=== PATIENT | female | born 1950 | race Caucasian/White ===

== ENCOUNTER → 2019-12-11 13:20 | Outpatient (BNVA) | payer MEDICARE, OTHER, SELFPAY | PROVIDERS: PCP Family Medicine; Referring Provider Family Medicine; Visit Provider Internal Medicine | DX: I25.10 Atherosclerotic heart disease of native coronary artery without angina pectoris (principal); I42.8 Other cardiomyopathies; I71.4 Abdominal aortic aneurysm, without rupture; I48.0 Paroxysmal atrial fibrillation; K29.71 Gastritis, unspecified, with bleeding; Z79.82 Long term (current) use of aspirin; Z79.899 Other long term (current) drug therapy; Z98.890 Other specified postprocedural states | CPT/HCPCS: 99212 ==

== ENCOUNTER → 2020-05-06 13:51 | Outpatient (BNVA) | payer MEDICARE, OTHER, SELFPAY | PROVIDERS: PCP Family Medicine; Visit Provider Internal Medicine | DX: Z98.890 Other specified postprocedural states (principal); I25.10 Atherosclerotic heart disease of native coronary artery without angina pectoris; I42.8 Other cardiomyopathies; I71.4 Abdominal aortic aneurysm, without rupture; I48.0 Paroxysmal atrial fibrillation; K92.2 Gastrointestinal hemorrhage, unspecified; I10 Essential (primary) hypertension | CPT/HCPCS: 93005; 99212 ==

== ENCOUNTER → 2020-06-18 12:42 | Outpatient (REF) | payer MEDICARE, OTHER, SELFPAY ==
--- NOTE | 2020-06-18 12:51 | CA_ITS ---
Transthoracic Echocardiogram Patient (Last, First, Middle): Pari Avery L Gender: Female Date of : 1950 Age: 70 Procedure Date: 06/18/2020 Procedure Type: Transthoracic Echocardiogram Location: OP Height: 152.4 cm Weight: 81.65 kg BSA: 1.78 m2 Heart Rate: bpm BP: 140 / 70 mmHg R D Internship: BLAYNE Cabrera MD: Lucien Clark MD Emd Teacher: Samuel Guevara MD Symptoms: Z98.890 - Other specified postprocedural states Study Quality: Fair ECG Rhythm: Sinus Conclusions: - 1. Normal LV systolic function with mild LVH with impaired relaxation filling pattern 2. Moderate left atrial enlargement 3. Mitral valve repair with mitral annular ring in place with mean gradient of 7 mm of mercury with calculated mitral valve area of 1.57 centimeters sq suggestive at least moderate mitral stenosis 4. Normal RV systolic pressure 5. No gross pericardial effusion Findings Left Ventricle Normal left ventricular size and systolic function. There is mildly increased left ventricular wall thickness. The visually estimated ejection fraction is between 55-60%. Diastolic function is indeterminate on the basis of available data. Right Ventricle Normal right ventricular cavity size and systolic function. Atria The left atrium is moderately dilated. There is no evidence of interatrial shunt. The right atrium is normal in size. Aortic Valve There is mild calcification of the aortic valve. There is no aortic valve stenosis. There is mild aortic valve regurgitation. Mitral Valve There is moderate anterior and mild posterior mitral leaflet thickening. There is moderate mitral annular calcification. There is mild mitral valve regurgitation. There is moderate mitral valve stenosis. Mitral annular ring in place. Mean gradient of 7 mm of mercury with calculated valve area of 1.58 cm2 by pressure half time method. This is suggestive of at least moderate mitral stenosis. Pulmonic Valve The pulmonic valve is likely normal. There is trace pulmonic valve regurgitation. Tricuspid Valve Normal tricuspid valve structure. There is mild tricuspid valve regurgitation. The right ventricular systolic pressure is normal. The right ventricular systolic pressure is 35 mmHg. Normal right atrial pressure. There is no evidence of pulmonary hypertension. Great Vessels All visible segments of the aorta are normal in size. The pulmonary artery was not well visualized. Venous The inferior vena cava is normal in size and collapses greater than 50% with inspiration. Pericardium/Pleural There is no evidence of pericardial effusion. Prior Study Comparison No significant change compared to prior study dated: 10/17/2019. Measurements 2D Linear Measurements IVSd: 1.22 0.6-0.9/0.6-1.0 cm LVIDd: 4.94 3.9-5.3/4.2-5.9 cm LVIDd Index: 2.78 2.4-3.2/2.2-3.1 cm/m2 LVIDs: 3.51 2.0-3.6 cm LVPWd: 1.19 0.7-1.1 cm Ao Root: 3.30 2.1-3.5 cm LA Diam: 3.60 2.7-3.8/3.0-4.0 cm LAIDs Index: 2.02 1.5-2.3 cm/m2 LV Mass: 287.57 67-162/88-224 g LV Mass Index: 161.56 43-95/49-115 g/m2 LVOT Diam: 2.10 3.0+(-)1.3 cm 2D Systolic Function EF 4C: 59.70 >55% EF 2C: 58.10 >55% EF BiP: 59.20 >55% Mitral Valve MV VTI: 0.69 MV Pk Rebel: 2.02 MV Mn Rebel: 1.26 MV Pk Grad: 16.00 MV Mn Grad: 7.00 MV Pk E: 1.55 MV PK A: 1.45 MV Decel Time: 466.00 E/A: 1.10 E'Lateral: 5.98 E'Medial: 5.66 E/E' Med: 27.40 E/E' Lat: 25.90 PHT: 139.00 MVA PHT: 1.58 MVA Continuity: 1.41 Decel [place]: 4.24 Aortic Valve AoV Pk Rebel: 1.84 AoV Mn Rebel: 1.17 AoV VTI: 0.36 AoV Pk Grad: 14.00 Aov Mn Grad: 6.00 LOPEZ Cont.VTI: 2.68 AI Pk Rebel: 3.95 AI [place]: 2.03 LVOT LVOT Pk Rebel: 1.24 LVOT Mn Rebel: 0.80 LVOT VTI: 0.28 LVOT Pk Grad: 6.00 LVOT Mn Grad: 3.00 LVOT Diam: 2.10 LVOT Area: 3.46 Diastolic Function MV Pk E: 1.55 MV Pk A: 1.45 E/A: 1.10 E'Medial: 5.66 E/E' Med: 27.40 E' Laterial: 5.98 E/E' Lat: 25.90 Tricuspid Valve TR Pk Rebel: 2.61 TR Pk Grad: 27.00 RA Press: 8.00 RVSP: 35.00 Great Vessels Aorta Ao Root-2D: 3.30 2.0-3.7 cm Ao Asc: 3.80 2.1-3.4 cm Ao Arch: 2.60 Updated in Other Vendor System with Status of Final Samuel Guevara MD electronically signed on 06/19/2020 3:00:34 PM with status of Final
== END ==
LOC: HO.CARD 12:42
PROVIDERS: PCP Family Medicine; Visit Provider Internal Medicine
DX: Z98.890 Other specified postprocedural states (principal)
CPT/HCPCS: 93306

== ENCOUNTER → 2020-06-24 12:56 | Outpatient (BNVA) | payer MEDICARE, OTHER, SELFPAY | PROVIDERS: PCP Family Medicine; Visit Provider Internal Medicine | DX: I25.10 Atherosclerotic heart disease of native coronary artery without angina pectoris (principal); I42.8 Other cardiomyopathies; I71.4 Abdominal aortic aneurysm, without rupture; I48.0 Paroxysmal atrial fibrillation; I10 Essential (primary) hypertension; K92.2 Gastrointestinal hemorrhage, unspecified; R06.02 Shortness of breath; Z98.890 Other specified postprocedural states | CPT/HCPCS: Q3014 ==

== ENCOUNTER → 2021-01-14 12:03 | Outpatient (BNVA) | payer MEDICARE, OTHER, SELFPAY | PROVIDERS: PCP Family Medicine; Visit Provider Internal Medicine | DX: I25.10 Atherosclerotic heart disease of native coronary artery without angina pectoris (principal); I42.8 Other cardiomyopathies; I71.4 Abdominal aortic aneurysm, without rupture; I48.0 Paroxysmal atrial fibrillation; I10 Essential (primary) hypertension; K92.2 Gastrointestinal hemorrhage, unspecified; R06.02 Shortness of breath; Z98.890 Other specified postprocedural states | CPT/HCPCS: 99212 ==

== ENCOUNTER → 2021-08-03 13:41 | Outpatient (REF) | payer MEDICARE, OTHER, SELFPAY ==
--- NOTE | 2021-08-03 13:44 | CA_ITS ---
Transthoracic Echocardiogram Patient (Last, First, Middle): Pari Avery L Gender: Female Date of : 1950 Age: 71 Procedure Date: 08/03/2021 Procedure Type: Transthoracic Echocardiogram Location: OP Height: 152.4 cm Weight: 79.38 kg BSA: 1.76 m2 Heart Rate: bpm BP: 160 / 80 mmHg Dredge Deckhand: SB Referring MD: Lucien Clark MD Symptoms: Z98.890 - Other specified postprocedural states Study Quality: Fair ECG Rhythm: Sinus with PVCs Conclusions: - The left ventricular systolic function is moderately decreased. The calculated ejection fraction is 34% by biplane method. - There is mildly decreased right ventricular systolic function. - s/p mitral valve repair. Mean gradient across the mitral valve 5-6 mm Hg at 65/Min. Mitral valve area by P1/2 1.6sqcm. Probable yckd-hg-daedhkgh mitral stenosis. Findings Left Ventricle Moderately increased left ventricular cavity size. The left ventricular systolic function is moderately decreased. The calculated ejection fraction is 34% by biplane method. There is moderate global hypokinesis. Diastolic function is indeterminate on the basis of available data. LV peak GLS 11.2%. Right Ventricle Normal right ventricular cavity size. There is mildly decreased right ventricular systolic function. Atria The left atrium is mildly dilated. The right atrium is normal in size. Aortic Valve There is a normal trileaflet aortic valve. There is no aortic valve stenosis. There is no aortic valve regurgitation. Mitral Valve There is mild mitral valve regurgitation. s/p mitral valve repair. Mean gradient across the mitral valve 5-6 mm Hg at 65/Min. Mitral valve area by P1/2 1.6sqcm. Probable [id number]-bk-[id number] mitral stenosis. Pulmonic Valve The pulmonic valve is likely normal. Tricuspid Valve There is trace tricuspid valve regurgitation. The right ventricular systolic pressure is 35 mmHg. Top normal RVSP. Great Vessels The asc aorta is normal in size. Venous The inferior vena cava is normal in size and collapses less than 50% with inspiration. Pericardium/Pleural There is no evidence of pericardial effusion. Prior Study Comparison Changes noted compared to prior study dated: 06/18/2020. LV dilated. LVEF lower. Measurements 2D Linear Measurements IVSd: 0.95 0.6-0.9/0.6-1.0 cm LVIDd: 6.58 3.9-5.3/4.2-5.9 cm LVIDd Index: 3.74 2.4-3.2/2.2-3.1 cm/m2 LVIDs: 5.58 2.0-3.6 cm LVPWd: 0.87 0.7-1.1 cm LA Diam: 3.80 2.7-3.8/3.0-4.0 cm LAIDs Index: 2.16 1.5-2.3 cm/m2 LV Mass: 321.45 67-162/88-224 g LV Mass Index: 182.64 43-95/49-115 g/m2 LVOT Diam: 2.60 3.0+(-)1.3 cm 2D Systolic Function EF 4C: 42.80 >55% EF 2C: 26.00 >55% EF BiP: 34.10 >55% Mitral Valve MV VTI: 0.52 MV Pk Rebel: 1.56 MV Mn Rebel: 1.06 MV Pk Grad: 10.00 MV Mn Grad: 5.00 MV Pk E: 1.48 MV PK A: 1.17 MV Decel Time: 463.00 E/A: 1.30 E'Lateral: 5.68 E'Medial: 3.44 E/E' Med: 43.00 E/E' Lat: 26.10 PHT: 136.00 MVA PHT: 1.62 MVA Continuity: 2.77 Decel [place]: 3.20 MR VTI: 1.85 Aortic Valve AoV Pk Rebel: 1.78 AoV Mn Rebel: 1.29 AoV VTI: 0.38 AoV Pk Grad: 13.00 Aov Mn Grad: 7.00 LOPEZ Cont.VTI: 3.76 LVOT LVOT Pk Rebel: 1.25 LVOT Mn Rebel: 0.95 LVOT VTI: 0.27 LVOT Pk Grad: 6.00 LVOT Mn Grad: 4.00 LVOT Diam: 2.60 LVOT Area: 5.31 Diastolic Function MV Pk E: 1.48 MV Pk A: 1.17 E/A: 1.30 E'Medial: 3.44 E/E' Med: 43.00 E' Laterial: 5.68 E/E' Lat: 26.10 Right Ventricle TAPSE (mm): 15.00 TVS' Rebel: 8.00 Tricuspid Valve TR Pk Rebel: 2.58 TR Pk Grad: 27.00 RA Press: 8.00 RVSP: 35.00 Great Vessels Aorta Ao Asc: 3.50 2.1-3.4 cm Pulmonary Valve PV Pk Rebel: 1.29 Peak PV Grad: 7.00 Updated in Other Vendor System with Status of Final Lucien Clark MD electronically signed on 08/06/2021 11:58:19 AM with status of Final
== END ==
LOC: HO.CARD 13:41
PROVIDERS: PCP Student in an Organized Health Care Education/Training Program; Visit Provider Internal Medicine
DX: Z98.890 Other specified postprocedural states (principal)
CPT/HCPCS: 93306; 93356

== ENCOUNTER → 2021-09-07 13:56 | Outpatient (BNVA) | payer MEDICARE, OTHER, SELFPAY | PROVIDERS: PCP Student in an Organized Health Care Education/Training Program; Visit Provider Internal Medicine | DX: I42.8 Other cardiomyopathies (principal); I25.10 Atherosclerotic heart disease of native coronary artery without angina pectoris; I49.3 Ventricular premature depolarization; I71.4 Abdominal aortic aneurysm, without rupture; I48.0 Paroxysmal atrial fibrillation; I10 Essential (primary) hypertension; K92.2 Gastrointestinal hemorrhage, unspecified; Z79.82 Long term (current) use of aspirin | CPT/HCPCS: 93005; 99212 ==

== ENCOUNTER → 2021-09-10 14:42 | Outpatient (REF) | payer MEDICARE, OTHER, SELFPAY ==
--- NOTE | 2021-09-10 14:46 | HM_ITS ---
Conclusion: 1. Patient was monitored for total period of 3 days 2. Baseline was normal sinus rhythm with average heart of 69 beats per minute 3. No significant pauses or bradycardia noted 4. Frequent wide complex run, longest lasting 12 beats and the fastest at 158 beats per minute, suggestive of nonsustained VT 5. Frequent episodes short runs of supra tachycardia with longest episode lasting 7 beats and fastest at 141 beats per minute 6. Total of 51,517 PVCs of 2 different morphology accounting for 7% of total beats account for frequent PVCs 7. Total of 44,325 PACs accounting for 14.7% of total beats account for frequent PACs 8. No patient reported events MTDD
== END ==
LOC: HO.CARD 14:42
PROVIDERS: PCP Student in an Organized Health Care Education/Training Program; Visit Provider Internal Medicine
DX: I49.3 Ventricular premature depolarization (principal)
CPT/HCPCS: 93242

== ENCOUNTER 2021-09-20 11:50 | Outpatient (REF) | payer MEDICARE, OTHER, SELFPAY ==
[2021-09-20 12:48] LABS: Hematocrit 40.2 % (37.0-47.0); Hemoglobin 13.2 g/dl (12.0-16.0); Mean Corpuscular HGB Conc 32.8 g/dl (31.0-35.0); Mean Corpuscular Hemoglobin 30.8 pg (27.0-33.0); Mean Corpuscular Volume 93.7 fL (80.0-98.0); Mean Platelet Volume 9.5 fL (9.4-12.3); Platelet Count 330 X10*3/uL (160-400); Red Blood Count 4.29 X10*6/uL (4.20-5.50); Red Cell Distribution Width 14.3 % (11.0-16.0); White Blood Count 11.8 X10*3/uL (4.8-10.8)
[2021-09-20 13:08] LABS: Anion Gap 16 (12-20); Blood Urea Nitrogen 17 mg/dL (9-16); Calcium 9.6 mg/dL (8.4-10.2); Carbon Dioxide 28 mmol/L (22-29); Chloride 101 mmol/L (96-108); Estimated Glomerular Filt Rate 44; Glucose Random 111 mg/dL (60-115); Potassium 4.7 mmol/L (3.3-5.1); Sodium 140 mmol/L (135-145)
[2021-09-20 14:40] LABS: INTERNATIONAL NORM RATIO 0.9 (0.9-1.1)
== END 2021-09-20 11:51 | disposition home or self-care (01) ==
LOC: HO.LAB 11:50
PROVIDERS: Visit Provider Internal Medicine
DX: I42.8 Other cardiomyopathies (principal)
CPT/HCPCS: 36415; 80048; 85027; 85610

== ENCOUNTER → 2021-10-04 10:49 | Outpatient (BNVA) | payer MEDICARE, OTHER, SELFPAY | PROVIDERS: PCP Student in an Organized Health Care Education/Training Program; Visit Provider Internal Medicine | DX: I42.8 Other cardiomyopathies (principal); I25.10 Atherosclerotic heart disease of native coronary artery without angina pectoris; I49.3 Ventricular premature depolarization; I71.4 Abdominal aortic aneurysm, without rupture; I48.0 Paroxysmal atrial fibrillation; I10 Essential (primary) hypertension; K92.2 Gastrointestinal hemorrhage, unspecified; Z98.890 Other specified postprocedural states | CPT/HCPCS: 99212 ==

== ENCOUNTER → 2021-12-10 14:37 | Outpatient (BNVA) | payer MEDICARE, OTHER, SELFPAY | PROVIDERS: PCP Student in an Organized Health Care Education/Training Program; Visit Provider Hospitalist | DX: J44.9 Chronic obstructive pulmonary disease, unspecified (principal) | CPT/HCPCS: 99202 ==

== ENCOUNTER → 2022-01-03 13:18 | Outpatient (BNVA) | payer MEDICARE, OTHER, SELFPAY | PROVIDERS: PCP Student in an Organized Health Care Education/Training Program; Visit Provider Internal Medicine | DX: I42.8 Other cardiomyopathies (principal); I25.10 Atherosclerotic heart disease of native coronary artery without angina pectoris; I49.3 Ventricular premature depolarization; I48.0 Paroxysmal atrial fibrillation; I71.40 Abdominal aortic aneurysm, without rupture, unspecified; I10 Essential (primary) hypertension; K92.2 Gastrointestinal hemorrhage, unspecified; Z98.890 Other specified postprocedural states | CPT/HCPCS: 99212 ==

== ENCOUNTER 2022-03-14 12:42 | Outpatient (REF) | payer MEDICARE, OTHER, SELFPAY ==
[2022-03-14 15:03] LABS: Blood Urea Nitrogen 20 mg/dL (9-16); Estimated Glomerular Filt Rate 33
--- NOTE | 2022-03-14 17:26 | PFT_ITS ---
Forced vital capacity 79%, FEV1 76%. FEV1/FVC ratio is 71. FEF 25-75 is 58% and MVV 64%. Post bronchodilator therapy, there is no significant change. Total lung capacity 99%. Residual volume 121%. Diffusion capacity is 51%. CONCLUSION: Mild obstructive airway disorder with some air trapping. No response to bronchodilator therapy. Clinical correlation is recommended. MD ANUJ Mccarty/MODL / [id number]
== END 2022-03-14 12:43 | disposition home or self-care (01) ==
LOC: HO.RESP 12:42
PROVIDERS: Nurse Practitioner Adult Health; Visit Provider Hospitalist
DX: J44.9 Chronic obstructive pulmonary disease, unspecified (principal)
CPT/HCPCS: 36415; 82565; 84520; 94060; 94727; 94729

== ENCOUNTER → 2022-03-25 12:55 | Outpatient (BNVA) | payer MEDICARE, OTHER, SELFPAY | PROVIDERS: PCP Student in an Organized Health Care Education/Training Program; Visit Provider Hospitalist | DX: J44.9 Chronic obstructive pulmonary disease, unspecified (principal); I42.8 Other cardiomyopathies; R06.02 Shortness of breath; Z87.891 Personal history of nicotine dependence; Z79.899 Other long term (current) drug therapy | CPT/HCPCS: 99212 ==

== ENCOUNTER → 2022-05-16 11:13 | Outpatient (BNVA) | payer MEDICARE, OTHER, SELFPAY | PROVIDERS: PCP Student in an Organized Health Care Education/Training Program; Visit Provider Hospitalist | DX: J44.9 Chronic obstructive pulmonary disease, unspecified (principal); I42.8 Other cardiomyopathies; R06.02 Shortness of breath | CPT/HCPCS: Q3014 ==

== ENCOUNTER → 2022-05-18 12:34 | Outpatient (REF) | payer MEDICARE, OTHER, SELFPAY ==
--- NOTE | 2022-05-18 12:54 | CA_ITS ---
Transthoracic Echocardiogram Patient (Last, First, Middle): Pari Avery L Gender: Female Date of : 1950 Age: 71 Procedure Date: 05/18/2022 Procedure Type: Transthoracic Echocardiogram Location: OP Height: 157.48 cm Weight: 81.65 kg BSA: 1.83 m2 Heart Rate: 53 bpm BP: 145 / 70 mmHg Medical Billing Instructor: LEON Cabrera MD: Lucien Clark MD Marketing And Development Coordinator: Samuel Guevara MD Symptoms: I25.10 - Atherosclerotic heart disease of [place] coronary artery without... Study Quality: Technically Difficult ECG Rhythm: NSR with Frequent ventricular premature beats Conclusions: - 1. Mildly reduced LV ejection fraction 45-50% with pseudonormal filling pattern 2. At least mildly dilated left atrium 3. Reported prior mitral valve repair with thickened leaflet especially posterior leaflet with possible mild mitral stenosis, not accurately defined 4. Normal RV systolic pressure 5. Mildly dilated ascending aorta at 3.8 cm Findings Left Ventricle Normal left ventricular cavity size. There is normal left ventricular wall thickness. The left ventricular systolic function is mildly decreased. The visually estimated ejection fraction is between 45-50%. Regional wall motion abnormalities can not be excluded due to suboptimal endocardial definition. Spectral Doppler is indicative of a pseudonormal filling pattern. Right Ventricle Moderately increased right ventricular cavity size. Atria The left atrium is mildly dilated. Interatrial shunt cannot be excluded. The right atrium is normal in size. Aortic Valve The aortic valve was not well visualized. There is no aortic valve stenosis. There is no aortic valve regurgitation. Mitral Valve The mitral valve was not well visualized. There is moderate anterior and severe posterior mitral leaflet thickening. The posterior mitral leaflet is immobile. There is moderate anterior and moderate posterior mitral annular calcification. There is moderate mitral annular calcification. There is trace mitral valve regurgitation. There is no mitral valve stenosis. reported prior mitral valve repair with severely thickened and a mobile posterior leaflet with mild stenosis not ruled out. Pulmonic Valve The pulmonic valve was not well visualized. Tricuspid Valve Likely normal tricuspid valve structure and function. There is mild tricuspid valve regurgitation. The right ventricular systolic pressure is normal. The right ventricular systolic pressure is 20 mmHg. Normal right atrial pressure. There is no evidence of pulmonary hypertension. Great Vessels The pulmonary artery was not well visualized. There is mild dilatation of the ascending aorta measuring 3.80 cm. Venous The inferior vena cava is normal in size and collapses greater than 50% with inspiration. Pericardium/Pleural The pericardium was not well visualized. Measurements 2D Linear Measurements IVSd: 0.88 0.6-0.9/0.6-1.0 cm LVIDd: 5.99 3.9-5.3/4.2-5.9 cm LVIDd Index: 3.27 2.4-3.2/2.2-3.1 cm/m2 LVIDs: 4.58 2.0-3.6 cm LVPWd: 1.15 0.7-1.1 cm Ao Root: 3.70 2.1-3.5 cm LA Diam: 4.70 2.7-3.8/3.0-4.0 cm LAIDs Index: 2.57 1.5-2.3 cm/m2 LV Mass: 313.17 67-162/88-224 g LV Mass Index: 171.13 43-95/49-115 g/m2 LVOT Diam: 2.20 3.0+(-)1.3 cm 2D Systolic Function EF 4C: 47.40 >55% EF 2C: 50.40 >55% EF BiP: 48.70 >55% Mitral Valve MV Pk E: 1.36 MV PK A: 1.38 MV Decel Time: 525.00 E/A: 1.00 E'Lateral: 10.60 E'Medial: 4.24 E/E' Med: 32.10 E/E' Lat: 12.80 PHT: 154.00 MVA PHT: 1.43 Decel [place]: 2.59 Aortic Valve AoV Pk Rebel: 2.10 AoV Mn Rebel: 1.34 AoV VTI: 0.48 AoV Pk Grad: 18.00 Aov Mn Grad: 9.00 LOPEZ Cont.VTI: 2.74 LVOT LVOT Pk Rebel: 1.73 LVOT Mn Rebel: 1.10 LVOT VTI: 0.34 LVOT Pk Grad: 12.00 LVOT Mn Grad: 6.00 LVOT Diam: 2.20 LVOT Area: 3.80 Diastolic Function MV Pk E: 1.36 MV Pk A: 1.38 E/A: 1.00 E'Medial: 4.24 E/E' Med: 32.10 E' Laterial: 10.60 E/E' Lat: 12.80 Right Ventricle TAPSE (mm): 20.30 TVS' Rebel: 11.70 Tricuspid Valve TR Pk Rebel: 1.73 TR Pk Grad: 12.00 RA Press: 8.00 RVSP: 20.00 Great Vessels Aorta Ao Root-2D: 3.70 2.0-3.7 cm Ao Asc: 3.80 2.1-3.4 cm Updated in Other Vendor System with Status of Final Samuel Guevara MD electronically signed on 05/19/2022 1:38:18 PM with status of Final
--- NOTE | 2022-05-18 12:54 | HM_ITS ---
Conclusion: 1. Patient was monitored for total period of 3 days 2. Baseline was normal sinus with average heart of 66 beats per minute 3. No significant pauses noted 4. Total of 67,125 PVCs accounting for 23.7% total beats account for very frequent PVCs 5. 26 events of nonsustained VT with longest of 3 beats and fastest at 158 beats per minute 6. Occasional PACs noted 7. Patient reported 3 symptoms of shortness of breath during the recording. , correlating with isolated PVCs MTDD
== END ==
LOC: HO.CARD 12:34
PROVIDERS: PCP Student in an Organized Health Care Education/Training Program; Visit Provider Internal Medicine
DX: I25.10 Atherosclerotic heart disease of native coronary artery without angina pectoris (principal); I42.8 Other cardiomyopathies; I49.3 Ventricular premature depolarization
CPT/HCPCS: 93242; 93306

== ENCOUNTER → 2022-08-10 14:06 | Outpatient (BNVA) | payer MEDICARE, OTHER, SELFPAY | PROVIDERS: Visit Provider Internal Medicine | DX: I45.10 Unspecified right bundle-branch block (principal); I49.3 Ventricular premature depolarization; I35.1 Nonrheumatic aortic (valve) insufficiency; I71.40 Abdominal aortic aneurysm, without rupture, unspecified; I42.8 Other cardiomyopathies; I48.0 Paroxysmal atrial fibrillation; I25.10 Atherosclerotic heart disease of native coronary artery without angina pectoris; I10 Essential (primary) hypertension; J44.9 Chronic obstructive pulmonary disease, unspecified; K92.2 Gastrointestinal hemorrhage, unspecified; Z98.890 Other specified postprocedural states; Z79.82 Long term (current) use of aspirin; Z79.899 Other long term (current) drug therapy | CPT/HCPCS: 93005; 99212 ==

== ENCOUNTER 2023-01-16 10:27 | Outpatient (AMB) | payer MEDICARE, OTHER, SELFPAY ==
[2023-01-16 10:33] VITALS: BP 126/66; PULSE 62; BMI 32.7
--- NOTE | 2023-01-16 10:33 | A.OFFVIS_ITS ---
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: No Accompanied by: Self / Same As Patient Allergies meperidine [Demerol] Allergy (Unknown, Verified 01/16/23 10:35) Anaphylaxis Losartan Allergy (Intermediate, Uncoded 01/16/23 10:35) Difficulty Swallowing Medication List - Last Reconciled 01/16/23 by Lucien Clark MD albuterol sulfate 90 mcg/actuation 2 inhalations inhalation Q6H PRN 30 days amlodipine 10 mg PO DAILY aspirin 81 mg PO DAILY atorvastatin 80 mg PO DAILY budesonide 0.5 mg (2 mL) inhalation DAILY 30 days calcifediol ER ([place]) 30 mcg PO BEDTIME carvedilol 12.5 mg PO BID 90 days furosemide 40 mg PO DAILY ipratropium-albuterol 0.5 mg-3 mg(2.5 mg base)/3 mL 3 mL inhalation Q6H PRN irbesartan 150 mg PO DAILY nebulizers As directed oxycodone-acetaminophen 10-325 mg tabs PO pantoprazole 40 mg PO ONCE HPI HPI Comments History of Present Illness Details Pari returns for follow-up. To recall, she has a history of severe mitral regurgitation that led to mitral valve repair. She has a history of endovascular repair of the abdominal aortic aneurysm in the past. She also has a history of nonischemic cardiomyopathy. Additionally, COPD. According to her, shortness of breath is just about the same as before. Leg swelling is her main problem and she has been noticing some swelling in lower extremities for the last few days. That is bothering her a lot. Otherwise, weight is just about the same as before as well. No other new concerns. She takes all her medications. [facility] Medical History (Updated 01/16/23 @ 11:03 by Lucien Clark MD) SOB (shortness of breath) Essential hypertension Hemorrhage of gastrointestinal tract, unspecified PAF (paroxysmal atrial fibrillation) Abdominal aortic aneurysm without rupture Nonischemic cardiomyopathy Atherosclerotic cardiovascular disease Benign essential hypertension Mitral regurgitation Pneumonia COPD (chronic obstructive pulmonary disease) Surgical History Status post mitral valve annuloplasty Abdominal aortic aneurysm History of open heart surgery History of appendectomy History of back surgery Family History Father Unknown family medical history Mother HTN (hypertension) Daughter Alive and well Social History Patient Tobacco Use Status: Former Tobacco user Quit Date: 07/2016 Tobacco use type: Cigarette Years Smoked: 30+ Years Review of Systems Const Denies weakness ENT Denies dizziness Card Denies chest pain, Denies syncope, Denies rapid heart rate, Denies pedal edema, Denies edema, Denies lightheadedness, Denies palpitations, Denies dyspnea on exertion and Denies orthopnea Resp Denies cough and Denies dyspnea on exertion GI Denies hematochezia and Denies change in stool character Musc Denies abnormal gait, Denies muscle cramps, Denies muscle weakness, Denies numbness, Denies radiating pain into limb and Denies tingling Neuro Denies abnormal gait, Denies dizziness, Denies syncope, Denies numbness, Denies tingling and Denies weakness Endo Denies palpitations Physical Exam Vital Signs: Last Vital Signs Pulse 62 01/16/23 10:33 BP 126/66 01/16/23 10:33 BMI result Body Mass Index 32.7 Const General: comfortable and no acute distress Orientation/consciousness: patient oriented x3 HEENT Other: Unremarkable Head: Yes normal to inspection Neck Neck: Yes normal visual inspection Chest Chest palpation & inspection: normal inspection of the chest Resp Auscultation: clear to auscultation bilaterally Cardio Palpation: normal PMI Heart sounds: S1 normal heart sound present, S2 normal heart sound present, no gallops, no murmurs and no rubs GI Palpation (GI): Soft to palpation Back/Spine/Pelvis Other: unremarkable Skin General skin exam: no rashes or lesions noted Neuro General: patient oriented x3 Extrem Other: 1+ edema General: Yes normal to inspection Psych Mental Status: mental status grossly normal Office Procedures EKG Details: EKG with sinus rhythm at 70/Min; frequent PVCs in a bigeminal pattern and ventricular couplet. Unifocal. [id number], Complete Assessment & Plan Assessment & Plan (1) Nonischemic cardiomyopathy: Code(s): I42.8 - Other cardiomyopathies Plan: In the most recent echocardiogram, LVEF 45-50%. Has been in the 30s in the past. Has been up and down. Last cardiac catheterization without any significant CAD. Normal filling pressures. With regard to leg swelling, could be multifactorial. Not clear how much is cardiac but there could also be components from COPD/right heart dysfunction as well as dependent edema. For medications, she is on Coreg. Could not take Entresto due to cost and now she is on Irbesartan. She is on Lasix-20 mg 2 tablets daily. We need to get a updated BMP and cardiac BNP and then we can up titrate the diuretics. As she also has CKD and no nephrology follow-up, we will refer to our team. (2) Status post mitral valve annuloplasty: Code(s): Z98.890 - Other specified postprocedural states Plan: Stable. There is a question of mild mitral stenosis but doubt anything significant. (3) Atherosclerotic cardiovascular disease: Code(s): I25.10 - Atherosclerotic heart disease of [place] coronary artery without angina pectoris Plan: Minimal irregularities on recent catheterization. Aspirin and statins. Last available LDL 59 mg/dL. Triglycerides were however high at 453 mg/dL. Weight loss is the main treatment for high triglycerides. (4) PVC (premature ventricular contraction): Code(s): I49.3 - Ventricular premature depolarization Plan: High PVC burden of 23% on the last Holter. Very brief runs, up to 3 beats. Then beta-olimpia dose was increased. Not clear if this is contributing to any leg swelling from high PVC burden cardiomyopathy. Consider amiodarone but she already has lung disease too. Somewhat of a difficult decision. Will decide based on labs. (5) Abdominal aortic aneurysm without rupture: Code(s): I71.4 - Abdominal aortic aneurysm, without rupture Qualifiers: Abdominal aorta location: unspecified Qualified Code(s): I71.40 - Abdominal aortic aneurysm, without rupture, unspecified Plan: Status post endovascular repair. She states that she has a follow-up coming up with vascular surgery at [facility] very soon. (6) PAF (paroxysmal atrial fibrillation): Code(s): I48.0 - Paroxysmal atrial fibrillation Plan: This was noted postoperatively after mitral valve surgery. She has had INRs greater than 10 and then Coumadin was stopped. (7) Hemorrhage of gastrointestinal tract, unspecified: Code(s): K92.2 - Gastrointestinal hemorrhage, unspecified Qualifiers: GI bleed type/associated pathology: unspecified gastrointestinal hemorrhage type Qualified Code(s): K92.2 - Gastrointestinal hemorrhage, unspecified Plan: In the setting of supratherapeutic INR. EGD then had revealed hemorrhagic gastritis. Still listed to be on pantoprazole. (8) Essential hypertension: Code(s): I10 - Essential (primary) hypertension Plan: Blood pressure seems stable. No changes. Orders: Orders TSH reflex Free T4 Today I48.0 - Paroxysmal atrial fibrillation Complete Blood Count no Diff Today I42.8 - Other cardiomyopathies Basic Metabolic Panel Today I42.8 - Other cardiomyopathies B Type Natriuretic Peptide Today I42.8 - Other cardiomyopathies, I50.9 - Heart failure, unspecified Liver Panel Today I25.10 - Atherosclerotic heart disease of [place] coronary artery without angina pectoris, R79.89 - Other specified abnormal findings of blood chemistry Referrals Nephrology Referral N18.9 - Chronic kidney disease, unspecified Coding Level of Care Code Est Pt Level 4 (11347) Diagnoses Nonischemic cardiomyopathy I42.8 Status post mitral valve annuloplasty Z98.890 Atherosclerotic cardiovascular disease I25.10 PVC (premature ventricular contraction) I49.3 Abdominal aortic aneurysm (AAA) without rupture, unspecified part I71.40 Abdominal aorta location: unspecified PAF (paroxysmal atrial fibrillation) I48.0 Gastrointestinal hemorrhage, unspecified gastrointestinal hemorrhage type K92.2 GI bleed type/associated pathology: unspecified gastrointestinal hemorrhage type Essential hypertension I10 CPT Codes EKG - CPT: [id number], Complete ([id number])
== END 2023-01-16 11:01 | disposition home or self-care (01) ==
PROVIDERS: PCP Student in an Organized Health Care Education/Training Program; Visit Provider Internal Medicine
DX: I42.8 Other cardiomyopathies (principal); Z98.890 Other specified postprocedural states; I25.10 Atherosclerotic heart disease of native coronary artery without angina pectoris; I49.3 Ventricular premature depolarization; I71.40 Abdominal aortic aneurysm, without rupture, unspecified; I48.0 Paroxysmal atrial fibrillation; K92.2 Gastrointestinal hemorrhage, unspecified; I10 Essential (primary) hypertension
CPT/HCPCS: 93010; 99214

== ENCOUNTER 2023-01-16 10:27 | Outpatient (REF) | payer MEDICARE, OTHER, SELFPAY ==
[2023-01-16 12:36] LABS: Hematocrit 35.2 % (37.0-47.0); Hemoglobin 11.6 g/dl (12.0-16.0); Mean Corpuscular Hemoglobin 31.6 pg (27.0-33.0); Mean Corpuscular Volume 95.9 fL (80.0-98.0); Mean Platelet Volume 9.6 fL (9.4-12.3); Platelet Count 257 X10*3/uL (160-400); Red Blood Count 3.67 X10*6/uL (4.20-5.50); Red Cell Distribution Width 13.7 % (11.0-16.0); White Blood Count 9.4 X10*3/uL (4.8-10.8)
[2023-01-16 13:13] LABS: B Type Natriuretic Peptide 367 pg/mL (<100)
[2023-01-16 13:23] LABS: Alanine Aminotransferase 16 U/L (0-31); Albumin Level 4.1 g/dL (3.5-5.0); Alkaline Phosphatase 102 U/L (39-117); Anion Gap 13 (12-20); Aspartate Amino Transferase 26 U/L (5-31); Bilirubin Direct 0.2 mg/dL (0.0-0.5); Bilirubin Total 0.5 mg/dL (0.0-1.0); Blood Urea Nitrogen 20 mg/dL (9-16); Calcium 9.6 mg/dL (8.4-10.2); Carbon Dioxide 29 mmol/L (22-29); Chloride 102 mmol/L (96-108); Estimated Glomerular Filt Rate 36; Glucose Random 112 mg/dL (60-115); Potassium 4.7 mmol/L (3.3-5.1); Sodium 139 mmol/L (135-145); Total Protein 6.8 g/dL (6.5-8.0)
[2023-01-16 13:40] LABS: TSH reflex Free T4 1.73 uIU/mL (0.32-4.0)
== END 2023-01-16 10:28 | disposition home or self-care (01) ==
LOC: HO.LAB 10:27
PROVIDERS: PCP Student in an Organized Health Care Education/Training Program; Visit Provider Internal Medicine
DX: I48.0 Paroxysmal atrial fibrillation (principal); I11.0 Hypertensive heart disease with heart failure; I50.9 Heart failure, unspecified; I42.8 Other cardiomyopathies; I25.10 Atherosclerotic heart disease of native coronary artery without angina pectoris; K92.2 Gastrointestinal hemorrhage, unspecified; R79.89 Other specified abnormal findings of blood chemistry; Z98.890 Other specified postprocedural states
CPT/HCPCS: 36415; 80048; 80076; 83880; 84443; 85027; 93005; 99212

== ENCOUNTER 2023-02-27 13:12 | Outpatient (AMB) | payer MEDICARE, OTHER, SELFPAY ==
--- NOTE | 2023-02-27 13:12 | A.OFFVIS_ITS ---
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 [place], [place] further away for her and she is looking to relocate her providers to minimize the distance. The patient has use Trelegy with good effect. Although she still continues to complaint of a productive cough. She brings because up in a daily basis. Moderate in amount. Usually is clear. The patient also complains of shortness of breath with activity. Did talk about pulmonary rehabilitation. although be hard for specially with winter coming up. We did talk about other alternatives including online pulmonary rehabilitation. She did have a CT scan the chest lasting 2020 at [facility]. I did review the results. Was a CTA so it ruled out pulmonary emboli. The patient did have evidence of bullous disease and also areas of atelectasis. No significant pulmonary nodules noted. 03/25/2022 the patient has a telehealth v isit today. She started developing GI symptoms and she felt uncomfortable leaving the house. Denies having any fevers or chills or any respiratory complaints. She is no longer using the Trelegy. She continues use the DuoNeb 3 times a day. She did get the budesonide but she has not started as of yet. Now that she is off the Trelegy she can go ahead and start budesonide once a day. Also did request she can try to stop taking the DuoNeb twice a day and then also as needed in between. The patient did have pulmonary function studies which we personally reviewed. She has a mild obstruction consistent with COPD and a moderate diffusion impairment secondary to likely emphysema. The patient will benefit from pulmonary rehabilitation. She also has an echocardiogram pending. She is looking to start pulmonary rehabilitation in the springtime with the weather gets a little better. Also, will have her follow-up dense we can reassess her overall condition. 05/16/2022 the patient is here for a [place] telehealth follow-up visit. The patient is now dealing with likely a GI bug. She has significant nausea and vomiting. Therefore she stated home. The patient has a telehealth visit today. She did start the budesonide nebulized therapy she seems to be tolerating it. She is using it with DuoNeb. She has not had to use her rescue inhaler. We did again review her pulmonary function studies. The patient does have significant emphysema bit and does have evidence of a decreased diffusion impairment. And also her spirometry demonstrates concavity of the expiratory limb suggesting [id number] obstructive airway disease. The patient will be a great candidate for rehab. We have put in orders for rehab. She has not heard yet. I will put another order in just to make sure. She is also having a full cardiac workup. Will follow-up after she starts rehab to see her progress. 02/27/2023 the patient is here for a tele health visit. She was in her usual state health until she went to the pharmacy at [facility] and she ended up getting 2 vaccines together. She had the RSV and the COVID shot together. After she started developing worsening shortness of breath nonproductive cough chest tightness. She has been using her inhaler although she has a nebulizer she does not have the right solution. She is complaining of very dry mouth. Therefore will switch over the DuoNeb to a regular albuterol. And she should also restart the budesonide. Because of the exacerbation patient will also be started on short course of antibiotics and prednisone to help her with her symptom relief. The patient did not do pulmonary rehabilitation since it was hard for her to travel with the cold weather. She is looking forward to doing it when the better season. Will follow-up in treated for months and will discuss that at that time. [facility] Medical History (Updated 02/27/23 @ 13:15 by Roshan Parikh MD) SOB (shortness of breath) Essential hypertension Hemorrhage of gastrointestinal tract, unspecified PAF (paroxysmal atrial fibrillation) Abdominal aortic aneurysm without rupture Nonischemic cardiomyopathy Atherosclerotic cardiovascular disease Benign essential hypertension Mitral regurgitation Pneumonia COPD (chronic obstructive pulmonary disease) Surgical History Status post mitral valve annuloplasty Abdominal aortic aneurysm History of open heart surgery History of appendectomy History of back surgery Family History Father Unknown family medical history Mother HTN (hypertension) Daughter Alive and well Social History Patient Tobacco Use Status: Former Tobacco user Quit Date: 07/2016 Tobacco use type: Cigarette Years Smoked: 30+ Years Review of Systems Const Denies chills, Denies fatigue, Denies fever(s), Denies frequent falls, Denies weakness, Denies weight gain and Denies weight loss ENT Denies dizziness Card Denies chest pain, Denies leg edema, Denies lightheadedness, Denies palpitations, Denies dyspnea, Reports dyspnea on exertion, Denies orthopnea and Denies other (Loss of consciousness) Resp Reports chest congestion, Reports cough, Denies dyspnea, Reports dyspnea on exertion and Reports wheezing GI Reports as per HPI Musc Denies abnormal gait, Denies muscle weakness, Denies numbness, Denies radiating pain into limb and Denies tingling Neuro Denies abnormal gait, Denies dizziness, Denies frequent falls, Denies numbness, Denies tingling and Denies weakness Endo Denies fatigue and Denies palpitations Aller/Immun Reports wheezing Physical Exam Vital Signs: BMI result Body Mass Index 32.0 Const General: alert Orientation/consciousness: patient oriented x3 HEENT Other: Unremarkable Resp Effort & Inspection: able to speak in complete sentences Back/Spine/Pelvis Other: unremarkable Neuro General: patient oriented x3 Psych Mental Status: mental status grossly normal Assessment & Plan Assessment & Plan (1) COPD (chronic obstructive pulmonary disease): Code(s): J44.9 - Chronic obstructive pulmonary disease, unspecified Qualifiers: COPD type: COPD with acute exacerbation Qualified Code(s): J44.1 - Chronic obstructive pulmonary disease with (acute) exacerbation (2) Nonischemic cardiomyopathy: Code(s): I42.8 - Other cardiomyopathies (3) SOB (shortness of breath): Code(s): R06.02 - Shortness of breath Plan stop Duoneb BID due to dry mouth Start Albuterol Nebs TID Add BUdesonide via neb in AM Prednisone taper doxycycline F/U 3-4 months Medications: New prednisone PO daily; Take 2 tabs daily x 5 days, then 1 tablet daily x 5 days 10 days 15 tabs 0RF albuterol sulfate 2.5 mg (3 mL) inhalation TID 30 days 270 mL 11RF J44.9 - Chronic obstructive pulmonary disease, unspecified doxycycline hyclate 100 mg PO BID 7 days 14 caps 0RF Telehealth Telehealth Location of provider rendering services: practice address Location of patient: address on file Patient Identification confirmed using: Name, : Yes Telehealth method: voice only Patient verbally consented to treatment: Yes Patient verbally consented to billing insurance company: Yes Patient informed of any privacy concerns related to visit: Yes Coding Level of Care Code Tele Est Pt Level 4 (12855) Diagnoses Chronic obstructive pulmonary disease with acute exacerbation J44.1 COPD type: COPD with acute exacerbation Nonischemic cardiomyopathy I42.8 SOB (shortness of breath) R06.02 Time Spent (min) 15
[2023-02-27 13:13] VITALS: BMI 32.0
== END 2023-02-27 13:40 | disposition home or self-care (01) ==
LOC: HO.HPS 13:12
PROVIDERS: PCP Student in an Organized Health Care Education/Training Program; Visit Provider Hospitalist
DX: J44.1 Chronic obstructive pulmonary disease with (acute) exacerbation (principal); I42.8 Other cardiomyopathies
CPT/HCPCS: 99442

== ENCOUNTER → 2023-02-27 13:12 | Outpatient (BNVA) | payer MEDICARE, OTHER, SELFPAY | PROVIDERS: PCP Student in an Organized Health Care Education/Training Program; Visit Provider Hospitalist ==

== ENCOUNTER 2023-04-17 09:04 | Outpatient (REF) | payer MEDICARE, OTHER, SELFPAY ==
--- NOTE | ~2023-04-17 | US_ITS ---
EXAMINATION: US ABDOMEN COMPLETE CLINICAL INFORMATION: Abdominal distention. Question of ascites. COMPARISON: Renal ultrasound 05/03/2017. CT abdomen and pelvis 01/17/2017. TECHNIQUE: Real-time imaging of the abdominal viscera. Limited visualization due to bowel gas. FINDINGS: PANCREAS: Limited visualization of the pancreatic head and tail. Imaged portions of pancreatic body is heterogeneous. ABDOMINAL AORTA: Severely limited visualization. Previously identified abdominal aortic aneurysm was better characterized on CT angiogram of 01/17/2017 when it measured 4.6 cm. Mid abdominal aorta measures 3.9 cm in AP dimension where imaged. Initial set of very limited images of the distal abdominal suggest measurements of approximately 6.2 x 6.7 cm. The hydroelectric plant operator later presented an additional set of images of the abdominal aorta with measurements of 3.8 cm AP and 3.5 cm transverse. Radiologist was not in attendance. Images were later) for interpretation. The abdominal aortic aneurysm demonstrates a complex internal appearance suggesting possible plaque and thrombus, better characterized on prior CT scan. Dedicated vascular CT scan of the abdominal aorta is recommended for further evaluation. INFERIOR VENA CAVA: Visualized portions are normal. LIVER: Increased hepatic parenchymal heterogeneity and echogenicity could be associated with hepatocellular disease/hepatic steatosis and substantially limits visualization. Correlation with liver function tests and clinical exam recommended to determine further management. GALLBLADDER: Multiple small gallstones. Gallbladder wall thickness of 3 mm. COMMON BILE DUCT: Normal in caliber measuring 0.3 cm in diameter. RIGHT KIDNEY: Increased renal echogenicity. No hydronephrosis. No renal calculi. Limited visualization. The kidney measures 9.8 cm in maximum dimension. LEFT KIDNEY: A 3 mm mid pole calculus. No hydronephrosis. Upper pole 1.7 cm cyst with punctate mural calcification is difficult to characterize due to limited visualization and was not identified on prior ultrasound. Limited visualization. The kidney measures 9.8 cm in maximum dimension. SPLEEN: Normal. The spleen measures 9.1 cm in maximum dimension. FREE FLUID: None. US/US abdomen complete IMPRESSION: 1. Previously identified abdominal aortic aneurysm was better characterized on CT angiogram of 01/17/2017 when it measured 4.6 cm. Mid abdominal aorta measures 3.9 cm in AP dimension where imaged. Initial set of very limited images of the distal abdominal suggest measurements of approximately 6.2 x 6.7 cm. The hydroelectric plant operator later presented an additional set of images of the abdominal aorta with measurements of 3.8 cm AP and 3.5 cm transverse. Radiologist was not in attendance. Images were later provided for interpretation. The abdominal aortic aneurysm demonstrates a complex internal appearance suggesting possible plaque and thrombus, better characterized on prior CT scan. Dedicated vascular CT scan of the abdominal aorta is recommended for further evaluation. 2. Increased hepatic parenchymal heterogeneity and echogenicity could be associated with hepatocellular disease/hepatic steatosis and substantially limits visualization. Correlation with liver function tests and clinical exam recommended to determine further management. 3. Cholelithiasis. 4. Left renal 3 mm mid pole calculus. No hydronephrosis. 5. Left renal upper pole 1.7 cm cyst with punctate mural calcification is difficult to characterize due to limited visualization and was not identified on prior ultrasound. This study was presented today April 18, 2023 for interpretation. PSA staff will provide results to referring provider at this time.
--- NOTE | ~2023-04-17 | US_ITS ---
EXAMINATION: US ABDOMEN COMPLETE CLINICAL INFORMATION: Abdominal distention. Question of ascites. COMPARISON: Renal ultrasound 05/03/2017. CT abdomen and pelvis 01/17/2017. TECHNIQUE: Real-time imaging of the abdominal viscera. Limited visualization due to bowel gas. FINDINGS: PANCREAS: Limited visualization of the pancreatic head and tail. Imaged portions of pancreatic body is heterogeneous. ABDOMINAL AORTA: Severely limited visualization. Previously identified abdominal aortic aneurysm was better characterized on CT angiogram of 01/17/2017 when it measured 4.6 cm. Mid abdominal aorta measures 3.9 cm in AP dimension where imaged. Initial set of very limited images of the distal abdominal suggest measurements of approximately 6.2 x 6.7 cm. The chief hospital administrator later presented an additional set of images of the abdominal aorta with measurements of 3.8 cm AP and 3.5 cm transverse. Radiologist was not in attendance. Images were later) for interpretation. The abdominal aortic aneurysm demonstrates a complex internal appearance suggesting possible plaque and thrombus, better characterized on prior CT scan. Dedicated vascular CT scan of the abdominal aorta is recommended for further evaluation. INFERIOR VENA CAVA: Visualized portions are normal. LIVER: Increased hepatic parenchymal heterogeneity and echogenicity could be associated with hepatocellular disease/hepatic steatosis and substantially limits visualization. Correlation with liver function tests and clinical exam recommended to determine further management. GALLBLADDER: Multiple small gallstones. Gallbladder wall thickness of 3 mm. COMMON BILE DUCT: Normal in caliber measuring 0.3 cm in diameter. RIGHT KIDNEY: Increased renal echogenicity. No hydronephrosis. No renal calculi. Limited visualization. The kidney measures 9.8 cm in maximum dimension. LEFT KIDNEY: A 3 mm mid pole calculus. No hydronephrosis. Upper pole 1.7 cm cyst with punctate mural calcification is difficult to characterize due to limited visualization and was not identified on prior ultrasound. Limited visualization. The kidney measures 9.8 cm in maximum dimension. SPLEEN: Normal. The spleen measures 9.1 cm in maximum dimension. FREE FLUID: None.
--- NOTE | 2023-04-17 09:45 | HM_ITS ---
Conclusion: 1. Patient was monitored for total period of 3 days and 1 hour 2. Baseline was normal sinus rhythm with average heart of 72 beats per minute 3. Frequent PACs noted, isolated with total burden of 5.7% 4. Frequent PVCs noted with total burden of 14.8% 5. No patient reported events MTDD
== END 2023-04-17 09:05 | disposition home or self-care (01) ==
LOC: HO.US 09:04
PROVIDERS: PCP Student in an Organized Health Care Education/Training Program; Visit Provider Internal Medicine
DX: I49.3 Ventricular premature depolarization (principal); I49.1 Atrial premature depolarization; I71.40 Abdominal aortic aneurysm, without rupture, unspecified; R14.0 Abdominal distension (gaseous)
CPT/HCPCS: 76700; 93242

== ENCOUNTER → 2023-04-17 09:45 | Outpatient (BNV) | payer MEDICARE, OTHER, SELFPAY | PROVIDERS: PCP Student in an Organized Health Care Education/Training Program; Visit Provider Internal Medicine Cardiovascular Disease | DX: I49.1 Atrial premature depolarization (principal); I49.3 Ventricular premature depolarization | CPT/HCPCS: 93244 ==

== ENCOUNTER → 2023-05-29 15:33 | Outpatient (BNVA) | payer MEDICARE, SELFPAY | PROVIDERS: PCP Student in an Organized Health Care Education/Training Program; Visit Provider Hospitalist ==

== ENCOUNTER 2023-05-29 15:45 | Outpatient (AMB) | payer MEDICARE, SELFPAY ==
[2023-05-29 15:34] VITALS: BMI 32.0
--- NOTE | 2023-05-29 15:34 | MHC.OFFVIS ---
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 She has [place] doing most of [place], it [place] further away for her and she is looking to relocate her providers to minimize the distance. The patient has use Trelegy with good effect. Although she still continues to complaint of a productive cough. She brings because up in a daily basis. Moderate in amount. Usually is clear. The patient also complains of shortness of breath with activity. Did talk about pulmonary rehabilitation. although be hard for specially with winter coming up. We did talk about other alternatives including online pulmonary rehabilitation. She did have a CT scan the chest lasting 2020 at [facility]. I did review the results. Was a CTA so it ruled out pulmonary emboli. The patient did have evidence of bullous disease and also areas of atelectasis. No significant pulmonary nodules noted. 03/25/2022 the patient has a telehealth visit today. She started developing GI symptoms and she felt uncomfortable leaving the house. Denies having any fevers or chills or any respiratory complaints. She is no longer using the Trelegy. She continues use the DuoNeb 3 times a day. She did get the budesonide but she has not started as of yet. Now that she is off the Trelegy she can go ahead and start budesonide once a day. Also did request she can try to stop taking the DuoNeb twice a day and then also as needed in between. The patient did have pulmonary function studies which we personally reviewed. She has a mild obstruction consistent with COPD and a moderate diffusion impairment secondary to likely emphysema. The patient will benefit from pulmonary rehabilitation. She also has an echocardiogram pending. She is looking to start pulmonary rehabilitation in the springtime with the weather gets a little better. Also, will have her follow-up dense we can reassess her overall condition. 05/16/2022 the patient is here for a pulmonary telehealth follow-up visit. The patient is now dealing with likely a GI bug. She has significant nausea and vomiting. Therefore she stated home. The patient has a telehealth visit today. She did start the budesonide nebulized therapy she seems to be tolerating it. She is using it with DuoNeb. She has not had to use her rescue inhaler. We did again review her pulmonary function studies. The patient does have significant emphysema bit and does have evidence of a decreased diffusion impairment. And also her spirometry demonstrates concavity of the expiratory limb suggesting [id number] obstructive airway disease. The patient will be a great candidate for rehab. We have put in orders for rehab. She has not heard yet. I will put another order in just to make sure. She is also having a full cardiac workup. Will follow-up after she starts rehab to see her progress. 02/27/2023 the patient is here for a telehealth visit. She was in her usual state health until she went to the pharmacy at [facility] and she ended up getting 2 vaccines together. She had the RSV and the COVID shot together. After she started developing worsening shortness of breath nonproductive cough chest tightness. She has been using her inhaler although she has a nebulizer she does not have the right solution. She is complaining of very dry mouth. Therefore will switch over the DuoNeb to a regular albuterol. And she should also restart the budesonide. Because of the exacerbation patient will also be started on short course of antibiotics and prednisone to help her with her symptom relief. The patient did not do pulmonary rehabilitation since it was hard for her to travel with the cold weather. She is looking forward to doing it when the better season. Will follow-up in treated for months and will discuss that at that time. 05/29/2023 the patient has a telehealth sick visit. She has been sick now for about 3-4 days. She started developing a sore throat and then chest congestion and productive cough. The mucus is now greenish in color. Moderate severity. Also complaining worsening shortness of breath. She has been using her nebulized therapy with partial improvement. She did swab for COVID-19 was negative. Denies any fevers or chills. The patient has not had a chest x-ray in some time. The last visit back in February she was also sick and she did require antibiotics and prednisone. Will go ahead and request a chest x-ray at this time. The patient should also start prednisone antibiotics at this time. If the patient is no better in 24 hours she should call the office. If she is worse she should also call Earlier. Otherwise follow-up in 3-4 months. [facility] Medical History (Updated 02/27/23 @ 13:15 by Roshan Parikh MD) SOB (shortness of breath) Essential hypertension Hemorrhage of gastrointestinal tract, unspecified PAF (paroxysmal atrial fibrillation) Abdominal aortic aneurysm without rupture Nonischemic cardiomyopathy Atherosclerotic cardiovascular disease Benign essential hypertension Mitral regurgitation Pneumonia COPD (chronic obstructive pulmonary disease) Surgical History Status post mitral valve annuloplasty Abdominal aortic aneurysm History of open heart surgery History of appendectomy History of back surgery Family History Father Unknown family medical history Mother HTN (hypertension) Daughter Alive and well Social History Patient Tobacco Use Status: Former Tobacco user Quit Date: 07/2016 Tobacco use type: Cigarette Years Smoked: 30+ Years Review of Systems Const Denies chills, Reports fatigue, Denies fever(s), Denies frequent falls, Denies weakness, Denies weight gain and Denies weight loss ENT Denies dizziness Card Denies chest pain, Denies leg edema, Denies lightheadedness, Denies palpitations, Reports dyspnea, Reports dyspnea on exertion, Denies orthopnea and Denies other (Loss of consciousness) Resp Reports change in phlegm color, Reports chest congestion, Reports cough, Reports dyspnea, Reports dyspnea on exertion and Reports wheezing GI Reports as per HPI Musc Denies abnormal gait, Denies muscle weakness, Denies numbness, Denies radiating pain into limb and Denies tingling Neuro Denies abnormal gait, Denies dizziness, Denies frequent falls, Denies numbness, Denies tingling and Denies weakness Endo Reports fatigue and Denies palpitations Aller/Immun Reports wheezing Physical Exam Vital Signs: BMI result Body Mass Index 32.0 Const General: alert Orientation/consciousness: patient oriented x3 HEENT Other: Unremarkable Resp Effort & Inspection: normal respiratory effort and Actively coughing Quality: actively coughing Back/Spine/Pelvis Other: unremarkable Neuro General: patient oriented x3 Psych Mental Status: mental status grossly normal Telehealth Telehealth Telehealth Platform: Telephone Location of provider rendering services: practice address Location of patient: address on file Patient Identification confirmed using: Name, : Yes Telehealth method: voice only Patient verbally consented to treatment: Yes Patient verbally consented to billing insurance company: Yes Patient informed of any privacy concerns related to visit: Yes Assessment & Plan Assessment & Plan (1) COPD (chronic obstructive pulmonary disease): Code(s): J44.9 - Chronic obstructive pulmonary disease, unspecified Category: Medical Qualifiers: COPD type: COPD with acute exacerbation Qualified Code(s): J44.1 - Chronic obstructive pulmonary disease with (acute) exacerbation (2) Nonischemic cardiomyopathy: Code(s): I42.8 - Other cardiomyopathies Category: Medical (3) SOB (shortness of breath): Code(s): R06.02 - Shortness of breath Category: Medical Plan start Augmentin start prednisone taper continue Albuterol Nebs TID BUdesonide via neb in AM CXR F/U 3-4 months Orders: Orders XR chest 2V Today J44.1 - Chronic obstructive pulmonary disease with (acute) exacerbation Medications: New prednisone PO daily; Take 2 tabs daily x 5 days, then 1 tablet daily x 5 days 10 days 15 tabs 0RF amoxicillin-pot clavulanate 875-125 mg 1 tab PO BID 10 days 20 tabs 0RF dextromethorphan-guaifenesin 10-100 mg/5 mL 10 mL PO Q6H 14 days PRN 300 mL 1RF cough
== END 2023-05-29 16:09 | disposition home or self-care (01) ==
PROVIDERS: PCP Student in an Organized Health Care Education/Training Program; Visit Provider Hospitalist
DX: J44.1 Chronic obstructive pulmonary disease with (acute) exacerbation (principal); I42.8 Other cardiomyopathies
CPT/HCPCS: 99442

== ENCOUNTER 2023-06-20 15:11 | Outpatient (AMB) | payer MEDICARE, SELFPAY ==
--- NOTE | 2023-06-20 15:31 | A.OFFVIS_ITS ---
Vital Signs 06/20/23 15:32 Height 5 ft 2 in Weight 159 lb 2.78 oz BMI 29.1 BP 120/52 L Blood Pressure Location Lt brachial Position Sitting Pulse 71 Pulse Source Monitor Intake Visit Reasons: 3 mth f/up (rs) Fisher Troll Line Required: No Allergies meperidine [Demerol] Allergy (Unknown, Verified 06/20/23 15:35) Anaphylaxis Losartan Allergy (Intermediate, Uncoded 06/20/23 15:35) Difficulty Swallowing Medication List - Last Reconciled 06/20/23 by Nydia Melton NP-C albuterol sulfate 2.5 mg (3 mL) inhalation TID 30 days albuterol sulfate 90 mcg/actuation 2 puffs PO Q6H PRN amlodipine 10 mg PO DAILY amoxicillin-pot clavulanate 875-125 mg 1 tab PO BID 10 days aspirin 81 mg PO DAILY atorvastatin 80 mg PO DAILY budesonide 0.5 mg (2 mL) inhalation DAILY calcifediol ER (Rayaldee) 30 mcg PO BEDTIME carvedilol 12.5 mg PO BID 90 days dextromethorphan-guaifenesin 10-100 mg/5 mL 10 mL PO Q6H PRN 14 days furosemide 40 mg PO BID 90 days irbesartan 150 mg PO DAILY nebulizers As directed oxycodone-acetaminophen 10-325 mg tabs PO pantoprazole 40 mg PO ONCE prednisone PO daily; Take 2 tabs daily x 5 days, then 1 tablet daily x 5 days 10 days HPI HPI 3 mth f/up (rs): Details: Pari is a 73-year-old female with past medical history of hypertension, severe mitral regurgitation status post mitral valve repair, abdominal aorta endovascular repair, nonischemic cardiomyopathy with last known EF 45-50%, COPD, paroxysmal atrial fibrillation, frequent PVCs who presents for follow-up after recent Holter monitor. Today she reports she has been feeling generally well. She does not notice any heart palpitations. She does have some chronic shortness of breath with activity but it is unchanged recently. No PND, orthopnea or edema. No chest discomfort at rest or with activity. No lightheadedness, presyncope, syncope, falls. Taking meds as directed. [facility] Medical History SOB (shortness of breath) Essential hypertension Hemorrhage of gastrointestinal tract, unspecified PAF (paroxysmal atrial fibrillation) Abdominal aortic aneurysm without rupture Nonischemic cardiomyopathy Atherosclerotic cardiovascular disease Benign essential hypertension Mitral regurgitation Pneumonia COPD (chronic obstructive pulmonary disease) Surgical History Status post mitral valve annuloplasty Abdominal aortic aneurysm History of open heart surgery History of appendectomy History of back surgery Family History Father Unknown family medical history Mother HTN (hypertension) Daughter Alive and well Social History Patient Tobacco Use Status: Former Tobacco user Quit Date: 07/2016 Tobacco use type: Cigarette Years Smoked: 30+ Years Review of Systems Const All systems reviewed & are unremarkable except as noted in HPI and below ENT Denies dizziness Card Denies chest pain, Denies chest pain at rest, Denies chest pain with activity, Denies rapid heart rate, Denies pedal edema, Denies edema, Denies leg edema, Denies lightheadedness, Denies palpitations, Denies dyspnea, Reports dyspnea on exertion and Denies orthopnea Resp Denies cough, Denies dyspnea and Reports dyspnea on exertion GI Denies hematochezia and Denies change in stool character Musc Denies abnormal gait, Denies limited range of motion, Denies muscle cramps, Denies muscle weakness, Denies numbness, Denies radiating pain into limb, Denies stiffness and Denies tingling Neuro Denies abnormal gait, Denies dizziness, Denies numbness and Denies tingling Endo Denies palpitations Physical Exam Vital Signs: Last Vital Signs Pulse 71 06/20/23 15:32 BP 120/52 L 06/20/23 15:32 BMI result Body Mass Index 29.1 Const General: cooperative, healthy appearing, comfortable and no acute distress Orientation/consciousness: patient oriented x3 Neck Neck: Yes normal visual inspection Resp Effort & Inspection: normal respiratory effort Auscultation: clear to auscultation bilaterally, no rales, no rhonchi and no wheezes Cardio Jugular venous distension: no JVD Rate: regular rate Rhythm: regular rhythm Heart sounds: S1 normal heart sound present, S2 normal heart sound present, no murmurs and no rubs Neuro General: patient oriented x3 Extrem General: Yes normal to inspection, No no pedal edema and No calf tenderness Psych Appearance: grossly normal Mental Status: mental status grossly normal Speech and movement: Normal speech and movement present Office Procedures EKG Details: Today, read by me, sinus rhythm with frequent PVCs in bigeminy pattern, right bundle branch block, rate 71, JT index 99 [id number], Complete Assessment & Plan Assessment & Plan (1) Nonischemic cardiomyopathy: Code(s): I42.8 - Other cardiomyopathies Category: Medical Plan: History of nonischemic cardiomyopathy. Last EF 45-50%. On exam today she has no clinical signs of decompensated heart failure. She is currently on Lasix 40 mg b.i.d.. Her diuretic dose had been increased last visit due to leg edema. At this time leg edema is fully resolved. She follows with Nephrology. No labs since the diuretic increased. She tells me she has Nephrology visit next week and labs will be done at that time. Will reach out to that office to obtain most recent kidney function for our records. She is on carvedilol and Arb losartan for neurohormonal modulation. Entresto was previously ordered however she was unable to afford co-pay. Continue current management. Signs and symptoms of heart failure reviewed with her. Low-salt diet discussed. Car diology follow-up for reassessment of heart failure, diuretic dose in 4 months, sooner if needed. (2) Status post mitral valve annuloplasty: Code(s): Z98.890 - Other specified postprocedural states Category: Surgical Plan: History of mitral valve repair. Last echocardiogram done 05/18/2022 shows EF 45- 50%, prior mitral valve repair with thickened leaflet, especially posterior leaflet with possible mild mitral stenosis. No murmur noted on examination. Will plan for repeat echo prior to next visit in 4 months. She does not require endocarditis prophylaxis prior to dental work as she has no teeth and does not attend dental appointments. (3) PAF (paroxysmal atrial fibrillation): Code(s): I48.0 - Paroxysmal atrial fibrillation Category: Medical Plan: History of paroxysmal atrial fibrillation, postoperative following mitral valve surgery. She had been on Coumadin and had supratherapeutic INR with GI bleeding. She has no longer on anticoagulation. She has not known recent recurrent AF. Pulse is regular on examination today. No reports of recent GI bleeds. Labs done 01/16/2023 showed hematocrit 35.2. Holter monitor done 04/17/2023 for 3 days shows sinus rhythm with average heart rate 72, PVC 14.8%, PACs 5.7%. She is on carvedilol for heart rate control. (4) Abdominal aortic aneurysm without rupture: Code(s): I71.4 - Abdominal aortic aneurysm, without rupture Category: Medical Qualifiers: Abdominal aorta location: unspecified Qualified Code(s): I71.40 - Abdominal aortic aneurysm, without rupture, unspecified Plan: History of abdominal aortic aneurysm endovascular repair. CT angio of the abdomen and pelvis done on 05/09/2023 shows stable status of endovascular repair of the infrarenal abdominal aortic aneurysm with no evidence of endoleak. 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 (5) SOB (shortness of breath): Code(s): R06.02 - Shortness of breath Category: Medical Plan: Chronic mild. Has history of COPD. Follows with pulmonology. She does not appear fluid overloaded on exam today. (6) COPD (chronic obstructive pulmonary disease): Code(s): J44.9 - Chronic obstructive pulmonary disease, unspecified Category: Medical Qualifiers: COPD type: COPD with acute exacerbation Qualified Code(s): J44.1 - Chronic obstructive pulmonary disease with (acute) exacerbation Plan: As above (7) Essential hypertension: Code(s): I10 - Essential (primary) hypertension Category: Medical Plan: Well controlled at this time. No med changes made. Continue amlodipine, carvedilol, irbesartan and Lasix. Plan Time spent on chart review, documentation, interview assessment Orders: Orders CA echo transthoracic complete 3 Months I42.8 - Other cardiomyopathies, Z98.890 - Other specified postprocedural states Coding Level of Care Code Est Pt Level 4 (43456) Diagnoses Nonischemic cardiomyopathy I42.8 Status post mitral valve annuloplasty Z98.890 PAF (paroxysmal atrial fibrillation) I48.0 Abdominal aortic aneurysm (AAA) without rupture, unspecified part I71.40 Abdominal aorta location: unspecified SOB (shortness of breath) R06.02 Chronic obstructive pulmonary disease with acute exacerbation J44.1 COPD type: COPD with acute exacerbation Essential hypertension I10 CPT Codes EKG - CPT: 28509-[id number], Complete ([id number])
[2023-06-20 15:32] VITALS: BP 120/52; PULSE 71; BMI 29.1
== END 2023-06-20 16:00 | disposition home or self-care (01) ==
PROVIDERS: PCP Student in an Organized Health Care Education/Training Program; Visit Provider Nurse Practitioner Family
DX: I10 Essential (primary) hypertension (principal); I48.0 Paroxysmal atrial fibrillation; I49.3 Ventricular premature depolarization
CPT/HCPCS: 93010; 99214

== ENCOUNTER → 2023-06-20 15:11 | Outpatient (BNVA) | payer MEDICARE, SELFPAY | PROVIDERS: PCP Student in an Organized Health Care Education/Training Program; Visit Provider Nurse Practitioner Family | DX: I42.8 Other cardiomyopathies (principal); I48.0 Paroxysmal atrial fibrillation; I10 Essential (primary) hypertension; J44.1 Chronic obstructive pulmonary disease with (acute) exacerbation; Z86.79 Personal history of other diseases of the circulatory system; Z79.899 Other long term (current) drug therapy | CPT/HCPCS: 93005; 99212 ==

== ENCOUNTER 2023-09-05 14:12 | Outpatient (AMB) | payer MEDICARE, OTHER, SELFPAY ==
[2023-09-05 14:13] VITALS: BMI 31.0
--- NOTE | 2023-09-05 14:13 | A.OFFVIS_ITS ---
Vital Signs 09/05/23 14:13 Height 5 ft 3 in Weight 175 lb BMI 31.0 Intake Visit Reasons: COPD Fly Rail Operator Required: No Allergies meperidine [Demerol] Allergy (Unknown, Verified 09/05/23 14:13) Anaphylaxis Losartan Allergy (Intermediate, Uncoded 09/05/23 14:13) Difficulty Swallowing HPI Comments Details: The patient is a 73 year woman with a known history of COPD. She has been doing most [place] However, it [place] further away for her and she is looking to relocate her providers to minimize the distance. The patient has use Trelegy with good effect. Although she still continues to complaint of a productive cough. She brings because up in a daily basis. Moderate in amount. Usually is clear. The patient also complains of shortness of breath with activity. Did talk about pulmonary rehabilitation. although be hard for specially with winter coming up. We did talk about other alternatives including online pulmonary rehabilitation. She did have a CT scan the chest lasting 2020 at [facility]. I did review the results. Was a CTA so it ruled out pulmonary emboli. The patient did have evidence of bullous disease and also areas of atelectasis. No significant pulmonary nodules noted. 03/25/2022 the patient has a telehealth visit today. She started developing GI symptoms and she felt uncomfortable leaving the house. Denies having any fevers or chills or any respiratory complaints. She is no longer using the Trelegy. She continues use the DuoNeb 3 times a day. She did get the budesonide but she has not started as of yet. Now that she is off the Trelegy she can go ahead and start budesonide once a day. Also did request she can try to stop taking the DuoNeb twice a day and then also as needed in between. The patient did have pulmonary function studies which we personally reviewed. She has a mild obstruction consistent with COPD and a moderate diffusion impairment secondary to likely emphysema. The patient will benefit from pulmonary rehabilitation. She also has an echocardiogram pending. She is looking to start pulmonary rehab [place] in the springtime with the weather gets a little better. Also, will have her follow-up dense we can reassess her overall condition. 05/16/2022 the patient is here for a pulmonary telehealth follow-up visit. The patient is now dealing with likely a GI bug. She has significant nausea and vomiting. Therefore she stated home. The patient has a telehealth visit today. She did start the budesonide nebulized therapy she seems to be tolerating it. She is using it with DuoNeb. She has not had to use her rescue inhaler. We did again review her pulmonary function studies. The patient does have significant emphysema bit and does have evidence of a decreased diffusion impairment. And also her spirometry demonstrates concavity of the expiratory limb suggesting qxaj-ju-stszyewf obstructive airway disease. The patient will be a great candidate for rehab. We have put in orders for rehab. She has not heard yet. I will put another order in just to make sure. She is also having a full cardiac workup. Will follow-up after she starts rehab to see her progress. 02/27/2023 the patient is here for a telehealth visit. She was in her usual state health until she went to the pharmacy at [facility] and she ended up getting 2 vaccines together. She had the RSV and the COVID shot together. After she started developing worsening shortness of breath nonproductive cough chest tightness. She has been using her inhaler although she has a nebulizer she does not have the right solution. She is complaining of very dry mouth. Therefore will switch over the DuoNeb to a regular albuterol. And she should also restart the budesonide. Because of the exacerbation patient will also be started on short course of antibiotics and prednisone to help her with her symptom relief. The patient did not do pulmonary rehabilitation since it was hard for her to travel with the cold weather. She is looking forward to doing it when the better season. Will follow-up in treated for months and will discuss that at that time. 05/29/2023 the patient has a telehealth sick visit. She has been sick now for about 3-4 days. She started developing a sore throat and then chest congestion and productive cough. The mucus is now greenish in color. Moderate severity. Also complaining worsening shortness of breath. She has been using her nebulized therapy with partial improvement. She did swab for COVID-19 was negative. Denies any fevers or chills. The patient has not had a chest x-ray in some time. The last visit back in February she was also sick and she did require antibiotics and prednisone. Will go ahead and request a chest x-ray at this time. The patient should also start prednisone antibiotics at this time. If the patient is no better in 24 hours she should call the office. If she is worse she should also call Earlier. Otherwise follow-up in 3-4 months. 09/05/2023 the patient is here for pulmonary follow-up tele visit. Overall the patient is feeling little better. Although she is grieving the loss of a loved 1. Therefore she can not come into the office. She is having hard time with the breathing. She feels some shortness of breath and chest tightness. She does not feel like the regular albuterol that she is using a helping. Will go ahead and send her Ventolin HFA to see this is more effective. In the meantime the patient had responded well to Trelegy in the past. Although very expensive. Now she has a different insurance will go ahead and send that to the pharmacy. If we do that she can hold off on the budesonide and she can use the albuterol nebulizer as needed. The patient will follow-up in a month's time to see if this has resulting in some relief in her respiratory status. If the patient has any worsening symptoms she will call for further evaluation. COUNTS INCLUDE 234 BEDS AT THE [facility] Medical History SOB (shortness of breath) Essential hypertension Hemorrhage of gastrointestinal tract, unspecified PAF (paroxysmal atrial fibrillation) Abdominal aortic aneurysm without rupture Nonischemic cardiomyopathy Atherosclerotic cardiovascular disease Benign essential hypertension Mitral regurgitation Pneumonia COPD (chronic obstructive pulmonary disease) Surgical History Status post mitral valve annuloplasty Abdominal aortic aneurysm History of open heart surgery History of appendectomy History of back surgery Family History Father Unknown family medical history Mother HTN (hypertension) Daughter Alive and well Social History Patient Tobacco Use Status: Former Tobacco user Tobacco use type: Cigarette Years Smoked: 30+ Years Review of Systems Const Denies chills, Reports fatigue, Denies fever(s), Denies frequent falls, Denies weakness, Denies weight gain and Denies weight loss ENT Denies dizziness Card Denies chest pain, Denies leg edema, Denies lightheadedness, Denies palpitations, Reports dyspnea, Reports dyspnea on exertion, Denies orthopnea and Denies other (Loss of consciousness) Resp Reports chest congestion, Reports cough, Reports dyspnea, Reports dyspnea on exertion and Reports wheezing GI Reports as per HPI Musc Denies abnormal gait, Denies muscle weakness, Denies numbness, Denies radiating pain into limb and Denies tingling Neuro Denies abnormal gait, Denies dizziness, Denies frequent falls, Denies numbness, Denies tingling and Denies weakness Endo Reports fatigue and Denies palpitations Aller/Immun Reports wheezing Physical Exam Vital Signs: BMI result Body Mass Index 31.0 Const General: alert Orientation/consciousness: patient oriented x3 HEENT Other: Unremarkable Resp Effort & Inspection: able to speak in complete sentences Back/Spine/Pelvis Other: unremarkable Neuro General: patient oriented x3 Psych Mental Status: mental status grossly normal Telehealth Telehealth Telehealth Platform: Telephone Location of provider rendering services: practice address Location of patient: address on file Patient Identification confirmed using: Name, : Yes Telehealth method: voice only Patient verbally consented to treatment: Yes Patient verbally consented to billing insurance company: Yes Patient informed of any privacy concerns related to visit: Yes Assessment & Plan Assessment & Plan (1) COPD (chronic obstructive pulmonary disease): Code(s): J44.9 - Chronic obstructive pulmonary disease, unspecified Category: Medical Qualifiers: COPD type: COPD with acute exacerbation Qualified Code(s): J44.1 - Chronic obstructive pulmonary disease with (acute) exacerbation (2) Nonischemic cardiomyopathy: Code(s): I42.8 - Other cardiomyopathies Category: Medical (3) SOB (shortness of breath): Code(s): R06.02 - Shortness of breath Category: Medical Plan start Trelegy 200 daily JOSE EDUARDO, requesting ventolin continue Albuterol Nebs TID as needed stop BUdesonide via neb CXR when able F/U Fall 2023 Medications: New kjxcaiiutnj-punsevvka-hfsizxmn 200-62.5-25 mcg (Trelegy Ellipta) 1 inh inhalation DAILY 60 ea 12RF 30 days albuterol sulfate 90 mcg/actuation (Ventolin HFA) 2 puffs inhalation QID PRN 18 grams 11RF shortness of breath or wheezing 30 days albuterol sulfate 90 mcg/actuation (Ventolin HFA) 2 puffs inhalation QID PRN 18 grams 11RF shortness of breath or wheezing 30 days Coding Level of Care Code Tele Est Pt Level 4 (98821) Diagnoses Chronic obstructive pulmonary disease with acute exacerbation J44.1 COPD type: COPD with acute exacerbation Nonischemic cardiomyopathy I42.8 SOB (shortness of breath) R06.02 Time Spent (min) 15
== END 2023-09-05 14:44 | disposition home or self-care (01) ==
LOC: HO.HPS 14:12
PROVIDERS: PCP Student in an Organized Health Care Education/Training Program; Visit Provider Hospitalist
DX: J44.1 Chronic obstructive pulmonary disease with (acute) exacerbation (principal); I42.8 Other cardiomyopathies
CPT/HCPCS: 99442

== ENCOUNTER → 2023-09-05 14:12 | Outpatient (BNVA) | payer MEDICARE, OTHER, SELFPAY | PROVIDERS: PCP Student in an Organized Health Care Education/Training Program; Visit Provider Hospitalist ==

== ENCOUNTER → 2023-11-02 13:38 | Outpatient (REF) | payer MEDICARE, OTHER, SELFPAY ==
--- NOTE | 2023-11-02 13:43 | CA_ITS ---
Transthoracic Echocardiogram Patient (Last, First, Middle): Pari Avery L Gender: Female Date of : 1950 Age: 73 Procedure Date: 11/02/2023 Procedure Type: Transthoracic Echocardiogram Location: OP Height: 157.48 cm Weight: 72.58 kg BSA: 1.74 m2 Heart Rate: bpm BP: 138 / 54 mmHg Elevator Operator: SB Referring MD: Nydia Melton CLINICAL SERVICES DIRECTORBarb Symptoms: I42.8 - Other cardiomyopathies Study Quality: Adequate w contrast ECG Rhythm: Sinus with PVCs Conclusions: - The left ventricular systolic function is mildly decreased. The visually estimated ejection fraction is between 45-50%. - s/p mitral valve repair. Normal structure and function. Findings Procedure Information Contrast agent, definity, is being given per protocol without apparent complications. Left Ventricle Mildly increased left ventricular cavity size. The left ventricular systolic function is mildly decreased. The visually estimated ejection fraction is between 45-50%. Diastolic function is indeterminate on the basis of available data. There is mild septal asymmetric hypertrophy. Right Ventricle Normal right ventricular cavity size. There is mild to moderately decreased right ventricular systolic function. Atria The left atrium is mildly dilated. The right atrium is normal in size. Aortic Valve There is a normal trileaflet aortic valve. There is no aortic valve stenosis. There is no aortic valve regurgitation. Mitral Valve There is trace mitral valve regurgitation. There is no mitral valve stenosis. s/p mitral valve repair. Pulmonic Valve The pulmonic valve is likely normal. Tricuspid Valve There is mild tricuspid valve regurgitation. There is no evidence of pulmonary hypertension. Great Vessels The asc aorta is normal in size. Small plaque is seen in the sino tubular ridge. Venous The inferior vena cava is normal in size and collapses greater than 50% with inspiration. Pericardium/Pleural There is no evidence of pericardial effusion. Prior Study Comparison No significant change compared to prior study dated: 05/18/2022. Measurements 2D Linear Measurements IVSd: 1.04 0.6-0.9/0.6-1.0 cm LVIDd: 5.75 3.9-5.3/4.2-5.9 cm LVIDd Index: 3.30 2.4-3.2/2.2-3.1 cm/m2 LVIDs: 3.93 2.0-3.6 cm LVPWd: 0.90 0.7-1.1 cm LA Diam: 4.10 2.7-3.8/3.0-4.0 cm LAIDs Index: 2.36 1.5-2.3 cm/m2 LV Mass: 274.50 67-162/88-224 g LV Mass Index: 157.76 43-95/49-115 g/m2 LVOT Diam: 2.10 3.0+(-)1.3 cm 2D Systolic Function EF 4C: 49.10 >55% EF 2C: 58.00 >55% EF BiP: 52.20 >55% Mitral Valve MV VTI: 0.58 MV Pk Rebel: 1.68 MV Mn Rebel: 1.10 MV Pk Grad: 11.00 MV Mn Grad: 5.00 MV Pk E: 1.31 MV PK A: 1.15 MV Decel Time: 343.00 E/A: 1.10 PHT: 100.00 MVA PHT: 2.20 MVA Continuity: 1.73 Decel Letcher: 3.82 Aortic Valve AoV Pk Rebel: 1.60 AoV Mn Rebel: 1.24 AoV VTI: 0.44 AoV Pk Grad: 10.00 Aov Mn Grad: 7.00 LOPEZ Cont.VTI: 2.28 LVOT LVOT Pk Rebel: 1.04 LVOT Mn Rebel: 0.83 LVOT VTI: 0.29 LVOT Pk Grad: 4.00 LVOT Mn Grad: 3.00 LVOT Diam: 2.10 LVOT Area: 3.46 Diastolic Function MV Pk E: 1.31 MV Pk A: 1.15 E/A: 1.10 Right Ventricle TAPSE (mm): 13.60 TVS' Rebel: 7.97 Tricuspid Valve TR Pk Rebel: 2.42 TR Pk Grad: 23.00 RA Press: 8.00 RVSP: 31.00 Great Vessels Aorta Sinus of Valsalva: 3.10 2.0-3.5 cm Ao Asc: 3.70 2.1-3.4 cm Pulmonary Valve PV Pk Rebel: 1.55 Peak PV Grad: 10.00 Updated in Other Vendor System with Status of Final Lucien Clark MD electronically signed on 11/04/2023 12:07:55 PM with status of Final
== END ==
LOC: HO.CARD 13:38
PROVIDERS: PCP Student in an Organized Health Care Education/Training Program; Visit Provider Nurse Practitioner Family
DX: I42.8 Other cardiomyopathies (principal); Z98.890 Other specified postprocedural states
CPT/HCPCS: 93306; Q9957

== ENCOUNTER → 2023-11-02 13:43 | Outpatient (BNV) | payer MEDICARE, OTHER, SELFPAY | PROVIDERS: PCP Student in an Organized Health Care Education/Training Program; Visit Provider Internal Medicine | DX: I42.2 Other hypertrophic cardiomyopathy (principal); I36.1 Nonrheumatic tricuspid (valve) insufficiency; Z95.4 Presence of other heart-valve replacement | CPT/HCPCS: 93306 ==

== ENCOUNTER 2023-11-15 14:30 | Outpatient (AMB) | payer MEDICARE, OTHER, SELFPAY ==
--- NOTE | 2023-11-15 14:49 | HO.NEPHOV_ITS ---
Vital Signs 11/15/23 14:55 Height 5 ft 3 in Weight 166 lb BMI 29.4 BP 110/52 L Blood Pressure Location Rt brachial Position Sitting Pulse 65 Pulse Source Pulse Oximeter Pulse Oximetry (%) 98 Oxygen Delivery Method Room Air Intake Visit Reasons: Prior pt of Dr Gregory- CKD/ LVM Allergies meperidine [Demerol] Allergy (Unknown, Verified 09/05/23 14:13) Anaphylaxis Losartan Allergy (Intermediate, Uncoded 09/05/23 14:13) Difficulty Swallowing HPI Comments Details: I had the pleasure of seeing Pari in consultation for CKD. She is known to have extensive vascular disease including AAA S/P EVAR. She also has non ischemic cardiomyopathy as well as atherosclerotic CV disease. She is closely followed up by vascular surgeon Dr Kincaid. She is not a diabetic. She has hypertension and is on ARB. She denied any CAD, CHF, CVA or carotid stenosis. She denied any significant proteinuria or retinopathy. She does not take any excess NSAID's. She denies any chest pain, SOB, orthostatic symptoms, skin rashes, edema or urinary symptoms. She has not had any blood work for a while. She had no specific complaints at the time of this office visit. [facility] Medical History SOB (shortness of breath) Essential hypertension Hemorrhage of gastrointestinal tract, unspecified PAF (paroxysmal atrial fibrillation) Abdominal aortic aneurysm without rupture Nonischemic cardiomyopathy Atherosclerotic cardiovascular disease Benign essential hypertension Mitral regurgitation Pneumonia COPD (chronic obstructive pulmonary disease) Surgical History Status post mitral valve annuloplasty Abdominal aortic aneurysm History of open heart surgery History of appendectomy History of back surgery Family History Father Unknown family medical history Mother HTN (hypertension) Daughter Alive and well Social History Patient Tobacco Use Status: Former Tobacco user Tobacco use type: Cigarette Years Smoked: 30+ Years Review of Systems Const All systems reviewed & are unremarkable except as noted in HPI and below Physical Exam Vital Signs: Last Vital Signs Pulse 65 11/15/23 14:55 BP 110/52 L 11/15/23 14:55 Pulse Ox 98 11/15/23 14:55 Oxygen Delivery Method Room Air 11/15/23 14:55 BMI result Body Mass Index 29.4 Const General: comfortable and no acute distress Orientation/consciousness: patient oriented x3 HEENT Head: Yes normocephalic Mouth: Normal oral and palatal mucosa present Eyes EOM: EOMs intact bilaterally Neck Neck: Yes supple Resp Auscultation: clear to auscultation bilaterally Cardio Jugular venous distension: no JVD Rate: regular rate GI Palpation (GI): Soft to palpation Auscultation: normal bowel sounds General: Yes no CVA tenderness Back/Spine/Pelvis Back: no CVA tenderness Skin General skin exam: no rashes or lesions noted Neuro General: patient oriented x3 and moves all extremities Extrem General: Yes no pedal edema Results Reviewed Nephrology Results: Sodium 140 mmol/L (135-145) 11/15/23 Potassium 4.8 mmol/L (3.3-5.1) 11/15/23 Chloride 101 mmol/L (96-108) 11/15/23 Carbon Dioxide 29 mmol/L (22-29) 11/15/23 BUN 17 mg/dL (9-16) H 11/15/23 Creatinine 1.42 mg/dL (0.5-1.4) H 11/15/23 Calcium 10.0 mg/dL (8.4-10.2) 11/15/23 Phosphorus 3.3 mg/dL (2.7-4.5) 11/15/23 PTH Intact Pending 11/15/23 Urine Creatinine 46.65 mg/dL 11/15/23 Protein/Creatinin Ratio TNP 11/15/23 Assessment & Plan Assessment & Plan (1) CKD stage 3a, GFR 45-59 ml/min: Code(s): N18.31 - Chronic kidney disease, stage 3a Category: Medical (2) Hypertension: Code(s): I10 - Essential (primary) hypertension Category: Medical Qualifiers: Hypertension type: primary hypertension Qualified Code(s): I10 - Essential (primary) hypertension Plan CKD 3 from vascular disease; Serum creatinine stable Tolerating ARB. Serum potassium normal; Euvolemic Blood pressure has been at goal; On low Na diet Will need 24 hour urine for cr cl/renal artery imaging at next visit No changes made; Good hydration; Avoidance of NSAID's Time spent retrieving/reviewing data/encounter/documentation 53 minutes Answered her and her daughters questions; F/U appointment given Orders: Orders Blood Urea Nitrogen Today N18.31 - Chronic kidney disease, stage 3a Electrolytes Today N18.31 - Chronic kidney disease, stage 3a Phosphorus Today N18.31 - Chronic kidney disease, stage 3a Parathyroid Hormone Intact Today N18.31 - Chronic kidney disease, stage 3a Protein Creatinine Ratio, Ur Today N18.31 - Chronic kidney disease, stage 3a Creatinine Today N18.31 - Chronic kidney disease, stage 3a Calcium Today N18.31 - Chronic kidney disease, stage 3a Vitamin D 25-OH Total Today N18.31 - Chronic kidney disease, stage 3a Coding Level of Care Code New Pt Level 5 (17663) Diagnoses CKD stage 3a, GFR 45-59 ml/min N18.31 Primary hypertension I10 Hypertension type: primary hypertension
[2023-11-15 14:55] VITALS: BP 110/52; PULSE 65; O2SAT 98; BMI 29.4
== END 2023-11-15 15:37 | disposition home or self-care (01) ==
PROVIDERS: PCP Student in an Organized Health Care Education/Training Program; Visit Provider Internal Medicine Nephrology
DX: I12.9 Hypertensive chronic kidney disease with stage 1 through stage 4 chronic kidney disease, or unspecified chronic kidney disease (principal); N18.31 Chronic kidney disease, stage 3a
CPT/HCPCS: 99204

== ENCOUNTER 2023-11-15 14:30 | Outpatient (REF) | payer MEDICARE, OTHER, SELFPAY ==
[2023-11-15 17:40] LABS: Creatinine Urine 46.65 mg/dL; Total Protein Urine Random < 7 mg/dL (<12)
[2023-11-15 17:43] LABS: Anion Gap 15 (12-20); Blood Urea Nitrogen 17 mg/dL (9-16); Carbon Dioxide 29 mmol/L (22-29); Chloride 101 mmol/L (96-108); Estimated Glomerular Filt Rate 36; Phosphorus 3.3 mg/dL (2.7-4.5); Potassium 4.8 mmol/L (3.3-5.1); Sodium 140 mmol/L (135-145)
[2023-11-16 05:25] LABS: Parathyroid Hormone Intact 363.3 pg/mL (8.7-77.1)
== END 2023-11-15 14:31 | disposition home or self-care (01) ==
LOC: HO.LAB 14:30
PROVIDERS: PCP Student in an Organized Health Care Education/Training Program; Visit Provider Internal Medicine Nephrology
DX: I12.9 Hypertensive chronic kidney disease with stage 1 through stage 4 chronic kidney disease, or unspecified chronic kidney disease (principal); N18.31 Chronic kidney disease, stage 3a
CPT/HCPCS: 36415; 80051; 82306; 82310; 82565; 82570; 83970; 84100; 84156; 84520; 99202

== ENCOUNTER 2023-12-04 14:07 | Outpatient (AMB) | payer MEDICARE, OTHER, SELFPAY ==
[2023-12-04 14:07] VITALS: BMI 29.2
--- NOTE | 2023-12-04 14:07 | A.OFFVIS_ITS ---
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 She [place] However, [place] further away for her and she is looking to relocate her providers to minimize the distance. The patient has use Trelegy with good effect. Although she still continues to complaint of a productive cough. She brings because up in a daily basis. Moderate in amount. Usually is clear. The patient also complains of shortness of breath with activity. Did talk about pulmonary rehabilitation. although be hard for specially with winter coming up. We did talk about other alternatives including online pulmonary rehabilitation. She did have a CT scan the chest lasting 2020 at [facility]. I did review the results. Was a CTA so it ruled out pulmonary emboli. The patient did have evidence of bullous disease and also areas of atelectasis. No significant pulmonary nodules noted. 03/25/2022 the patient has a telehealth visit today. She started developing GI symptoms and she felt uncomfortable leaving the house. Denies having any fevers or chills or any respiratory complaints. She is no longer using the Trelegy. She continues use the DuoNeb 3 times a day. She did get the budesonide but she has not started as of yet. Now that she is off the Trelegy she can go ahead and start budesonide once a day. Also did request she can try to stop taking the DuoNeb twice a day and then also as needed in between. The patient did have pulmonary function studies which we personally reviewed. She has a mild obstruction consistent with COPD and a moderate diffusion impairment secondary to likely emphysema. The patient will benefit from pulmonary rehabilitation. She also has an echocardiogram pending. She is looking to start pulmonary rehab ilitation in the springtime with the weather gets a little better. Also, will have her follow-up dense we can reassess her overall condition. 05/16/2022 the patient is here for a pulmonary telehealth follow-up visit. The patient is now dealing with likely a GI bug. She has significant nausea and vomiting. Therefore she stated home. The patient has a telehealth visit today. She did start the budesonide nebulized therapy she seems to be tolerating it. She is using it with DuoNeb. She has not had to use her rescue inhaler. We did again review her pulmonary function studies. The patient does have significant emphysema bit and does have evidence of a decreased diffusion impairment. And also her spirometry demonstrates concavity of the expiratory limb suggesting [id number] obstructive airway disease. The patient will be a great candidate for rehab. We have put in orders for rehab. She has not heard yet. I will put another order in just to make sure. She is also having a full cardiac workup. Will follow-up after she starts rehab to see her progress. 02/27/2023 the patient is here for a telehealth visit. She was in her usual state health until she went to the pharmacy at [facility] and she ended up getting 2 vaccines together. She had the RSV and the COVID shot together. After she started developing worsening shortness of breath nonproductive cough chest tightness. She has been using her inhaler although she has a nebulizer she does not have the right solution. She is complaining of very dry mouth. Therefore will switch over the DuoNeb to a regular albuterol. And she should also restart the budesonide. Because of the exacerbation patient will also be started on short course of antibiotics and prednisone to help her with her symptom relief. The patient did not do pulmonary rehabilitation since it was hard for her to travel with the cold weather. She is looking forward to doing it when the better season. Will follow-up in treated for months and will discuss that at that time. 05/29/2023 the patient has a telehealth sick visit. She has been sick now for about 3-4 days. She started developing a sore throat and then chest congestion and productive cough. The mucus is now greenish in color. Moderate severity. Also complaining worsening shortness of breath. She has been using her nebulized therapy with partial improvement. She did swab for COVID-19 was negative. Denies any fevers or chills. The patient has not had a chest x-ray in some time. The last visit back in February she was also sick and she did require antibiotics and prednisone. Will go ahead and request a chest x-ray at this time. The patient should also start prednisone antibiotics at this time. If the patient is no better in 24 hours she should call the office. If she is worse she should also call Earlier. Otherwise follow-up in 3-4 months. 09/05/2023 the patient is here for pulmonary follow-up tele visit. Overall the patient is feeling little better. Although she is grieving the loss of a loved 1. Therefore she can not come into the office. She is having hard time with the breathing. She feels some shortness of breath and chest tightness. She does not feel like the regular albuterol that she is using a helping. Will go ahead and send her Ventolin HFA to see this is more effective. In the meantime the patient had responded well to Trelegy in the past. Although very expensive. Now she has a different insurance will go ahead and send that to the pharmacy. If we do that she can hold off on the budesonide and she can use the albuterol nebulizer as needed. The patient will follow-up in a month's time to see if this has resulting in some relief in her respiratory status. If the patient has any worsening symptoms she will call for further evaluation. 12/04/2023 the patient has a sick visit over the phone. She has been feeling under the weather for the last week. Patient states that prior to that she received the COVID vaccine then went to the pharmacy got her flu and her RSV vaccine all basically the same time she started feeling tired and complained of chest tightness and cough. The cough has been nonproductive although she feels congested difficult to expectorate. Denies any sick contacts all those hard to know for sure. She feels like she needs prednisone. Explained to her that if she takes too much prednisone he is going to interact or interfere with the response to vaccines. Therefore will start her on low-dose prednisone. In the meantime will give her some doxycycline case there is a infectious process as well. Will have her return in 3-4 months. Otherwise she has responded well to the current respiratory regimen including Trelegy. [facility] Medical History SOB (shortness of breath) Essential hypertension Hemorrhage of gastrointestinal tract, unspecified PAF (paroxysmal atrial fibrillation) Abdominal aortic aneurysm without rupture Nonischemic cardiomyopathy Atherosclerotic cardiovascular disease Benign essential hypertension Mitral regurgitation Pneumonia COPD (chronic obstructive pulmonary disease) Surgical History Status post mitral valve annuloplasty Abdominal aortic aneurysm History of open heart surgery History of appendectomy History of back surgery Family History Father Unknown family medical history Mother HTN (hypertension) Daughter Alive and well Social History Patient Tobacco Use Status: Former Tobacco user Tobacco use type: Cigarette Years Smoked: 30+ Years Review of Systems Const Denies chills, Reports fatigue, Denies fever(s), Denies frequent falls, Denies weakness, Denies weight gain and Denies weight loss ENT Denies dizziness Card Denies chest pain, Denies leg edema, Denies lightheadedness, Denies palpitations, Reports dyspnea, Reports dyspnea on exertion, Denies orthopnea and Denies other (Loss of consciousness) Resp Reports chest congestion, Reports cough, Reports dyspnea, Reports dyspnea on exertion and Reports wheezing GI Reports as per HPI Musc Denies abnormal gait, Denies muscle weakness, Denies numbness, Denies radiating pain into limb and Denies tingling Neuro Denies abnormal gait, Denies dizziness, Denies frequent falls, Denies numbness, Denies tingling and Denies weakness Endo Reports fatigue and Denies palpitations Aller/Immun Reports wheezing Physical Exam Vital Signs: BMI result Body Mass Index 29.2 Const General: alert Orientation/consciousness: patient oriented x3 HEENT Other: Unremarkable Resp Effort & Inspection: able to speak in complete sentences and Actively coughing Back/Spine/Pelvis Other: unremarkable Neuro General: patient oriented x3 Psych Mental Status: mental status grossly normal Telehealth Telehealth Telehealth Platform: Telephone Location of provider rendering services: practice address Location of patient: address on file Patient Identification confirmed using: Name, : Yes Telehealth method: voice only Patient verbally consented to treatment: Yes Patient verbally consented to billing insurance company: Yes Patient informed of any privacy concerns related to visit: Yes Assessment & Plan Assessment & Plan (1) COPD (chronic obstructive pulmonary disease): Code(s): J44.9 - Chronic obstructive pulmonary disease, unspecified Category: Medical Qualifiers: COPD type: COPD with acute exacerbation Qualified Code(s): J44.1 - Chronic obstructive pulmonary disease with (acute) exacerbation (2) Nonischemic cardiomyopathy: Code(s): I42.8 - Other cardiomyopathies Category: Medical (3) SOB (shortness of breath): Code(s): R06.02 - Shortness of breath Category: Medical Plan continue Trelegy 200 daily JOSE EDUARDO, requesting ventolin continue Albuterol Nebs TID as needed CXR when able doxy prednisone taper F/U 3-4 months Medications: New prednisone PO daily; Take 3 tabs daily x 3 days, 2 tabs x 3 days, 1 tab x 6 days 21 tabs 0RF 12 days doxycycline monohydrate 100 mg PO BID 28 tabs 0RF 14 days Refilled albuterol sulfate 2.5 mg (3 mL) inhalation TID 270 mL 11RF 30 days J44.9 - Chronic obstructive pulmonary disease, unspecified Coding Level of Care Code Tele Est Pt Level 4 (31697) Diagnoses Chronic obstructive pulmonary disease with acute exacerbation J44.1 COPD type: COPD with acute exacerbation Nonischemic cardiomyopathy I42.8 SOB (shortness of breath) R06.02 Time Spent (min) 15
== END 2023-12-04 14:48 | disposition home or self-care (01) ==
LOC: HO.HPS 14:07
PROVIDERS: PCP Student in an Organized Health Care Education/Training Program; Visit Provider Hospitalist
DX: J44.1 Chronic obstructive pulmonary disease with (acute) exacerbation (principal); I42.8 Other cardiomyopathies
CPT/HCPCS: 99442

== ENCOUNTER → 2023-12-04 14:07 | Outpatient (BNVA) | payer MEDICARE, OTHER, SELFPAY | PROVIDERS: PCP Student in an Organized Health Care Education/Training Program; Visit Provider Hospitalist ==

== ENCOUNTER 2023-12-13 13:15 | Outpatient (AMB) | payer MEDICARE, OTHER, SELFPAY ==
--- NOTE | 2023-12-13 13:42 | HO.NEPHOV_ITS ---
Vital Signs 12/13/23 13:44 Height 5 ft 3 in Weight 164 lb 2 oz BMI 29.1 BP 126/50 L Blood Pressure Location Lt brachial Position Sitting Pulse 42 L Pulse Source Pulse Oximeter Pulse Oximetry (%) 95 Oxygen Delivery Method Room Air Intake Visit Reasons: CKD-LVM Physician Assistant Psychiatry Required: No Accompanied by: Self / Same As Patient Allergies meperidine [Demerol] Allergy (Unknown, Verified 12/13/23 13:44) Anaphylaxis Losartan Allergy (Intermediate, Uncoded 12/04/23 14:08) Difficulty Swallowing Medication List - Last Reconciled 12/13/23 by Colt Garcia MD albuterol sulfate 90 mcg/actuation (Ventolin HFA) 2 puffs inhalation QID PRN 30 days albuterol sulfate 2.5 mg (3 mL) inhalation TID 30 days amlodipine 10 mg PO DAILY aspirin 81 mg PO DAILY atorvastatin 80 mg PO DAILY budesonide 0.5 mg (2 mL) inhalation DAILY calcifediol ER (Rayaldee) 30 mcg PO BEDTIME calcifediol ER (Rayaldee) 30 mcg PO BEDTIME carvedilol 12.5 mg PO BID 90 days docusate sodium (Colace) 100 mg PO BID doxycycline monohydrate 100 mg PO BID 14 days ddmzywcxexu-rmrbertgi-xolfwtun 200-62.5-25 mcg (Trelegy Ellipta) 1 inh inhalation DAILY 30 days furosemide 40 mg PO BID 90 days irbesartan 150 mg PO DAILY nebulizers As directed oxycodone-acetaminophen 10-325 mg tabs PO pantoprazole 40 mg PO DAILY prednisone PO daily; Take 3 tabs daily x 3 days, 2 tabs x 3 days, 1 tab x 6 days 12 days HPI Comments Details: I had the pleasure of seeing Pari in follow up for CKD. She is known to have extensive vascular disease including AAA S/P EVAR. She also has non ischemic cardiomyopathy as well as atherosclerotic CV disease. She is closely followed up by vascular surgeon Dr Kincaid. She is not a diabetic. She has hypertension and is on ARB. She denied any CAD, CHF, CVA or carotid stenosis. She denied any significant proteinuria or retinopathy. She does not take any excess NSAID's. She denies any chest pain, SOB, orthostatic symptoms, skin rashes, edema or urinary symptoms. She has not had any blood work for a while. She had no specific complaints at the time of this office visit ON LICENSE OF [facility] Medical History SOB (shortness of breath) Essential hypertension Hemorrhage of gastrointestinal tract, unspecified PAF (paroxysmal atrial fibrillation) Abdominal aortic aneurysm without rupture Nonischemic cardiomyopathy Atherosclerotic cardiovascular disease Benign essential hypertension Mitral regurgitation Pneumonia COPD (chronic obstructive pulmonary disease) Surgical History Status post mitral valve annuloplasty Abdominal aortic aneurysm History of open heart surgery History of appendectomy History of back surgery Family History Father Unknown family medical history Mother HTN (hypertension) Daughter Alive and well Social History Patient Tobacco Use Status: Former Tobacco user Tobacco use type: Cigarette Years Smoked: 30+ Years Review of Systems Const All systems reviewed & are unremarkable except as noted in HPI and below Physical Exam Const General: comfortable and no acute distress Orientation/consciousness: patient oriented x3 HEENT Head: Yes normocephalic Mouth: Normal oral and palatal mucosa present Eyes EOM: EOMs intact bilaterally Neck Neck: Yes supple Resp Auscultation: clear to auscultation bilaterally Cardio Jugular venous distension: no JVD Rate: regular rate GI Palpation (GI): Soft to palpation Auscultation: normal bowel sounds General: Yes no CVA tenderness Back/Spine/Pelvis Back: no CVA tenderness Skin General skin exam: no rashes or lesions noted Neuro General: patient oriented x3 and moves all extremities Extrem General: Yes no pedal edema Results Reviewed Nephrology Results: Sodium 140 mmol/L (135-145) 11/15/23 Potassium 4.8 mmol/L (3.3-5.1) 11/15/23 Chloride 101 mmol/L (96-108) 11/15/23 Carbon Dioxide 29 mmol/L (22-29) 11/15/23 BUN 17 mg/dL (9-16) H 11/15/23 Creatinine 1.42 mg/dL (0.5-1.4) H 11/15/23 Calcium 10.0 mg/dL (8.4-10.2) 11/15/23 Phosphorus 3.3 mg/dL (2.7-4.5) 11/15/23 PTH Intact 363.3 pg/mL (8.7-77.1) H 11/15/23 Urine Creatinine 46.65 mg/dL 11/15/23 Protein/Creatinin Ratio TNP 11/15/23 Assessment & Plan Assessment & Plan (1) CKD stage 3a, GFR 45-59 ml/min: Code(s): N18.31 - Chronic kidney disease, stage 3a Category: Medical (2) Hypertension: Code(s): I10 - Essential (primary) hypertension Category: Medical Qualifiers: Hypertension type: primary hypertension Qualified Code(s): I10 - Essential (primary) hypertension (3) Secondary hyperparathyroidism (of renal origin): Code(s): N25.81 - Secondary hyperparathyroidism of renal origin Category: Medical Plan CKD 3 from vascular disease; Serum creatinine stable Tolerating ARB. Serum potassium normal; Euvolemic Blood pressure has been at goal; On low Na diet; On Rayaldee Ordered 24 hour urine for cr cl and follow up blood work Renal artery imaging at next visit; Great candidate for Jardiance No changes made; Good hydration; Avoidance of NSAID's Answered her questions; F/U appointment given Orders: Orders Calcium 3 Months I10 - Essential (primary) hypertension, N18.31 - Chronic kidney disease, stage 3a, N25.81 - Secondary hyperparathyroidism of renal origin Electrolytes 3 Months I10 - Essential (primary) hypertension, N18.31 - Chronic kidney disease, stage 3a, N25.81 - Secondary hyperparathyroidism of renal origin Creatinine 3 Months I10 - Essential (primary) hypertension, N18.31 - Chronic kidney disease, stage 3a, N25.81 - Secondary hyperparathyroidism of renal origin Creatinine Clearance Urine 24U 3 Months I10 - Essential (primary) hypertension, N18.31 - Chronic kidney disease, stage 3a, N25.81 - Secondary hyperparathyroidism of renal origin Parathyroid Hormone Intact 3 Months I10 - Essential (primary) hypertension, N18.31 - Chronic kidney disease, stage 3a, N25.81 - Secondary hyperparathyroidism of renal origin Vitamin D 25-OH Total 3 Months I10 - Essential (primary) hypertension, N18.31 - Chronic kidney disease, stage 3a, N25.81 - Secondary hyperparathyroidism of renal origin Blood Urea Nitrogen 3 Months I10 - Essential (primary) hypertension, N18.31 - Chronic kidney disease, stage 3a, N25.81 - Secondary hyperparathyroidism of renal origin Coding Level of Care Code Est Pt Level 4 (39468) Diagnoses CKD stage 3a, GFR 45-59 ml/min N18.31 Primary hypertension I10 Hypertension type: primary hypertension Secondary hyperparathyroidism (of renal origin) N25.81
[2023-12-13 13:44] VITALS: BP 126/50; PULSE 42; O2SAT 95; BMI 29.1
== END 2023-12-13 14:01 | disposition home or self-care (01) ==
LOC: HO.HKA 13:15
PROVIDERS: PCP Student in an Organized Health Care Education/Training Program; Visit Provider Internal Medicine Nephrology
DX: I12.9 Hypertensive chronic kidney disease with stage 1 through stage 4 chronic kidney disease, or unspecified chronic kidney disease (principal); N18.31 Chronic kidney disease, stage 3a; N25.81 Secondary hyperparathyroidism of renal origin
CPT/HCPCS: 99214

== ENCOUNTER → 2023-12-13 13:15 | Outpatient (BNVA) | payer MEDICARE, SELFPAY | PROVIDERS: PCP Student in an Organized Health Care Education/Training Program; Visit Provider Internal Medicine Nephrology | DX: I12.9 Hypertensive chronic kidney disease with stage 1 through stage 4 chronic kidney disease, or unspecified chronic kidney disease (principal); N18.31 Chronic kidney disease, stage 3a; N25.81 Secondary hyperparathyroidism of renal origin | CPT/HCPCS: 99212 ==

== ENCOUNTER 2023-12-19 14:26 | Outpatient (AMB) | payer MEDICARE, OTHER, SELFPAY ==
[2023-12-19 14:39] VITALS: BP 120/56; PULSE 71; BMI 28.7
--- NOTE | 2023-12-19 14:39 | MHC.OFFVIS ---
Vital Signs 12/19/23 14:39 Height 5 ft 3 in Weight 161 lb 13.109 oz BMI 28.7 BP 120/56 L Blood Pressure Location Rt brachial Position Sitting Pulse 71 Pulse Source Pulse Oximeter Intake Visit Reasons: f/u after testing Weekend Anchor Required: No Accompanied by: Self / Same As Patient Allergies meperidine [Demerol] Allergy (Unknown, Verified 12/13/23 13:44) Anaphylaxis Losartan Allergy (Intermediate, Uncoded 12/04/23 14:08) Difficulty Swallowing Medication List - Last Reconciled 12/19/23 by Lucien Clark MD albuterol sulfate 90 mcg/actuation (Ventolin HFA) 2 puffs inhalation QID PRN 30 days albuterol sulfate 2.5 mg (3 mL) inhalation TID 30 days amlodipine 10 mg PO DAILY aspirin 81 mg PO DAILY atorvastatin 80 mg PO DAILY budesonide 0.5 mg (2 mL) inhalation DAILY calcifediol ER (Rayaldee) 30 mcg PO BEDTIME calcifediol ER (Rayaldee) 30 mcg PO BEDTIME carvedilol 12.5 mg PO BID 90 days docusate sodium (Colace) 100 mg PO BID doxycycline monohydrate 100 mg PO BID 14 days yretkohbxtf-owvfsdoex-nksbtowh 200-62.5-25 mcg (Trelegy Ellipta) 1 inh inhalation DAILY 30 days furosemide 40 mg PO BID 90 days irbesartan 150 mg PO DAILY nebulizers As directed oxycodone-acetaminophen 10-325 mg tabs PO pantoprazole 40 mg PO DAILY prednisone PO daily; Take 3 tabs daily x 3 days, 2 tabs x 3 days, 1 tab x 6 days 12 days HPI Comments Details: Pari returns for follow-up. To recall, she has a history of severe mitral regurgitation that led to mitral valve repair. She has a history of endovascular repair of the abdominal aortic aneurysm in the past. She also has a history of nonischemic cardiomyopathy. Additionally, COPD. Overall, just about the same as before. Chronic shortness of breath and unchanged. No angina. No other major concerns. Seems to be mostly content otherwise with the way things are. [facility] Medical History SOB (shortness of breath) Essential hypertension Hemorrhage of gastrointestinal tract, unspecified PAF (paroxysmal atrial fibrillation) Abdominal aortic aneurysm without rupture Nonischemic cardiomyopathy Atherosclerotic cardiovascular disease Benign essential hypertension Mitral regurgitation Pneumonia COPD (chronic obstructive pulmonary disease) Surgical History Status post mitral valve annuloplasty Abdominal aortic aneurysm History of open heart surgery History of appendectomy History of back surgery Family History Father Unknown family medical history Mother HTN (hypertension) Daughter Alive and well Social History Patient Tobacco Use Status: Former Tobacco user Tobacco use type: Cigarette Years Smoked: 30+ Years Review of Systems Const Denies chills, Denies fatigue, Denies fever(s), Denies frequent falls, Denies weakness, Denies weight gain and Denies weight loss ENT Denies dizziness Card Denies chest pain, Denies leg edema, Denies lightheadedness, Denies palpitations, Denies dyspnea and Denies dyspnea on exertion Resp Denies cough, Denies dyspnea and Denies dyspnea on exertion GI Denies hematochezia Musc Denies abnormal gait, Denies muscle weakness, Denies numbness, Denies radiating pain into limb and Denies tingling Neuro Denies abnormal gait, Denies dizziness, Denies frequent falls, Denies numbness, Denies tingling and Denies weakness Endo Denies fatigue and Denies palpitations Physical Exam Vital Signs: Last Vital Signs Pulse 71 12/19/23 14:39 BP 120/56 L 12/19/23 14:39 BMI result Body Mass Index 28.7 Const General: comfortable and no acute distress Orientation/consciousness: patient oriented x3 HEENT Other: Unremarkable Head: Yes normal to inspection Neck Neck: Yes normal visual inspection Chest Chest palpation & inspection: normal inspection of the chest Resp Auscultation: clear to auscultation bilaterally Cardio Palpation: normal PMI Heart sounds: S1 normal heart sound present, S2 normal heart sound present, no gallops, no murmurs and no rubs GI Palpation (GI): Soft to palpation Back/Spine/Pelvis Other: unremarkable Skin General skin exam: no rashes or lesions noted Neuro General: patient oriented x3 Extrem Other: 1+ edema General: Yes normal to inspection Psych Mental Status: mental status grossly normal Assessment & Plan Assessment & Plan (1) Nonischemic cardiomyopathy: Code(s): I42.8 - Other cardiomyopathies Category: Medical Plan: In the most recent echocardiogram, LVEF 45-50%. Has been in the 30s in the past. Has been up and down. Last cardiac catheterization without any significant CAD. Normal filling pressures. For medications, she is on Coreg. Could not take Entresto due to cost and now she is on Irbesartan. Diuretics without changes. She also follows up with Nephrology due to CKD. (2) Status post mitral valve annuloplasty: Code(s): Z98.890 - Other specified postprocedural states Category: Surgical Plan: Stable. (3) Atherosclerotic cardiovascular disease: Code(s): I25.10 - Atherosclerotic heart disease of [place] coronary artery without angina pectoris Category: Medical Plan: Minimal irregularities on recent catheterization. Aspirin and statins. Last available LDL 59 mg/dL. (4) PVC (premature ventricular contraction): Code(s): I49.3 - Ventricular premature depolarization Plan: Frequent PVCs in previous Holter. Most recently about 15%. Clinically, no overt symptoms from this. She also has lung disease and hence using an anti-arrhythmic like Amiodarone will be difficult. (5) Abdominal aortic aneurysm without rupture: Code(s): I71.4 - Abdominal aortic aneurysm, without rupture Category: Medical Qualifiers: Abdominal aorta location: unspecified Qualified Code(s): I71.40 - Abdominal aortic aneurysm, without rupture, unspecified Plan: Status post endovascular repair. She follows up with [facility] vascular surgery. (6) PAF (paroxysmal atrial fibrillation): Code(s): I48.0 - Paroxysmal atrial fibrillation Category: Medical Plan: This was noted postoperatively after mitral valve surgery many years ago. She has had INRs greater than 10 and then Coumadin was stopped. No recent issues. (7) Hemorrhage of gastrointestinal tract, unspecified: Code(s): K92.2 - Gastrointestinal hemorrhage, unspecified Category: Medical Qualifiers: GI bleed type/associated pathology: unspecified gastrointestinal hemorrhage type Qualified Code(s): K92.2 - Gastrointestinal hemorrhage, unspecified Plan: In the setting of supratherapeutic INR. EGD then had revealed hemorrhagic gastritis. Still listed to be on pantoprazole. (8) Essential hypertension: Code(s): I10 - Essential (primary) hypertension Category: Medical Plan: Stable. No changes. Coding Level of Care Code Est Pt Level 4 (17278) Diagnoses Nonischemic cardiomyopathy I42.8 Status post mitral valve annuloplasty Z98.890 Atherosclerotic cardiovascular disease I25.10 PVC (premature ventricular contraction) I49.3 Abdominal aortic aneurysm (AAA) without rupture, unspecified part I71.40 Abdominal aorta location: unspecified PAF (paroxysmal atrial fibrillation) I48.0 Gastrointestinal hemorrhage, unspecified gastrointestinal hemorrhage type K92.2 GI bleed type/associated pathology: unspecified gastrointestinal hemorrhage type Essential hypertension I10
== END 2023-12-19 15:24 | disposition home or self-care (01) ==
PROVIDERS: PCP Student in an Organized Health Care Education/Training Program; Visit Provider Internal Medicine
DX: I42.8 Other cardiomyopathies (principal); Z98.890 Other specified postprocedural states; I25.10 Atherosclerotic heart disease of native coronary artery without angina pectoris; I49.3 Ventricular premature depolarization; I71.40 Abdominal aortic aneurysm, without rupture, unspecified; I48.0 Paroxysmal atrial fibrillation; K92.2 Gastrointestinal hemorrhage, unspecified; I10 Essential (primary) hypertension
CPT/HCPCS: 99214

== ENCOUNTER → 2023-12-19 14:26 | Outpatient (BNVA) | payer MEDICARE, OTHER, SELFPAY | PROVIDERS: PCP Student in an Organized Health Care Education/Training Program; Visit Provider Internal Medicine | DX: I42.8 Other cardiomyopathies (principal); I49.3 Ventricular premature depolarization; I71.40 Abdominal aortic aneurysm, without rupture, unspecified; I25.10 Atherosclerotic heart disease of native coronary artery without angina pectoris; I48.0 Paroxysmal atrial fibrillation; I10 Essential (primary) hypertension; J44.9 Chronic obstructive pulmonary disease, unspecified; K92.2 Gastrointestinal hemorrhage, unspecified; Z98.890 Other specified postprocedural states | CPT/HCPCS: 99212 ==

== ENCOUNTER 2024-04-26 14:56 | Outpatient (REF) | payer MEDICARE, OTHER, SELFPAY ==
[2024-04-26 17:29] LABS: Anion Gap 14 (12-20); Blood Urea Nitrogen 14 mg/dL (9-16); Calcium 9.7 mg/dL (8.4-10.2); Carbon Dioxide 28 mmol/L (22-29); Chloride 103 mmol/L (96-108); Estimated Glomerular Filt Rate 46; Potassium 3.7 mmol/L (3.3-5.1); Sodium 141 mmol/L (135-145)
[2024-04-26 17:45] LABS: Vitamin D 25-OH Total 106.7 ng/mL (>30)
[2024-04-26 18:15] LABS: Total Volume 24 Hour Urine 1275 mL
[2024-04-26 18:22] LABS: Creatinine, 24Hr Urine 0.7 G/Day (1.0-2.0)
[2024-04-26 19:02] LABS: Creatinine (CrCl) 1.16 mg/dL (0.5-1.4); Creatinine Clearance 40.5 mL/min (85-125)
== END 2024-04-26 14:57 | disposition home or self-care (01) ==
LOC: HO.LAB 14:56
PROVIDERS: PCP Student in an Organized Health Care Education/Training Program; Visit Provider Internal Medicine Nephrology
DX: N18.31 Chronic kidney disease, stage 3a (principal); I10 Essential (primary) hypertension; N25.81 Secondary hyperparathyroidism of renal origin
CPT/HCPCS: 36415; 80051; 82306; 82310; 82565; 82575; 83970; 84520

== ENCOUNTER 2024-05-01 15:15 | Outpatient (AMB) | payer MEDICARE, OTHER, SELFPAY ==
--- NOTE | 2024-05-01 15:14 | HO.NEPHOV_ITS ---
Vital Signs 05/01/24 15:16 Height 5 ft 3 in Intake Visit Reasons: 3mon follow up-[employer] Operator Required: No Accompanied by: Self / Same As Patient Allergies meperidine [Demerol] Allergy (Unknown, Verified 05/01/24 15:16) Anaphylaxis Losartan Allergy (Intermediate, Uncoded 12/04/23 14:08) Difficulty Swallowing HPI Comments Details: I had the pleasure of seeing Pari in follow up for CKD, by [employer]. She is known to have extensive vascular disease including AAA S/P EVAR. She also has non ischemic cardiomyopathy as well as atherosclerotic CV disease. She is closely followed up by vascular surgeon Dr Kincaid. She is not a diabetic. She has hypertension and is on ARB. She denied any CAD, CHF, CVA or carotid stenosis. She denied any significant proteinuria or retinopathy. She does not take any excess NSAID's. She denies any chest pain, SOB, orthostatic symptoms, skin rashes, edema or urinary symptoms. She has not had any blood work for a while. She had no specific complaints at the time of this office visit [facility] Medical History SOB (shortness of breath) Essential hypertension Hemorrhage of gastrointestinal tract, unspecified PAF (paroxysmal atrial fibrillation) Abdominal aortic aneurysm without rupture Nonischemic cardiomyopathy Atherosclerotic cardiovascular disease Benign essential hypertension Mitral regurgitation Pneumonia COPD (chronic obstructive pulmonary disease) Surgical History Status post mitral valve annuloplasty Abdominal aortic aneurysm History of open heart surgery History of appendectomy History of back surgery Family History Father Unknown family medical history Mother HTN (hypertension) Daughter Alive and well Social History Patient Tobacco Use Status: Former Tobacco user Tobacco use type: Cigarette Years Smoked: 30+ Years Review of Systems Const All systems reviewed & are unremarkable except as noted in HPI and below Telehealth Telehealth Telehealth Platform: Telephone Location of provider rendering services: practice address Location of patient: address on file Patient Identification confirmed using: Name, : Yes Telehealth method: voice only Patient verbally consented to treatment: Yes Patient verbally consented to billing insurance company: Yes Patient informed of any privacy concerns related to visit: No Minutes spent on Phone/Video with Pt.: 10 Results Reviewed Nephrology Results: Sodium 141 mmol/L (135-145) 04/26/24 Potassium 3.7 mmol/L (3.3-5.1) 04/26/24 Chloride 103 mmol/L (96-108) 04/26/24 Carbon Dioxide 28 mmol/L (22-29) 04/26/24 BUN 14 mg/dL (9-16) 04/26/24 Creatinine 1.16 mg/dL (0.5-1.4) 04/26/24 Calcium 9.7 mg/dL (8.4-10.2) 04/26/24 Phosphorus 3.3 mg/dL (2.7-4.5) 11/15/23 PTH Intact 236.0 pg/mL (8.7-77.1) H 04/26/24 Urine Creatinine 46.65 mg/dL 11/15/23 Protein/Creatinin Ratio TNP 11/15/23 Assessment & Plan Assessment & Plan (1) Hyperparathyroidism: Code(s): E21.3 - Hyperparathyroidism, unspecified Category: Medical (2) CKD stage 3a, GFR 45-59 ml/min: Code(s): N18.31 - Chronic kidney disease, stage 3a Category: Medical (3) Hypertension: Code(s): I10 - Essential (primary) hypertension Category: Medical Qualifiers: Hypertension type: primary hypertension Qualified Code(s): I10 - Essential (primary) hypertension Plan CKD 3 from vascular disease; Serum creatinine stable Tolerating ARB. Serum potassium normal; Euvolemic Blood pressure has been at goal; On low Na diet Reduced Rayaldee to every other day; Sestamibi scan ordered Renal artery imaging at next visit; Great candidate for Jardiance No changes made; Good hydration; Avoidance of NSAID's Answered her questions; F/U appointment given Orders: Orders NM parathyroid Today E21.3 - Hyperparathyroidism, unspecified Parathyroid Hormone Intact 6 Months E21.3 - Hyperparathyroidism, unspecified, I10 - Essential (primary) hypertension, N18.31 - Chronic kidney disease, stage 3a Creatinine 6 Months E21.3 - Hyperparathyroidism, unspecified, I10 - Essential (primary) hypertension, N18.31 - Chronic kidney disease, stage 3a Blood Urea Nitrogen 6 Months E21.3 - Hyperparathyroidism, unspecified, I10 - Essential (primary) hypertension, N18.31 - Chronic kidney disease, stage 3a Electrolytes 6 Months E21.3 - Hyperparathyroidism, unspecified, I10 - Essential (primary) hypertension, N18.31 - Chronic kidney disease, stage 3a Calcium 6 Months E21.3 - Hyperparathyroidism, unspecified, I10 - Essential (primary) hypertension, N18.31 - Chronic kidney disease, stage 3a Coding Level of Care Code Tele Est Pt Level 4 (33090) Diagnoses Hyperparathyroidism E21.3 CKD stage 3a, GFR 45-59 ml/min N18.31 Primary hypertension I10 Hypertension type: primary hypertension
== END 2024-05-01 16:04 | disposition home or self-care (01) ==
LOC: HO.HKA 15:15
PROVIDERS: PCP Student in an Organized Health Care Education/Training Program; Visit Provider Internal Medicine Nephrology
DX: E21.3 Hyperparathyroidism, unspecified (principal); I12.9 Hypertensive chronic kidney disease with stage 1 through stage 4 chronic kidney disease, or unspecified chronic kidney disease; N18.31 Chronic kidney disease, stage 3a
CPT/HCPCS: 99214

== ENCOUNTER 2024-11-07 13:40 | Outpatient (AMB) | payer MEDICARE, OTHER, SELFPAY ==
[2024-11-07 13:52] VITALS: BP 122/68; PULSE 63; BMI 27.7
--- NOTE | 2024-11-07 13:52 | A.OFFVIS_ITS ---
Vital Signs 11/07/24 13:52 Height 5 ft 3 in Weight 156 lb 8.451 oz BMI 27.7 BP 122/68 Blood Pressure Location Lt brachial Position Sitting Pulse 63 Pulse Source Monitor Intake Visit Reasons: 6 mth f/up r/s x3 08-08-24 Allergies meperidine (Demerol) Allergy (Unknown, Verified 05/01/24 15:16) Anaphylaxis Losartan Allergy (Intermediate, Uncoded 12/04/23 14:08) Difficulty Swallowing Medication List - Last Reconciled 11/07/24 by Lucien Clark MD albuterol sulfate 2.5 mg (3 mL) inhalation TID 30 days albuterol sulfate 90 mcg/actuation 2 puffs PO QID PRN alprazolam 0.5 mg PO ONCE amlodipine 10 mg PO DAILY aspirin 81 mg PO DAILY atorvastatin 80 mg PO DAILY budesonide 0.5 mg (2 mL) inhalation DAILY calcifediol ER (Rayaldee) 30 mcg PO BEDTIME carvedilol 12.5 mg PO BID docusate sodium (Colace) 100 mg PO BID doxycycline monohydrate 100 mg PO BID 14 days mqvhywrnstk-yrmuptvsn-yekjismk 200-62.5-25 mcg (Trelegy Ellipta) 1 inh inhalation DAILY 30 days furosemide 40 mg PO BID irbesartan 150 mg PO DAILY nebulizers As directed oxycodone-acetaminophen 10-325 mg tabs PO pantoprazole 40 mg PO DAILY HPI Comments Details: Pari returns for follow-up. To recall, she has a history of severe mitral regurgitation that led to mitral valve repair. She has a history of endovascular repair of the abdominal aortic aneurysm in the past. She also has a history of nonischemic cardiomyopathy. Additionally, COPD. Chronic shortness of breath is just about the same as before. Otherwise, no clear-cut cardiac symptoms. She states she has a hernia in the abdomen which is very bothersome and plans to go for a surgical evaluation. [facility] Medical History SOB (shortness of breath) Essential hypertension Hemorrhage of gastrointestinal tract, unspecified PAF (paroxysmal atrial fibrillation) Abdominal aortic aneurysm without rupture Nonischemic cardiomyopathy Atherosclerotic cardiovascular disease Benign essential hypertension Mitral regurgitation Pneumonia COPD (chronic obstructive pulmonary disease) Surgical History (Reviewed 12/19/23 @ 14:42 by Love Mcintyre [facility]) Status post mitral valve annuloplasty Abdominal aortic aneurysm History of open heart surgery History of appendectomy History of back surgery Family History Father Unknown family medical history Mother HTN (hypertension) Daughter Alive and well Social History (Reviewed 12/19/23 @ 14:42 by Love Mcintyre [facility]) Patient Tobacco Use Status: Former Tobacco user Tobacco use type: Cigarette Years Smoked: 30+ Years Review of Systems Const Denies weakness ENT Denies dizziness Card Denies chest pain, Denies chest pain with activity, Denies syncope, Denies rapid heart rate, Denies pedal edema, Denies edema, Denies leg edema, Denies lighthea dedness, Denies palpitations, Denies dyspnea, Denies dyspnea on exertion and Denies orthopnea Resp Denies cough, Denies dyspnea and Denies dyspnea on exertion GI Denies hematochezia and Denies change in stool character Musc Denies abnormal gait, Denies muscle cramps, Denies muscle weakness, Denies numbness, Denies radiating pain into limb and Denies tingling Neuro Denies abnormal gait, Denies dizziness, Denies syncope, Denies numbness, Denies tingling and Denies weakness Endo Denies palpitations Physical Exam Vital Signs: Last Vital Signs Pulse 63 11/07/24 13:52 BP 122/68 11/07/24 13:52 BMI result Body Mass Index 27.7 Const General: comfortable and no acute distress Orientation/consciousness: patient oriented x3 HEENT Other: Unremarkable Head: Yes normal to inspection Neck Neck: Yes normal visual inspection Chest Chest palpation & inspection: normal inspection of the chest Resp Auscultation: clear to auscultation bilaterally Cardio Palpation: normal PMI Heart sounds: S1 normal heart sound present, S2 normal heart sound present, no gallops, no murmurs and no rubs GI Palpation (GI): Soft to palpation Back/Spine/Pelvis Other: unremarkable Skin General skin exam: no rashes or lesions noted Neuro General: patient oriented x3 Extrem Other: 1+ edema General: Yes normal to inspection Psych Mental Status: mental status grossly normal Office Procedures EKG Details: EKG with likely sinus rhythm at 63/Min; right bundle-branch block and left posterior fascicular block and PVCs. Likely sinus rhythm although the P-waves are very subtle. Similar to prior EKGs. [id number], Complete Assessment & Plan Assessment & Plan (1) Nonischemic cardiomyopathy: Code(s): I42.8 - Other cardiomyopathies Category: Medical Plan: In the most recent echocardiogram, LVEF 45-50%. Has been in the 30s in the past. Has been up and down. Last cardiac catheterization without any significant CAD. Normal filling pressures. On Coreg/Irbesartan. Could not afford Entresto. Diuretics without changes. She also follows up with Nephrology due to CKD. (2) Status post mitral valve annuloplasty: Code(s): Z98.890 - Other specified postprocedural states Category: Surgical Plan: Stable. (3) Atherosclerotic cardiovascular disease: Code(s): I25.10 - Atherosclerotic heart disease of [place] coronary artery without angina pectoris Category: Medical Plan: Minimal irregularities on recent catheterization. Aspirin and statins. Last available LDL 59 mg/dL. (4) PVC (premature ventricular contraction): Code(s): I49.3 - Ventricular premature depolarization Plan: Frequent PVCs in previous Holter. Most recently about 15%. Clinically, no overt symptoms from this. She also has lung disease and hence using an anti- arrhythmic like Amiodarone will be difficult. (5) Abdominal aortic aneurysm without rupture: Code(s): I71.4 - Abdominal aortic aneurysm, without rupture Category: Medical Qualifiers: Abdominal aorta location: unspecified Qualified Code(s): I71.40 - Abdominal aortic aneurysm, without rupture, unspecified Plan: Status post endovascular repair. She follows up with [facility] vascular surgery. (6) PAF (paroxysmal atrial fibrillation): Code(s): I48.0 - Paroxysmal atrial fibrillation Category: Medical Plan: This was noted postoperatively after mitral valve surgery many years ago. She has had INRs greater than 10 and then Coumadin was stopped. No recent issues. (7) Hemorrhage of gastrointestinal tract, unspecified: Code(s): K92.2 - Gastrointestinal hemorrhage, unspecified Category: Medical Qualifiers: GI bleed type/associated pathology: unspecified gastrointestinal hemorrhage type Qualified Code(s): K92.2 - Gastrointestinal hemorrhage, unspecified Plan: In the setting of supratherapeutic INR. EGD then had revealed hemorrhagic gastritis. Still listed to be on pantoprazole. (8) Essential hypertension: Code(s): I10 - Essential (primary) hypertension Category: Medical Plan: Stable. No changes. (9) Preoperative cardiovascular examination: Code(s): Z01.810 - Encounter for preprocedural cardiovascular examination Category: Medical Plan: She is thinking of surgery for abdominal hernia. If medically indicated and to avoid further complications, may proceed. Otherwise, consider conservative care. She has many medical issues and cardiac risk would be considered intermediate. Discussed about this today. Plan Discussion Notes I discussed with the patient the potential need for hernia surgery and the associated risks given her cardiovascular history. We agreed that consulting with Dr. Sanchez would be prudent to evaluate the hernia and discuss surgical options. The patient was advised to maintain regular follow-ups for her cardiovascular health. Patient was informed and verbally consented to the use of an ambient scribe for clinic note documentation during this visit. Coding Level of Care Code Est Pt Level 4 (23905) Complex EM visit Add On G2211 Diagnoses Nonischemic cardiomyopathy I42.8 Status post mitral valve annuloplasty Z98.890 Atherosclerotic cardiovascular disease I25.10 PVC (premature ventricular contraction) I49.3 Abdominal aortic aneurysm (AAA) without rupture, unspecified part I71.40 Abdominal aorta location: unspecified PAF (paroxysmal atrial fibrillation) I48.0 Gastrointestinal hemorrhage, unspecified gastrointestinal hemorrhage type K92.2 GI bleed type/associated pathology: unspecified gastrointestinal hemorrhage type Essential hypertension I10 Preoperative cardiovascular examination Z01.810 CPT Codes EKG - CPT: 74084-[id number], Complete ([id number])
--- OUTSIDE RECORDS SUMMARY | 2024-11-07 15:12 | XMS_ITS | Encounter Summary ---
Author Organization [facility] Address [address] [place] [id number] Phone Care Team Providers Care Sanitation Associate Name Role Phone Rickie Hargrove MD Unavailable Rickie Hargrove MD Unavailable [phone] Everett Ramirez MD Unavailable [phone] Landon Jordan DO Unavailable Daniel Reyes MD Unavailable Miguel Angel Hargrove MD Unavailable [phone] Cosme Espinoza MD Unavailable Rickie Hargrove MD Primary Care Provider [phone] Cece Mccord MD Primary Care Provider [phone] Cece Mccord MD Unavailable Reason for Referral * MRI/CAT Scan - Closed Specialty Diagnoses / Procedures Referred By Contac t Referred To Contact Procedures CT Chest Outside (No Interpretation) System, Provider Not In, PhD [address] [address] Referral ID Status Reason Start Date Expiration Date Visits Re quested Visits Authorized [id number] Closed 12/21/2017 12/21/2018 1 1 Encounter Details Date Type Department Care Team (Late st Contact Info) Description 12/21/2017 Ancillary Orders [facility],Outside Imaging [address] [place] [address] System, Provider [place] In, [place] [address] Social History Tobacco Use Types Packs/Day Years Used Date Smoking Tobacco: Former Cigarettes 2 40 0 07/18/1976 - 07/18/2016 Smokeless Tobacco: Never Comments No Sex and Gender Information Value Date Recorded Sex Assigned at Female 06/04/2021 8:29 AM EDT Legal Sex Female 10:04 PM EDT Gender Identity Female 06/04/2021 8:29 AM EDT Sexual Orientation Straight 06/04/2021 8: 29 AM EDT documented as of this encounter Plan of Treatment Upcoming Encounters Date Type Department Care Team (Late st Contact Info) Description 12/07/2022 Procedure Pass [address] [address] 01/15/2025 1:30 PM EST Office Visit [address] [address] Anoop Sims, [address] [place] [address] [email or web address] 01/20/2025 2:15 PM EST Appointment [address] [address] Cece Mccord MD [address] [place] [address] [address] [place] [address] 07/02/2025 12:00 PM EDT Office Visit [address] [address] Cece Mccord MD [address] [place] [address] documented as of this encounter Results * CT Chest Outside (No Interpretation) (03/18/2017 12:00 AM EST) Narrative SYSTEMGENERATED, DOCUMENTATION - 12/21/2017 4:02 PM EST This study is for PACS storage only and not for interpretation. us Provider Not In System PhD IMG OUTSIDE IMAGING W /OUT INTERPRETATION Final Result documented in this encounter Visit Diagnoses Not on filedocumented in this encounter Care Teams Sanitation Associate Relationship Specialty Start Date End Date Rickie Hargrove MD [address] [place] [address] [address] [place] [phone] [email or web address] PCP - General 12/01/16 10/08/20 Cece Mccord MD [address] [place] [address] [address] [place] [address] [email or web address] PCP - General Family Medicine 10/09/20 Rickie Hargrove MD [address] [place] [address] [address] [place] [phone] [email or web address] Insurance Assigned Provider 11/12/16 05/15/21 Rickie Hargrove MD [address] [place] [address] [address] [place] [phone] [email or web address] Historical LMR Provider 11/26/16 Everett Ramirez MD [address] [place] [address] [email or web address] Historical LMR Provider 11/26/16 Landon Jordan DO [address] [place] [address] Orthopedics [facility] Sports Medicine, [place], [place] [id number] Historical LMR Provider 11/26/16 02/13/21 Daniel Reyes MD [address] [place] [phone] Historical LMR Provider 11/26/16 02/13/21 Miguel Angel Hargrove MD [address] [place] [address] [address] [place] [phone] [email or web address] Historical LMR Provider 11/26/16 02/13/21 Cosme Espinoza MD [address] [place] [address] 7 [place] [address] [email or web address] Historical LMR Provider 11/26/16 02/13/21 Cece Mccord MD [address] [place] [address] 7 [place] [address] [email or web address] Insurance Assigned Provider 05/13/23 documented as of this encounter Additional Source Comments The information contained in this document represents components of the legal health record. It is not the complete legal health record.[facility]
--- OUTSIDE RECORDS SUMMARY | 2024-11-07 15:12 | XMS_ITS | Clinical Summary ---
Author Organization [facility] Address [address] [place] [address] Phone Care Team Providers Care Print Shop Chief Clerk Name Role Phone Rickie Hargrove MD Unavailable [phone] Everett Ramirez MD Unavailable Cece Mccord MD Primary Care Provider [phone] Cece Mccord MD Unavailable [phone] Allergies Active Allergy Reactions Criticality Noted Date Comments Varenicline 01/09/2017 nightmares Meperidine 12/22/2016 Lisinopril Angioedema 01/09/2017 Simvastatin Myalgia 01/09/2017 Medications nebulizer accessories Kit Acti ve aspirin 81 MG EC tablet Take 1 tablet by mouth. Active ipratropium-albut Raman (DUONEB) 0.5-3 mg (2.5 mg base)/3 mL nebulizer solutionIndicatio ns:Panlobular emphysema,Pulmona ry emphysema, unspecified emphysema type Take 3 mL by nebulization 3 (three) times a day. Diagnosis: COPD and panlobular emphysema. J44.9, J43.1 270 mL 11 03/16/19 22 Active albuterol 90 mcg/actuation inhalerIndication s:Asthma Inhale 2 puffs into the lungs every 4 (four) hours as needed for wheezing. 18 g 11 03/16/19 22 Active amLODIPine (NORVASC) 10 MG tablet Take 10 mg by mouth daily. 09/08/19 22 Active budesonide (PULMICORT) 0.5 mg/2 mL nebulizer solutionIndicatio ns:Pulmonary emphysema, unspecified emphysema type Take 0.5 mg by nebulization daily. 12/14/19 22 Active betamethasone dipropionate 0.05 % creamIndications: Psoriasis Apply topically 2 (two) times a day. 45 g 6 12/16/19 22 Active fluticasone propionate (ARMONAIR DIGIHALER) 55 mcg/actuation aebs Inhale 55 mcg into the lungs. 09/23/19 22 Active triamcinolone acetonide 0.05 % Oint Apply topically. 09/23/19 22 Active irbesartan (AVAPRO) 150 MG tablet TAKE 1 TABLET BY MOUTH DAILY. REPLACES YOUR LOSARTAN. DO NOT TAKE LOSARTAN ANYMORE DIRECTED 10/21/19 23 Active carvedilol (COREG) 12.5 MG tablet Take 1 tablet by mouth 2 (two) times a day. 11/10/19 23 Active calcifediol (RAYALDEE) 30 mcg Cs24 Take 1 capsule by mouth daily. 04/28/19 23 Active ketoconazole (NIZORAL) 2 % shampooIndication s:Scalp lesion Apply topically 2 (two) times a week. 120 mL 3 12/09/19 23 Active fluocinonide 0.05 % external solutionIndicatio ns:Scalp lesion Apply topically 2 (two) times a day. 60 mL 3 12/08/19 23 Active furosemide (LASIX) 40 MG tablet Take 40 mg by mouth. Active inhaler spacing device (AEROCHAMBER,ERINN THERITE) SpcrIndications:C OPD with acute exacerbation Inhale 1 each into the lungs daily as needed. 1 each 03/29/19 24 Active TRELEGY ELLIPTA 200-62.5-25 mcg inhaler Inhale 1 puff into the lungs daily. 09/05/19 24 Active betamethasone valerate 0.1 % lotionIndications :Psoriasis Apply topically 2 (two) times a day. 60 mL 11 02/27/19 25 Active pantoprazole (PROTONIX) 40 MG tabletIndications :Medication refill TAKE 1 TABLET(40 MG) BY MOUTH DAILY 90 tablet 3 05/08/19 25 Active docusate sodium (COLACE) 100 MG capsuleIndication s:Constipation Take 1 capsule (100 mg total) by mouth 2 (two) times a day. 60 capsule 11 05/08/19 25 Active atorvastatin (LIPITOR) 80 MG tabletIndications :Mixed hyperlipidemia TAKE 1 TABLET(80 MG) BY MOUTH DAILY 90 tablet 10/03/19 25 Active oxyCODONE-acetami nophen (PERCOCET) 10-325 mg per tabletIndications :Other chronic pain Take 1 tablet by mouth every 4 (four) hours as needed for pain (specific location in comments). 168 tablet 10/30/19 25 025 Active tobramycin (TOBREX) 0.3 % ophthalmic solutionIndicatio ns:Ear itch Place 4 drops into the left ear 2 (two) times a day. 5 mL 11 12/16/19 22 025 Discontinu ed(No longer taking) oxyCODONE-acetami nophen (PERCOCET) 10-325 mg per tabletIndications :Other chronic pain Take 1 tablet by mouth every 4 (four) hours as needed for pain (specific location in comments). 168 tablet 10/02/19 25 025 Discontinu ed(Reorder ) ofloxacin (FLOXIN) 0.3 % otic solutionIndicatio ns:Other noninfectious chronic otitis externa of right ear 5 drops by Each Ear route daily for 7 days. 1.75 mL 10/10/19 25 025 predniSONE (DELTASONE) 10 MG tabletIndications :Pulmonary emphysema, unspecified emphysema type Take 4 tablets (40 mg total) by mouth daily for 5 days. 20 tablet 10/10/19 25 025 Discontinu ed(Reorder ) predniSONE (DELTASONE) 10 MG tabletIndications :Pulmonary emphysema, unspecified emphysema type Take 4 tablets (40 mg total) by mouth daily for 5 days. 20 tablet 10/12/19 25 025 Active Problems Patient Care Coordination No te Formatting of this note migh t be different from the original. 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 I sent her enough of an rx to be able to take this much as she ran out and could not take the prescribed dose. Moderate episode of recurrent major depressive d isorder 12/15/2021 Atherosclerosis of [place] ronary artery of [place] heart without angina pectoris 02/22/2021 Overview (09/14/2021): (Dr Clark) cath showed mild CAD, ASA and statin only. Lipids via us. Cath to be repeated 09/[address] Clark's office. Assessment & Plan (03/21/2022 8:40 PM EST): Reviewed her claims adjustor note, her last heart cath was pretty reassuring though her EF continues to be 35%. Hot flashes due to menopause 02/12/2021 Assessment & Plan (07/08/2021 9:45 PM EDT): Will double the venlafaxine to see if it helps w/ hot flashes. Assessment & Plan (06/04/2021 8:33 AM EDT): Recommend start venlafaxine as these are long-standing and debilitating. Will increase in future if she tolerates w/o s/e. 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 Assessment & Plan (06/04/2021 8:33 AM EDT): Important to keep BP under control due to this issue. Plan was (via nephrology) to start her on amelia if Bps still elevated. This has not happened, but she is tolerating her carvedilol well. SBP just a bit high today. Will defer to nephrology for mgmt. Psoriasis 02/12/2021 Assessment & Plan (02/28/2024 5:37 PM EST): Clarified which topical she'd like: betamethasone Orders: betamethasone valerate 0.1 % lotion; Apply topically 2 (two) times a day. Biliary calculus 02/03/2021 Diverticular disease 02/03/2021 Ex-cigarette smoker 02/03/2021 Pulmonary hypertension 02/03/2021 Right bundle-branch block 02/03/2021 Dyspnea on exertion 08/20/2019 Overview (02/22/2021): Per Dr Clark 01/2021 -- not likely to be due to MV gradient which, though increased, is stable. Also has COPD. Bps are high. Mild CAD shown on heart cath. Plan is to consider POORNIMA for mitral stenosis. Assessment & Plan (03/21/2022 8:38 PM EST): At baseline, this is not new in conjunction with her leg swelling. Assessment & Plan (04/01/2020 1:47 PM EST): Progressive dyspnea on exertion of unclear etiology. Lungs relatively clear wit wheezing, making airflow obstruction unlikely. Significant desaturations with exertion. Differential therefore includes pulmonary vascular disease, diffuse parenchymal lung disease, severe anemia, or possible well compensated heart failure. PLAN: Check labs Obtain baseline chest x-ray. Pending findings, will need to determine whether contrast or noncontrast CT indicated. At minimum, patient due for low-dose screening chest CT Will order full PFTs. Trial of Trelegy Ellipta as below Given extensive coronary calcifications and prior valve replacement surgery, despite lack of overt right heart failure signs on exam, would likely benefit from echocardiogram and cardiac stress testing but will defer to her claims adjustor to arrange. Assessment & Plan (08/20/2019 2:04 PM EDT): Unclear if subacute worsening dyspnea due to COPD versus alternative. Recommendations: Obtain routine labs Obtain chest x-ray Patient prefers testing done at [facility] since moved to [place] 2 years ago Empiric trial of prednisone 40 mg daily for 5 days, extend to 10 days if slow improvement. Will request results for upcoming echocardiogram on 09/05 at [facility] Pending above findings, consider additional testing, including but not limited to CT imaging of the chest Umbilical hernia 11/28/2018 Assessment & Plan (10/09/2024 8:31 PM EDT): To [facility] gen surg for hernia evaluation Orders: Ambulatory referral to External General Surgery Assessment & Plan (10/15/2019 3:13 PM EDT): Naeem has a resolvable umbilical hernia. She will call if there is any issues with this in the future. She elects for conservative management- no referral to surgery at present. She will call if there is any other issues. She understands and agrees. Stage 3b chronic kidney disease 03/06/2018 Overview (03/22/2022): Last Cr at [facility] 1.53 w/ GFR 33 (03/2022) Assessment & Plan (03/21/2022 8:37 PM EST): She has just had labs done at her claims adjustor at [facility]. Will ask team to get labs scanned to chart so I can update GFR. Assessment & Plan (07/08/2021 9:45 PM EDT): See above re BP control. Chronic nonallergic rhinitis 12/21/2017 Assessment & Plan (12/21/2017 3:37 PM EST): Continue Flonase as needed. Peripheral vascular disease 02/13/2017 Chronic pain 12/22/2016 Assessment & Plan (10/09/2024 8:31 PM EDT): Reviewed autorefill with refills team; confirmed, not sure why she is having trouble Assessment & Plan (03/21/2022 8:39 PM EST): Reviewed her use of oxycodone and it is appropriate, recommend putting her back on auto refill. Assessment & Plan (06/04/2021 8:35 AM EDT): Discussed anger and its roots in fear/anxiety. Discussed impact of anger on chronic pain. Chronic obstructive pulmonary disease 12/22/2016 Overview (06/14/2022): Followed now at [facility] (previously: [facility]) -- stopped trelegy, started budesonide via nebulizer, continue duoneb, pulm rehab (05/2022) -- q3-4m follow up Assessment & Plan (10/09/2024 8:31 PM EDT): Some mild signs of creeping exacerbation, will try pred burst for 5 days & f/u with pulm Orders: predniSONE (DELTASONE) 10 MG tablet; Take 4 tablets (40 mg total) by mouth daily for 5 days. Assessment & Plan (02/28/2024 5:37 PM EST): Currently very stable and doing well. Trelegy continues to be a positive impact. Continues to be well managed by regulatory submissions specialist. Assessment & Plan (04/01/2020 1:48 PM EST): Moderate airflow obstruction with underlying emphysema on imaging. Unclear how much contributing to her progressive shortness of breath. Continue duo nebs. Hold Brio Ellipta. Given 2-week sample of Trelegy Ellipta which is a high-dose ICS/LABA/LAMA combination inhaler. Patient should call if any notable improvement. Due for repeat full pulmonary function studies. Assessment & Plan (08/20/2019 2:02 PM EDT): Moderate COPD with increasing shortness of breath. Symptomatically improved with nebulizer. For now, continue Brio Ellipta and 4 times daily DuoNebs. Given lack of symptomatic improvement, discouraged regular use of Ventolin. Further evaluate as below. Assessment & Plan (05/17/2019 11:47 AM EDT): At least moderate COPD with ongoing chronic bronchitis phenotype. Increasing shortness of breath of unclear etiology. We will continue with current regimen of Brio Ellipta. Encouraged limit Ventolin to no more than twice daily. Increase duo nebs to 4 times daily and continue use of guaifenesin. If fails to improve, would then arrange for further testing with chest x-ray versus sputum culture. Assessment & Plan (12/21/2017 3:37 PM EST): Continue Brio Ellipta 1 puff daily. Recommend start scheduled duo nebs twice daily. Can use up to 3 times daily if feels beneficial. Limit Ventolin to no more than twice daily. Recommend trial of [id number] guaifenesin 400 mg tablets up to 3 times daily to help loosen chest mucus. Plan repeat PFTs in 1 year given change since 2013. Assessment & Plan (01/09/2017 1:45 PM EST): Clinically stable. Continue Breo and Duonebs twice daily. Encouraged to only use Ventolin if needed as opposed to using as a security blanket. Plan repeat PFTs in the Spring Depression 12/22/2016 Assessment & Plan (02/28/2024 5:37 PM EST): Sertraline, once again, did not help her. Discontinued. I do think she should see a psychiatrist, she doesn't want to. Assessment & Plan (06/04/2021 8:36 AM EDT): Start venlafaxine for both hot flashes and depression. Hypertension 12/22/2016 Overview (07/08/2021): Hx: lisinopril (angioedema) Assessment & Plan (03/21/2022 8:38 PM EST): sbp a little high here but reports normal numbers at home and has reviewed this with her claims adjustor. Assessment & Plan (07/08/2021 9:44 PM EDT): Given her AAA and CKD it is important to control her BP. I am hesitant to put her on amelia without trying something that won't increase her risk for hyperK. Will try HCTZ in addition to her carvedilol. Assessment & Plan (10/15/2019 3:04 PM EDT): Pari Avery has hypertension and she is taking the above medication as directed without any side effects. her blood pressure is within normal limits and stable. she will follow up as directed. Insomnia 12/22/2016 Lytic bone lesion of left femur 12/22/2016 Mitral valve replaced 12/22/2016 Overview (02/22/2021): (Dr Clark at [facility]) Unchanged gradient per echo as of 01/14/21 -- remain on transportation maintenance operator ASA, continue IE ppx. Hyperlipidemia 12/22/2016 Panlobular emphysema 12/22/2016 Assessment & Plan (03/21/2022 8:37 PM EST): Reviewed her regulatory submissions specialist note and her medications. He has recommended pulmonary rehab, which she has not done as of yet. Pulmonary nodules 12/22/2016 Assessment & Plan (08/20/2019 2:02 PM EDT): History of prior pulmonary nodules, last available imaging 2014 with granulomas. Will arrange for earlier follow-up with DANIEL Gage to additionally discuss lung cancer screening. Assessment & Plan (05/17/2019 11:46 AM EDT): Difficult to assess at this time. Discuss repeat testing versus lung cancer screening at follow-up visit. Assessment & Plan (12/21/2017 3:37 PM EST): Request CT imaging from [facility]. At follow-up in 6 months, consider whether lung cancer screening imaging indicated. Lumbar radiculopathy 12/22/2016 Resolved Problems Problem Noted Date Diagnosed Date Resolved Date Cough 07/08/2021 03/21/2022 Assessment & Plan (07/08/2021 9:47 PM EDT): I think this cough is related to her recent influenza and is leading to her coughing up food since she is eating more than she was while sick. We will watch this and monitor for improvement. If no improvement she will let me know and we will consider barium swallow. I think it's too early to work it up given its proximity to her illness. She also has clear lung exam today and normal sats, no sign of COPD exacerbation so I do think in general she is on the mend. Acute renal failure syndrome 05/06/2020 07/08/2021 Systolic heart failure 05/06/202003/21 Overview (02/22/2021): (Dr Clark) LVEF at time of MV replacement showed LVEF 30% which has resolved. On toprol XL only. Off lisinopril due to elev Cr in past. Assessment & Plan (06/04/2021 8:34 AM EDT): She is now on carvedilol and is euvolemic, stable. Dysuria 10/15/2019 03/21/2022 Assessment & Plan (10/15/2019 3:14 PM EDT): Pari has been having some dysuria however urinalysis shows no infection. I will have the urine sent out for culture. I advised her to drink plenty water and to call if this gets worse or if this does not improve. She understands and agrees. Flu vaccine need 10/15/2019 06/04/2021 Assessment & Plan (10/15/2019 3:15 PM EDT): Sandi would like to get a flu shot today. This was [id number]. Cyst of skin 10/15/2019 03/21/2022 Assessment & Plan (06/04/2021 8:35 AM EDT): Sebaceous cysts in axillae are all stable. Assessment & Plan (10/15/2019 3:14 PM EDT): Naeem has a very benign appearing cyst of her left axilla- surveillance. She will call if this gets bigger or painful. She understands and agrees. Gangrene of left foot 03/21/20172018 Plantar wart of left foot 02/13/2017 Acute bronchitis 01/09/2017 11/13/2017 Assessment & Plan (01/09/2017 1:47 PM EST): Likely viral. Will send sputum for culture. Increase nebs to four times per day for the next 1-2 weeks until resolves. Would hold on ABx unless sputum culture positive or fails to improve. Tobacco use disorder 01/09/2017 018 Overview (01/09/2017): Quit 07/18/16 Assessment & Plan (01/09/2017 1:46 PM EST): Congratulated on ongoing tobacco abstinence. Lumbar stenosis 12/22/2016 03/21/2022 Encounters Date Type Department Care Team Description 11/05/2024 Refill [facility] [address] [place] [address] Cece Mccord MD Medication Refill 10/24/2024 Refill [facility] [address] [place] [address] Rama Ryan MA Medication Refill 10/15/2024 Telephone [facility] [address] [place] [address] Cece Mccord MD Appointment 10/11/2024 Telephone [facility] [address] [place] [address] Rossi De Santiago Call back 10/11/2024 Refill [facility] [address] [facility] [place] [address] Rossi De Santiago Medication Problem 10/09/2024 3:30 PM EDT Office Visit [facility] [address] [place] [address] Cece Mccord MD Umbilical hernia without obstruction and without gangrene (Primary Dx); Pulmonary emphysema, unspecified emphysema type; Other noninfectious chronic otitis externa of right ear; Chronic kidney disease, stage 3a; MDD (major depressive disorder), recurrent episode, moderate; Chronic systolic HF (heart failure); PAF (paroxysmal atrial fibrillation); Chronic pain syndrome 10/02/2024 Refill [facility] [address] [place] [address] Lucero Mcgee PA-C Medication Refill 09/26/2024 Refill [facility] [address] [place] [address] Rama Ryan MA Medication Refill 09/23/2024 Refill [facility] [address] [place] [address] Obdulia Lima MA Medication Refill 08/20/2024 Refill [facility] [address] [place] [address] Obdulia Lima MA Medication Refill from Last 3 Months Immunizations Immunization Administration Dates Next Due COVID-19 (Pre-11/28) [place] Vaccine, mRNA, PF 05/14/2020,04/23/2020 INFLUENZA, SPLIT VIRUS, TRIV ALENT W/ PRESERVATIVE IM 10/26/2010 Influenza High-Dose Quadriva lent Preservative Free IM 12/07/2022,10/15/2019 Influenza High-Dose Trivalen t Preservative Free IM 11/27/2023,11/28/2018,10/27/2016,10/27,11/11/2014,11/04/2013 Influenza Quadrivalent Adjuv anted Preservative Free IM 11/24/2021,11/24/2020 Influenza Quadrivalent Prese rvative Free IM 11/13/2017 Influenza trivalent preserva tive free intradermal 02/04/2013,12/13/2011 Influenza, whole 12/13/2011, 0,12/22/2008,10/16 Pneumococcal conjugate PCV13 01/22/2014 Pneumococcal polysaccharide PPSV23 01/28,08/15/2011,11/18/2010,12/12,12/12/2005 RSV Vaccine (monovalent, adjuvanted) 02/20/2023 Tdap 12/13/2011 Zoster live 05/05/2014 Zoster recombinant 02/21/2022,12/11/2021 Family History Medical History Relation Comments No Known Problems Daughter Thyroid disease Mother Relation Status Comments Daughter Father Mother Social History Tobacco Use Types Packs/Day Years Used Date Smoking Tobacco: Former Cigarettes 2 40 0 07/18/1976 - 07/18/2016 Smokeless Tobacco: Never Tobacco Cessation:Counseling Given: Not Answered Alcohol Use Standard Drinks/Week Comments Never 0 (1 standard drink = 0.6 oz pur e alcohol) Education Answer Date Recorded Are you interested in more education? Not on danelle e 06/03/2022 Are you concerned about learning? Not on file 06/03/2022 No 06/03/2022 No 06/03/2022 Digital Access Answer Date Recorded No 07/02/2022 No 07/02/2022 Reliable internet access at home? Not on file 07/02/2022 Device with a working camera? Not on file Comments No Sex and Gender Information Value Date Recorded Sex Assigned at Female 06/04/2021 8:29 AM EDT Legal Sex Female 10:04 PM EDT Gender Identity Female 06/04/2021 8:29 AM EDT Sexual Orientation Straight 06/04/2021 8: 29 AM EDT Last Filed Vital Signs Vital Sign Reading Time Taken Comments Blood Pressure 124/66 10/09/2024 3:29 PM EDT Pulse 78 10/09/2024 3:29 PM EDT Temperature 36.3 C (97.3 F) 10/09/2024 3:29 PM EDT Respiratory Rate - - Oxygen Saturation 96% 10/09/2024 3:29 PM EDT Inhaled Oxygen Concentration - - Weight 75.6 kg (166 lb 11.2 oz) 10/09/2024 3:29 PM EDT Height 155.6 cm (5' 1.26 ) 03/29/2023 1:26 PM ES T Body Mass Index 31.23 03/29/2023 1:26 PM EST Plan of Treatment Upcoming Encounters Date Type Department Care Team (Late st Contact Info) Description 12/07/2022 Procedure Pass [facility], [facility] [address] [place] [address] 01/15/2025 1:30 PM EST Office Visit [facility] [address] [place] [address] Anoop Sims DO [address] [facility] [address] [place] [address] 01/20/2025 2:15 PM EST Appointment [facility] [address] [place] [address] Cece Mccord MD [address] [facility], [facility] [address] [place] [address] [email or web address] 07/02/2025 12:00 PM EDT Office Visit [facility] [address] [place] [address] Cece Mccord MD [address] [facility], [facility] [address] [place] [address] [email or web address] Health Maintenance Due Date Last Done Comments Adult Td,Tdap Booster 12/12/2021 12/13/2011 LIPID PANEL 12/08/2023 12/07/2022, 1102/2022, 06/03/2021, Additional history exists POTASSIUM LEVEL 12/08/2023 12/07/2022, 03/2021, 06/03/2021, Additional history exists REPEAT PHQ 12/28/2023 11/27/2023, 11/27/2023 INFLUENZA VACCINE (#1) 2024 , 12/07/2022, 12/07/2022, Additional history exists COVID-19 VACCINE ( season) 2024 11/27/2023, 02/20/2023, 11/24/2021, Additional history exists CREATININE LEVEL 11/14/2024 11/15/2023, 02/2022, 03/14/2022, Additional history exists DEPRESSION SCREENING 11/26/2024 11/27/2023, 11/27/19 24 BLOOD PRESSURE 04/08/2025 10/09/2024 PNEUMOCOCCAL VACCINES (50+ years) Completed 01/28/2015, 01/22/2014, 08/15/2011, Additional history exists OSTEOPOROSIS SCREENING INITIAL (ONE-TIME) Completed 02/27/2015 HEPATITIS C SCREENING Completed 08/29/2018, 019 ZOSTER VACCINES Completed 02/21/2022, 11/0 06/2021, 05/05/2014 RSV VACCINE Completed 02/20/2023 HEPATITIS A VACCINES Aged Out No long er eligible based on patient's age to complete this topic HIB VACCINES Aged Out No longer eligi ble based on patient's age to complete this topic MENINGOCOCCAL VACCINES (ACWY) Aged Out No longer eligible based on patient's age to complete this topic MENINGOCOCCAL VACCINES (B) Aged Out N o longer eligible based on patient's age to complete this topic Medical Devices Not on file Procedures Procedure Name Priority Date/Time Associated Diagnosis Comments LIPID PANEL Routine 12/07/2022 2:25 PM EDT Chronic systolic congestive heart failure COMPREHENSIVE METABOLIC PANEL Routine 12/07/2022 2:25 PM EDT Chronic systolic congestive heart failure HEPATITIS C ANTIBODY, QUALITATIVE Routine 08/29/2018 1:49 PM EDT Screening for condition OUTSIDE BONE DENSITY SCREENING Routine 02/27/2015 from Last 3 Months or Most Recently Relevant to Health Maintenance Results * (ABNORMAL) Comprehensive metabolic panel (12/07/2022 2:25 PM EDT) SODIUM 139 133 - 146 mmol/L [facility] POTASSIUM 4.8 3.3 - 5.1 mmol/L [facility] CHLORIDE 100 96 - 108 mmol/L [facility] CO2 27 21 - 35 mmol/L [facility] BUN 20(H) 6 - 19 mg/dL [facility] CREATININE 1.60(H) 0.5 - 1.5 mg/dL [facility] GLUCOSE 110(H) 70 - 99 mg/dL [facility] ALBUMIN 4.5 3.9 - 4.8 g/dL [facility] TOTAL PROTEIN 7.4 6.5 - 8.0 g/dL [facility] CALCIUM 10.2 8.4 - 10.3 mg/dL [facility] ALKALINE PHOSPHATASE 119(H) 39 - 117 U/L [facility] TOTAL BILIRUBIN 0.6 0.0 - 1.2 mg/dL [facility] AST 43(H) 0 - 37 U/L [facility] ALT 18 0 - 40 U/L [facility] GLOBULIN 2.9 1 - 4.8 g/dL [facility] EGFR 34(L) >59 mL/min/1.7 3m2 [facility] Comment:Estimated glomerular filtration rate calculated using the CKD-EPI refit equation. ANION GAP 17 10 - 20 mmol/L [facility] Blood 12/07/2022 2:25 PM EDT 12/07/2022 2:27 PM EDT Cece Mccord MD LAB BLOOD ORDERABLES Ally ortega Result [facility] [address] [place] [address] * (ABNORMAL) Lipid panel (12/07/2022 2:25 PM EDT) HDL 26 mg/dL [facility] Comment: Interpretation <40 mg/dL: Low HDL cholesterol (major risk factor for CHD) Greater than or equal to 60 mg/dL: High HDL cholesterol ( negative risk factor for CHD) HDL - cholesterol is affected by a number of factors, e.g. smoking, excerise, hormones, sex and age. CHOLESTEROL 137 0 - 240 mg/dL [facility] TRIGLYCERIDES 401(H) 30 - 160 mg/dL [facility] LDL NOT CALCULATED 50 - 129 mg/dL [facility] Comment: Unable to calculate due to elevated TRIG of greater than 400. A measured LDL will be performed. CARDIAC RISK RATIO 5.3(H) 3.3 - 4.4 [facility] Blood 12/07/2022 2:25 PM EDT 12/07/2022 2:27 PM EDT us Cece Mccord MD LAB BLOOD ORDERABLES Ally l Result [address] [address] * Hepatitis C antibody, qualitative (08/29/2018 1:49 PM EDT) HCV NON-REACTIV E NON-REACTI VE [facility] Blood 08/29/2018 1:49 PM EDT 08/29/2018 1:53 PM EDT us Rickie Hargrove MD LAB BLOOD ORDERABLES Ally l Result Performing Organization Address [facility] Co de Phone Number [address] [address] * OUTSIDE BONE DENSITY SCREENING (02/27/2015) Pathologist [facility] BONE DENSITY SCREENING - EXTERNAL .. Historical Provider HEALTH MAINTENANCE Final Result from Last 3 Months or Most Recently Relevant to Health Maintenance Insurance [place] [id number] [employer] MEDICARE SUPPLEMENT MEDICARE PART A & B MEDICARE SUPPLEMENT MEDICARE PART A & [place] [address] [place] [address] MEDICARE SUPPLEMENT MEDICARE PART A & B [employer] MED[employer]ARE SUPPLEMENT MEDICARE PART A & B [employer] MED[employer]ARE SUPPLEMENT MEDICARE PART A & B [employer] MEDICARE SUPPLEMENT MEDICARE PART A & B [employer] MEDICARE SUPPLEMENT MEDICARE PART A & B [employer] MEDICARE SUPPLEMENT MEDICARE PART A & B [employer] MEDICARE SUPPLEMENT [address] [place] [address] [employer] Care Teams Print Shop Chief Clerk Relationship Specialty Start Date End Date Cece Mccord MD [address] [place] [address], [address] [place] [address] [email or web address] PCP - General Family Medicine 10/09/20 Rickie Hargrove MD [address] [place] [address] [address] [place] [address] [email or web address] Historical LMR Provider 11/26/16 Everett Ramirez MD [address] [place] [address] [email or web address] Historical LMR Provider 11/26/16 Cece Mccord MD [address] [place] [address], [address] [place] [address] [email or web address] Insurance Assigned Provider 05/13/23 Additional Source Comments The information contained in this document represents components of the legal health record. It is not the complete legal health record.[facility]
--- OUTSIDE RECORDS SUMMARY | 2024-11-07 15:12 | XMS_ITS | Encounter Summary ---
Author Organization [facility] Address [address] [place], [place] [id number] Phone Care Team Providers Care Retail Analytics Manager Name Role Phone Rickie Hargrove MD Unavailable Rickie Hargrove MD Unavailable Everett Ramirez MD Unavailable [phone] Landon Jordan DO Unavailable Daniel Reyes MD Unavailable Miguel Angel Hargrove MD Unavailable [phone] Cosme Espinoza MD Unavailable [phone] Rickie Hargrove MD Primary Care Provider [phone] Cece Mccord MD Primary Care Provider [phone] Cece Mccord MD Unavailable Encounter Details Date Type Department Care Team (Late st Contact Info) Description 09/18/2017 Transcribe Orders [facility] PFT Lab [address] [place] [address] Everett Ramirez MD [address] [phone] [email or web address] Social History Tobacco Use Types Packs/Day Years Used Date Smoking Tobacco: Former Cigarettes 2 40 0 07/18/1976 - 07/18/2016 Smokeless Tobacco: Never Comments Unknown Sex and Gender Information Value Date Recorded Sex Assigned at Female 06/04/2021 8:29 AM EDT Legal Sex Female 10:04 PM EDT Gender Identity Female 06/04/2021 8:29 AM EDT Sexual Orientation Straight 06/04/2021 8: 29 AM EDT documented as of this encounter Plan of Treatment Upcoming Encounters Date Type Department Care Team (Late st Contact Info) Description 12/07/2022 Procedure Pass [address] [address] 01/15/2025 1:30 PM EST Office Visit [address] [address] Anoop Sims, DO [address] [facility] [address] [place] [address] [email or web address] 01/20/2025 2:15 PM EST Appointment [address] [address] Cece Mccord MD [address] [place] [address] [email or web address] 07/02/2025 12:00 PM EDT Office Visit [address] [address] Cece Mccord MD [address] [place] [address] documented as of this encounter Visit Diagnoses Not on filedocumented in this encounter Care Teams Retail Analytics Manager Relationship Specialty Start Date End Date Rickie Hargrove MD [address] [place], [place] [address] [place] [address] [email or web address] PCP - General 12/01/16 10/08/20 Cece Mccord MD [address] [place] [address], [address] [place] [address] [email or web address] PCP - General Family Medicine 10/09/20 Rickie Hargrove MD [address] [place] [address] [address] [place] [address] [email or web address] Insurance Assigned Provider 11/12/16 05/15/21 Rickie Hargrove MD [address] [place] [address] [address] [place] [phone] [email or web address] Historical LMR Provider 11/26/16 Everett Ramirez MD [address] [place] [address] [email or web address] Historical LMR Provider 11/26/16 Landon Jordan DO [address] [place] [address] Orthopedics & Sports Medicine, [place] [address] [email or web address] Historical LMR Provider 11/26/16 02/13/21 Daniel Reyes MD [address] [place] [address] [email or web address] Historical LMR Provider 11/26/16 02/13/21 Miguel Angel Hargrove MD [address] [place] [address] [address] [place] [phone] [email or web address] Historical LMR Provider 11/26/16 02/13/21 Cosme Espinoza MD [address] [place] [address], [address] [place] [address] [email or web address] Historical LMR Provider 11/26/16 02/13/21 Cece Mccord MD [address] [place] [address], [address] [place] [address] [email or web address] Insurance Assigned Provider 05/13/23 documented as of this encounter Additional Source Comments The information contained in this document represents components of the legal health record. It is not the complete legal health record.[facility]
--- OUTSIDE RECORDS SUMMARY | 2024-11-07 15:12 | XMS_ITS | Encounter Summary ---
Author Organization [facility] Address [address] [place] [address] [place] [phone] Phone Care Team Providers Care Medical Operations Supervisor Name Role Phone Rickie Hargrove MD Unavailable Rickie Hargrove MD Unavailable [phone] Everett Ramirez MD Unavailable [phone] Landon Jordan DO Unavailable Daniel Reyes MD Unavailable Miguel Angel Hargrove MD Unavailable Cosme Espinoza MD Unavailable Rickie Hargrove MD Primary Care Provider [phone] Cece Mccord MD Primary Care Provider [phone] Cece Mccord MD Unavailable Encounter Details Date Type Department Care Team (Late st Contact Info) Description 03/22/2017 Procedure Pass [facility] [place], Saad [address] [facility], 2nd Floor, [address] [place] [address] Social History Tobacco Use Types Packs/Day Years [...] st Contact Info) Description 12/07/2022 Procedure Pass [address] [address] 01/15/2025 1:30 PM EST Office Visit [address] [address] Anoop Sims, DO [address] [facility] [address] [place] [address] [email or web address] 01/20/2025 2:15 PM EST Appointment [address] [address] Cece Mccord MD [address] [place] [address] [address] [place] [address] [email or web address] 07/02/2025 12:00 PM EDT Office Visit [address] [address] Cece Mccord MD [address] [place] [address] [email or web address] documented as of this encounter Visit Diagnoses Not on filedocumented in this encounter Care Teams Medical Operations Supervisor Relationship Specialty Start Date End Date Rickie Hargrove MD [address] [place], [place] [address] [place] [address] [email or web address] PCP - General 12/01/16 10/08/20 Cece Mccord MD [address] [place] [address] 7 [place] [address] [email or web address] PCP - General Family Medicine 10/09/20 Rickie Hargrove MD [address] [place] [address] [address] [place] [phone] [email or web address] Insurance Assigned Provider 11/12/16 05/15/21 Rickie Hargrove MD [address] [place] [address] [address] [place] [phone] [email or web address] Historical LMR Provider 11/26/16 Everett Ramirez MD [address] [place] [address] [email or web address] Historical LMR Provider 11/26/16 Landon Jordan DO [address] [place] [address] Orthopedics & Sports Medicine, [place] [address] [email or web address] Historical LMR Provider 11/26/16 02/13/21 Daniel Reyes MD [address] [place] [address] [email or web address] Historical LMR Provider 11/26/16 02/13/21 Miguel Angel Hargrove MD [address] [place] [address] 7 [place] [phone] [email or web address] Historical LMR Provider 11/26/16 02/13/21 Cosme Espinoza MD [address] [place] [address] [address] [place] [id number] Historical LMR Provider 11/26/16 02/13/21 Cece Mccord MD [address] [place] [address], [address] [place] [address] [email or web address] Insurance Assigned Provider 05/13/23 documented as of this encounter Additional Source Comments The information contained in this document represents components of the legal health record. It is not the complete legal health record.[facility]
--- OUTSIDE RECORDS SUMMARY | 2024-11-07 15:12 | XMS_ITS | Encounter Summary ---
Author Organization [facility] Address [address] [place], [place] [id number] Phone Care Team Providers Care World Geography Teacher Name Role Phone Rickie Hargrove MD Unavailable Rickie Hargrove MD Unavailable [phone] Everett Ramirez MD Unavailable [phone] Landon Jordan DO Unavailable Daniel Reyes MD Unavailable Miguel Angel Hargrove MD Unavailable Cosme Espinoza MD Unavailable Rickie Hargrove MD Primary Care Provider [phone] Cece Mccord MD Primary Care Provider [phone] Cece Mccord MD Unavailable Reason for Referral * MRI/CAT Scan - Closed Specialty Diagnoses / Procedures Referred By Contac t Referred To Contact Radiology Diagnoses Peripheral vascular disease Procedures CT Angio Abdominal Aorta and Bilateral Lower Extremity Runoff CT Angio Abdominal Aorta and Bilateral Lower Extremity Runoff Daniel Lucas MD Phone: tel: fax: mailto:[email or web address] Referral ID Status Reason Start Date Expiration Date Visits Re quested Visits Authorized [id number] Closed 03/22/2017 03/22/2018 1 1 Encounter Details Date Type Department Care Team (Late st Contact Info) Description 03/23/2017 Ancillary Orders [facility] [place] [facility] [address] [facility], 2nd Floor, [address] [place] [address] Daniel Lucas MD 55 [facility] [address] [place] [address] [email or web address] Peripheral vascular disease Social History Tobacco Use Types Packs/Day Years [...] st Contact Info) Description 12/07/2022 Procedure Pass [address] [address] 01/15/2025 1:30 PM EST Office Visit [address] [address] Anoop Sims, DO [address] [facility] [address] [place] [address] 01/20/2025 2:15 PM EST Appointment [facility] [address] [place] [address] Cece Mccord MD [address] [facility], [address] [place] [address] 07/02/2025 12:00 PM EDT Office Visit [address] [address] Cece Mccord MD [address] [place] [address], [address] [place] [address] [email or web address] documented as of this encounter Results * US Lower Extremity Arteries Physio with Exercise (Bilateral) (03/23/2017 4:24 PM EST) Anatomical Region Laterality Modality Pelvis, Hip, Thigh, Knee, Leg, Ankle, Foot, Vasc ular Ultrasound 03/23/2017 4:24 PM EST Narrative 03/24/2017 6:05 AM EST LOWER EXT PERIPHERAL PVR/LINH INDICATIONS / NOTES: PVD, gangrenous toes TECHNIQUE: Noninvasive physiologic studies of the lower extremities including segmental pressures and pulse volume recordings was performed. RIGHT: Segmental Pressures Brachial: 129 Low thigh: 162 Calf: 122 Posterior Tibial: 144 Dorsalis Pedis: 136 Toe Pressure: 57 Ankle/Brachial Index: 1.12 Toe /Brachial Index: 0.44 LEFT: Segmental Pressures Brachial: 129 Low thigh: 150 Calf: 123 Posterior Tibial: 125 Dorsalis Pedis: 121 Toe Pressure: 64 Ankle/Brachial Index: 0.97 Toe /Brachial Index: 0.50 FINDINGS: BILATERAL: The ankle/brachial index (LINH) is 1.12 on the right and 0.97 on the left. Pulse volume recordings (PVR) and segmental limb pressures suggest intrinsic small vessel disease at rest. IMPRESSIONS: 1. Moderate/severe peripheral arterial disease is located in the intrinsic small vessel segments on the right and left side. 2. Patient unable to exercise; arrived in wheelchair. 3. The ankle/brachial index is 1.12 on the right and 0.97 on the left 4. The toe/brachial index is 0.44 on the right and 0.50 on the left. Procedure Note Miguel Angel Nascimento MD, MPH - 03/24/2017 LOWER EXT PERIPHERAL PVR/LINH INDICATIONS / NOTES: PVD, gangrenous toes TECHNIQUE: Noninvasive physiologic studies of the lower extremities includingsegmental pressures and pulse volume recordings was performed. RIGHT: Segmental Pressures Brachial: 129 Low thigh: 162 Calf: 122 Posterior Tibial: 144 Dorsalis Pedis: 136 Toe Pressure: 57 Ankle/Brachial Index: 1.12 Toe /Brachial Index: 0.44 LEFT: Segmental Pressures Brachial: 129 Low thigh: 150 Calf: 123 Posterior Tibial: 125 Dorsalis Pedis: 121 Toe Pressure: 64 Ankle/Brachial Index: 0.97 Toe /Brachial Index: 0.50 FINDINGS: BILATERAL: The ankle/brachial index (LINH) is 1.12 on the right and 0.97 on the left.Pulse volume recordings (PVR) and segmental limb pressures suggest intrinsicsmall vessel disease at rest. IMPRESSIONS: 1. Moderate/severe peripheral arterial disease is located in the intrinsicsmall vessel segments on the right and left side. 2. Patient unable to exercise; arrived in wheelchair. 3. The ankle/brachial index is 1.12 on the right and 0.97 on the left 4. The toe/brachial index is 0.44 on the right and 0.50 on the left. us Daniel uLcas MD US VASCULAR Final Result * CT ANGIO ABDOMINAL AORTA AND BILATERAL LOWER EXTREMITY RUNOFF WITH AND WITHOUT CONTRAST (03/23/20173:22 PM EST) Anatomical Region Laterality Modality Abdominal Vasculature, Foot Right, Foot Left, Ankle Right, Ankle Left, Leg Right, Leg Left, Knee Bilateral, Knee Right, Knee Left, Thigh Right, Thigh Left, Hip Bilateral, Hip Right, Hip Left Computed Tapan graphy 03/23/2017 3:38 PM EST Impressions 03/24/2017 12:45 PM EST * Extensive atherosclerotic aortic disease with irregular intraluminal plaque, including a partially visualized thoracic aneurysm measuring up to 3.9 cm and an infrarenal abdominal aortic aneurysm measuring up to 4.8 cm. * Ectatic bilateral common iliac arteries, with the left demonstrating moderate stenosis at its origin and containing a short segment nonflow-limiting dissection flap. * On the right: Patent right iliac system with moderate focal stenosis of the mid to distal SFA. Patent popliteal arterial system and three-vessel runoff without significant stenosis. * On the left: Serial mild stenoses involving the TELEGRAPH MECHANIC to the level of the SFA, which demonstrates moderate focal stenosis likely resulting in hemodynamic significance. Patent left popliteal arterial system with three-vessel runoff without significant stenosis. * Moderate stenosis at the origin of the bilateral renal arteries. This report has been forwarded to an automated communication system which will electronically notify appropriate providers of potentially important findings. Narrative 03/24/2017 12:45 PM EST TECHNIQUE: CTA ABDOMEN, PELVIS, AND BILATERAL LOWER EXTREMITIES. Helically acquired axial images from the lower pelvis to the toes were obtained without intravenous contrast, followed by helically acquired axial images from the dome of the diaphragm to the feet during the dynamic IV injection of contrast. Immediate delayed images were obtained of the lower legs. 3D IMAGES WITH REFORMATTING AND POST-PROCESSING RECONSTRUCTIONS WERE PERFORMED AND INTERPRETED. INDICATIONS: Peripheral vascular disease COMPARISON: US LOWER EXTREMITY ARTERIES PHYSIO WITH EXERCISE (BILATERAL) 03/23/2017. INDICATIONS: FINDINGS: ARTERIAL: AORTA: There are extensive calcified and noncalcified atherosclerotic plaques in the aorta and its major branches, including irregular mural thrombus throughout the visualized thoracoabdominal aorta. The partially visualized thoracic aorta is aneurysmal, measuring up to 3.9 cm. The infrarenal abdominal aorta is tortuous and demonstrates a fusiform aneurysm measuring up to 4.8 cm. There is no evidence of a flap within the aorta to suggest a dissection, although there is a nonflow-limiting short segment dissection flap within the proximal left common iliac artery. There is moderate stenosis of the proximal left common iliac artery. MAJOR BRANCHES: The celiac artery, SMA, and JESUS demonstrate scattered atherosclerotic plaque but are widely patent. There are single renal arteries bilaterally with moderate stenoses due to predominantly calcified atherosclerotic plaque. RUNOFF: On the right: The TELEGRAPH MECHANIC and SFA demonstrate multifocal mild stenoses due to atherosclerotic plaque. The PFA is widely patent. The popliteal artery is widely patent without significant stenosis. There are three vessel runoff without significant stenosis. On the left: The TELEGRAPH MECHANIC demonstrates serial segmental stenoses due to noncalcified plaque throughout its course. The PFA is widely patent. There is moderate focal stenosis of the mid to distal SFA at the level of the adductor hiatus (series 6, image 606). The popliteal artery is widely patent without significant stenosis. There are three vessel runoff without significant stenosis. Measured on double-oblique short axis plane: ABDOMINAL AORTA: Descending Thoracic aorta: 3.9 x 3.2 cm Suprarenal Abdominal aorta: 2.3 x 2.2 cm Infrarenal abdominal aorta: 3.6 x 3.5 cm Abdominal aorta at the level of the iliac bifurcation: 4.8 x 4.8 cm Right common iliac artery: 1.4 x 1.1 cm Left common iliac artery: 1.4 x 1.2 cm NON VASCULAR: LOWER THORAX: Status post mitral valve replacement. Focal areas of mucoid impaction within the partially visualized segmental airways (series 6, image 29), likely due to aspiration. Small Bochdalek hernias bilaterally. HEPATOBILIARY: No focal hepatic lesions. Cholelithiasis without cholecystitis. No biliary ductal dilatation. SPLEEN: No splenomegaly. Multiple adjacent splenules. PANCREAS: Fatty atrophy. No focal masses or ductal dilatation. ADRENALS: No adrenal nodules. KIDNEYS/URETERS: No hydronephrosis, stones, or solid mass lesions. PELVIC ORGANS/BLADDER: Unremarkable. PERITONEUM / RETROPERITONEUM: Umbilical hernia with a 1.7 cm neck with 2 small fat-containing inguinal hernias inferiorly along the midline. No free air or fluid. LYMPH NODES: No lymphadenopathy. VESSELS: As above. GI TRACT: Colonic diverticulosis. No distention or wall thickening. BONES AND SOFT TISSUES: Extensive multilevel degenerative change in addition to a butterfly vertebral body anomaly of L5, chronic in nature. There is loss of the normal lumbar lordosis with fusion of the L3-S1 vertebral bodies. Procedure Note Noel Richmond MD, ANA - 03/24/2017 TECHNIQUE: CTA ABDOMEN, PELVIS, AND BILATERAL LOWER EXTREMITIES.Helically acquired axial images from the lower pelvis to the toes were obtainedwithout intravenous contrast, followed by helically acquired axial images from thedome of the diaphragm to the feet during the dynamic IV injection ofcontrast. Immediate delayed images were obtained of the lower legs. 3D IMAGESWITH REFORMATTING AND POST-PROCESSING RECONSTRUCTIONS WERE PERFORMED ANDINTERPRETED. INDICATIONS: Peripheral vascular disease COMPARISON: US LOWER EXTREMITY ARTERIES PHYSIO WITH EXERCISE (BILATERAL) 03/23/2017. INDICATIONS: FINDINGS: ARTERIAL: AORTA: There are extensive calcified and noncalcified atheroscleroticplaques in the aorta and its major branches, including irregular mural thrombusthroughout the visualized thoracoabdominal aorta. The partially visualized thoracicaorta is aneurysmal, measuring up to 3.9 cm. The infrarenal abdominal aorta is tortuous and demonstrates a fusiform aneurysm measuring up to 4.8 cm.There is no evidence of a flap within the aorta to suggest a dissection, althoughthere is a nonflow-limiting short segment dissection flap within the proximalleft common iliac artery. There is moderate stenosis of the proximal leftcommon iliac artery. MAJOR BRANCHES: The celiac artery, SMA, and JESUS demonstrate scattered atherosclerotic plaque but are widely patent. There are single renal arteries bilaterally with moderate stenoses dueto predominantly calcified atherosclerotic plaque. RUNOFF: On the right: The TELEGRAPH MECHANIC and SFA demonstrate multifocal mild stenoses dueto atherosclerotic plaque. The PFA is widely patent. The popliteal artery iswidely patent without significant stenosis. There are three vessel runoffwithout significant stenosis. On the left: The TELEGRAPH MECHANIC demonstrates serial segmental stenoses due tononcalcified plaque throughout its course. The PFA is widely patent. There is moderatefocal stenosis of the mid to distal SFA at the level of the adductor hiatus(series 6, image 606). The popliteal artery is widely patent without significantstenosis. There are three vessel runoff without significant stenosis. Measured on double-oblique short axis plane: ABDOMINAL AORTA: Descending Thoracic aorta: 3.9 x 3.2 cm Suprarenal Abdominal aorta: 2.3 x 2.2 cm Infrarenal abdominal aorta: 3.6 x 3.5 cm Abdominal aorta at the level of the iliac bifurcation: 4.8 x 4.8 cm Right common iliac artery: 1.4 x 1.1 cm Left common iliac artery: 1.4 x 1.2 cm NON VASCULAR: LOWER THORAX: Status post mitral valve replacement. Focal areas ofmucoid impaction within the partially visualized segmental airways (series 6,image 29), likely due to aspiration. Small Bochdalek hernias bilaterally. HEPATOBILIARY: No focal hepatic lesions. Cholelithiasis withoutcholecystitis. No biliary ductal dilatation. SPLEEN: No splenomegaly. Multiple adjacent splenules. PANCREAS: Fatty atrophy. No focal masses or ductal dilatation. ADRENALS: No adrenal nodules. KIDNEYS/URETERS: No hydronephrosis, stones, or solid mass lesions. PELVIC ORGANS/BLADDER: Unremarkable. PERITONEUM / RETROPERITONEUM: Umbilical hernia with a 1.7 cm neck with 2small fat-containing inguinal hernias inferiorly along the midline. No free airor fluid. LYMPH NODES: No lymphadenopathy. VESSELS: As above. GI TRACT: Colonic diverticulosis. No distention or wall thickening. BONES AND SOFT TISSUES: Extensive multilevel degenerative change inaddition to a butterfly vertebral body anomaly of L5, chronic in nature. There is lossof the normal lumbar lordosis with fusion of the L3-S1 vertebral bodies. IMPRESSION: * Extensive atherosclerotic aortic disease with irregular intraluminalplaque, including a partially visualized thoracic aneurysm measuring up to 3.9 cmand an infrarenal abdominal aortic aneurysm measuring up to 4.8 cm. * Ectatic bilateral common iliac arteries, with the left demonstratingmoderate stenosis at its origin and containing a short segment nonflow-limiting dissection flap. * On the right: Patent right iliac system with moderate focal stenosis ofthe mid to distal SFA. Patent popliteal arterial system and three-vesselrunoff without significant stenosis. * On the left: Serial mild stenoses involving the TELEGRAPH MECHANIC to the level of theSFA, which demonstrates moderate focal stenosis likely resulting inhemodynamic significance. Patent left popliteal arterial system with three-vesselrunoff without significant stenosis. * Moderate stenosis at the origin of the bilateral renal arteries. This report has been forwarded to an automated communication system whichwill electronically notify appropriate providers of potentially importantfindings. Daniel Lucas MD IMG CT ABD/PELVIS Final Result documented in this encounter Visit Diagnoses Diagnosis Peripheral vascular disease Unspecified peripheral vascular disease Peripheral vascular disease Unspecified peripheral vascular disease Peripheral vascular disease Unspecified peripheral vascular disease documented in this encounter Care Teams World Geography Teacher Relationship Specialty Start Date End Date Rickie Hargrove MD [address] [facility]7 [place] [phone] [email or web address] PCP - General 12/01/16 10/08/20 Cece Mccord MD [address] [place] [address] 7 [place] [phone] [email or web address] PCP - General Family Medicine 10/09/20 Rickie Hargrove MD [address] [place], [place] [address] [place] [phone] [email or web address] Insurance Assigned Provider 11/12/16 05/15/21 Rickie Hargrove MD [address] [place], [place] [address] [place] [address] [email or web address] Historical LMR Provider 11/26/16 Everett Ramirez MD [address] [place] [address] [email or web address] Historical LMR Provider 11/26/16 Landon Jordan DO [address] [place] [address] Orthopedics & Sports Medicine, [place] [address] [email or web address] Historical LMR Provider 11/26/16 02/13/21 Daniel Reyes MD [address] [place] [address] [email or web address] Historical LMR Provider 11/26/16 02/13/21 Miguel Angel Hargrove MD [address] [place] [address] 7 [place] [phone] [email or web address] Historical LMR Provider 11/26/16 02/13/21 Cosme Espinoza MD [address] [place] [address] 7 [place] [address] [email or web address] Historical LMR Provider 11/26/16 02/13/21 Cece Mccord MD [address] [place] [address] 7 [place], [place] [id number] [email or web address] Insurance Assigned Provider 05/13/23 documented as of this encounter Additional Source Comments The information contained in this document represents components of the legal health record. It is not the complete legal health record.[facility]
--- OUTSIDE RECORDS SUMMARY | 2024-11-07 15:12 | XMS_ITS | Encounter Summary ---
Author Organization [facility] Address [address] [place] [address] Phone Care Team Providers Care Bead Machine Operator Name Role Phone Rickie Hargrove MD Unavailable Rickie Hargrove MD Unavailable Everett Ramirez MD Unavailable [phone] Landon Jordan DO Unavailable Daniel Reyes MD Unavailable Miguel Angel Hargrove MD Unavailable Cosme Espinoza MD Unavailable [phone] Rickie Hargrove MD Primary Care Provider [phone] Cece Mccord MD Primary Care Provider [phone] Cece Mccord MD Unavailable Encounter Details Date Type Department Care Team (Late st Contact Info) Description 02/28/2017 Ancillary Orders [facility] [address] [place] [address] Rickie Hargrove MD 234 [facility]. [address] [place] [address] [email or web address] Breast screening Social History Tobacco Use Types Packs/Day Years [...] st Contact Info) Description 12/07/2022 Procedure Pass [address] [address] 01/15/2025 1:30 PM EST Office Visit [address] [address] Anoop Sims, 22 [facility] [address] [place] [address] 01/20/2025 2:15 PM EST Appointment [address] [address] Cece Mccord MD [address] [place] [address] 7 [place] [address] [email or web address] 07/02/2025 12:00 PM EDT Office Visit [address] [address] Cece Mccord MD [address] [place] [address] documented as of this encounter Results * BI MAMMOGRAM SCREENING WITH TOMOSYNTHESIS WITH CAD (BILATERAL) (11/30/2017 11:10 AM EDT) Anatomical Region Laterality Modality Breast Left, Breast Right, Breast Bilateral Bila teral Mammography 11/30/2017 1:43 PM EDT Impressions 11/30/2017 1:50 PM EDT BILATERAL BREASTS: Negative, no evidence of malignancy. Normal interval follow- up is recommended in 12 months. Bi-RADS: BI-RADS CATEGORY: 1 - Negative. DENSITY: There are scattered fibroglandular densities. POS - CDHMAMA Narrative 11/30/2017 1:50 PM EDT STUDY: Bilateral screening mammography with tomosynthesis and CAD TECHNIQUE: Bilateral full-field digital screening mammography is obtained and read in conjunction with computer-aided detection. Tomosynthesis as well as 2-D C view imaging were obtained. COMPARISON: Comparison made to multiple prior, most recent March 31, 2016, and most remote January 07, 2011. BREAST COMPOSITION: There are scattered areas of fibroglandular density BILATERAL BREASTS: No significant masses, calcifications or other abnormalities are seen. Procedure Note Robbie Tadeo MD - 11/30/2017 STUDY: Bilateral screening mammography with tomosynthesis and CAD TECHNIQUE: Bilateral full-field digital screening mammography is obtainedand read in conjunction with computer-aided detection. Tomosynthesis aswell as 2-D C view imaging were obtained. COMPARISON: Comparison made to multiple prior, most recent March, and most remote January 07, 2011. BREAST COMPOSITION: There are scattered areas of fibroglandulardensity BILATERAL BREASTS: No significant masses, calcifications or otherabnormalities are seen. IMPRESSION: BILATERAL BREASTS: Negative, no evidence of malignancy. Normal intervalfollow-up is recommended in 12 months. Bi-RADS: BI-RADS CATEGORY: 1 - Negative. DENSITY: There are scattered fibroglandular densities. POS - CDHMAMA Rickie Hargrove MD IMG MG EXAMS Final Res ult documented in this encounter Visit Diagnoses Diagnosis Breast screening Breast screening, unspecified Breast screening Breast screening, unspecified documented in this encounter Care Teams Bead Machine Operator Relationship Specialty Start Date End Date Rickie Hargrove MD [address] [place], [place] [address] [place] [phone] [email or web address] PCP - General 12/01/16 10/08/20 Cece Mccord MD [address] [place] [address] 7 [place] [id number] [email or web address] PCP - General Family Medicine 10/09/20 Rickie Hargrove MD [address] [place] [address] [address] [place] [phone] [email or web address] Insurance Assigned Provider 11/12/16 05/15/21 Rickie Hargrove MD [address] [place] [address] [address] [place] [phone] [email or web address] Historical LMR Provider 11/26/16 Everett Ramirez MD [address] [place] [address] [email or web address] Historical LMR Provider 11/26/16 Landon Jordan DO [address] [place] [address] Orthopedics & Sports Medicine, [place] [address] [email or web address] Historical LMR Provider 11/26/16 02/13/21 Daniel Reyes MD [address] [place] [address] [email or web address] Historical LMR Provider 11/26/16 02/13/21 Miguel Angel Hargrove MD [address] [place] [address] 7 [place] [phone] [email or web address] Historical LMR Provider 11/26/16 02/13/21 Cosme Espinoza MD [address] [place] [address], [facility] 7 [place] [address] [email or web address] Historical LMR Provider 11/26/16 02/13/21 Cece Mccord MD [address] [place] [address], [address] [place] [address] [email or web address] Insurance Assigned Provider 05/13/23 documented as of this encounter Additional Source Comments The information contained in this document represents components of the legal health record. It is not the complete legal health record.[facility]
--- OUTSIDE RECORDS SUMMARY | 2024-11-07 15:12 | XMS_ITS | Encounter Summary ---
Author Organization [facility] Address [address] [place] [address] [place] [address] Phone Care Team Providers Care Dice Maker Name Role Phone Rickie Hargrove MD Unavailable Rickie Hargrove MD Unavailable Everett Ramirez MD Unavailable [phone] Landon Jordan DO Unavailable Daniel Reyes MD Unavailable [phone] Miguel Angel Hargrove MD Unavailable Cosme Espinoza MD Unavailable Rickie Hargrove MD Primary Care Provider [phone] Cece Mccord MD Primary Care Provider [phone] Cece Mccord MD Unavailable [phone] Encounter Details Date Type Department Care Team (Late st Contact Info) Description 03/22/2017 Ancillary Orders [facility] Intervention 55 [facility], 2nd Floor, [address] [place], [place] [id number] Shiva Stevens MD, PhD 55 [facility] [address] [place] [address] [email or web address] Peripheral vascular disease Social History Tobacco Use [...] st Contact Info) Description 12/07/2022 Procedure Pass [address] [address] 01/15/2025 1:30 PM EST Office Visit [address] [address] Anoop Sims, [address] [place] [address] [email or web address] 01/20/2025 2:15 PM EST Appointment [address] [address] Cece Mccord MD [address] [place] [address] 07/02/2025 12:00 PM EDT Office Visit [address] [address] Cece Mccord MD [address] [place] [address] documented as of this encounter Visit Diagnoses Diagnosis Peripheral vascular disease Unspecified peripheral vascular disease documented in this encounter Care Teams Dice Maker Relationship Specialty Start Date End Date Rickie Hargrove MD [address] [place], [place] [address] [place] [address] [email or web address] PCP - General 12/01/16 10/08/20 Cece Mccord MD [address] [place] [address] [address] [place], [place] [id number] [email or web address] PCP - General Family Medicine 10/09/20 Rickie Hargrove MD [address] [place] [address] [address] [place] [phone] [email or web address] Insurance Assigned Provider 11/12/16 05/15/21 Rickie Hargrove MD [address] [place] [address] [address] [place] [phone] [email or web address] Historical LMR Provider 11/26/16 Everett Ramirez MD [address] [place] [address] [email or web address] Historical LMR Provider 11/26/16 Landon Jordan DO [address] [place] [address] Orthopedics & Sports Medicine, [place] [address] [email or web address] Historical LMR Provider 11/26/16 02/13/21 Daniel Reyes MD [address] [place] [address] [id number] [email or web address] Historical LMR Provider 11/26/16 02/13/21 Miguel Angel Hargrove MD [address] [place] [address] 7 [place] [address] [email or web address] Historical LMR Provider 11/26/16 02/13/21 Cosme Espinoza MD [address] [place] [address] 7 [place] [address] [email or web address] Historical LMR Provider 11/26/16 02/13/21 Cece Mccord MD [address] [place] [address] 7 [place] [address] [email or web address] Insurance Assigned Provider 05/13/23 documented as of this encounter Additional Source Comments The information contained in this document represents components of the legal health record. It is not the complete legal health record.[facility]
--- OUTSIDE RECORDS SUMMARY | 2024-11-07 15:12 | XMS_ITS | Encounter Summary ---
Author Organization [facility] Address [address] [place] [address] Phone Care Team Providers Care Animal Control Supervisor Name Role Phone Rickie Hargrove MD Unavailable Rickie Hargrove MD Unavailable Everett Ramirez MD Unavailable [phone] Landon Jordan DO Unavailable [phone] Daniel Reyes MD Unavailable Miguel Angel Hargrove MD Unavailable Cosme Espinoza MD Unavailable Rickie Hargrove MD Primary Care Provider [phone] Cece Mccord MD Primary Care Provider [phone] Cece Mccord MD Unavailable Encounter Details Date Type Department Care Team (Late st Contact Info) Description 01/24/2020 Ancillary Orders [facility] [address] [place] [address] Rickie Hargrove MD 234 [facility]. [address] [place] [address] [email or web address] Breast [email or web address] Social History Tobacco Use Types Packs/Day Years Used Date Smoking Tobacco: Former Cigarettes 2 40 0 07/18/1976 - 07/18/2016 Smokeless Tobacco: Never Alcohol Use Standard Drinks/Week Comments Never 0 (1 standard drink = 0.6 oz pur e alcohol) Comments No Sex and Gender Information Value Date Recorded Sex Assigned at Female 06/04/2021 8:29 AM EDT Legal Sex Female 10:04 PM EDT Gender Identity Female 06/04/2021 8:29 AM EDT Sexual Orientation Straight 06/04/2021 8: 29 AM EDT documented as of this encounter Plan of Treatment Upcoming Encounters Date Type Department Care Team (Late st Contact Info) Description 12/07/2022 Procedure Pass [address] [address] 01/15/2025 1:30 PM EST Office Visit [address] [address] Anoop Sims, DO [address] [facility] [address] [place] [address] 01/20/2025 2:15 PM EST Appointment [address] [address] Cece Mccord MD [address] [place] [address] 07/02/2025 12:00 PM EDT Office Visit [address] [address] Cece Mccord MD [address] [place] [address] documented as of this encounter Results * (ABNORMAL) BI MAMMOGRAM SCREENING WITH TOMOSYNTHESIS WITH CAD (BILATERAL) (03/05/2020 1:00 PM EST) Anatomical Region Laterality Modality Breast Left, Breast Right, Breast Bilateral Bila teral Mammography 03/05/2020 5:23 PM EST Impressions 03/05/2020 5:48 PM EST Recommend additional imaging for possible new 3 mm mass in the anterior inner right breast. No other findings suspicious for malignancy. The radiology department will attempt to recall the patient for the additional imaging. BI-RADS CATEGORY: 0 - Incomplete. Need additional imaging evaluation. DENSITY: There are scattered fibroglandular densities. LEFT RECOMMENDATION DUE DATE: 12 Months Left Mammography Screening RIGHT RECOMMENDATION DUE DATE: 1 Month Right Additional Imaging Recall imaging: Spot compression CC, 90 degrees ML view right breast, right breast ultrasound in case necessary. Narrative 03/05/2020 5:48 PM EST Bilateral mammography is performed in conjunction with computed aided detection. 3-D tomography along with 2-D C view imaging was also performed. Comparison made to previous dated as far back as 09/18/2009 and as recent as 11/30/2017. Suggestion of a new 3 mm well-circumscribed mass in the anterior inner right breast. This is not visible on the MLO view. Otherwise, no suspicious masses, areas of architectural distortion or suspicious microcalcifications. Procedure Note Elvis Quijano MD - 03/05/2020 Bilateral mammography is performed in conjunction with computed aideddetection. 3-D tomography along with 2-D C view imaging was alsoperformed. Comparison made to previous dated as far back as 09/18/2009 andas recent as 11/30/2017. Suggestion of a new 3 mm well-circumscribed mass in the anterior innerright breast. This is not visible on the MLO view. Otherwise, nosuspicious masses, areas of architectural distortion or suspiciousmicrocalcifications. IMPRESSION: Recommend additional imaging for possible new 3 mm mass in the anteriorinner right breast. No other findings suspicious for malignancy. Theradiology department will attempt to recall the patient for the additionalimaging. BI-RADS CATEGORY: 0 - Incomplete. Need additional imaging evaluation. DENSITY: There are scattered fibroglandular densities. LEFT RECOMMENDATION DUE DATE: 12 Months Left Mammography Screening RIGHT RECOMMENDATION DUE DATE: 1 Month Right Additional Imaging Recall imaging: Spot compression CC, 90 degrees ML view right breast,right breast ultrasound in case necessary. Rickie Hargrove MD IMG MG EXAMS Final Res ult documented in this encounter Visit Diagnoses Diagnosis Breast screening Breast screening, unspecified Breast screening Breast screening, unspecified documented in this encounter Additional Health Concerns Assessment Noted Time PHQ-2 Depression Total Score: 0 08/30/19 19 1:25 PM EDT documented as of this encounter Care Teams Animal Control Supervisor Relationship Specialty Start Date End Date Rickie Hargrove MD 234 [facility] [address] [place] [phone] [email or web address] PCP - General 12/01/16 10/08/20 Cece Mccord MD 234 [facility], [address] [place] [address] [email or web address] PCP - General Family Medicine 10/09/20 Rickie Hargrove MD [address] [facility] [address] [place] [phone] [email or web address] Insurance Assigned Provider 11/12/16 05/15/21 Rickie Hargrove MD [address] [place] [address] [address] [place] [phone] [email or web address] Historical LMR Provider 11/26/16 Everett Ramirez MD [address] [place] [address] [phone] [email or web address] Historical LMR Provider 11/26/16 Landon Jordan DO [address] [place] [address] Orthopedics & Sports Medicine, [facility] [place], [place] [phone] Historical LMR Provider 11/26/16 02/13/21 Daniel Reyes MD [address] [place] [address], 2nd [place] [address] Historical LMR Provider 11/26/16 02/13/21 Miguel Angel Hargrove MD [address] [place] [address] 7 [place] [phone] [email or web address] Historical LMR Provider 11/26/16 02/13/21 Cosme Espinoza MD [address] [place] [address] 7 [place] [address] [email or web address] Historical LMR Provider 11/26/16 02/13/21 Cece Mccord MD [address] [place] [address] 7 [place] [address] [email or web address] Insurance Assigned Provider 05/13/23 documented as of this encounter Additional Source Comments The information contained in this document represents components of the legal health record. It is not the complete legal health record.[facility]
--- OUTSIDE RECORDS SUMMARY | 2024-11-07 15:13 | XMS_ITS | Encounter Summary ---
Author Organization [facility] Address [address] [place] [address] Phone Care Team Providers Care Research Nurse Practitioner Name Role Phone Rickie Hargrove MD Unavailable Rickie Hargrove MD Unavailable Everett Ramirez MD Unavailable [phone] Landon Jordan DO Unavailable Daniel Reyes MD Unavailable Miguel Angel Hargrove MD Unavailable Cosme Espinoza MD Unavailable [phone] Rickie Hargrove MD Primary Care Provider [phone] Cece Mccord MD Primary Care Provider [phone] Cece Mccord MD Unavailable Encounter Details Date Type Department Care Team (Late st Contact Info) Description 03/06/2020 Ancillary Orders [facility] 234 [place] [address] Rickie Hargrove MD 234 [facility]. [address] [place] [address] [email or web address] Abnormal mammogram Social History Tobacco Use Types Packs/Day Years [...] st Contact Info) Description 12/07/2022 Procedure Pass [address] [address] 01/15/2025 1:30 PM EST Office Visit [address] [address] Anoop Sims, DO 22 [facility] [address] [place] [address] 01/20/2025 2:15 PM EST Appointment [address] [address] Cece Mccord MD [address] [place] [address] 07/02/2025 12:00 PM EDT Office Visit [address] [address] Cece Mccord MD [address] [place] [address] documented as of this encounter Results * BI MAMMOGRAM DIAGNOSTIC WITH TOMOSYNTHESIS NO CAD (RIGHT) (03/27/2020 1:19 PM EST) Anatomical Region Laterality Modality Breast Right, Breast Bilateral Right M ammography 03/27/2020 1:35 PM EST Impressions 03/27/2020 1:39 PM EST No findings suspicious for malignancy. Annual screening mammography in one year recommended. The results were given to the patient by the technologist at the time of the examination. BI-RADS CATEGORY: 2 - Benign finding. DENSITY: There are scattered fibroglandular densities. Narrative 03/27/2020 1:39 PM EST HISTORY: Abnormal right screening mammogram. EXAM: Right diagnostic mammogram with tomosynthesis. COMPARISON: Previous right mammograms, most recent 03/05/2020. FINDINGS: No evidence of suspicious mass or architectural distortion. Procedure Note Elvis Quijano MD - 03/27/2020 HISTORY: Abnormal right screening mammogram. EXAM: Right diagnostic mammogram with tomosynthesis. COMPARISON: Previous right mammograms, most recent 03/05/2020. FINDINGS: No evidence of suspicious mass or architectural distortion. IMPRESSION: No findings suspicious for malignancy. Annual screening mammography in oneyear recommended. The results were given to the patient by the technologist at the time ofthe examination. BI-RADS CATEGORY: 2 - Benign finding. DENSITY: There are scattered fibroglandular densities. Rickie Hargrove MD IMG MG EXAMS Final Res ult documented in this encounter Visit Diagnoses Diagnosis Abnormal mammogram Abnormal mammogram, unspecified Abnormal mammogram Abnormal mammogram, unspecified documented in this encounter Additional Health Concerns Assessment Noted Time PHQ-2 Depression Total Score: 0 08/30/19 19 1:25 PM EDT documented as of this encounter Care Teams Research Nurse Practitioner Relationship Specialty Start Date End Date Rickie Hargrove MD [address] [place] [address] [address] [place] [phone] [email or web address] PCP - General 12/01/16 10/08/20 Cece Mccord MD [address] [place] [address], [address] [place] [phone] [email or web address] PCP - General Family Medicine 10/09/20 Rickie Hargrove MD [address] [place] [address] [address] [place] [phone] [email or web address] Insurance Assigned Provider 11/12/16 05/15/21 Rickie Hargrove MD [address] [place] [address] [address] [place] [phone] [email or web address] Historical LMR Provider 11/26/16 Everett Ramirez MD [address] [place] [address] [email or web address] Historical LMR Provider 11/26/16 Landon Jordan DO [address] [place] [address] Orthopedics & Sports Medicine, [place] [address] [email or web address] Historical LMR Provider 11/26/16 02/13/21 Daniel Reyes MD [address] [place] [address] [email or web address] Historical LMR Provider 11/26/16 02/13/21 Miguel Angel Hargrove MD [address] [place] [address] [address] [place] [phone] [email or web address] Historical LMR Provider 11/26/16 02/13/21 Cosme Espinoza MD [address] [place] [address] [address] [place] [address] Historical LMR Provider 11/26/16 02/13/21 Cece Mccord MD [address] [place] [address], [address] [place] [address] [email or web address] Insurance Assigned Provider 05/13/23 documented as of this encounter Additional Source Comments The information contained in this document represents components of the legal health record. It is not the complete legal health record.[facility]
--- OUTSIDE RECORDS SUMMARY | 2024-11-07 15:13 | XMS_ITS | Encounter Summary ---
Author Organization [facility] Address [address] [place], [place] [phone] Phone Care Team Providers Care Barge Master Name Role Phone Rickie Hargrove MD Unavailable Rickie Hargrove MD Unavailable Everett Ramirez MD Unavailable [phone] Landon Jordan DO Unavailable [phone] Daniel Reyes MD Unavailable Miguel Angel Hargrove MD Unavailable Cosme Espinoza MD Unavailable Rickie Hargrove MD Primary Care Provider [phone] Cece Mccord MD Primary Care Provider [phone] Cece Mccord MD Unavailable Encounter Details Date Type Department Care Team (Late st Contact Info) Description 11/01/2017 Transcribe Orders [facility] [address] [place] [address] Everett Ramirez MD [address] [phone] [email or web address] Social History Tobacco Use Types Packs/Day [...] st Contact Info) Description 12/07/2022 Procedure Pass [address] [address] 01/15/2025 1:30 PM EST Office Visit [address] [address] Anoop Sims, DO 22 [facility] [address] [place] [address] [email or web address] 01/20/2025 2:15 PM EST Appointment [address] [address] Cece Mccord MD [address] [place] [address] [email or web address] 07/02/2025 12:00 PM EDT Office Visit [address] [address] Cece Mccord MD [address] [place] [address] documented as of this encounter Visit Diagnoses Not on filedocumented in this encounter Care Teams Barge Master Relationship Specialty Start Date End Date Rickie Hargrove MD [address] [place], [place] [address] [place] [address] [email or web address] PCP - General 12/01/16 10/08/20 Cece Mccord MD [address] [place] [address], [address] [place] [id number] [email or web address] PCP - General Family Medicine 10/09/20 Rickie Hargrove MD [address] [place] [address] [address] [place] [phone] [email or web address] Insurance Assigned Provider 11/12/16 05/15/21 Rickie Hargrove MD [address] [place] [address] [address] [place] [id number] [email or web address] Historical LMR Provider 11/26/16 Everett Ramirez MD [address] [place] [address] [email or web address] Historical LMR Provider 11/26/16 Landon Jordan DO [address] [place] [address] Orthopedics [facility] Sports Medicine, [place] [address] [email or web address] Historical LMR Provider 11/26/16 02/13/21 Daniel Reyes MD [address] [place] [address] [email or web address] Historical LMR Provider 11/26/16 02/13/21 Miguel Angel Hargrove MD [address] [place] [address] [address] [place] [phone] [email or web address] Historical LMR Provider 11/26/16 02/13/21 Cosme Espinoza MD [address] [place] [address], [address] [place] [address] [email or web address] Historical LMR Provider 11/26/16 02/13/21 Cece Mccord MD [address] [place] [address], [address] [place] [address] [email or web address] Insurance Assigned Provider 05/13/23 documented as of this encounter Additional Source Comments The information contained in this document represents components of the legal health record. It is not the complete legal health record.[facility]
--- OUTSIDE RECORDS SUMMARY | 2024-11-07 15:13 | XMS_ITS | Encounter Summary ---
Author Organization [facility] Address [address] [place] [address] Phone Care Team Providers Care Professor Of Fine Art Name Role Phone Rickie Hargrove MD Unavailable [phone] Everett Ramirez MD Unavailable Cece Mccord MD Primary Care Provider [phone] Cece Mccord MD Unavailable [phone] Reason for Visit * Reason Onset Date Comments Medication Refill 11/05/2024 Encounter Details Date Type Department Care Team (Late st Contact Info) Description 11/05/2024 [facility] [address] [place] [address] Cece Mccord MD [address] [place] [address] 7 [place] [address] [email or web address] Medication Refill Social History Tobacco Use Types Packs/Day Years [...] AM EDT documented as of this encounter Progress Notes * Cayla Shore RN - 11/05/2024 4:40 PM EDT Spoke with patient again and let her know that she needs to be reevaluated an should go to an urgent care. Patient expresses understanding and will do that. * Tanisha Torre CNP - 11/05/2024 3:27 PM EDT Patient given 5 day course of prednisone earlier this month. Sent patient a message requesting she call to schedule follow up if symptoms not improving due to risks with frequent prednisone use * Rama Ryan MA - 11/05/2024 1:50 PM EDT IMPORTANT - At least one Rx mismatch identified. Original(s) may be discontinued, , or different strength/form. Review required. At least one Rx below has no protocol and needs review. Rx Care Gap Status - Instructions for Clinical Staff (prescriber discretion applies): > Mismatch review guide > N/a - No action needed Visit Info Last visit: 10/09/2024 Cece Mccord MD - Family Medicine [facility] [place] > Requested f/u: Return in about 3 months (around 01/08/2025) for with Dr Sims for check in. Upcoming visit: 01/15/2025 Anoop Sims DO - Family Medicine [facility] ACTIONS TAKEN BY Rama Ryan MA - Criteria met. Rx(s) without protocol Renewal is at prescriber discretion. - prednisone Rx mismatch - Original(s) may be discontinued, , or changed to a different strength or form. * [place], Sudeep - 11/05/2024 1:40 PM EDT Pt called in for a refill on predniSONE (DELTASONE) 10 MG tablet [employer] Physics Instructor (Please do not reply to this user; this inbox is not monitored.) Thank you. documented in this encounter Plan of Treatment Upcoming Encounters Date Type Department Care Team (Late st Contact Info) Description 12/07/2022 Procedure Pass [address] [address] 01/15/2025 1:30 PM EST Office Visit [address] [address] Anoop Sims, [address] [place] [address] [email or web address] 01/20/2025 2:15 PM EST Appointment [address] [address] Cece Mccord MD [address] [place] [address] 7 [place] [address] [email or web address] 07/02/2025 12:00 PM EDT Office Visit [address] [address] Cece Mccord MD [address] [place] [address] documented as of this encounter Visit Diagnoses Diagnosis Pulmonary emphysema, unspecified emphysema type documented in this encounter Additional Health Concerns Assessment Noted Time PHQ-9 Depression Total Score: 11 024 11:20 AM EDT PHQ-2 Depression Total Score: 4 11/27/19 24 11:20 AM EDT documented as of this encounter Care Teams Professor Of Fine Art Relationship Specialty Start Date End Date Cece Mccord MD [address] [facility] 7 [place] [address] [email or web address] PCP - General Family Medicine 10/09/20 Rickie Hargrove MD 234 [facility]7 [place] [address] [email or web address] Historical LMR Provider 11/26/16 Everett Ramirez MD [address] [place] [address] [email or web address] Historical LMR Provider 11/26/16 Cece Mccord MD [address] [place] [address] 7 [place] [address] [email or web address] Insurance Assigned Provider 05/13/23 documented as of this encounter Additional Source Comments The information contained in this document represents components of the legal health record. It is not the complete legal health record.[facility]
--- OUTSIDE RECORDS SUMMARY | 2024-11-07 15:13 | XMS_ITS | Clinical Summary ---
Author Organization [facility] Address [address] [place] [address] Phone Care Team Providers Care Fruit Preserver Name Role Phone Rickie Hargrove MD Primary Care Provider Unava ilable Allergies Active Allergy Reactions Criticality Noted Date Comments Adhesive Tape Other (see comments) 05/07/2020 Lisinopril Other (see comments) 01/09/2017 Meperidine Other (see comments) 12/22/2016 Simvastatin Other (see comments) 01/09/2017 Varenicline 01/09/2017 nightmares Medications albuterol HFA (PROVENTIL HFA;VENTOLIN HFA) 108 (90 Base) MCG/ACT inhaler INHALE 1 PUFF BY MOUTH EVERY 4 HOURS NEEDED 1 Active oxyCODONE-aceta minophen (PERCOCET) 10-325 MG per tablet TAKE 1 TABLET BY MOUTH EVERY 4 HOURS NEEDED FOR PAIN 1 Active docusate sodium (COLACE) 100 MG capsule Take 100 mg by mouth 2 (two) times a day 1 Active atorvastatin (LIPITOR) 80 MG tablet 1 Active metoprolol succinate XL (TOPROL-XL) 25 MG 24 hr tablet Take 25 mg by mouth 1 (one) time each day 1 Active pantoprazole (PROTONIX) 40 MG EC tablet 1 Active Trelegy Ellipta 200-62.5-25 MCG/INH aerosol powder INHALE 1 PUFF INTO THE LUNGS DAILY 1 Active aspirin (ST ANA) 81 MG EC tablet Take 1 tablet by mouth 1 (one) time each day Active gabapentin (NEURONTIN) 400 MG capsule 1 Active ipratropium-alb uterol (DUO-NEB) 0.5-2.5 mg/3 mL nebulizer solution INHALE 1 VIAL VIA NEBULIZER THREE TIMES DAILY 1 Active furosemide (LASIX) 20 MG tablet Take 20 mg by mouth daily 1 Active betamethasone valerate (VALISONE) 0.1 % lotion Apply topically twice a day 1 Active carvedilol (COREG) 6.25 MG tablet Take 6.25 mg by mouth twice a day 1 Active Rayaldee 30 MCG capsule controlled-rele aseIndications: Vitamin D deficiency, not otherwise specified Take 1 capsule by mouth 1 (one) time each day 90 capsule 19 4 Active Active Problems Problem Noted Date Diagnosed Date Biliary calculus 02/03/2021 Diverticular disease 02/03/2021 Dyspnea on exertion 02/03/2021 Ex-cigarette smoker 02/03/2021 Fracture of rib 02/03/2021 Hyperlipidemia 02/03/2021 Pulmonary hypertension 02/03/2021 Right bundle-branch block 02/03/2021 Scoliosis of thoracic spine 02/03/2021 Umbilical hernia 02/03/2021 Acute nontraumatic kidney injury 05/06/2020 Cardiorenal syndrome 05/06/2020 Systolic heart failure 05/06/2020 Stage 3b chronic kidney disease 03/06/2018 Hypertension 12/22/2016 Overview (05/06/2020): Last Assessment & Plan: Pari Avery has hypertension and she is taking the above medication as directed without any side effects. her blood pressure is within normal limits and stable. she will follow up as directed. Immunizations Immunization Administration Dates Next Due Influenza Split High Dose Pr eservative Free IM 11/28/2018,10/27/2016,10/28/2015,11/11,11/04/2013 Influenza Split Preservative Free ID 02/04/2013, 12/13/2011 Influenza Vaccine, Quadrival ent, Adjuvanted 11/24/2020 Influenza Whole 12/13/2011, 0,12/22/2008,10/16 Influenza, Quadrivalent, Pre servative Free 11/13/2017 [employer] SARS-COV-2 05/14/2020,04/23/2020 Pneumococcal Conjugate 13-Valent 01/22/2014 Pneumococcal Polysaccharide 01/28/2015,0 08/15/2011,11/18/2010,12/12 Tdap 12/13/2011 Zoster 05/05/2014 Family History Medical History Relation Comments Hypertension Father uncle Dementia Mother Hypertension Mother Relation Status Comments Father Mother Social History Tobacco Use Types Packs/Day Years Used Date Smoking Tobacco: Former Smokeless Tobacco: Never Comments:Smoking History Inf o:Every day Alcohol Use Standard Drinks/Week Comments No 0 (1 standard drink = 0.6 oz pur e alcohol) Comments Unknown Sex and Gender Information Value Date Recorded Sex Assigned at Not on file Legal Sex Female 4:51 PM EST Gender Identity Not on file Sexual Orientation Not on file Last Filed Vital Signs Vital Sign Reading Time Taken Comments Blood Pressure 172/90 05/07/2020 2:11 PM EDT Pulse 77 05/14/2019 12:00 PM EDT Temperature - - Respiratory Rate - - Oxygen Saturation - - Inhaled Oxygen Concentration - - Weight 83.9 kg (185 lb) 05/07/2020 2:11 PM EDT Height 160 cm (5' 3 ) 05/07/2020 2:11 PM EDT Body Mass Index 32.77 05/07/2020 2:11 PM EDT Plan of Treatment Health Maintenance Due Date Last Done Comments Influenza Vaccine (#1) 2024 2, 11/24/2020, 11/28/2018, Additional history exists Pneumococcal Vaccine: 50+ Years Completed 01/28/2015, 01/22/2014, 08/15/2011, Additional history exists Pneumococcal Vaccine: Peds (0 to 5 Years) and At-Risk Patients (6 to 49 Years) Discontinued 01/28/2015, 01/22/2014, 08/15/2011, Additional history exists Hepatitis B Vaccine Aged Out No longe r eligible based on patient's age to complete this topic Insurance Human Medicare [facility] Medicare Care Teams Fruit Preserver Relationship Specialty Start Date End Date Rickie Hargrove MD PCP - General 02/17/20
--- OUTSIDE RECORDS SUMMARY | 2024-11-07 15:13 | XMS_ITS | Encounter Summary ---
Author Organization [facility] Address [address] [place], [place] [id number] Phone Care Team Providers Care Sewing Department Supervisor Name Role Phone Rickie Hargrove MD Unavailable Rickie Hargrove MD Unavailable Everett Ramirez MD Unavailable [phone] Landon Jordan DO Unavailable [phone] Daniel Reyes MD Unavailable Miguel Angel Hargrove MD Unavailable Cosme Espinoza MD Unavailable Rickie Hargrove MD Primary Care Provider [phone] Cece Mccord MD Primary Care Provider [phone] Cece Mccord MD Unavailable [phone] Encounter Details Date Type Department Care Team (Late st Contact Info) Description 05/05/2017 Transcribe Orders [facility] [address] [place] [address] Everett Ramirez MD [address] [id number] [email or web address] Social History Tobacco Use Types Packs/Day Years [...] st Contact Info) Description 12/07/2022 Procedure Pass [address] [address] 01/15/2025 1:30 PM EST Office Visit [address] [address] Anoop Sims, DO 22 [facility] [address] [place] [address] [email or web address] 01/20/2025 2:15 PM EST Appointment [address] [address] Cece Mccord MD [address] [place] [address] [email or web address] 07/02/2025 12:00 PM EDT Office Visit [address] [address] Cece Mccord MD [address] [place] [address] documented as of this encounter Visit Diagnoses Not on filedocumented in this encounter Care Teams Sewing Department Supervisor Relationship Specialty Start Date End Date Rickie Hargrove MD [address] [place], [place] [address] [place] [address] [email or web address] PCP - General 12/01/16 10/08/20 Cece Mccord MD [address] [place] [address], [address] [place] [address] [email or web address] PCP - General Family Medicine 10/09/20 Rickie Hargrove MD [address] [place] [address] [address] [place] [address] [email or web address] Insurance Assigned Provider 11/12/16 05/15/21 Rickie Hargrove MD [address] [place] [address] [address] [place] [phone] [email or web address] Historical LMR Provider 11/26/16 Everett Ramirez MD [address] [place] [address] [email or web address] Historical LMR Provider 11/26/16 Landon Jordan DO [address] [place] [address] Orthopedics & Sports Medicine, [place] [address] [email or web address] Historical LMR Provider 11/26/16 02/13/21 Daniel Reyes MD [address] [place] [address] [email or web address] Historical LMR Provider 11/26/16 02/13/21 Miguel Angel Hargrove MD [address] [place] [address] [address] [place] [phone] [email or web address] Historical LMR Provider 11/26/16 02/13/21 Cosme Espinoza MD [address] [place] [address], [address] [place] [address] [email or web address] Historical LMR Provider 11/26/16 02/13/21 Cece Mccord MD [address] [place] [address], [address] [place] [address] [email or web address] Insurance Assigned Provider 05/13/23 documented as of this encounter Additional Source Comments The information contained in this document represents components of the legal health record. It is not the complete legal health record.[facility]
--- OUTSIDE RECORDS SUMMARY | 2024-11-07 15:13 | XMS_ITS | Encounter Summary ---
Author Organization [facility] Address [address] [facility] [address] [place] [address] Phone Care Team Providers Care Script Girl Name Role Phone Rickie Hargrove MD Unavailable Everett Ramirez MD Unavailable [phone] Cece Mccord MD Primary Care Provider [phone] Cece Mccord MD Unavailable [phone] Reason for Visit * Reason Onset Date Comments Appointment 10/15/2024 Encounter Details Date Type Department Care Team (Late st Contact Info) Description 10/15/2024 Telephone [facility] [address] [place] [address] Cece Mccord MD 234 [facility] 7 [place] [address] [email or web address] Appointment Social History Tobacco Use Types Packs/Day Years [...] as of this encounter Progress Notes * Krystin Segal - 10/18/2024 10:33 AM EDT Outgoing call to pt, no response. LVM to call to confirm/reschedule 3mo fuv booked 01/15 at 1:30pm * Sudeep Campbell - 10/15/2024 1:20 PM EDT Pt called to schedule a [address] up [address] Sims. Central Support Planing Machine Operator (Please do not reply to this user; this inbox is not monitored.) Thank you. documented in this encounter Plan of Treatment Upcoming Encounters Date Type Department Care Team (Late st Contact Info) Description 12/07/2022 Procedure Pass [address] [address] 01/15/2025 1:30 PM EST Office Visit [facility] [address] [place] [address] Anoop Sims, DO 22 [facility] [address] [place] [address] 01/20/2025 2:15 PM EST Appointment [address] [address] Cece Mccord MD 234 [facility], [address] [place] [address] 07/02/2025 12:00 PM EDT Office Visit [facility] [address] [place] [address] Cece Mccord MD 234 [facility], [address] [place] [address] [email or web address] documented as of this encounter Visit Diagnoses Not on filedocumented in this encounter Additional Health Concerns Assessment Noted Time PHQ-9 Depression Total Score: 11 024 11:20 AM EDT PHQ-2 Depression Total Score: 4 11/27/19 24 11:20 AM EDT documented as of this encounter Care Teams Script Girl Relationship Specialty Start Date End Date Cece Mccord MD 234 [facility], [address] [place] [address] PCP - General Family Medicine 10/09/20 Rickie Hargrove MD [address] [place] [address]. [address] [place] [address] [email or web address] Historical LMR Provider 11/26/16 Everett Ramirez MD [address] [place] [address] [email or web address] Historical LMR Provider 11/26/16 Cece Mccord MD [address] [place] [address], [facility] [address] [place] [address] [email or web address] Insurance Assigned Provider 05/13/23 documented as of this encounter Additional Source Comments The information contained in this document represents components of the legal health record. It is not the complete legal health record.[facility]
--- OUTSIDE RECORDS SUMMARY | 2024-11-07 15:13 | XMS_ITS | Encounter Summary ---
Author Organization [facility] Address [address] [place] [address] Phone Care Team Providers Care Industrial Therapist Name Role Phone Rickie Hargrvoe MD Unavailable Rickie Hargrove MD Unavailable Everett Ramirez MD Unavailable [phone] Landon Jordan DO Unavailable Daniel Reyes MD Unavailable Miguel Angel Hargrove MD Unavailable Cosme Espinoza MD Unavailable Rickie Hargrove MD Primary Care Provider [phone] Cece Mccord MD Primary Care Provider [phone] Cece Mccord MD Unavailable Encounter Details Date Type Department Care Team (Late st Contact Info) Description 04/27/2020 Procedure Pass [facility], [facility] [address] [place] [address] Social History Tobacco Use Types Packs/Day Years [...] st Contact Info) Description 12/07/2022 Procedure Pass [address] [address] 01/15/2025 1:30 PM EST Office Visit [address] [address] Anoop Sims, DO 22 [facility] [address] [place] [address] [email or web address] 01/20/2025 2:15 PM EST Appointment [address] [address] Cece Mccord MD [address] [place] [address] 7 [place] [address] 07/02/2025 12:00 PM EDT Office Visit [address] [address] Cece Mccord MD [address] [place] [address] documented as of this encounter Visit Diagnoses Not on filedocumented in this encounter Additional Health Concerns Assessment Noted Time PHQ-2 Depression Total Score: 0 08/30/19 19 1:25 PM EDT documented as of this encounter Care Teams Industrial Therapist Relationship Specialty Start Date End Date Rickie Hargrove MD [address] [place] [address] [place] [address] [email or web address] PCP - General 12/01/16 10/08/20 Cece Mccord MD [address] [place] [address], [address] [place] [address] [email or web address] PCP - General Family Medicine 10/09/20 Rickie Hargrove MD [address] [place] [address] [address] [place] [phone] [email or web address] Insurance Assigned Provider 11/12/16 05/15/21 Rickie Hargrove MD [address] [place] [address] [address] [place] [phone] [email or web address] Historical LMR Provider 11/26/16 Everett Ramirez MD [address] [place] [address] [email or web address] Historical LMR Provider 11/26/16 Landon Jordan DO [address] [place] [address] Orthopedics & Sports Medicine, [facility] [place] [address] [email or web address] Historical LMR Provider 11/26/16 02/13/21 Daniel Reyes MD [address] [place] [address] [email or web address] Historical LMR Provider 11/26/16 02/13/21 Miguel Angel Hargrove MD [address] [place] [address] [address] [place] [phone] [email or web address] Historical LMR Provider 11/26/16 02/13/21 Cosme Espinoza MD [address] [place] [address] 7 [place] [address] [email or web address] Historical LMR Provider 11/26/16 02/13/21 Cece Mccord MD [address] [place] [address] 7 [place] [address] [email or web address] Insurance Assigned Provider 05/13/23 documented as of this encounter Additional Source Comments The information contained in this document represents components of the legal health record. It is not the complete legal health record.[facility]
--- OUTSIDE RECORDS SUMMARY | 2024-11-07 15:13 | XMS_ITS | Encounter Summary ---
Author Organization [facility] Address [address] [place], [place] [phone] Phone Care Team Providers Care College Professor Name Role Phone Rickie Hargrove MD Unavailable Rickie Hargrove MD Unavailable Everett Ramirez MD Unavailable [phone] Landon Jordan DO Unavailable Daniel Reyes MD Unavailable [phone] Miguel Angel Hargrove MD Unavailable Cosme Espinoza MD Unavailable [phone] Rickie Hargrove MD Primary Care Provider [phone] Cece Mccord MD Primary Care Provider [phone] Cece Mccord MD Unavailable Encounter Details Date Type Department Care Team (Late st Contact Info) Description 01/24/2020 Procedure Pass [facility] [address] [place] [address] Social History Tobacco Use Types Packs/Day Years [...] st Contact Info) Description 12/07/2022 Procedure Pass [address] [address] 01/15/2025 1:30 PM EST Office Visit [address] [address] Anoop Sims, DO 22 [facility] [address] [place] [address] [email or web address] 01/20/2025 2:15 PM EST Appointment [address] [address] Cece Mccord MD [address] [place] [address] 7 [place] [address] [email or web address] 07/02/2025 12:00 PM EDT Office Visit [address] [address] Cece Mccord MD [address] [place] [address] [email or web address] documented as of this encounter Visit Diagnoses Not on filedocumented in this encounter Additional Health Concerns Assessment Noted Time PHQ-2 Depression Total Score: 0 08/30/19 19 1:25 PM EDT documented as of this encounter Care Teams College Professor Relationship Specialty Start Date End Date Rickie Hargrove MD [address] [place], [place] [address] [place] [address] [email or web address] PCP - General 12/01/16 10/08/20 Cece Mccord MD [address] [place] [address], [address] [place] [address] [email or web address] PCP - General Family Medicine 10/09/20 Rickie Hargrove MD [address] [place] [address] [address] [place] [phone] [email or web address] Insurance Assigned Provider 11/12/16 05/15/21 Rickie Hargrove MD [address] [place] [address] [address] [place] [phone] [email or web address] Historical LMR Provider 11/26/16 Everett Ramirez MD [address] [place] [address] [email or web address] Historical LMR Provider 11/26/16 Landon Jordan DO [address] [place] [address] Orthopedics & Sports Medicine, [place] [address] [email or web address] Historical LMR Provider 11/26/16 02/13/21 Daniel Reyes MD [address] [place] [address] [email or web address] Historical LMR Provider 11/26/16 02/13/21 Miguel Angel Hargrove MD [address] [place] [address] [address] [place] [address] [email or web address] Historical LMR Provider 11/26/16 02/13/21 Cosme Espinoza MD [address] [place] [address] 7 [place] [address] [email or web address] Historical LMR Provider 11/26/16 02/13/21 Cece Mccord MD [address] [place] [address] 7 [place] [address] [email or web address] Insurance Assigned Provider 05/13/23 documented as of this encounter Additional Source Comments The information contained in this document represents components of the legal health record. It is not the complete legal health record.[facility]
--- OUTSIDE RECORDS SUMMARY | 2024-11-07 15:13 | XMS_ITS | Encounter Summary ---
Author Organization [facility] Address [address] [facility] [address] [place] [address] Phone Care Team Providers Care Publications Editor Name Role Phone Rickie Hargrove MD Unavailable Everett Ramirez MD Unavailable Cece Mccord MD Primary Care Provider [phone] Cece Mccord MD Unavailable [phone] Encounter Details Date Type Department Care Team (Late st Contact Info) Description 04/25/2023 Telephone [facility] [address] [place] [address] Cece Mccord MD 234 [facility] [address] [place], [place] [phone] [email or web address] Social History Tobacco Use [...] st Contact Info) Description 12/07/2022 Procedure Pass [address] [address] 01/15/2025 1:30 PM EST Office Visit [address] [address] Anoop Sims, 22 [facility] [address] [place] [address] 01/20/2025 2:15 PM EST Appointment [address] [address] Cece Mccord MD [address] [place] [address] [email or web address] 07/02/2025 12:00 PM EDT Office Visit [address] [address] Cece Mccord MD [address] [place] [address] documented as of this encounter Visit Diagnoses Not on filedocumented in this encounter Additional Health Concerns Assessment Noted Time PHQ-2 Depression Total Score: 0 08/30/19 19 1:25 PM EDT documented as of this encounter Care Teams Publications Editor Relationship Specialty Start Date End Date Cece Mccord MD [address] [place] [address] [email or web address] PCP - General Family Medicine 10/09/20 Rickie Hargrove MD [address] [place] [address] [address] [place] [address] [email or web address] Historical LMR Provider 11/26/16 Everett Ramirez MD [address] [place] [address] [email or web address] Historical LMR Provider 11/26/16 Cece Mccord MD [address] [place] [address] [address] [place] [address] [email or web address] Insurance Assigned Provider 05/13/23 documented as of this encounter Additional Source Comments The information contained in this document represents components of the legal health record. It is not the complete legal health record.[facility]
--- OUTSIDE RECORDS SUMMARY | 2024-11-07 15:13 | XMS_ITS | Encounter Summary ---
Author Organization [facility] Address [address] [place] [address] Phone Care Team Providers Care Critical Care Educator Name Role Phone Rickie Hargrove MD Unavailable Rickie Hargrove MD Unavailable [phone] Everett Ramirez MD Unavailable [phone] Landon Jordan DO Unavailable Daniel Reyes MD Unavailable Miguel Angel Hargrove MD Unavailable Cosme Espinoza MD Unavailable [phone] Rickie Hargrove MD Primary Care Provider [phone] Cece Mccord MD Primary Care Provider [phone] Cece Mccord MD Unavailable Encounter Details Date Type Department Care Team (Late st Contact Info) Description 11/02/2018 Ancillary Orders [facility] [address] [place] [address] Rickie Hargrove MD [address] [facility]. [address] [place] [address] [email or web address] Breast screening Social History Tobacco Use Types [...] st Contact Info) Description 12/07/2022 Procedure Pass [address] [address] 01/15/2025 1:30 PM EST Office Visit [address] [address] Anoop Sims, DO 22 [facility] [address] [place] [address] 01/20/2025 2:15 PM EST Appointment [address] [address] Cece Mccord MD [address] [place] [address] [email or web address] 07/02/2025 12:00 PM EDT Office Visit [address] [address] Cece Mccord MD [address] [place] [address] documented as of this encounter Visit Diagnoses Diagnosis Breast screening Breast screening, unspecified documented in this encounter Additional Health Concerns Assessment Noted Time PHQ-2 Depression Total Score: 0 08/30/19 19 1:25 PM EDT documented as of this encounter Care Teams Critical Care Educator Relationship Specialty Start Date End Date Rickie Hargrove MD [address] [place], [place] [address] [place] [address] [email or web address] PCP - General 12/01/16 10/08/20 Cece Mccord MD [address] [place] [address] [address] [place] [address] [email or web address] PCP - General Family Medicine 10/09/20 Rickie Hargrove MD [address] [place] [address] [address] [place] [address] [email or web address] Insurance Assigned Provider 11/12/16 05/15/21 Rickie Hargrove MD [address] [place] [address] [address] [place] [address] [email or web address] Historical LMR Provider 11/26/16 Everett Ramirez MD [address] [place] [address] [email or web address] Historical LMR Provider 11/26/16 Landon Jordan DO [address] [place] [address] Orthopedics & Sports Medicine, [facility] [place] [address] [email or web address] Historical LMR Provider 11/26/16 02/13/21 Daniel Reyes MD [address] [place] [address] [email or web address] Historical LMR Provider 11/26/16 02/13/21 Miguel Angel Hargrove MD [address] [place] [address] 7 [place] [address] [email or web address] Historical LMR Provider 11/26/16 02/13/21 Cosme Espinoza MD [address] [place] [address] 7 [place] [address] [email or web address] Historical LMR Provider 11/26/16 02/13/21 Cece Mccord MD [address] [place] [address] 7 [place] [address] [email or web address] Insurance Assigned Provider 05/13/23 documented as of this encounter Additional Source Comments The information contained in this document represents components of the legal health record. It is not the complete legal health record.[facility]
== END 2024-11-07 14:16 | disposition home or self-care (01) ==
PROVIDERS: Family Provider Student in an Organized Health Care Education/Training Program; Visit Provider Internal Medicine
DX: I42.8 Other cardiomyopathies (principal); Z98.890 Other specified postprocedural states; I25.10 Atherosclerotic heart disease of native coronary artery without angina pectoris; I49.3 Ventricular premature depolarization; I71.40 Abdominal aortic aneurysm, without rupture, unspecified; I48.0 Paroxysmal atrial fibrillation; K92.2 Gastrointestinal hemorrhage, unspecified; I10 Essential (primary) hypertension; Z01.810 Encounter for preprocedural cardiovascular examination
CPT/HCPCS: 93010; 99214; G2211

== ENCOUNTER → 2024-11-07 13:40 | Outpatient (BNVA) | payer MEDICARE, OTHER, SELFPAY | PROVIDERS: Visit Provider Internal Medicine | DX: Z01.810 Encounter for preprocedural cardiovascular examination (principal); I42.8 Other cardiomyopathies; I25.10 Atherosclerotic heart disease of native coronary artery without angina pectoris; I49.3 Ventricular premature depolarization; I71.40 Abdominal aortic aneurysm, without rupture, unspecified; I48.0 Paroxysmal atrial fibrillation; I10 Essential (primary) hypertension; Z98.890 Other specified postprocedural states; K92.2 Gastrointestinal hemorrhage, unspecified | CPT/HCPCS: 93005; 99212 ==

== ENCOUNTER → 2024-11-19 10:44 | Outpatient (REF) | payer MEDICARE, OTHER, SELFPAY ==
--- NOTE | ~2024-11-19 | NM_ITS ---
EXAMINATION: NM PARATHYROID SPECT AND CT HISTORY: E21.3 - Hyperparathyroidism, unspecified. TECHNIQUE: A parathyroid imaging study was performed following the intravenous administration of 30 mCi technetium 99m-sestamibi. Planar imaging of the neck was obtained 20 minutes and 90 minutes after injection of the radiopharmaceutical. SPECT/CT imaging was performed 110 minutes after administration of the radiopharmaceutical. COMPARISON: There are no prior studies available for comparison. FINDINGS: Early planar images demonstrate activity within salivary glands and the thyroid gland. Delayed images demonstrate washout from the thyroid gland. SPECT/CT imaging demonstrates a subcentimeter nodule inferior to the left thyroid lobe and anterior to the left internal carotid artery, which demonstrates increased tracer uptake. Findings are suspicious for a parathyroid adenoma. 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 Electronically signed by: Miguel Angel Zayas MD 11/19/2024 01:48 PM EDT
--- OUTSIDE RECORDS SUMMARY | 2024-11-19 12:43 | XMS_ITS | Encounter Summary ---
Author Organization [facility] Address [address] [place], [place] [address] Phone Care Team Providers Care Automatic Chief Name Role Phone Rickie Hargrove MD Unavailable Rickie Hargrove MD Unavailable Everett Ramirez MD Unavailable [phone] Landon Jordan DO Unavailable Daniel Reyes MD Unavailable [phone] Miguel Angel Hargrove MD Unavailable Cosme Espinoza MD Unavailable [phone] Rickie Hargrove MD Primary Care Provider [phone] Cece Mccord MD Primary Care Provider [phone] Cece Mccord MD Unavailable Encounter Details Date Type Department Care Team (Late st Contact Info) Description 09/18/2017 Transcribe Orders [facility] [address] [place] [address] Everett Ramirez MD [address] [phone] [email or web address] Social History Tobacco Use Types Packs/Day Years [...] Contact Info) Description 12/07/2022 Procedure Pass [address] [address] 01/15/2025 1:30 PM EST Office Visit [address] [address] Anoop Sims, DO 22 [facility] [address] [place] [address] [email or web address] 01/20/2025 2:15 PM EST Appointment [address] [address] Cece Mccord MD [address] [place] [address] [email or web address] 07/02/2025 12:00 PM EDT Office Visit [address] [address] Cece Mccord MD [address] [place] [address] documented as of this encounter Visit Diagnoses Not on filedocumented in this encounter Care Teams Automatic Chief Relationship Specialty Start Date End Date Rickie Hargrove MD [address] [place], [place] [address] [place] [address] [email or web address] PCP - General 12/01/16 10/08/20 Cece Mccord MD [address] [place] [address], [address] [place] [address] [email or web address] PCP - General Family Medicine 10/09/20 Rickie Hargrove MD [address] [place] [address] [address] [place] [address] [email or web address] Insurance Assigned Provider 11/12/16 05/15/21 Rickie Hargrove MD [address] [place] [address] [address] [place] [phone] [email or web address] Historical LMR Provider 11/26/16 Everett Ramirez MD [address] [place] [address] [email or web address] Historical LMR Provider 11/26/16 Landon Jordan DO [address] [place] [address] Orthopedics [facility] Sports Medicine, [place] [address] [email or web address] Historical LMR Provider 11/26/16 02/13/21 Daniel Reyes MD [address] [place] [address] [email or web address] Historical LMR Provider 11/26/16 02/13/21 Miguel Angel Hargrove MD [address] [place] [address] [address] [place] [phone] [email or web address] Historical LMR Provider 11/26/16 02/13/21 Cosme Espinoza MD [address] [place] [address], [address] [place] [address] [email or web address] Historical LMR Provider 11/26/16 02/13/21 Cece Mccord MD [address] [place] [address], [address] [place] [address] [email or web address] Insurance Assigned Provider 05/13/23 documented as of this encounter Additional Source Comments The information contained in this document represents components of the legal health record. It is not the complete legal health record.[facility]
--- OUTSIDE RECORDS SUMMARY | 2024-11-19 12:43 | XMS_ITS | Encounter Summary ---
Author Organization [facility] Address [address] [place] [address] Phone Care Team Providers Care Field Collector Name Role Phone Rickie Hargrove MD Unavailable Rickie Hargrove MD Unavailable Everett Ramirez MD Unavailable [phone] Landon Jordan DO Unavailable [phone] Daniel Reyes MD Unavailable [phone] Miguel Angel Hargrove MD Unavailable [phone] Cosme Espinoza MD Unavailable Rickie Hargrove MD Primary Care Provider [phone] Cece Mccord MD Primary Care Provider [phone] Cece Mccord MD Unavailable Encounter Details Date Type Department Care Team (Late st Contact Info) Description 01/24/2020 Ancillary Orders [facility] [address] [place] [address] Rickie Hargrove MD 234 [facility]. [address] [place] [address] [email or web address] Breast screening Social History Tobacco Use Types [...] st Contact Info) Description 12/07/2022 Procedure Pass [address] [address] 01/15/2025 1:30 PM EST Office Visit [address] [address] Anoop Sims, DO 22 [facility] [address] [place] [address] 01/20/2025 2:15 PM EST Appointment [address] [address] Cece Mccord MD [address] [place] [address] 07/02/2025 12:00 PM EDT Office Visit [address] [address] Cece Mccord MD [address] [place] [address] documented as of this encounter Results * [...] documented as of this encounter Care Teams Field Collector Relationship Specialty Start Date End Date Rickie Hargrove MD 234 [facility] [address] [place] [address] [email or web address] PCP - General 12/01/16 10/08/20 Cece Mccord MD 234 [facility], [address] [place] [address] [email or web address] PCP - General Family Medicine 10/09/20 Rickie Hargrove MD 234 [facility] [address] [place] [address] [email or web address] Insurance Assigned Provider 11/12/16 05/15/21 Rickie Hargrove MD [address] [place] [address] [address] [place] [phone] [email or web address] Historical LMR Provider 11/26/16 Everett Ramirez MD [address] [place] [phone] [email or web address] Historical LMR Provider 11/26/16 Landon Jordan DO [address] [place] [address] Orthopedics & Sports Medicine, [facility] [place], [place] [phone] Historical LMR Provider 11/26/16 02/13/21 Daniel Reyes MD [address] [place] [address], 2[address] [place] [address] Historical LMR Provider 11/26/16 02/13/21 Miguel Angel Hargrove MD [address] [place] [address] 7 [place] [address] [email or web address] Historical LMR Provider 11/26/16 02/13/21 Cosme Espinoza MD [address] [place] [address] 7 [place] [address] [email or web address] Historical LMR Provider 11/26/16 02/13/21 Cece Mccord MD [address] [place] [address] 7 [place] [address] [email or web address] Insurance Assigned Provider 05/13/23 documented as of this encounter Additional Source Comments The information contained in this document represents components of the legal health record. It is not the complete legal health record.[facility]
--- OUTSIDE RECORDS SUMMARY | 2024-11-19 12:43 | XMS_ITS | Encounter Summary ---
Author Organization [facility] Address [address] [place] [address] Phone Care Team Providers Care Customer Business Manager Name Role Phone Rickie Hargrove MD Unavailable Rickie Hargrove MD Unavailable Everett Ramirez MD Unavailable [phone] Landon Jordan DO Unavailable [phone] Daniel Reyes MD Unavailable [phone] Miguel Angel Hargrove MD Unavailable Cosme Espinoza MD Unavailable [phone] Rickie Hargrove MD Primary Care Provider [phone] Cece Mccord MD Primary Care Provider [phone] Cece Mccord MD Unavailable Encounter Details Date Type Department Care Team (Late st Contact Info) Description 02/28/2017 Ancillary Orders [facility] 234 [place] [address] Rickie Hargrove MD 234 [facility]. [address] [place] [address] [email or web address] Breast screening Social History Tobacco Use Types [...] st Contact Info) Description 12/07/2022 Procedure Pass [address] [address] 01/15/2025 1:30 PM EST Office Visit [address] [address] Anoop Sims, 22 [facility] [address] [place] [address] 01/20/2025 2:15 PM EST Appointment [address] [address] Cece Mccord MD [address] [place] [address] 7 [place] [address] 07/02/2025 12:00 PM EDT Office Visit [address] [address] Cece Mccord MD [address] [place] [address] documented as of this encounter Results * [...] unspecified documented in this encounter Care Teams Customer Business Manager Relationship Specialty Start Date End Date Rickie Hargrove MD [address] [place], [place] [address] [place] [address] [email or web address] PCP - General 12/01/16 10/08/20 Cece Mccord MD [address] [place] [address] 7 [place] [id number] [email or web address] PCP - General Family Medicine 10/09/20 Rickie Hargrove MD [address] [place] [address] [address] [place] [phone] [email or web address] Insurance Assigned Provider 11/12/16 05/15/21 Rickie Hargrove MD [address] [place] [address] [address] [place] [phone] [email or web address] Historical LMR Provider 11/26/16 Everett Ramirez MD [address] [place] [address] [email or web address] Historical LMR Provider 11/26/16 Landon Jordan DO [address] [place] [address] Orthopedics & Sports Medicine, [place] [address] [email or web address] Historical LMR Provider 11/26/16 02/13/21 Daniel Reyes MD [address] [place] [address] [email or web address] Historical LMR Provider 11/26/16 02/13/21 Miguel Angel Hargrove MD [address] [place] [address] 7 [place] [address] [email or web address] Historical LMR Provider 11/26/16 02/13/21 Cosme Espinoza MD [address] [place] [address], [facility] 7 [place] [address] [email or web address] Historical LMR Provider 11/26/16 02/13/21 Cece Mccord MD [address] [place] [address], [address] [place] [address] [email or web address] Insurance Assigned Provider 05/13/23 documented as of this encounter Additional Source Comments The information contained in this document represents components of the legal health record. It is not the complete legal health record.[facility]
--- OUTSIDE RECORDS SUMMARY | 2024-11-19 12:43 | XMS_ITS | Encounter Summary ---
Author Organization [facility] Address [address] [place] [address] Phone Care Team Providers Care Professor Of Poultry Science Name Role Phone Rickie Hargrove MD Unavailable Rickie Hargrove MD Unavailable [phone] Everett Ramirez MD Unavailable [phone] Landon Jordan DO Unavailable Daniel Reyes MD Unavailable [phone] Miguel Angel Hargrove MD Unavailable Cosme Espinoza MD Unavailable Rickie Hargrove MD Primary Care Provider [phone] Cece Mccord MD Primary Care Provider [phone] Cece Mccord MD Unavailable Reason for Referral * MRI/CAT Scan - Closed Specialty Diagnoses / Procedures Referred By Contac t Referred To Contact Procedures CT Chest Outside (No Interpretation) System, Provider Not In, PhD [address] [address] Referral ID Status Reason Start Date Expiration Date Visits Re quested Visits Authorized [id number] Closed 12/21/2017 12/21/2018 1 1 Encounter Details Date Type Department Care Team (Late st Contact Info) Description 12/21/2017 Ancillary Orders [facility] Imaging 30 [place] [address] System, Provider Not In, [place] [address] Social History Tobacco Use Types Packs/Day Years [...] st Contact Info) Description 12/07/2022 Procedure Pass [address] [address] 01/15/2025 1:30 PM EST Office Visit [address] [address] Anoop Sims, [address] [place] [address] [email or web address] 01/20/2025 2:15 PM EST Appointment [address] [address] Cece Mccord MD [address] [place] [address] 7 [place] [address] 07/02/2025 12:00 PM EDT Office Visit [address] [address] Cece Mccord MD [address] [place] [address] documented as of this encounter Results * CT Chest Outside (No Interpretation) (03/18/2017 12:00 AM EST) Narrative SYSTEMGENERATED, DOCUMENTATION - 12/21/2017 4:02 PM EST This study is for PACS storage only and not for interpretation. us Provider Not In System PhD IMG OUTSIDE IMAGING W /OUT INTERPRETATION Final Result documented in this encounter Visit Diagnoses Not on filedocumented in this encounter Care Teams Professor Of Poultry Science Relationship Specialty Start Date End Date Rickie Hargrove MD [address] [place] [address] [address] [place] [address] [email or web address] PCP - General 12/01/16 10/08/20 Cece Mccord MD [address] [place] [address] [address] [place] [address] [email or web address] PCP - General Family Medicine 10/09/20 Rickie Hargrove MD [address] [place] [address] [address] [place] [address] [email or web address] Insurance Assigned Provider 11/12/16 05/15/21 Rickie Hargrove MD [address] [place] [address] [address] [place] [address] [email or web address] Historical LMR Provider 11/26/16 Everett Ramirez MD [address] [place] [address] [email or web address] Historical LMR Provider 11/26/16 Landon Jordan DO [address] [place] [address] Orthopedics [facility] Sports Medicine, [place], [place] [phone] Historical LMR Provider 11/26/16 02/13/21 Daniel Reyes MD [address] [place] [address] Historical LMR Provider 11/26/16 02/13/21 Miguel Angel Hargrove MD [address] [place] [address] 7 [place] [address] [email or web address] Historical LMR Provider 11/26/16 02/13/21 Cosme Espinoza MD [address] [place] [address] 7 [place] [address] [email or web address] Historical LMR Provider 11/26/16 02/13/21 Cece Mccord MD [address] [place] [address] 7 [place] [address] [email or web address] Insurance Assigned Provider 05/13/23 documented as of this encounter Additional Source Comments The information contained in this document represents components of the legal health record. It is not the complete legal health record.[facility]
--- OUTSIDE RECORDS SUMMARY | 2024-11-19 12:44 | XMS_ITS | Encounter Summary ---
Author Organization [facility] Address [address] [place] [address] Phone Care Team Providers Care Palm And Back Forger Name Role Phone Rickie Hargrove MD Unavailable Rickie Hargrove MD Unavailable [phone] Everett Ramirez MD Unavailable [phone] Landon Jordan DO Unavailable Daniel Reyes MD Unavailable [phone] Miguel Angel Hargrove MD Unavailable Cosme Espinoza MD Unavailable Rickie Hargrove MD Primary Care Provider [phone] Cece Mccord MD Primary Care Provider [phone] Cece Mccord MD Unavailable Encounter Details Date Type Department Care Team (Late st Contact Info) Description 03/06/2020 Ancillary Orders [facility] Medicine 234 [place] [address] Rickie Hargrove MD 234 [facility]. [address] [place] [address] [email or web address] Abnormal mammogram Social History Tobacco Use Types [...] st Contact Info) Description 12/07/2022 Procedure Pass [address] [address] 01/15/2025 1:30 PM EST Office Visit [address] [address] Anoop Sims, DO 22 [facility] [address] [place] [address] 01/20/2025 2:15 PM EST Appointment [address] [address] Cece Mccord MD [address] [place] [address] 07/02/2025 12:00 PM EDT Office Visit [address] [address] Cece Mccord MD [address] [place] [address] documented as of this encounter Results * [...] documented as of this encounter Care Teams Palm And Back Forger Relationship Specialty Start Date End Date Rickie Hargrove MD [address] [place] [address] [address] [place] [address] [email or web address] PCP - General 12/01/16 10/08/20 Cece Mccord MD [address] [place] [address], [address] [place] [phone] [email or web address] PCP - General Family Medicine 10/09/20 Rickie Hargrove MD [address] [place] [address] [address] [place] [phone] [email or web address] Insurance Assigned Provider 11/12/16 05/15/21 Rickie Hargrove MD [address] [place] [address] [address] [place] [phone] [email or web address] Historical LMR Provider 11/26/16 Everett Ramirez MD [address] [place] [address] [email or web address] Historical LMR Provider 11/26/16 Landon Jordan DO [address] [place] [address] Orthopedics [facility] Sports Medicine, [place] [address] [email or web address] Historical LMR Provider 11/26/16 02/13/21 Daniel Reyes MD [address] [place] [address] [email or web address] Historical LMR Provider 11/26/16 02/13/21 Miguel Angel Hargrove MD [address] [place] [address] [address] [place] [phone] [email or web address] Historical LMR Provider 11/26/16 02/13/21 Cosme Espinoza MD [address] [place] [address] [address] [place] [address] Historical LMR Provider 11/26/16 02/13/21 Cece Mccord MD [address] [place] [address], [address] [place] [address] [email or web address] Insurance Assigned Provider 05/13/23 documented as of this encounter Additional Source Comments The information contained in this document represents components of the legal health record. It is not the complete legal health record.[facility]
--- OUTSIDE RECORDS SUMMARY | 2024-11-19 12:44 | XMS_ITS | Encounter Summary ---
Author Organization [facility] Address [address] [place] [address] [place] [address] Phone Care Team Providers Care Test Inspection Engineer Name Role Phone Rickie Hargrove MD Unavailable Rickie Hargrove MD Unavailable Everett Ramirez MD Unavailable [phone] Landon Jordan DO Unavailable Daniel Reyes MD Unavailable Miguel Angel Hargrove MD Unavailable Cosme Espinoza MD Unavailable Rickie Hargrove MD Primary Care Provider [phone] Cece Mccord MD Primary Care Provider [phone] Cece Mccord MD Unavailable [phone] Encounter Details Date Type Department Care Team (Late st Contact Info) Description 03/22/2017 Ancillary Orders [facility] Vascular Imaging & Intervention [address] [facility], 2nd Floor, [address] [place], [place] [phone] Shiva Stevens MD, PhD [address] [facility] [address] [place] [address] [email or web address] Peripheral vascular disease Social History Tobacco Use [...] st Contact Info) Description 12/07/2022 Procedure Pass [address] [address] 01/15/2025 1:30 PM EST Office Visit [address] [address] Anoop Sims, [address] [place] [address] [place] [address] [email or web address] 01/20/2025 2:15 PM EST Appointment [address] [address] Cece Mccord MD [address] [place] [address] 07/02/2025 12:00 PM EDT Office Visit [address] [address] Cece Mccord MD [address] [place] [address] documented as of this encounter Visit Diagnoses Diagnosis Peripheral vascular disease Unspecified peripheral vascular disease documented in this encounter Care Teams Test Inspection Engineer Relationship Specialty Start Date End Date Rickie Hargrove MD [address] [place], [place] [address] [place] [address] [email or web address] PCP - General 12/01/16 10/08/20 Cece Mccord MD [address] [place] [address] [address] [place], [place] [id number] [email or web address] PCP - General Family Medicine 10/09/20 Rickie Hargrove MD [address] [place] [address] [address] [place] [phone] [email or web address] Insurance Assigned Provider 11/12/16 05/15/21 Rickie Hargrove MD [address] [place] [address] [address] [place] [phone] [email or web address] Historical LMR Provider 11/26/16 Everett Ramirez MD [address] [place] [address] [email or web address] Historical LMR Provider 11/26/16 Landon Jordan DO [address] [place] [address] Orthopedics & Sports Medicine, [place] [address] [email or web address] Historical LMR Provider 11/26/16 02/13/21 Daniel Reyes MD [address] [place] [id number] [email or web address] Historical LMR Provider 11/26/16 02/13/21 Miguel Angel Hargrove MD [address] [place] [address] 7 [place] [address] [email or web address] Historical LMR Provider 11/26/16 02/13/21 Cosme Espinoza MD [address] [place] [address] 7 [place] [address] [email or web address] Historical LMR Provider 11/26/16 02/13/21 Cece Mccord MD [address] [place] [address] 7 [place] [address] [email or web address] Insurance Assigned Provider 05/13/23 documented as of this encounter Additional Source Comments The information contained in this document represents components of the legal health record. It is not the complete legal health record.[facility]
--- OUTSIDE RECORDS SUMMARY | 2024-11-19 12:44 | XMS_ITS | Encounter Summary ---
Author Organization [facility] Address [address] [place], [place] [phone] Phone Care Team Providers Care Sales Support Associate Name Role Phone Rickie Hargrove MD Unavailable Rickie Hargrove MD Unavailable Everett Ramirez MD Unavailable [phone] Landon Jordan DO Unavailable Daniel Reyes MD Unavailable Miguel Angel Hargrove MD Unavailable Cosme Espinoza MD Unavailable [phone] Rickie Hargrove MD Primary Care Provider [phone] Cece Mccord MD Primary Care Provider [phone] Cece Mccord MD Unavailable Encounter Details Date Type Department Care Team (Late st Contact Info) Description 01/24/2020 Procedure Pass [facility] 30 [place] [address] Social History Tobacco Use Types Packs/Day Years [...] st Contact Info) Description 12/07/2022 Procedure Pass [address] [address] 01/15/2025 1:30 PM EST Office Visit [address] [address] Anoop Sims, DO [address] [facility] [address] [place] [address] [email or web address] 01/20/2025 2:15 PM EST Appointment [address] [address] Cece Mccord MD [address] [place] [address] 7 [place] [address] [email or web address] 07/02/2025 12:00 PM EDT Office Visit [address] [address] Cece Mccord MD [address] [place] [address] [email or web address] documented as of this encounter Visit Diagnoses Not on filedocumented in this encounter Additional Health Concerns Assessment Noted Time PHQ-2 Depression Total Score: 0 08/30/19 19 1:25 PM EDT documented as of this encounter Care Teams Sales Support Associate Relationship Specialty Start Date End Date Rickie Hargrove MD [address] [place], [place] [address] [place] [address] [email or web address] PCP - General 12/01/16 10/08/20 Cece Mccord MD [address] [place] [address], [address] [place] [address] [email or web address] PCP - General Family Medicine 10/09/20 Rickie Hargrove MD [address] [place] [address] [address] [place] [phone] [email or web address] Insurance Assigned Provider 11/12/16 05/15/21 Rickie Hargrove MD [address] [place] [address] [address] [place] [phone] [email or web address] Historical LMR Provider 11/26/16 Everett Ramirez MD [address] [place] [address] [email or web address] Historical LMR Provider 11/26/16 Landon Jordan DO [address] [place] [address] Orthopedics & Sports Medicine, [facility] [place] [address] [email or web address] Historical LMR Provider 11/26/16 02/13/21 Daniel Reyes MD [address] [place] [address] [email or web address] Historical LMR Provider 11/26/16 02/13/21 Miguel Angel Hargrove MD [address] [place] [address] [address] [place] [address] [email or web address] Historical LMR Provider 11/26/16 02/13/21 Cosme Espinoza MD [address] [place] [address] 7 [place] [address] [email or web address] Historical LMR Provider 11/26/16 02/13/21 Cece Mccord MD [address] [place] [address] 7 [place] [address] [email or web address] Insurance Assigned Provider 05/13/23 documented as of this encounter Additional Source Comments The information contained in this document represents components of the legal health record. It is not the complete legal health record.[facility]
--- OUTSIDE RECORDS SUMMARY | 2024-11-19 12:44 | XMS_ITS | Clinical Summary ---
Author Organization [facility] Address [address] [place] [address] Phone Care Team Providers Care Medical Doctor Nuclear Medicine Name Role Phone Rickie Hargrove MD Primary [...] 0,12/22/2008,10/16 Influenza, Quadrivalent, Pre servative Free 11/13/2017 MicroInvention SARS-COV-2 05/14/2020,04/23/2020 Pneumococcal Conjugate 13-Valent 01/22/2014 Pneumococcal [...] to complete this topic Insurance Human Medicare [facility] Medicare Care Teams Medical Doctor Nuclear Medicine Relationship Specialty Start Date End Date Rickie Hargrove MD PCP - General 02/17/20
--- OUTSIDE RECORDS SUMMARY | 2024-11-19 12:44 | XMS_ITS | Encounter Summary ---
Author Organization [facility] Address [address] [facility] [address] [place] [address] Phone Care Team Providers Care Solar Sales Representative Name Role Phone Rickie Hargrove MD Unavailable [phone] Everett Ramirez MD Unavailable [phone] Cece Mccord MD Primary Care Provider [phone] Cece Mccord MD Unavailable [phone] Reason for Visit * Reason Onset Date Comments Appointment 10/15/2024 Encounter Details Date Type Department Care Team (Late st Contact Info) Description 10/15/2024 Telephone First Class EV Conversions [facility] [address] [place] [address] Cece Mccord MD 234 [facility] 7 [place] [address] [email or web address] Appointment Social History Tobacco Use Types Packs/Day [...] follow up with Dr Sims. Central Support Preparation Center Coordinator (Please do not reply to this user; this inbox is not monitored.) Thank you. documented in this encounter Plan of Treatment Upcoming Encounters Date Type Department Care Team (Late st Contact Info) Description 12/07/2022 Procedure Pass [address] [address] 01/15/2025 1:30 PM EST Office Visit [facility] Medicine [address] [place] [address] Anoop Sims, DO 22 [facility] [address] [place] [address] 01/20/2025 2:15 PM EST Appointment [address] [address] Cece Mccord MD 234 [facility], [address] [place] [address] 07/02/2025 12:00 PM EDT Office Visit [facility] Medicine [address] [place] [address] Cece Mccord MD 234 [facility], [address] [place] [address] [email or web address] documented as of this encounter Visit Diagnoses Not on filedocumented in this encounter Additional Health Concerns Assessment Noted Time PHQ-9 Depression Total Score: 11 024 11:20 AM EDT PHQ-2 Depression Total Score: 4 11/27/19 24 11:20 AM EDT documented as of this encounter Care Teams Solar Sales Representative Relationship Specialty Start Date End Date Cece Mccord MD 234 [facility], [address] [place] [address] PCP - General Family Medicine 10/09/20 Rickie Hargrove MD [address] [place] [address]. [address] [place] [address] [email or web address] Historical LMR Provider 11/26/16 Everett Ramirez MD [address] [place] [address] [email or web address] Historical LMR Provider 11/26/16 Cece Mccord MD [address] [place] [address], [facility] 7 [place] [address] [email or web address] Insurance Assigned Provider 05/13/23 documented as of this encounter Additional Source Comments The information contained in this document represents components of the legal health record. It is not the complete legal health record.[facility]
--- OUTSIDE RECORDS SUMMARY | 2024-11-19 12:44 | XMS_ITS | Encounter Summary ---
Author Organization [facility] Address [address] [place] [address] [place] [address] Phone Care Team Providers Care Prototype Machinist Name Role Phone Rickie Hargrove MD Unavailable Rickie Hargrove MD Unavailable [phone] Everett Ramirez MD Unavailable [phone] Landon Jordan DO Unavailable Daniel Reyes MD Unavailable Miguel Angel Hargrove MD Unavailable [phone] Cosme Espinoza MD Unavailable Rickie Hargrove MD Primary Care Provider [phone] Cece Mccord MD Primary Care Provider [phone] Cece Mccord MD Unavailable Encounter Details Date Type Department Care Team (Late st Contact Info) Description 03/22/2017 Procedure Pass [facility] [place], [address] [facility], 2nd Floor, [address] [place] [address] Social History Tobacco Use Types Packs/Day Years [...] st Contact Info) Description 12/07/2022 Procedure Pass [address] [address] 01/15/2025 1:30 PM EST Office Visit [address] [address] Anoop Sims, DO 22 [facility] [address] [place] [address] [email or web address] 01/20/2025 2:15 PM EST Appointment [address] [address] Cece Mccord MD [address] [place] [address] 7 [place] [address] [email or web address] 07/02/2025 12:00 PM EDT Office Visit [address] [address] Cece Mccord MD [address] [place] [address] [email or web address] documented as of this encounter Visit Diagnoses Not on filedocumented in this encounter Care Teams Prototype Machinist Relationship Specialty Start Date End Date Rickie Hargrove MD [address] [place], [place] [address] [place] [address] [email or web address] PCP - General 12/01/16 10/08/20 Cece Mccord MD [address] [place] [address] 7 [place] [address] [email or web address] PCP - General Family Medicine 10/09/20 Rickie Hargrove MD [address] [place] [address] [address] [place] [phone] [email or web address] Insurance Assigned Provider 11/12/16 05/15/21 Rickie Hargrove MD [address] [place] [address] [address] [place] [phone] [email or web address] Historical LMR Provider 11/26/16 Everett Ramirez MD [address] [place] [address] [email or web address] Historical LMR Provider 11/26/16 Landon Jordan DO [address] [place] [address] Orthopedics [facility] Sports Medicine, [place] [address] [email or web address] Historical LMR Provider 11/26/16 02/13/21 Daniel Reyes MD [address] [place] [address] [email or web address] Historical LMR Provider 11/26/16 02/13/21 Miguel Angel Hargrove MD [address] [place] [address] 7 [place] [phone] [email or web address] Historical LMR Provider 11/26/16 02/13/21 Cosme Espinoza MD [address] [place] [address] [address] [place] [id number] Historical LMR Provider 11/26/16 02/13/21 Cece Mccord MD [address] [place] [address], [address] [place] [address] [email or web address] Insurance Assigned Provider 05/13/23 documented as of this encounter Additional Source Comments The information contained in this document represents components of the legal health record. It is not the complete legal health record.[facility]
--- OUTSIDE RECORDS SUMMARY | 2024-11-19 12:44 | XMS_ITS | Encounter Summary ---
Author Organization [facility] Address [address] [facility] [address] [place] [address] Phone Care Team Providers Care Senior Project Manager Engineering Name Role Phone Rickie Hargrove MD Unavailable Everett Ramirez MD Unavailable Cece Mccord MD Primary Care Provider [phone] Cece Mccord MD Unavailable [phone] Reason for Visit * Reason Onset Date Comments Medication Refill 11/05/2024 Encounter Details Date Type Department Care Team (Late st Contact Info) Description 11/05/20[facility] 234 [place] [address] Cece Mccord MD [address] [place] [address] 7 [place] [address] [email or web address] Medication Refill Social History Tobacco Use Types [...] Mccord MD - Family Medicine [facility] [place] [facility] > Requested f/u: Return in about 3 months (around 01/08/2025) for with Dr Sims for check in. Upcoming visit: 01/15/2025 Anoop Sims DO - Family Medicine [facility] ACTIONS TAKEN BY Rama Ryan [place] - Criteria met. Rx(s) without protocol Renewal is at prescriber discretion. - prednisone Rx mismatch - Original(s) may be discontinued, , or changed to a different strength or form. * Campbell, Sudeep - 11/05/2024 1:40 PM EDT Pt called in for a refill on predniSONE (DELTASONE) 10 MG tablet Central Support Assistant Cross Country Coach (Please do not reply to this user; this inbox is not monitored.) Thank you. documented in this encounter Plan of Treatment Upcoming Encounters Date Type Department Care Team (Late st Contact Info) Description 12/07/2022 Procedure Pass [address] [address] 01/15/2025 1:30 PM EST Office Visit [address] [address] Anoop Sims, [address] [place] [address] [email or web address] 01/20/2025 2:15 PM EST Appointment [address] [address] Cece Mccord MD [address] [place] [address] 7 [place] [address] 07/02/2025 12:00 PM EDT Office Visit [address] [address] Cece Mccord MD [address] [place] [address] documented as of this encounter Visit Diagnoses Diagnosis Pulmonary emphysema, unspecified emphysema type documented in this encounter Additional Health Concerns Assessment Noted Time PHQ-9 Depression Total Score: 11 024 11:20 AM EDT PHQ-2 Depression Total Score: 4 11/27/19 24 11:20 AM EDT documented as of this encounter Care Teams Senior Project Manager Engineering Relationship Specialty Start Date End Date Cece Mccord MD 234 [facility] 7 [place] [address] [email or web address] PCP - General Family Medicine 10/09/20 Rickie Hargrove MD 234 [facility]7 [place] [address] [email or web address] Historical LMR Provider 11/26/16 Everett Ramirez MD [address] [place] [address] [email or web address] Historical LMR Provider 11/26/16 Cece Mccord MD [address] [place] [address] 7 [place] [address] [email or web address] Insurance Assigned Provider 05/13/23 documented as of this encounter Additional Source Comments The information contained in this document represents components of the legal health record. It is not the complete legal health record.[facility]
--- OUTSIDE RECORDS SUMMARY | 2024-11-19 12:44 | XMS_ITS | Encounter Summary ---
Author Organization [facility] Address [address] [place] [address] Phone Care Team Providers Care Insulation Sprayer Name Role Phone Rickie Hargrove MD Unavailable Rickie Hargrove MD Unavailable Everett Ramirez MD Unavailable [phone] Landon Jordan DO Unavailable Dnaiel Ryees MD Unavailable [phone] Miguel Angel Hargrove MD Unavailable Cosme Espinoza MD Unavailable Rickie Hargrove MD Primary Care Provider [phone] Cece Mccord MD Primary Care Provider [phone] Cece Mccord MD Unavailable [phone] Encounter Details Date Type Department Care Team (Late st Contact Info) Description 04/27/2020 Procedure Pass [facility], Ct Scan - [facility] 30 [place] [address] Social History Tobacco Use Types Packs/Day Years [...] st Contact Info) Description 12/07/2022 Procedure Pass [address] [address] 01/15/2025 1:30 PM EST Office Visit [address] [address] Anoop Sims, DO 22 [facility] [address] [place] [address] [email or web address] 01/20/2025 2:15 PM EST Appointment [address] [address] Cece Mccord MD [address] [place] [address] 7 [place] [address] 07/02/2025 12:00 PM EDT Office Visit [address] [address] Cece Mccord MD [address] [place] [address] documented as of this encounter Visit Diagnoses Not on filedocumented in this encounter Additional Health Concerns Assessment Noted Time PHQ-2 Depression Total Score: 0 08/30/19 19 1:25 PM EDT documented as of this encounter Care Teams Insulation Sprayer Relationship Specialty Start Date End Date Rickie Hargrove MD [address] [place], [place] [address] [place] [address] [email or web address] PCP - General 12/01/16 10/08/20 Cece Mccord MD [address] [place] [address], [address] [place] [address] [email or web address] PCP - General Family Medicine 10/09/20 Rickie Hargrove MD [address] [place] [address] [address] [place] [phone] [email or web address] Insurance Assigned Provider 11/12/16 05/15/21 Rickie Hargrove MD [address] [place] [address] [address] [place] [phone] [email or web address] Historical LMR Provider 11/26/16 Everett Ramirez MD [address] [place] [address] [email or web address] Historical LMR Provider 11/26/16 Landon Jordan DO [address] [place] [address] Orthopedics & Sports Medicine, [facility] [place] [address] [email or web address] Historical LMR Provider 11/26/16 02/13/21 Daniel Reyes MD [address] [place] [address] [email or web address] Historical LMR Provider 11/26/16 02/13/21 Miguel Angel Hargrove MD [address] [place] [address] [address] [place] [phone] [email or web address] Historical LMR Provider 11/26/16 02/13/21 Cosme Espinoza MD [address] [place] [address] 7 [place] [address] [email or web address] Historical LMR Provider 11/26/16 02/13/21 Cece Mccord MD [address] [place] [address] 7 [place] [address] [email or web address] Insurance Assigned Provider 05/13/23 documented as of this encounter Additional Source Comments The information contained in this document represents components of the legal health record. It is not the complete legal health record.[facility]
--- OUTSIDE RECORDS SUMMARY | 2024-11-19 12:44 | XMS_ITS | Encounter Summary ---
Author Organization [facility] Address [address] [place], [place] [id number] Phone Care Team Providers Care Director Utilization Management Name Role Phone Rickie Hargrove MD Unavailable Rickie Hargrove MD Unavailable [phone] Everett Ramirez MD Unavailable [phone] Landon Jordan DO Unavailable [phone] Daniel Reyes MD Unavailable Miguel Angel Hargrove MD Unavailable Cosme Espinoza MD Unavailable Rickie Hargrove MD Primary Care Provider [phone] Cece Mccord MD Primary Care Provider [phone] Cece Mccord MD Unavailable Reason for Referral * MRI/CAT Scan - Closed Specialty Diagnoses / Procedures Referred By Contac t Referred To Contact Radiology Diagnoses Peripheral vascular disease Procedures CT Angio Abdominal Aorta and Bilateral Lower Extremity Runoff CT Angio Abdominal Aorta and Bilateral Lower Extremity Runoff Daniel Lucas MD Phone: tel: fax: mailto:[email or web address] Referral ID Status Reason Start Date Expiration Date Visits Re quested Visits Authorized [id number] Closed 03/22/2017 03/22/2018 1 1 Encounter Details Date Type Department Care Team (Late st Contact Info) Description 03/23/2017 Ancillary Orders [facility] Vascular Imaging & Intervention [address] [facility], 2nd Floor, [address] [place] [address] Daniel Lucas MD [address] [facility] [address] [place] [address] [email or web address] Peripheral vascular disease Social History Tobacco Use [...] st Contact Info) Description 12/07/2022 Procedure Pass [address] [address] 01/15/2025 1:30 PM EST Office Visit [address] [address] Anoop Sims, DO 22 [facility] [address] [place] [address] 01/20/2025 2:15 PM EST Appointment [facility] [address] [place] [address] Cece Mccord MD [address] [facility], [address] [place] [address] 07/02/2025 12:00 PM EDT Office Visit [address] [address] Cece Mccord MD [address] [place] [address], [address] [place] [address] [email or web address] documented as of this encounter Results * [...] and 0.50 on the left. us Daniel Lucas MD US VASCULAR Final Result * CT [...] the left: Serial mild stenoses involving the HEEL SEAT FITTER MACHINE to the level of the SFA, which [...] atherosclerotic plaque. RUNOFF: On the right: The HEEL SEAT FITTER MACHINE and SFA demonstrate multifocal mild stenoses due to atherosclerotic plaque. The PFA is widely patent. The popliteal artery is widely patent without significant stenosis. There are three vessel runoff without significant stenosis. On the left: The HEEL SEAT FITTER MACHINE demonstrates serial segmental stenoses due to noncalcified [...] atherosclerotic plaque. RUNOFF: On the right: The HEEL SEAT FITTER MACHINE and SFA demonstrate multifocal mild stenoses dueto atherosclerotic plaque. The PFA is widely patent. The popliteal artery iswidely patent without significant stenosis. There are three vessel runoffwithout significant stenosis. On the left: The HEEL SEAT FITTER MACHINE demonstrates serial segmental stenoses due tononcalcified plaque [...] the left: Serial mild stenoses involving the HEEL SEAT FITTER MACHINE to the level of theSFA, which demonstrates [...] disease documented in this encounter Care Teams Director Utilization Management Relationship Specialty Start Date End Date Rickie Hargrove MD [address] [facility] [place] [address] [email or web address] PCP - General 12/01/16 10/08/20 Cece Mccord MD [address] [place] [address] 7 [place] [address] [email or web address] PCP - General Family Medicine 10/09/20 Rickie Hargrove MD [address] [place], [place] [address] [place] [address] [email or web address] Insurance Assigned Provider 11/12/16 05/15/21 Rickie Hargrove MD [address] [place], [place] [address] [place] [address] [email or web address] Historical LMR Provider 11/26/16 Everett Ramirez MD [address] [place] [address] [email or web address] Historical LMR Provider 11/26/16 Landon Jordan DO [address] [place] [address] Orth[facility] Sports Medicine, [place] [address] [email or web address] Historical LMR Provider 11/26/16 02/13/21 Daniel Reyes MD [address] [place] [address] [email or web address] Historical LMR Provider 11/26/16 02/13/21 Miguel Angel Hargrove MD [address] [place] [address] 7 [place] [id number] [email or web address] Historical LMR Provider 11/26/16 02/13/21 Cosme Espinoza MD [address] [place] [address] 7 [place] [address] [email or web address] Historical LMR Provider 11/26/16 02/13/21 Cece Mccord MD [address] [place] [address] 7 [place], [place] [phone] [email or web address] Insurance Assigned Provider 05/13/23 documented as of this encounter Additional Source Comments The information contained in this document represents components of the legal health record. It is not the complete legal health record.[facility]
--- OUTSIDE RECORDS SUMMARY | 2024-11-19 12:44 | XMS_ITS | Encounter Summary ---
Author Organization [facility] Address [address] [employer] [facility] [address] [place] [address] Phone Care Team Providers Care Zipper Sewing Machine Operator Name Role Phone Rickie Hargrove MD Unavailable Everett Ramirez MD Unavailable [phone] Cece Mccord MD Primary Care Provider [phone] Cece Mccord MD Unavailable [phone] Encounter Details Date Type Department Care Team (Late st Contact Info) Description 04/25/2023 Telephone [facility] [address] [place] [address] Cece Mccord MD 234 [facility] [address] [place], [place] [phone] [email or web address] Social History Tobacco Use Types Packs/Day Years [...] Contact Info) Description 12/07/2022 Procedure Pass [address] [address] 01/15/2025 1:30 PM EST Office Visit [address] [address] Anoop Sims, 22 [facility] [address] [place] [address] 01/20/2025 2:15 PM EST Appointment [address] [address] Cece Mccord MD [address] [place] [address] 07/02/2025 12:00 PM EDT Office Visit [address] [address] Cece Mccord MD [address] [place] [address] documented as of this encounter Visit Diagnoses Not on filedocumented in this encounter Additional Health Concerns Assessment Noted Time PHQ-2 Depression Total Score: 0 08/30/19 19 1:25 PM EDT documented as of this encounter Care Teams Zipper Sewing Machine Operator Relationship Specialty Start Date End Date Cece Mccord MD [address] [place] [address] [email or web address] PCP - General Family Medicine 10/09/20 Rickie Hargrove MD [address] [place] [address] [address] [place] [address] [email or web address] Historical LMR Provider 11/26/16 Everett Ramirez MD [address] [place] [address] [email or web address] Historical LMR Provider 11/26/16 Cece Mccord MD [address] [place] [address] [address] [place] [address] [email or web address] Insurance Assigned Provider 05/13/23 documented as of this encounter Additional Source Comments The information contained in this document represents components of the legal health record. It is not the complete legal health record.[facility]
--- OUTSIDE RECORDS SUMMARY | 2024-11-19 12:44 | XMS_ITS | Clinical Summary ---
Author Organization [facility] Address [address] [address] Phone Care Team Providers Care Toy Parts Former Supervisor Name Role Phone Rickie Hargrove MD Unavailable [phone] Everett Ramirez MD Unavailable [phone] Cece Mccord MD Primary Care Provider [phone] Cece Mccord MD Unavailable Allergies Active Allergy Reactions Criticality Noted Date Comments Varenicline 01/09/2017 nightmares Meperidine 12/22/2016 Lisinopril Angioedema 01/09/2017 Simvastatin Myalgia 01/09/2017 Medications nebulizer accessories Kit Acti ve aspirin 81 MG EC tablet Take 1 tablet by mouth. Active ipratropium-albute roL (DUONEB) 0.5-3 mg (2.5 mg base)/3 mL nebulizer solutionIndication s:Panlobular emphysema,Pulmonar y emphysema, unspecified emphysema type Take 3 mL by nebulization 3 (three) times a day. Diagnosis: COPD and panlobular emphysema. J44.9, J43.1 270 mL 11 03/16/19 22 Active albuterol 90 mcg/actuation inhalerIndications :Asthma Inhale 2 puffs into the lungs every 4 (four) hours as needed for wheezing. 18 g 11 03/16/19 22 Active amLODIPine (NORVASC) 10 MG tablet Take 10 mg by mouth daily. 09/08/19 22 Active budesonide (PULMICORT) 0.5 mg/2 mL nebulizer solutionIndication s:Pulmonary emphysema, unspecified emphysema type Take 0.5 mg by nebulization daily. 12/14/19 22 Active betamethasone dipropionate 0.05 % creamIndications:P soriasis Apply topically 2 (two) times a day. 45 g 6 12/16/19 Active fluticasone propionate (ARMONAIR DIGIHALER) 55 mcg/actuation [...] 04/28/19 23 Active ketoconazole (NIZORAL) 2 % shampooIndications :Scalp lesion Apply topically 2 (two) times a week. 120 mL 3 12/09/19 23 Active fluocinonide 0.05 % external solutionIndication s:Scalp lesion Apply topically 2 (two) times a day. 60 mL 3 12/08/19 23 Active furosemide (LASIX) 40 MG tablet Take 40 mg by mouth. Active inhaler spacing device (AEROCHAMBER,BREAT HERITE) SpcrIndications:CO PD with acute exacerbation Inhale 1 each into the lungs daily as needed. 1 each 03/29/19 24 Active TRELEGY ELLIPTA 200-62.5-25 mcg inhaler Inhale 1 puff into the lungs daily. 09/05/19 24 Active betamethasone valerate 0.1 % lotionIndications: Psoriasis Apply topically 2 (two) times a day. 60 mL 11 02/27/19 25 Active pantoprazole (PROTONIX) 40 MG tabletIndications: Medication refill TAKE 1 TABLET(40 MG) BY MOUTH DAILY 90 tablet 3 05/08/19 25 Active docusate sodium (COLACE) 100 MG capsuleIndications :Constipation Take 1 capsule (100 mg total) by mouth 2 (two) times a day. 60 capsule 11 05/08/19 25 Active atorvastatin (LIPITOR) 80 MG tabletIndications: Mixed hyperlipidemia TAKE 1 TABLET(80 MG) BY MOUTH DAILY 90 tablet 10/03/19 25 Active oxyCODONE-acetamin ophen (PERCOCET) 10-325 mg per tabletIndications: Other chronic pain Take 1 tablet by mouth every 4 (four) hours as needed for pain (specific location in comments). 168 tablet 10/30/19 25 025 Active oxyCODONE-acetamin ophen (PERCOCET) 10-325 mg per tabletIndications: Other chronic pain Take 1 tablet by mouth every 4 (four) hours as needed for pain (specific location in comments). 168 tablet 10/02/19 25 025 Discontin ued(Reord er) Active Problems Patient Care Coordination No te Formatting of this note migh t be different from the original. [facility]: [facility], Dr Lucien Clark, last seen 01/14/21 Problem [...] major depressive d isorder 12/15/2021 Atherosclerosis of [place] co ronary artery of [place] heart without angina pectoris 02/22/2021 Overview (09/14/2021): (Dr Clark) cath showed mild CAD, ASA and statin only. Lipids via us. Cath to be repeated 09/[address] Clark's office. Assessment & Plan (03/21/2022 8:40 PM EST): Reviewed her clinical sociologist note, her last heart cath was pretty [...] stress testing but will defer to her clinical sociologist to arrange. Assessment & Plan (08/20/2019 2:04 PM EDT): Unclear if subacute worsening dyspnea due to COPD versus alternative. Recommendations: Obtain routine labs Obtain chest x-ray Patient prefers testing done at [facility] since moved to [place] 2 years ago Empiric trial of prednisone 40 mg daily for 5 days, extend to 10 days if slow improvement. Will request results for upcoming echocardiogram on 09/05 at [facility] Pending above findings, consider additional testing, including but not limited to CT imaging of the chest Umbilical hernia 11/28/2018 Assessment & Plan (10/09/2024 8:31 PM EDT): To [facility] gen surg for hernia evaluation Orders: Ambulatory [...] disease 03/06/2018 Overview (03/22/2022): Last Cr at [facility] 1.53 w/ GFR 33 (03/2022) Assessment & Plan (03/21/2022 8:37 PM EST): She has just had labs done at her clinical sociologist at [facility]. Will ask team to get labs [...] disease 12/22/2016 Overview (06/14/2022): Followed now at [facility] (previously: [facility]) -- stopped trelegy, started budesonide via nebulizer, [...] impact. Continues to be well managed by bulk delivery driver. Assessment & Plan (04/01/2020 1:48 PM EST): [...] more than twice daily. Recommend trial of [id number] guaifenesin 400 mg tablets up to 3 [...] home and has reviewed this with her clinical sociologist. Assessment & Plan (07/08/2021 9:44 PM EDT): [...] replaced 12/22/2016 Overview (02/22/2021): (Dr Clark at [facility]) Unchanged gradient per echo as of 01/14/21 -- remain on hand cloth cutter ASA, continue IE ppx. Hyperlipidemia 12/22/2016 Panlobular emphysema 12/22/2016 Assessment & Plan (03/21/2022 8:37 PM EST): Reviewed her bulk delivery driver note and her medications. He has recommended pulmonary rehab, which she has not done as of yet. Pulmonary nodules 12/22/2016 Assessment & Plan (08/20/2019 2:02 PM EDT): History of prior pulmonary nodules, last available imaging 2014 with granulomas. Will arrange for earlier follow-up with REGIONAL TRAINING MANAGER Kimberlee Gage to additionally discuss lung cancer screening. Assessment & Plan (05/17/2019 11:46 AM EDT): Difficult to assess at this time. Discuss repeat testing versus lung cancer screening at follow-up visit. Assessment & Plan (12/21/2017 3:37 PM EST): Request CT imaging from [facility]. At follow-up in 6 months, consider [...] get a flu shot today. This was [id number]. Cyst of skin 10/15/2019 03/21/2022 Assessment & [...] Type Department Care Team Description 11/05/2024 [address]ill [facility] [address] [place] [address] Cece Mccord MD Medication Refill 10/24/2024 Refill [facility] [address] [place] [address] Rama Ryan MA Medication Refill 10/15/2024 Telephone [facility] [address] [place] [address] Cece Mccord MD Appointment 10/11/[address] [address] Rossi De Santiago Call back 10/11/[address] [address] Rossi De Santiago Medication Problem 10/09/2024 3:30 PM EDT Office Visit [facility] [address] [place] [address] Cece Mccord MD Umbilical hernia without obstruction and without gangrene (Primary Dx); Pulmonary emphysema, unspecified emphysema type; Other noninfectious chronic otitis externa of right ear; Chronic kidney disease, stage 3a; MDD (major depressive disorder), recurrent episode, moderate; Chronic systolic HF (heart failure); PAF (paroxysmal atrial fibrillation); Chronic pain syndrome 10/02/2024 Refill [facility] [address] [place] [address] Lucero Mcgee PA-C Medication Refill 09/26/2024 Refill [facility] [address] [place] [address] Rama Ryan MA Medication Refill 09/23/2024 Refill [facility] [address] [place] [address] Obdulia Lima MA Medication Refill 08/20/2024 Refill [facility] [address] [place] [address] Obdulia Lima MA Medication Refill from Last 3 Months Immunizations Immunization Administration Dates Next Due COVID-19 (Pre-11/28) Pfizer Vaccine, mRNA, PF 05/14/2020,04/23/2020 INFLUENZA, SPLIT VIRUS, [...] st Contact Info) Description 12/07/2022 Procedure Pass [address] [address] 01/15/2025 1:30 PM EST Office Visit [address] [address] Anoop Sims, DO 22 [facility] [address] [place] [address] 01/20/2025 2:15 PM EST Appointment [address] [address] Cece Mccord MD [address] [place] [address] 7 [place] [address] [email or web address] 07/02/2025 12:00 PM EDT Office Visit [address] [address] Cece Mccord MD [address] [place] [address], [address] [place] [address] [email or web address] Health Maintenance Due Date Last Done Comments Adult Td,Tdap Booster 12/12/2021 12/13/2011 LIPID PANEL 12/08/2023 12/07/2022, 02/2022, 06/03/2021, Additional history exists POTASSIUM LEVEL 12/08/2023 [...] Completed 08/29/2018, 019 ZOSTER VACCINES Completed 02/21/2022, 06/2021, 05/05/2014 RSV VACCINE Completed 02/20/2023 HEPATITIS [...] EDT) SODIUM 139 133 - 146 mmol/L [facility] POTASSIUM 4.8 3.3 - 5.1 mmol/L [facility] CHLORIDE 100 96 - 108 mmol/L [facility] CO2 27 21 - 35 mmol/L [facility] BUN 20(H) 6 - 19 mg/dL [facility] CREATININE 1.60(H) 0.5 - 1.5 mg/dL [facility] GLUCOSE 110(H) 70 - 99 mg/dL [facility] ALBUMIN 4.5 3.9 - 4.8 g/dL [facility] TOTAL PROTEIN 7.4 6.5 - 8.0 g/dL [facility] CALCIUM 10.2 8.4 - 10.3 mg/dL [facility] ALKALINE PHOSPHATASE 119(H) 39 - 117 U/L [facility] TOTAL BILIRUBIN 0.6 0.0 - 1.2 mg/dL [facility] AST 43(H) 0 - 37 U/L [facility] ALT 18 0 - 40 U/L [facility] GLOBULIN 2.9 1 - 4.8 g/dL [facility] EGFR 34(L) >59 mL/min/1.7 3m2 [facility] Comment:Estimated glomerular filtration rate calculated using the CKD-EPI refit equation. ANION GAP 17 10 - 20 mmol/L [facility] Blood 12/07/2022 2:25 PM EDT 12/07/2022 2:27 PM EDT us Cece Mccord MD LAB BLOOD ORDERABLES Ally l Result Performing Organization Address City/[facility]/ZIP Co de Phone Number [address] [address] * (ABNORMAL) Lipid panel (12/07/2022 2:25 PM EDT) [facility] HDL 26 mg/dL [facility] Comment: Interpretation <40 mg/dL: Low HDL cholesterol (major risk factor for CHD) Greater than or equal to 60 mg/dL: High HDL cholesterol ( negative risk factor for CHD) HDL - cholesterol is affected by a number of factors, e.g. smoking, excerise, hormones, sex and age. CHOLESTEROL 137 0 - 240 mg/dL [facility] TRIGLYCERIDES 401(H) 30 - 160 mg/dL [facility] LDL NOT CALCULATED 50 - 129 mg/dL [facility] Comment: Unable to calculate due to elevated TRIG of greater than 400. A measured LDL will be performed. CARDIAC RISK RATIO 5.3(H) 3.3 - 4.4 [facility] Blood 12/07/2022 2:25 PM EDT 12/07/2022 2:27 PM EDT us Cece Mccord MD LAB BLOOD ORDERABLES Ally l Result Performing Organization Address [facility]/ZIP Co de Phone Number [address] [address] * Hepatitis C antibody, qualitative (08/29/2018 1:49 PM EDT) [facility] HCV NON-REACTIV E NON-REACTI VE [facility] Blood 08/29/2018 1:49 PM EDT 08/29/2018 1:53 PM EDT us Rickie Hargrove MD LAB BLOOD ORDERABLES Ally l Result Performing Organization Address City/[facility]/ZIP Co de Phone Number [address] [address] * OUTSIDE BONE DENSITY SCREENING (02/27/2015) BONE DENSITY SCREENING - EXTERNAL .. us Historical Provider HEALTH MAINTENANCE Final Result from Last 3 Months or Most Recently Relevant to Health Maintenance Insurance MEDICARE PART A & B MEDICARE SUPPLEMENT MEDICARE PART A & [place] [address] [place] [address] MEDICARE SUPPLEMENT MEDICARE PART A & B [facility] MEDICARE SUPPLEMENT MEDICARE PART A & B [facility] MEDICARE SUPPLEMENT MEDICARE PART A & B [facility] MEDICARE SUPPLEMENT MEDICARE PART A & B [facility] MEDICARE SUPPLEMENT MEDICARE PART A & B [facility] MEDICARE SUPPLEMENT MEDICARE PART A & B [employer] MEDICARE SUPPLEMENT MEDICARE PART A & B [facility] MEDICARE SUPPLEMENT [address] [place] [address] ESIS Care Teams Toy Parts Former Supervisor Relationship Specialty Start Date End Date Cece Mccord MD 234 [facility] 7 [place] [address] [email or web address] PCP - General Family Medicine 10/09/20 Rickie Hargrove MD [address] [place], [place] [address] [place] [address] [email or web address] Historical LMR Provider 11/26/16 Everett Ramirez MD [address] [place] [address] [email or web address] Historical LMR Provider 11/26/16 Cece Mccord MD [address] [place] [address] 7 [place] [address] [email or web address] Insurance Assigned Provider 05/13/23 Additional Source Comments The information contained in this document represents components of the legal health record. It is not the complete legal health record.[facility]
--- OUTSIDE RECORDS SUMMARY | 2024-11-19 12:45 | XMS_ITS | Encounter Summary ---
Author Organization [facility] Address [address] [place] [address] Phone Care Team Providers Care Tenant Selector Name Role Phone Rickie Hargrove MD Unavailable [phone] Rickie Hargrove MD Unavailable Everett Ramirez MD Unavailable [phone] Landon Jordan DO Unavailable Daniel Reyes MD Unavailable Miguel Angel Hargrove MD Unavailable [phone] Cosme Espinoza MD Unavailable Rickie Hargrove MD Primary Care Provider [phone] Cece Mccord MD Primary Care Provider [phone] Cece Mccord MD Unavailable Encounter Details Date Type Department Care Team (Late st Contact Info) Description 11/02/2018 Ancillary Orders [facility] [address] [place] [address] Rickie Hargrove MD 234 [facility]. [address] [place] [address] [email or web address] Breast screening Social History Tobacco Use Types [...] st Contact Info) Description 12/07/2022 Procedure Pass [address] [address] 01/15/2025 1:30 PM EST Office Visit [address] [address] Anoop Sims, DO 22 [facility] [address] [place] [address] 01/20/2025 2:15 PM EST Appointment [address] [address] Cece Mccord MD [address] [place] [address] 07/02/2025 12:00 PM EDT Office Visit [address] [address] Cece Mccord MD [address] [place] [address] documented as of this encounter Visit Diagnoses Diagnosis Breast screening Breast screening, unspecified documented in this encounter Additional Health Concerns Assessment Noted Time PHQ-2 Depression Total Score: 0 08/30/19 19 1:25 PM EDT documented as of this encounter Care Teams Tenant Selector Relationship Specialty Start Date End Date Rickie Hargrove MD [address] [place], [place] [address] [place] [phone] [email or web address] PCP - General 12/01/16 10/08/20 Cece Mccord MD [address] [place] [address] [address] [place] [address] [email or web address] PCP - General Family Medicine 10/09/20 Rickie Hargrove MD [address] [place] [address] [address] [place] [phone] [email or web address] Insurance Assigned Provider 11/12/16 05/15/21 Rickie Hargrove MD [address] [place] [address] [address] [place] [phone] [email or web address] Historical LMR Provider 11/26/16 Everett Ramirez MD [address] [place] [address] [email or web address] Historical LMR Provider 11/26/16 Landon Jordna DO [address] [place] [address] Orthopedics & Sports Medicine, [facility] [place] [address] [email or web address] Historical LMR Provider 11/26/16 02/13/21 Daniel Reyes MD [address] [place] [address] [email or web address] Historical LMR Provider 11/26/16 02/13/21 Miguel Angel Hargrove MD [address] [place] [address] 7 [place] [address] [email or web address] Historical LMR Provider 11/26/16 02/13/21 Cosme Espinoza MD [address] [place] [address] 7 [place] [address] Historical LMR Provider 11/26/16 02/13/21 Cece Mccord MD [address] [place] [address] 7 [place] [address] [email or web address] Insurance Assigned Provider 05/13/23 documented as of this encounter Additional Source Comments The information contained in this document represents components of the legal health record. It is not the complete legal health record.[facility]
--- OUTSIDE RECORDS SUMMARY | 2024-11-19 12:45 | XMS_ITS | Encounter Summary ---
Author Organization [facility] Address [address] [place], [place] [address] Phone Care Team Providers Care Tv News Director Name Role Phone Rickie Hargrove MD Unavailable [phone] Rickie Hargrove MD Unavailable Everett Ramirez MD Unavailable [phone] Landon Jordan DO Unavailable Daniel Reyes MD Unavailable Miguel Angel Hargrove MD Unavailable [phone] Cosme Espinoza MD Unavailable Rickie Hargrove MD Primary Care Provider [phone] Cece Mccord MD Primary Care Provider [phone] Cece Mccord MD Unavailable [phone] Encounter Details Date Type Department Care Team (Late st Contact Info) Description 05/05/2017 Transcribe Orders [facility] [address] [place] [address] Everett Ramirez MD [address] [phone] [email or web address] Social History Tobacco Use Types Packs/Day Years [...] st Contact Info) Description 12/07/2022 Procedure Pass [address] [address] 01/15/2025 1:30 PM EST Office Visit [address] [address] Anoop Sims, DO 22 [facility] [address] [place] [address] [email or web address] 01/20/2025 2:15 PM EST Appointment [address] [address] Cece Mccord MD [address] [place] [address] [email or web address] 07/02/2025 12:00 PM EDT Office Visit [address] [address] Cece Mccord MD [address] [place] [address] documented as of this encounter Visit Diagnoses Not on filedocumented in this encounter Care Teams Tv News Director Relationship Specialty Start Date End Date Rickie Hargrove MD [address] [place], [place] [address] [place] [address] [email or web address] PCP - General 12/01/16 10/08/20 Cece Mccord MD [address] [place] [address], [address] [place] [email or web address] PCP - General Family Medicine 10/09/20 Rickie Hargrove MD [address] [place] [address] [address] [place] [phone] [email or web address] Insurance Assigned Provider 11/12/16 05/15/21 Rickie Hargrove MD [address] [place] [address] [address] [place] [id number] [email or web address] Historical LMR Provider 11/26/16 Everett Ramirez MD [address] [place] [address] [email or web address] Historical LMR Provider 11/26/16 Landon Jordan DO [address] [place] [address] Orthopedics & Sports Medicine, [place] [address] [email or web address] Historical LMR Provider 11/26/16 02/13/21 Daniel Reyes MD [address] [place] [address] [email or web address] Historical LMR Provider 11/26/16 02/13/21 Miguel Angel Hargrove MD [address] [place] [address] [address] [place] [id number] [email or web address] Historical LMR Provider 11/26/16 02/13/21 Cosme Espinoza MD [address] [place] [address], [address] [place] [address] [email or web address] Historical LMR Provider 11/26/16 02/13/21 Cece Mccord MD [address] [place] [address], [address] [place] [address] [email or web address] Insurance Assigned Provider 05/13/23 documented as of this encounter Additional Source Comments The information contained in this document represents components of the legal health record. It is not the complete legal health record.[facility]
--- OUTSIDE RECORDS SUMMARY | 2024-11-19 12:45 | XMS_ITS | Encounter Summary ---
Author Organization [facility] Address [address] [place], [place] [address] Phone Care Team Providers Care Shelf Drier Operator Name Role Phone Rickie Hargrove MD Unavailable Rickie Hargrove MD Unavailable Everett Ramirez MD Unavailable [phone] Landon Jordan DO Unavailable [phone] Daniel Reyes MD Unavailable [phone] Miguel Angel Hargrove MD Unavailable Cosme Espinoza MD Unavailable [phone] Rickie Hargrove MD Primary Care Provider [phone] Cece Mccord MD Primary Care Provider [phone] Cece Mccord MD Unavailable Encounter Details Date Type Department Care Team (Late st Contact Info) Description 11/01/2017 Transcribe Orders [facility] [address] [place] [address] Everett Ramirez MD [address] [phone] [email or web address] Social History Tobacco Use Types Packs/Day Years [...] Contact Info) Description 12/07/2022 Procedure Pass [address] [address] 01/15/2025 1:30 PM EST Office Visit [address] [address] Anoop Sims, DO 22 [facility] [address] [place] [address] [email or web address] 01/20/2025 2:15 PM EST Appointment [address] [address] Cece Mccord MD [address] [place] [address] [email or web address] 07/02/2025 12:00 PM EDT Office Visit [address] [address] Cece Mccord MD [address] [place] [address] documented as of this encounter Visit Diagnoses Not on filedocumented in this encounter Care Teams Shelf Drier Operator Relationship Specialty Start Date End Date Rickie Hargrove MD [address] [place], [place] [address] [place] [address] [email or web address] PCP - General 12/01/16 10/08/20 Cece Mccord MD [address] [place] [address], [address] [place] [address] [email or web address] PCP - General Family Medicine 10/09/20 Rickie Hargrove MD [address] [place] [address] [address] [place] [phone] [email or web address] Insurance Assigned Provider 11/12/16 05/15/21 Rickie Hargrove MD [address] [place] [address] [address] [place] [phone] [email or web address] Historical LMR Provider 11/26/16 Everett Ramirez MD [address] [place] [address] [email or web address] Historical LMR Provider 11/26/16 Landon Jordan DO [address] [place] [address] Orthopedics & Sports Medicine, [place] [address] [email or web address] Historical LMR Provider 11/26/16 02/13/21 Daniel Reyes MD [address] [place] [address] [email or web address] Historical LMR Provider 11/26/16 02/13/21 Miguel Angel Hargrove MD [address] [place] [address] [address] [place] [phone] [email or web address] Historical LMR Provider 11/26/16 02/13/21 Cosme Espinoza MD [address] [place] [address], [address] [place] [address] [email or web address] Historical LMR Provider 11/26/16 02/13/21 Cece Mccord MD [address] [place] [address], [address] [place] [address] [email or web address] Insurance Assigned Provider 05/13/23 documented as of this encounter Additional Source Comments The information contained in this document represents components of the legal health record. It is not the complete legal health record.[facility]
[2024-11-19 14:39] LABS: Anion Gap 12 (12-20); Blood Urea Nitrogen 14 mg/dL (9-16); Calcium 9.4 mg/dL (8.4-10.2); Carbon Dioxide 32 mmol/L (22-29); Chloride 100 mmol/L (96-108); Estimated Glomerular Filt Rate 41; Potassium 3.8 mmol/L (3.3-5.1); Sodium 140 mmol/L (135-145)
== END ==
LOC: HO.NUCMED 10:44
PROVIDERS: Internal Medicine Nephrology; Visit Provider Nurse Practitioner Family
DX: I12.9 Hypertensive chronic kidney disease with stage 1 through stage 4 chronic kidney disease, or unspecified chronic kidney disease (principal); N18.31 Chronic kidney disease, stage 3a; E21.3 Hyperparathyroidism, unspecified
CPT/HCPCS: 36415; 78072; 80051; 82310; 82565; 84520; A9500

== ENCOUNTER → 2024-11-19 10:46 | Outpatient (BNV) | payer MEDICARE, OTHER, SELFPAY | PROVIDERS: Visit Provider Radiology Diagnostic Radiology | DX: E21.3 Hyperparathyroidism, unspecified (principal) | CPT/HCPCS: 78072 ==

== ENCOUNTER 2024-11-20 14:21 | Outpatient (AMB) | payer MEDICARE, SELFPAY ==
--- NOTE | 2024-11-20 14:31 | HO.NEPHOV ---
Vital Signs 11/20/24 14:33 Height 5 ft 3 in Weight 159 lb BMI 28.2 BP 122/50 L Blood Pressure Location Lt brachial Position Sitting Pulse 41 L Pulse Source Pulse Oximeter Pulse Oximetry (%) 93 Oxygen Delivery Method Room Air Intake Visit Reasons: 6 mo fu w/ labs & Parathyroid scan-Conf Ash Worker Required: No Accompanied by: Self / Same As Patient Allergies meperidine (Demerol) Allergy (Unknown, Verified 11/20/24 14:33) Anaphylaxis Losartan Allergy (Intermediate, Uncoded 12/04/23 14:08) Difficulty Swallowing HPI Comments Details: I had the pleasure of seeing Pari in follow up for CKD. She is known to have extensive vascular disease including AAA S/P EVAR. She also has non ischemic cardiomyopathy as well as atherosclerotic CV disease. She is closely followed up by vascular surgeon Dr Kincaid. She is not a diabetic. She has hypertension and is on ARB. She denied any CAD, CHF, CVA or carotid stenosis. She denied any significant proteinuria or retinopathy. She does not take any excess NSAID's. She denies any chest pain, SOB, orthostatic symptoms, skin rashes, edema or urinary symptoms. She has not had any blood work for a while. She had no specific complaints at the time of this office visit [facility] Medical History SOB (shortness of breath) Essential hypertension Hemorrhage of gastrointestinal tract, unspecified PAF (paroxysmal atrial fibrillation) Abdominal aortic aneurysm without rupture Nonischemic cardiomyopathy Atherosclerotic cardiovascular disease Benign essential hypertension Mitral regurgitation Pneumonia COPD (chronic obstructive pulmonary disease) Surgical History Status post mitral valve annuloplasty Abdominal aortic aneurysm History of open heart surgery History of appendectomy History of back surgery Family History Father Unknown family medical history Mother HTN (hypertension) Daughter Alive and well Social History Patient Tobacco Use Status: Former Tobacco user Tobacco use type: Cigarette Years Smoked: 30+ Years Review of Systems Const All systems reviewed & are unremarkable except as noted in HPI and below Physical Exam Vital Signs: Last Vital Signs Pulse 41 L 11/20/24 14:33 BP 122/50 L 11/20/24 14:33 Pulse Ox 93 11/20/24 14:33 Oxygen Delivery Method Room Air 11/20/24 14:33 BMI result Body Mass Index 28.2 Const General: comfortable and no acute distress Orientation/consciousness: patient oriented x3 HEENT Head: Yes normocephalic Mouth: Normal oral and palatal mucosa present Eyes EOM: EOMs intact bilaterally Neck Neck: Yes supple Resp Auscultation: clear to auscultation bilaterally Cardio Jugular venous distension: no JVD Rate: regular rate GI Palpation (GI): Soft to palpation Auscultation: normal bowel sounds General: Yes no CVA tenderness Back/Spine/Pelvis Back: no CVA tenderness Skin General skin exam: no rashes or lesions noted Neuro General: patient oriented x3 and moves all extremities Extrem General: Yes no pedal edema Results Reviewed Nephrology Results: Sodium, (135-145) 140 mmol/L 11/19/24 Potassium, (3.3-5.1) 3.8 mmol/L 11/19/24 Chloride, (96-108) 100 mmol/L 11/19/24 Carbon Dioxide, (22-29) 32 mmol/L H 11/19/24 BUN, (9-16) 14 mg/dL 11/19/24 Creatinine, (0.5-1.4) 1.28 mg/dL 11/19/24 Calcium, (8.4-10.2) 9.4 mg/dL 11/19/24 PTH Intact, (8.7-77.1) 236.0 pg/mL H 04/26/24 Assessment & Plan Assessment & Plan (1) CKD stage 3a, GFR 45-59 ml/min: Code(s): N18.31 - Chronic kidney disease, stage 3a Category: Medical (2) Hypertension: Code(s): I10 - Essential (primary) hypertension Category: Medical Qualifiers: Hypertension type: primary hypertension Qualified Code(s): I10 - Essential (primary) hypertension (3) Hyperparathyroidism: Code(s): E21.3 - Hyperparathyroidism, unspecified Category: Medical Plan CKD 3 from vascular disease; Serum creatinine stable Tolerating ARB. Serum potassium normal; Euvolemic Blood pressure has been at goal; On low Na diet Reduced Rayaldee to 3 times a week; Sestamibi scan- parathyroid adenoma + Renal artery imaging at next visit; Great candidate for Jardiance Will need sensipar / surgery with time No other changes made; Good hydration; Avoidance of NSAID's Answered her questions; F/U appointment given Orders: Orders Creatinine 3 Months E21.3 - Hyperparathyroidism, unspecified, I10 - Essential (primary) hypertension, N18.31 - Chronic kidney disease, stage 3a, N25.81 - Secondary hyperparathyroidism of renal origin Parathyroid Hormone Intact 3 Months E21.3 - Hyperparathyroidism, unspecified, I10 - Essential (primary) hypertension, N18.31 - Chronic kidney disease, stage 3a, N25.81 - Secondary hyperparathyroidism of renal origin Calcium 3 Months E21.3 - Hyperparathyroidism, unspecified, I10 - Essential (primary) hypertension, N18.31 - Chronic kidney disease, stage 3a, N25.81 - Secondary hyperparathyroidism of renal origin Electrolytes 3 Months E21.3 - Hyperparathyroidism, unspecified, I10 - Essential (primary) hypertension, N18.31 - Chronic kidney disease, stage 3a, N25.81 - Secondary hyperparathyroidism of renal origin Blood Urea Nitrogen 3 Months E21.3 - Hyperparathyroidism, unspecified, I10 - Essential (primary) hypertension, N18.31 - Chronic kidney disease, stage 3a, N25.81 - Secondary hyperparathyroidism of renal origin Coding Level of Care Code Est Pt Level 4 (61913) Diagnoses CKD stage 3a, GFR 45-59 ml/min N18.31 Primary hypertension I10 Hypertension type: primary hypertension Hyperparathyroidism E21.3
[2024-11-20 14:33] VITALS: BP 122/50; PULSE 41; O2SAT 93; BMI 28.2
--- OUTSIDE RECORDS SUMMARY | 2024-11-20 18:06 | XMS_ITS | Encounter Summary ---
Author Organization [facility] Address [address] [place] [address] Phone Care Team Providers Care Head Filter Tank Tender Helper Name Role Phone Rickie Hargrove MD Unavailable Rickie Hargrove MD Unavailable [phone] Everett Ramirez MD Unavailable [phone] Landon Jordan DO Unavailable [phone] Daniel Reyes MD Unavailable Miguel Angel Hargrove MD Unavailable Cosme Espinoza MD Unavailable [phone] Rickie Hargrove MD Primary Care Provider [phone] Cece Mccord MD Primary Care Provider [phone] Cece Mccord MD Unavailable Reason for Referral * MRI/CAT Scan - Closed Specialty Diagnoses / Procedures Referred By Contac t Referred To Contact Procedures CT Chest Outside (No Interpretation) System, Provider Not In, PhD [address] [address] Referral ID Status Reason Start Date Expiration Date Visits Re quested Visits Authorized [id number] Closed 12/21/2017 12/21/2018 1 1 Encounter Details Date Type Department Care Team (Late st Contact Info) Description 12/21/2017 Ancillary Orders [facility],Outside Imaging [address] [place] [address] System, Provider Not In, [place] [address] Social History Tobacco Use Types Packs/Day Years [...] st Contact Info) Description 12/07/2022 Procedure Pass [address] [address] 01/15/2025 1:30 PM EST Office Visit [address] [address] Anoop Sims, [address] [place] [address] [email or web address] 01/20/2025 2:15 PM EST Appointment [address] [address] Cece Mccord MD [address] [place] [address] 7 [place] [address] 07/02/2025 12:00 PM EDT Office Visit [address] [address] Cece Mccord MD [address] [place] [address] documented as of this encounter Results * CT Chest Outside (No Interpretation) (03/18/2017 12:00 AM EST) Narrative SYSTEMGENERATED, DOCUMENTATION - 12/21/2017 4:02 PM EST This study is for PACS storage only and not for interpretation. us Provider Not In System PhD IMG OUTSIDE IMAGING W /OUT INTERPRETATION Final Result documented in this encounter Visit Diagnoses Not on filedocumented in this encounter Care Teams Head Filter Tank Tender Helper Relationship Specialty Start Date End Date Rickie Hargrove MD [address] [place] [address] [address] [place] [phone] [email or web address] PCP - General 12/01/16 10/08/20 Cece Mccord MD [address] [place] [address] [address] [place] [address] [email or web address] PCP - General Family Medicine 10/09/20 Rickie Hargrove MD [address] [place] [address] [address] [place] [phone] [email or web address] Insurance Assigned Provider 11/12/16 05/15/21 Rickie Hargrove MD [address] [place] [address] [address] [place] [address] [email or web address] Historical LMR Provider 11/26/16 Everett Ramirez MD [address] [place] [address] [email or web address] Historical LMR Provider 11/26/16 Landon Jordan DO [address] [place] [address] Orthopedics [facility] Sports Medicine, [place], [place] [id number] Historical LMR Provider 11/26/16 02/13/21 Daniel Reyes MD [address] [place] [address] Historical LMR Provider 11/26/16 02/13/21 Miguel Angel Hargrove MD [address] [place] [address] 7 [place] [address] [email or web address] Historical LMR Provider 11/26/16 02/13/21 Cosme Espinoza MD [address] [place] [address] 7 [place] [address] [email or web address] Historical LMR Provider 11/26/16 02/13/21 Cece Mccord MD [address] [place] [address] 7 [place] [address] [email or web address] Insurance Assigned Provider 05/13/23 documented as of this encounter Additional Source Comments The information contained in this document represents components of the legal health record. It is not the complete legal health record.[facility]
--- OUTSIDE RECORDS SUMMARY | 2024-11-20 18:06 | XMS_ITS | Encounter Summary ---
Author Organization [facility] Address [address] [place] [address] Phone Care Team Providers Care Orthodontic Lab Technician Name Role Phone Rickie Hargrove MD Unavailable Rickie Hargrove MD Unavailable Everett Ramirez MD Unavailable [phone] Landon Jordan DO Unavailable [phone] Daniel Reyes MD Unavailable Miguel Angel Hargrove MD Unavailable Cosme Espinoza MD Unavailable [phone] Rickie Hargrove MD Primary Care Provider [phone] Cece Mccord MD Primary Care Provider [phone] Cece Mccord MD Unavailable Encounter Details Date Type Department Care Team (Late st Contact Info) Description 02/28/2017 Ancillary Orders [facility] [address] [place] [address] Rickie Hargrove MD 234 [facility]. [address] [place] [address] [email or web address] Breast screening Social History Tobacco Use Types [...] Contact Info) Description 12/07/2022 Procedure Pass [address] [address] 01/15/2025 1:30 PM EST Office Visit [address] [address] Anoop Sims, 22 [facility] [address] [place] [address] 01/20/2025 2:15 PM EST Appointment [address] [address] Cece Mccord MD [address] [place] [address] 7 [place] [address] [email or web address] 07/02/2025 12:00 PM EDT Office Visit [address] [address] Cece Mccord MD [address] [place] [address] documented as of this encounter Results * [...] unspecified documented in this encounter Care Teams Orthodontic Lab Technician Relationship Specialty Start Date End Date Rickie Hargrove MD [address] [place], [place] [address] [place] [address] [email or web address] PCP - General 12/01/16 10/08/20 Cece Mccord MD [address] [place] [address] 7 [place] [id number] [email or web address] PCP - General Family Medicine 10/09/20 Rickie Hargrove MD [address] [place] [address] [address] [place] [phone] [email or web address] Insurance Assigned Provider 11/12/16 05/15/21 Rickie Hargrove MD [address] [place] [address] [address] [place] [phone] [email or web address] Historical LMR Provider 11/26/16 Everett Ramirez MD [address] [place] [address] [email or web address] Historical LMR Provider 11/26/16 Landon Jordan DO [address] [place] [address] Orthopedics & Sports Medicine, [place] [address] [email or web address] Historical LMR Provider 11/26/16 02/13/21 Daniel Reyes MD [address] [place] [address] [email or web address] Historical LMR Provider 11/26/16 02/13/21 Miguel Angel Hargrove MD [address] [place] [address] 7 [place] [address] [email or web address] Historical LMR Provider 11/26/16 02/13/21 Cosme Espinoza MD [address] [place] [address], [facility] 7 [place] [address] [email or web address] Historical LMR Provider 11/26/16 02/13/21 Cece Mccord MD [address] [place] [address], [address] [place] [address] [email or web address] Insurance Assigned Provider 05/13/23 documented as of this encounter Additional Source Comments The information contained in this document represents components of the legal health record. It is not the complete legal health record.[facility]
--- OUTSIDE RECORDS SUMMARY | 2024-11-20 18:06 | XMS_ITS | Encounter Summary ---
Author Organization [facility] Address [address] [place], [place] [address] Phone Care Team Providers Care Cullet Crusher And Washer Name Role Phone Rickie Hargrove MD Unavailable Rickie Hargrove MD Unavailable Everett Ramirez MD Unavailable [phone] Landon Jordan DO Unavailable [phone] Daniel Reyes MD Unavailable Miguel Angel Hargrove MD Unavailable Cosme Espinoza MD Unavailable [phone] Rickie Hargrove MD Primary Care Provider [phone] Cece Mccord MD Primary Care Provider [phone] Cece Mccord MD Unavailable Encounter Details Date Type Department Care Team (Late st Contact Info) Description 09/18/2017 Transcribe Orders [facility] 30 [place] [address] Everett Ramirez MD [address] [phone] [email or web address] Social History Tobacco Use Types [...] st Contact Info) Description 12/07/2022 Procedure Pass [address] [address] 01/15/2025 1:30 PM EST Office Visit [address] [address] Anoop Sims, DO 22 [facility] [address] [place] [address] [email or web address] 01/20/2025 2:15 PM EST Appointment [address] [address] Cece Mccord MD [address] [place] [address] [email or web address] 07/02/2025 12:00 PM EDT Office Visit [address] [address] Cece Mccord MD [address] [place] [address] documented as of this encounter Visit Diagnoses Not on filedocumented in this encounter Care Teams Cullet Crusher And Washer Relationship Specialty Start Date End Date Rickie Hargrove MD [address] [place], [place] [address] [place] [address] [email or web address] PCP - General 12/01/16 10/08/20 Cece Mccord MD [address] [place] [address], [address] [place] [address] [email or web address] PCP - General Family Medicine 10/09/20 Rickie Hargrove MD [address] [place] [address] [address] [place] [address] [email or web address] Insurance Assigned Provider 11/12/16 05/15/21 Rickie Hargrove MD [address] [place] [address] [address] [place] [phone] [email or web address] Historical LMR Provider 11/26/16 Everett Ramirez MD [address] [place] [address] [email or web address] Historical LMR Provider 11/26/16 Landon Jordan DO [address] [place] [address] Orthopedics & Sports Medicine, [place] [address] [email or web address] Historical LMR Provider 11/26/16 02/13/21 Daniel Reyes MD [address] [place] [address] [email or web address] Historical LMR Provider 11/26/16 02/13/21 Miguel Angel Hargrove MD [address] [place] [address] [address] [place] [phone] [email or web address] Historical LMR Provider 11/26/16 02/13/21 Cosme Espinoza MD [address] [place] [address], [address] [place] [address] [email or web address] Historical LMR Provider 11/26/16 02/13/21 Cece Mccord MD [address] [place] [address], [address] [place] [address] [email or web address] Insurance Assigned Provider 05/13/23 documented as of this encounter Additional Source Comments The information contained in this document represents components of the legal health record. It is not the complete legal health record.[facility]
--- OUTSIDE RECORDS SUMMARY | 2024-11-20 18:06 | XMS_ITS | Encounter Summary ---
Author Organization [facility] Address [address] [place] [address] Phone Care Team Providers Care Automobile Sales Representative Name Role Phone Rickie Hargrove MD Unavailable Rickie Hargrove MD Unavailable Everett Ramirez MD Unavailable [phone] Landon Jordan DO Unavailable Daniel Reyes MD Unavailable [phone] Miguel Angel Hargrove MD Unavailable Cosme Espinoza MD Unavailable Rickie Hargrove MD Primary Care Provider [phone] Cece Mccord MD Primary Care Provider [phone] Cece Mccord MD Unavailable Encounter Details Date Type Department Care Team (Late st Contact Info) Description 01/24/2020 Ancillary Orders [facility] 234 [place] [address] Rickie Hargrove MD 234 [facility]. [address] [place] [address] [email or web address] Breast screening Social History Tobacco Use Types [...] st Contact Info) Description 12/07/2022 Procedure Pass [address] [address] 01/15/2025 1:30 PM EST Office Visit [address] [address] Anoop Sims, DO 22 [facility] [address] [place] [address] 01/20/2025 2:15 PM EST Appointment [address] [address] Cece Mccord MD [address] [place] [address] 07/02/2025 12:00 PM EDT Office Visit [address] [address] Cece Mccord MD [address] [place] [address] documented as of this encounter Results * [...] documented as of this encounter Care Teams Automobile Sales Representative Relationship Specialty Start Date End Date Rickie Hargrove MD 234 [facility] [address] [place] [address] [email or web address] PCP - General 12/01/16 10/08/20 Cece Mccord MD 234 [facility], [address] [place] [address] [email or web address] PCP - General Family Medicine 10/09/20 Rickie Hargrove MD 234 [facility] [address] [place] [address] [email or web address] Insurance Assigned Provider 11/12/16 05/15/21 Rickie Hargrove MD [address] [place] [address] [address] [place] [address] [email or web address] Historical LMR Provider 11/26/16 Everett Ramirez MD [address] [place] [phone] [email or web address] Historical LMR Provider 11/26/16 Landon Jordan DO [address] [place] [address] Orthopedics & Sports Medicine, [facility] [place], [place] [phone] Historical LMR Provider 11/26/16 02/13/21 Daniel Reyes MD [address] [place] [address], 2nd [place] [address] Historical LMR Provider 11/26/16 02/13/21 Miguel Angel Hargrove MD [address] [place] [address] [place] [address] [email or web address] Historical LMR Provider 11/26/16 02/13/21 Cosme Espinoza MD [address] [place] [address] 7 [place] [address] [email or web address] Historical LMR Provider 11/26/16 02/13/21 Cece Mccord MD [address] [place] [address] 7 [place] [address] [email or web address] Insurance Assigned Provider 05/13/23 documented as of this encounter Additional Source Comments The information contained in this document represents components of the legal health record. It is not the complete legal health record.[facility]
--- OUTSIDE RECORDS SUMMARY | 2024-11-20 18:07 | XMS_ITS | Encounter Summary ---
Author Organization [facility] Address [address] [place], [place] [address] Phone Care Team Providers Care Head Grinder Name Role Phone Rickie Hargrove MD Unavailable Rickie Hargrove MD Unavailable [phone] Everett Ramirez MD Unavailable [phone] Landon Jordan DO Unavailable Daniel Reyes MD Unavailable [phone] Miguel Angel Hargrove MD Unavailable [phone] Cosme Espinoza MD Unavailable Rickie Hargrove MD Primary Care Provider [phone] Cece Mccord MD Primary Care Provider [phone] Cece Mccord MD Unavailable Reason for Referral * MRI/CAT Scan - Closed Specialty Diagnoses / Procedures Referred By Contac t Referred To Contact Radiology Diagnoses Peripheral vascular disease Procedures CT Angio Abdominal Aorta and Bilateral Lower Extremity Runoff CT Angio Abdominal Aorta and Bilateral Lower Extremity Runoff Daniel Lucas MD Phone: tel: fax: [email or web address] Referral ID Status Reason Start Date Expiration Date Visits Re quested Visits Authorized [id number] Closed 03/22/2017 03/22/2018 1 1 Encounter Details Date Type Department Care Team (Late st Contact Info) Description 03/23/2017 Ancillary Orders [facility] Vascular Imaging & Intervention [address] [facility], 2nd Floor, [address] [place] [address] Daniel Lucas MD 55 [facility] [address] [place] [address] [email or web address] Peripheral vascular disease Social History Tobacco Use [...] st Contact Info) Description 12/07/2022 Procedure Pass [address] [address] 01/15/2025 1:30 PM EST Office Visit [address] [address] Anoop Sims, DO 22 [facility] [address] [place] [address] 01/20/2025 2:15 PM EST Appointment [facility] 30 [place] [address] Cece Mccord MD 234 [facility], [address] [place] [address] 07/02/2025 12:00 PM EDT Office Visit [address] [address] Cece Mccord MD [address] [place] [address], [address] [place] [address] [email or web address] documented as of this encounter Results * [...] the left: Serial mild stenoses involving the FINISHER SPECIAL STOCKS to the level of the SFA, which [...] atherosclerotic plaque. RUNOFF: On the right: The FINISHER SPECIAL STOCKS and SFA demonstrate multifocal mild stenoses due to atherosclerotic plaque. The PFA is widely patent. The popliteal artery is widely patent without significant stenosis. There are three vessel runoff without significant stenosis. On the left: The FINISHER SPECIAL STOCKS demonstrates serial segmental stenoses due to noncalcified [...] atherosclerotic plaque. RUNOFF: On the right: The FINISHER SPECIAL STOCKS and SFA demonstrate multifocal mild stenoses dueto atherosclerotic plaque. The PFA is widely patent. The popliteal artery iswidely patent without significant stenosis. There are three vessel runoffwithout significant stenosis. On the left: The FINISHER SPECIAL STOCKS demonstrates serial segmental stenoses due tononcalcified plaque [...] the left: Serial mild stenoses involving the FINISHER SPECIAL STOCKS to the level of theSFA, which demonstrates [...] disease documented in this encounter Care Teams Head Grinder Relationship Specialty Start Date End Date Rickie Hargrove MD 234 [facility]7 [place] [address] [email or web address] PCP - General 12/01/16 10/08/20 Cece Mccord MD [address] [place] [address] 7 [place] [address] [email or web address] PCP - General Family Medicine 10/09/20 Rickie Hargrove MD [address] [place], [place] [address] [place] [address] [email or web address] Insurance Assigned Provider 11/12/16 05/15/21 Rickie Hargrove MD [address] [place], [place] [address] [place] [address] [email or web address] Historical LMR Provider 11/26/16 Everett Ramirez MD [address] [place] [address] [email or web address] Historical LMR Provider 11/26/16 Landon Jordan DO [address] [place] [address] Orthopedics & Sports Medicine, [place] [address] [email or web address] Historical LMR Provider 11/26/16 02/13/21 Daniel Reyes MD [address] [place] [address] [email or web address] Historical LMR Provider 11/26/16 02/13/21 Miguel Angel Hargrove MD [address] [place] [address] 7 [place] [phone] [email or web address] Historical LMR Provider 11/26/16 02/13/21 Cosme Espinoza MD [address] [place] [address] 7 [place] [address] [email or web address] Historical LMR Provider 11/26/16 02/13/21 Cece Mccord MD [address] [place] [address] 7 [place], [place] [phone] [email or web address] Insurance Assigned Provider 05/13/23 documented as of this encounter Additional Source Comments The information contained in this document represents components of the legal health record. It is not the complete legal health record.[facility]
--- OUTSIDE RECORDS SUMMARY | 2024-11-20 18:07 | XMS_ITS | Encounter Summary ---
Author Organization [facility] Address [address] [place], [place] [address] Phone Care Team Providers Care Sales Branch Manager Name Role Phone Rickie Hargrove MD Unavailable Rickie Hargrove MD Unavailable Everett Ramirez MD Unavailable [phone] Landon Jordan DO Unavailable [phone] Daniel Reyes MD Unavailable Miguel Angel Hargrove MD Unavailable Cosme Espinoza MD Unavailable Rickie Hargrove MD Primary Care Provider [phone] Cece Mccord MD Primary Care Provider [phone] Cece Mccord MD Unavailable Encounter Details Date Type Department Care Team (Late st Contact Info) Description 11/01/2017 Transcribe Orders [facility] 30 [place] [address] Everett Ramirez MD [address] [phone] [email or web address] Social History Tobacco Use Types Packs/Day Years [...] st Contact Info) Description 12/07/2022 Procedure Pass [address] [address] 01/15/2025 1:30 PM EST Office Visit [address] [address] Anoop Sims, DO 22 [facility] [address] [place] [address] [email or web address] 01/20/2025 2:15 PM EST Appointment [address] [address] Cece Mccord MD [address] [place] [address] [email or web address] 07/02/2025 12:00 PM EDT Office Visit [address] [address] Cece Mccord MD [address] [place] [address] documented as of this encounter Visit Diagnoses Not on filedocumented in this encounter Care Teams Sales Branch Manager Relationship Specialty Start Date End Date Rickie Hargrove MD [address] [place], [place] [address] [place] [address] [email or web address] PCP - General 12/01/16 10/08/20 Cece Mccord MD [address] [place] [address], [address] [place] [address] [email or web address] PCP - General Family Medicine 10/09/20 Rickie Hargrove MD [address] [place] [address] [address] [place] [address] [email or web address] Insurance Assigned Provider 11/12/16 05/15/21 Rickie Hargrove MD [address] [place] [address] [address] [place] [phone] [email or web address] Historical LMR Provider 11/26/16 Everett Ramirez MD [address] [place] [address] [email or web address] Historical LMR Provider 11/26/16 Landon Jordan DO [address] [place] [address] Orthopedics & Sports Medicine, [place] [address] [email or web address] Historical LMR Provider 11/26/16 02/13/21 Daniel Reyes MD [address] [place] [address] [email or web address] Historical LMR Provider 11/26/16 02/13/21 Miguel Angel Hargrove MD [address] [place] [address] [address] [place] [phone] [email or web address] Historical LMR Provider 11/26/16 02/13/21 Cosme Espinoza MD [address] [place] [address], [address] [place] [address] [email or web address] Historical LMR Provider 11/26/16 02/13/21 Cece Mccord MD [address] [place] [address], [address] [place] [address] [email or web address] Insurance Assigned Provider 05/13/23 documented as of this encounter Additional Source Comments The information contained in this document represents components of the legal health record. It is not the complete legal health record.[facility]
--- OUTSIDE RECORDS SUMMARY | 2024-11-20 18:07 | XMS_ITS | Encounter Summary ---
Author Organization [facility] Address [address] [place] [address] Phone Care Team Providers Care Mechanics Supervisor Name Role Phone Rickie Hargrove MD Unavailable Rickie Hargrove MD Unavailable Everett Ramirez MD Unavailable [phone] Landon Jordan DO Unavailable [phone] Daniel Reyes MD Unavailable Miguel Angel Hargrove MD Unavailable Cosme Espinoza MD Unavailable Rickie Hargrove MD Primary Care Provider [phone] Cece Mccord MD Primary Care Provider [phone] Cece Mccord MD Unavailable [phone] Encounter Details Date Type Department Care Team (Late st Contact Info) Description 04/27/2020 Procedure Pass [facility], Ct Scan - [facility] 30 [place] [address] Social History Tobacco Use Types Packs/Day Years [...] st Contact Info) Description 12/07/2022 Procedure Pass [address] [address] 01/15/2025 1:30 PM EST Office Visit [address] [address] Anoop Sims, DO 22 [facility] [address] [place] [address] [email or web address] 01/20/2025 2:15 PM EST Appointment [address] [address] Cece Mccord MD [address] [place] [address] 7 [place] [address] 07/02/2025 12:00 PM EDT Office Visit [address] [address] Cece Mccord MD [address] [place] [address] documented as of this encounter Visit Diagnoses Not on filedocumented in this encounter Additional Health Concerns Assessment Noted Time PHQ-2 Depression Total Score: 0 08/30/19 19 1:25 PM EDT documented as of this encounter Care Teams Mechanics Supervisor Relationship Specialty Start Date End Date Rickie Hargrove MD [address] [place], [place] [address] [place] [address] [email or web address] PCP - General 12/01/16 10/08/20 Cece Mccord MD [address] [place] [address], [address] [place] [address] [email or web address] PCP - General Family Medicine 10/09/20 Rickie Hargrove MD [address] [place] [address] [address] [place] [phone] [email or web address] Insurance Assigned Provider 11/12/16 05/15/21 Rickie Hargrove MD [address] [place] [address] [address] [place] [phone] [email or web address] Historical LMR Provider 11/26/16 Everett Ramirez MD [address] [place] [address] [email or web address] Historical LMR Provider 11/26/16 Landon Jordan DO [address] [place] [address] Orthopedics & Sports Medicine, [facility] [place] [address] [email or web address] Historical LMR Provider 11/26/16 02/13/21 Daniel Reyes MD [address] [place] [address] [email or web address] Historical LMR Provider 11/26/16 02/13/21 Miugel Angel Hargrove MD [address] [place] [address] [address] [place] [phone] [email or web address] Historical LMR Provider 11/26/16 02/13/21 Cosme Espinoza MD [address] [place] [address] 7 [place] [address] [email or web address] Historical LMR Provider 11/26/16 02/13/21 Cece Mccord MD [address] [place] [address] 7 [place] [address] [email or web address] Insurance Assigned Provider 05/13/23 documented as of this encounter Additional Source Comments The information contained in this document represents components of the legal health record. It is not the complete legal health record.[facility]
--- OUTSIDE RECORDS SUMMARY | 2024-11-20 18:07 | XMS_ITS | Encounter Summary ---
Author Organization [facility] Address [address] [place] [address] [place] [address] Phone Care Team Providers Care Account Engineer Name Role Phone Rickie Hargrove MD Unavailable Rickie Hargrove MD Unavailable Everett Ramirez MD Unavailable [phone] Landon Jordan DO Unavailable Daniel Reyes MD Unavailable Miguel Angel Hargrove MD Unavailable Cosme Espinoza MD Unavailable Rickie Hargrove MD Primary Care Provider [phone] Cece Mccord MD Primary Care Provider [phone] Cece Mccord MD Unavailable Encounter Details Date Type Department Care Team (Late st Contact Info) Description 03/22/2017 Procedure Pass [place] [facility] CT, Saad 2 [address] [facility], 2nd Floor, [address] [place] [address] Social History Tobacco Use Types Packs/Day Years [...] st Contact Info) Description 12/07/2022 Procedure Pass [address] [address] 01/15/2025 1:30 PM EST Office Visit [address] [address] Anoop Sims, DO 22 [facility] [address] [place] [address] [email or web address] 01/20/2025 2:15 PM EST Appointment [address] [address] Cece Mccord MD [address] [place] [address] 7 [place] [address] [email or web address] 07/02/2025 12:00 PM EDT Office Visit [address] [address] Cece Mccord MD [address] [place] [address] [email or web address] documented as of this encounter Visit Diagnoses Not on filedocumented in this encounter Care Teams Account Engineer Relationship Specialty Start Date End Date Rickie Hargrove MD [address] [place], [place] [address] [place] [address] [email or web address] PCP - General 12/01/16 10/08/20 Cece Mccord MD [address] [place] [address] 7 [place] [address] [email or web address] PCP - General Family Medicine 10/09/20 Rickie Hargrove MD [address] [place] [address] [address] [place] [phone] [email or web address] Insurance Assigned Provider 11/12/16 05/15/21 Rickie Hargrove MD [address] [place] [address] [address] [place] [phone] [email or web address] Historical LMR Provider 11/26/16 Everett Ramirez MD [address] [place] [address] [email or web address] Historical LMR Provider 11/26/16 Landon Jordan DO [address] [place] [address] Orthopedics & Sports Medicine, [place] [address] [email or web address] Historical LMR Provider 11/26/16 02/13/21 Daniel Reyes MD [address] [place] [address] [email or web address] Historical LMR Provider 11/26/16 02/13/21 Miguel Angel Hargrove MD [address] [place] [address] 7 [place] [phone] [email or web address] Historical LMR Provider 11/26/16 02/13/21 Cosme Espinoza MD [address] [place] [address] [address] [place] [id number] Historical LMR Provider 11/26/16 02/13/21 Cece Mccord MD [address] [place] [address], [address] [place] [address] [email or web address] Insurance Assigned Provider 05/13/23 documented as of this encounter Additional Source Comments The information contained in this document represents components of the legal health record. It is not the complete legal health record.[facility]
--- OUTSIDE RECORDS SUMMARY | 2024-11-20 18:07 | XMS_ITS | Encounter Summary ---
Author Organization [facility] Address [address] [facility] [address] [place] [address] Phone Care Team Providers Care Skiver Operator Name Role Phone Rickie Hargrove MD Unavailable Everett Ramirez MD Unavailable [phone] Cece Mccord MD Primary Care Provider [phone] Ceec Mccord MD Unavailable [phone] Encounter Details Date Type Department Care Team (Late st Contact Info) Description 04/25/2023 Telephone [facility] [address] [place] [address] Cece Mccord MD 234 [facility] [address] [place], [place] [id number] [email or web address] Social [...] Contact Info) Description 12/07/2022 Procedure Pass [address] [address] 01/15/2025 1:30 PM EST Office Visit [address] [address] Anoop Sims, 22 [facility] [address] [place] [address] 01/20/2025 2:15 PM EST Appointment [address] [address] Cece Mccord MD [address] [place] [address] 07/02/2025 12:00 PM EDT Office Visit [address] [address] Cece Mccord MD [address] [place] [address] documented as of this encounter Visit Diagnoses Not on filedocumented in this encounter Additional Health Concerns Assessment Noted Time PHQ-2 Depression Total Score: 0 08/30/19 19 1:25 PM EDT documented as of this encounter Care Teams Skiver Operator Relationship Specialty Start Date End Date Cece Mccord MD [address] [place] [address] [email or web address] PCP - General Family Medicine 10/09/20 Rickie Hargrove MD [address] [place] [address] [address] [place] [address] [email or web address] Historical LMR Provider 11/26/16 Everett Ramirez MD [address] [place] [address] [email or web address] Historical LMR Provider 11/26/16 Cece Mccord MD [address] [place] [address] [address] [place] [address] [email or web address] Insurance Assigned Provider 05/13/23 documented as of this encounter Additional Source Comments The information contained in this document represents components of the legal health record. It is not the complete legal health record.[facility]
--- OUTSIDE RECORDS SUMMARY | 2024-11-20 18:07 | XMS_ITS | Clinical Summary ---
Author Organization [facility] Address [address] [place] [place] [address] Phone Care Team Providers Care Visual Presentation Manager Name Role Phone Rickie Hargrove MD Primary [...] 0,12/22/2008,10/16 Influenza, Quadrivalent, Pre servative Free 11/13/2017 Rocket[employer]ux SARS-COV-2 05/14/2020,04/23/2020 Pneumococcal Conjugate 13-Valent 01/22/2014 Pneumococcal [...] to complete this topic Insurance Human Medicare [facility] Medicare Care Teams Visual Presentation Manager Relationship Specialty Start Date End Date Rickie Hargrove MD PCP - General 02/17/20
--- OUTSIDE RECORDS SUMMARY | 2024-11-20 18:07 | XMS_ITS | Encounter Summary ---
Author Organization [facility] Address [address] [place], [place] [address] Phone Care Team Providers Care Branch Retail Executive Name Role Phone Rickie Hargrove MD Unavailable Rickie Hargrove MD Unavailable Everett Ramirez MD Unavailable [phone] Landon Jordan DO Unavailable Daniel Reyes MD Unavailable Miguel Angel Hargrove MD Unavailable Cosme Espinoza MD Unavailable [phone] Rickie Hargrove MD Primary Care Provider [phone] Cece Mccord MD Primary Care Provider [phone] Cece Mccord MD Unavailable [phone] Encounter Details Date Type Department Care Team (Late st Contact Info) Description 05/05/2017 Transcribe Orders [facility] PFT Lab [address] [place] [address] Everett Ramirez MD [address] [phone] [email or web address] Social History Tobacco [...] st Contact Info) Description 12/07/2022 Procedure Pass [address] [address] 01/15/2025 1:30 PM EST Office Visit [address] [address] Anoop Sims, DO 22 [facility] [address] [place] [address] [email or web address] 01/20/2025 2:15 PM EST Appointment [address] [address] Cece Mccord MD [address] [place] [address] [email or web address] 07/02/2025 12:00 PM EDT Office Visit [address] [address] Cece Mccord MD [address] [place] [address] documented as of this encounter Visit Diagnoses Not on filedocumented in this encounter Care Teams Branch Retail Executive Relationship Specialty Start Date End Date Rickie Hargrove MD [address] [place], [place] [address] [place] [address] [email or web address] PCP - General 12/01/16 10/08/20 Cece Mccord MD [address] [place] [address], [address] [place] [address] [email or web address] PCP - General Family Medicine 10/09/20 Rickie Hargrove MD [address] [place] [address] [address] [place] [address] [email or web address] Insurance Assigned Provider 11/12/16 05/15/21 Rickie Hargrove MD [address] [place] [address] [address] [place] [phone] [email or web address] Historical LMR Provider 11/26/16 Everett Ramirez MD [address] [place] [address] [email or web address] Historical LMR Provider 11/26/16 Landon Jordan DO [address] [place] [address] Orthopedics [facility] Sports Medicine, [place] [address] [email or web address] Historical LMR Provider 11/26/16 02/13/21 Daniel Reyes MD [address] [place] [address] [email or web address] Historical LMR Provider 11/26/16 02/13/21 Miguel Angel Hargrove MD [address] [place] [address] [address] [place] [phone] [email or web address] Historical LMR Provider 11/26/16 02/13/21 Cosme Espinoza MD [address] [place] [address], [address] [place] [address] [email or web address] Historical LMR Provider 11/26/16 02/13/21 Cece Mccord MD [address] [place] [address], [address] [place] [address] [email or web address] Insurance Assigned Provider 05/13/23 documented as of this encounter Additional Source Comments The information contained in this document represents components of the legal health record. It is not the complete legal health record.[facility]
--- OUTSIDE RECORDS SUMMARY | 2024-11-20 18:07 | XMS_ITS | Encounter Summary ---
Author Organization [facility] Address [address] [place] [address] Phone Care Team Providers Care Recycling Center Operator Name Role Phone Rickie Hargrove MD Unavailable Rickie Hargrove MD Unavailable Everett Ramirez MD Unavailable [phone] Landon Jordan DO Unavailable Daniel Reyes MD Unavailable Miguel Angel Hargrove MD Unavailable Cosme Espinoza MD Unavailable Rickie Hargrove MD Primary Care Provider [phone] Cece Mccord MD Primary Care Provider [phone] Cece Mccord MD Unavailable Encounter Details Date Type Department Care Team (Late st Contact Info) Description 11/02/2018 Ancillary Orders [facility] [address] [place] [address] Rickie Hargrove MD 234 [facility]. [address] [place] [address] [email or web address] Breast screening Social History Tobacco Use Types [...] st Contact Info) Description 12/07/[address] [address] 01/15/2025 1:30 PM EST Office Visit [address] [address] Anoop Sims, DO 22 [facility] [address] [place] [address] 01/20/2025 2:15 PM EST Appointment [address] [address] Cece Mccord MD [address] [place] [address] 07/02/2025 12:00 PM EDT Office Visit [address] [address] Cece Mccord MD [address] [place] [address] documented as of this encounter Visit Diagnoses Diagnosis Breast screening Breast screening, unspecified documented in this encounter Additional Health Concerns Assessment Noted Time PHQ-2 Depression Total Score: 0 08/30/19 19 1:25 PM EDT documented as of this encounter Care Teams Recycling Center Operator Relationship Specialty Start Date End Date Rickie Hargrove MD [address] [place], [place] [address] [place] [address] [email or web address] PCP - General 12/01/16 10/08/20 Cece Mccord MD [address] [place] [address] [address] [place] [address] [email or web address] PCP - General Family Medicine 10/09/20 Rickie Hargrove MD [address] [place] [address] [address] [place] [address] [email or web address] Insurance Assigned Provider 11/12/16 05/15/21 Rickie Hargrove MD [address] [place] [address] [address] [place] [address] [email or web address] Historical LMR Provider 11/26/16 Everett Ramirez MD [address] [place] [address] [email or web address] Historical LMR Provider 11/26/16 Landon Jordan DO [address] [place] [address] Orthopedics & Sports Medicine, [facility] [place] [address] [email or web address] Historical LMR Provider 11/26/16 02/13/21 Daniel Reyes MD [address] [place] [address] [email or web address] Historical LMR Provider 11/26/16 02/13/21 Miguel Angel Hargrove MD [address] [place] [address] 7 [place] [phone] .[facility] Historical LMR Provider 11/26/16 02/13/21 Cosme Espinoza MD [address] [place] [address] 7 [place] [address] Historical LMR Provider 11/26/16 02/13/21 Cece Mccord MD [address] [place] [address] 7 [place] [address] [email or web address] Insurance Assigned Provider 05/13/23 documented as of this encounter Additional Source Comments The information contained in this document represents components of the legal health record. It is not the complete legal health record.[facility]
--- OUTSIDE RECORDS SUMMARY | 2024-11-20 18:07 | XMS_ITS | Encounter Summary ---
Author Organization [facility] Address [address] [place] [address] [place] [address] Phone Care Team Providers Care Instruments Sales Representative Name Role Phone Rickie Hargrove MD Unavailable Rickie Hargroev MD Unavailable Everett Ramirez MD Unavailable [phone] Landon Jordan DO Unavailable Daniel Reyes MD Unavailable Miguel Angel Hargrove MD Unavailable Cosme Espinoza MD Unavailable [phone] Rickie Hargrove MD Primary Care Provider [phone] Cece Mccord MD Primary Care Provider [phone] Cece Mccord MD Unavailable [phone] Encounter Details Date Type Department Care Team (Late st Contact Info) Description 03/22/2017 Ancillary Orders [facility] [address] [facility], 2nd Floor, [address] [place], [place] [phone] Shiva Stevens MD, PhD 55 [facility] [address] [place] [address] [email or web address] Peripheral vascular disease Social History Tobacco Use [...] Contact Info) Description 12/07/2022 Procedure Pass [address] [address] 01/15/2025 1:30 PM EST Office Visit [address] [address] Anoop Sims, [address] [place] [address] [email or web address] 01/20/2025 2:15 PM EST Appointment [address] [address] Cece Mccord MD [address] [place] [address] 07/02/2025 12:00 PM EDT Office Visit [address] [address] Cece Mccord MD [address] [place] [address] documented as of this encounter Visit Diagnoses Diagnosis Peripheral vascular disease Unspecified peripheral vascular disease documented in this encounter Care Teams Instruments Sales Representative Relationship Specialty Start Date End Date Rickie Hargrove MD [address] [place], [place] [address] [place] [address] [email or web address] PCP - General 12/01/16 10/08/20 Cece Mccord MD [address] [place] [address] [address] [place], [place] [phone] [email or web address] PCP - General Family Medicine 10/09/20 Rickie Hargrove MD [address] [place] [address] [address] [place] [phone] [email or web address] Insurance Assigned Provider 11/12/16 05/15/21 Rickie Hargrove MD [address] [place] [address] [address] [place] [phone] [email or web address] Historical LMR Provider 11/26/16 Everett Ramirez MD [address] [place] [address] [email or web address] Historical LMR Provider 11/26/16 Landon Jordan DO [address] [place] [address] Orthopedics & Sports Medicine, [place] [address] [email or web address] Historical LMR Provider 11/26/16 02/13/21 Daniel Reyes MD [address] [place] [phone] [email or web address] Historical LMR Provider 11/26/16 02/13/21 Miguel Angel Hargrove MD [address] [place] [address] 7 [place] [address] [email or web address] Historical LMR Provider 11/26/16 02/13/21 Cosme Espinoza MD [address] [place] [address] 7 [place] [address] [email or web address] Historical LMR Provider 11/26/16 02/13/21 Cece Mccord MD [address] [place] [address] 7 [place] [address] [email or web address] Insurance Assigned Provider 05/13/23 documented as of this encounter Additional Source Comments The information contained in this document represents components of the legal health record. It is not the complete legal health record.[facility]
--- OUTSIDE RECORDS SUMMARY | 2024-11-20 18:07 | XMS_ITS | Encounter Summary ---
Author Organization [facility] Address [address] [place] [address] Phone Care Team Providers Care Neurophysiologist Name Role Phone Rickie Hargrove MD Unavailable Rickie Hargrove MD Unavailable Everett Ramirez MD Unavailable [phone] Landon Jordan DO Unavailable Daniel Reyes MD Unavailable [phone] Miguel Angel Hargrove MD Unavailable [phone] Cosme Espinoza MD Unavailable [phone] Rickie Hargrove MD Primary Care Provider [phone] Cece Mccord MD Primary Care Provider [phone] Cece Mccord MD Unavailable Encounter Details Date Type Department Care Team (Late st Contact Info) Description 03/06/2020 Ancillary Orders [facility] [address] [place] [address] Rickie Hargrove MD 234 [facility]. [address] [place] [address] [email or web address] Abnormal mammogram Social History Tobacco Use Types [...] Contact Info) Description 12/07/2022 Procedure Pass [address] [address] 01/15/2025 1:30 PM EST Office Visit [address] [address] Anoop Sims, DO 22 [facility] [address] [place] [address] 01/20/2025 2:15 PM EST Appointment [address] [address] Cece Mccord MD [address] [place] [address] 07/02/2025 12:00 PM EDT Office Visit [address] [address] Cece Mccord MD [address] [place] [address] documented as of this encounter Results * [...] documented as of this encounter Care Teams Neurophysiologist Relationship Specialty Start Date End Date Rickie Hargrove MD [address] [place] [address] [address] [place] [address] [email or web address] PCP - General 12/01/16 10/08/20 Cece Mccord MD [address] [place] [address], [address] [place] [id number] [email or web address] PCP - General Family Medicine 10/09/20 Rickie Hargrove MD [address] [place] [address] [address] [place] [phone] [email or web address] Insurance Assigned Provider 11/12/16 05/15/21 Rickie Hargrove MD [address] [place] [address] [address] [place] [phone] [email or web address] Historical LMR Provider 11/26/16 Everett Ramirez MD [address] [place] [address] [email or web address] Historical LMR Provider 11/26/16 Landon Jordan DO [address] [place] [address] Orthopedics & Sports Medicine, [place] [address] [email or web address] Historical LMR Provider 11/26/16 02/13/21 Daniel Reyes MD [address] [place] [address] [email or web address] Historical LMR Provider 11/26/16 02/13/21 Miguel Angel Hargrove MD [address] [place] [address] [address] [place] [phone] [email or web address] Historical LMR Provider 11/26/16 02/13/21 Cosme Espinoza MD [address] [place] [address] [address] [place] [address] Historical LMR Provider 11/26/16 02/13/21 Cece Mccord MD [address] [place] [address], [address] [place] [address] [email or web address] Insurance Assigned Provider 05/13/23 documented as of this encounter Additional Source Comments The information contained in this document represents components of the legal health record. It is not the complete legal health record.[facility]
--- OUTSIDE RECORDS SUMMARY | 2024-11-20 18:07 | XMS_ITS | Encounter Summary ---
Author Organization [facility] Address [address] [facility] [address] [place] [address] Phone Care Team Providers Care Aircraft Maintenance Manager Name Role Phone Rickie Hargrove MD Unavailable Everett Ramirez MD Unavailable [phone] Cece Mccord MD Primary Care Provider [phone] Cece Mccord MD Unavailable [phone] Reason for Visit * Reason Onset Date Comments Medication Refill 11/05/2024 Encounter Details Date Type Department Care Team (Late st Contact Info) Description 11/05/2024 [facility] [address] [place] [address] Cece Mccord MD [address] [place] [address] 7 [place] [address] [email or web address] Medication Refill Social History Tobacco Use Types [...] Mccord MD - Family Medicine [facility] [place] [facility] > Requested f/u: Return in about 3 months (around 01/08/2025) for with Dr Sims for check in. Upcoming visit: 01/15/2025 Anoop Sims DO - Family Medicine [facility] ACTIONS TAKEN BY Rama Ryan MA - Criteria met. Rx(s) without protocol Renewal is at prescriber discretion. - prednisone Rx mismatch - Original(s) may be discontinued, , or changed to a different strength or form. * Campbell, Sudeep - 11/05/2024 1:40 PM EDT Pt called in for a refill on predniSONE (DELTASONE) 10 MG tablet Central Support Train Brake Operator (Please do not reply to this user; this inbox is not monitored.) Thank you. documented in this encounter Plan of Treatment Upcoming Encounters Date Type Department Care Team (Late st Contact Info) Description 12/07/2022 Procedure Pass [address] [address] 01/15/2025 1:30 PM EST Office Visit [address] [address] Anoop Sims, [address] [place] [address] [email or web address] 01/20/2025 2:15 PM EST Appointment [address] [address] Cece Mccord MD [address] [place] [address] 7 [place] [address] [email or web address] 07/02/2025 12:00 PM EDT Office Visit [address] [address] Cece Mccord MD [address] [place] [address] documented as of this encounter Visit Diagnoses Diagnosis Pulmonary emphysema, unspecified emphysema type documented in this encounter Additional Health Concerns Assessment Noted Time PHQ-9 Depression Total Score: 11 024 11:20 AM EDT PHQ-2 Depression Total Score: 4 11/27/19 24 11:20 AM EDT documented as of this encounter Care Teams Aircraft Maintenance Manager Relationship Specialty Start Date End Date Cece Mccord MD [address] [facility] 7 [place] [address] [email or web address] PCP - General Family Medicine 10/09/20 Rickie Hargrove MD [address] [facility] [place] [address] [email or web address] Historical LMR Provider 11/26/16 Everett Ramirez MD [address] [place] [address] [email or web address] Historical LMR Provider 11/26/16 Cece Mccord MD [address] [place] [address] 7 [place] [address] [email or web address] Insurance Assigned Provider 05/13/23 documented as of this encounter Additional Source Comments The information contained in this document represents components of the legal health record. It is not the complete legal health record.[facility]
--- OUTSIDE RECORDS SUMMARY | 2024-11-20 18:07 | XMS_ITS | Encounter Summary ---
Author Organization [facility] Address [address] [place], [place] [phone] Phone Care Team Providers Care Woodworking Shop Hand Name Role Phone Rickie Hargrove MD Unavailable Rickie Hargrove MD Unavailable Evreett Ramirez MD Unavailable [phone] Landon Jordan DO Unavailable Daniel Reyes MD Unavailable Miguel Angel Hargrove MD Unavailable [phone] Cosme Espinoza MD Unavailable Rickie Hargrove MD Primary Care Provider [phone] Cece Mccord MD Primary Care Provider [phone] Cece Mccord MD Unavailable Encounter Details Date Type Department Care Team (Late st Contact Info) Description 01/24/2020 Procedure Pass [facility] [address] [place] [address] Social History Tobacco Use Types Packs/Day Years [...] st Contact Info) Description 12/07/2022 Procedure Pass [address] [address] 01/15/2025 1:30 PM EST Office Visit [address] [address] Anoop Sims, DO [address] [facility] [address] [place] [address] [email or web address] 01/20/2025 2:15 PM EST Appointment [address] [address] Cece Mccord MD [address] [place] [address] 7 [place] [address] [email or web address] 07/02/2025 12:00 PM EDT Office Visit [address] [address] Cece Mccord MD [address] [place] [address] [email or web address] documented as of this encounter Visit Diagnoses Not on filedocumented in this encounter Additional Health Concerns Assessment Noted Time PHQ-2 Depression Total Score: 0 08/30/19 19 1:25 PM EDT documented as of this encounter Care Teams Woodworking Shop Hand Relationship Specialty Start Date End Date Rickie Hargrove MD [address] [place], [place] [address] [place] [address] [email or web address] PCP - General 12/01/16 10/08/20 Cece Mccord MD [address] [place] [address], [address] [place] [address] [email or web address] PCP - General Family Medicine 10/09/20 Rickie Hargrove MD [address] [place] [address] [address] [place] [phone] [email or web address] Insurance Assigned Provider 11/12/16 05/15/21 Rickie Hargrove MD [address] [place] [address] [address] [place] [phone] [email or web address] Historical LMR Provider 11/26/16 Everett Ramirez MD [address] [place] [address] [email or web address] Historical LMR Provider 11/26/16 Landon Jordan DO [address] [place] [address] Orthopedics & Sports Medicine, [facility] [place] [address] [email or web address] Historical LMR Provider 11/26/16 02/13/21 Daniel Reyes MD [address] [place] [address] [email or web address] Historical LMR Provider 11/26/16 02/13/21 Miguel Angel Hargrove MD [address] [place] [address] [address] [place] [phone] [email or web address] Historical LMR Provider 11/26/16 02/13/21 Cosme Espinoza MD [address] [place] [address] 7 [place] [address] [email or web address] Historical LMR Provider 11/26/16 02/13/21 Cece Mccord MD [address] [place] [address] 7 [place] [address] [email or web address] Insurance Assigned Provider 05/13/23 documented as of this encounter Additional Source Comments The information contained in this document represents components of the legal health record. It is not the complete legal health record.[facility]
--- OUTSIDE RECORDS SUMMARY | 2024-11-20 18:07 | XMS_ITS | Clinical Summary ---
Author Organization [facility] Address [address] [address] Phone Care Team Providers Care Planting Supervisor Name Role Phone Rickie Hargrove MD Unavailable Everett Ramirez MD Unavailable [phone] Cece Mccord MD Primary Care Provider [phone] Cece Mccord MD Unavailable Allergies Active Allergy [...] migh t be different from the original. Cigar Packer And Shader: [facility], Dr Lucien Clark, last seen 01/14/21 [...] major depressive d isorder 12/15/2021 Atherosclerosis of [place] ronary artery of [place] heart without angina pectoris 02/22/2021 Overview (09/14/2021): (Dr Clark) cath showed mild CAD, ASA and statin only. Lipids via us. Cath to be repeated 09/[address] Clark's office. Assessment & Plan (03/21/2022 8:40 PM EST): Reviewed her manufacturing technician note, her last heart cath was pretty [...] stress testing but will defer to her manufacturing technician to arrange. Assessment & Plan (08/20/2019 2:04 PM EDT): Unclear if subacute worsening dyspnea due to COPD versus alternative. Recommendations: Obtain routine labs Obtain chest x-ray Patient prefers testing done at [facility] since moved to [place] 2 years ago Empiric trial of prednisone 40 mg daily for 5 days, extend to 10 days if slow improvement. Will request results for upcoming echocardiogram on 09/05 at [facility] Pending above findings, consider additional testing, including but not limited to CT imaging of the chest Umbilical hernia 11/28/2018 Assessment & Plan (10/09/2024 8:31 PM EDT): To [facility] gen surg for hernia evaluation Orders: Ambulatory [...] disease 03/06/2018 Overview (03/22/2022): Last Cr at [facility] 1.53 w/ GFR 33 (03/2022) Assessment & Plan (03/21/2022 8:37 PM EST): She has just had labs done at her manufacturing technician at [facility]. Will ask team to get labs [...] disease 12/22/2016 Overview (06/14/2022): Followed now at [facility] (previously: [facility]) -- stopped trelegy, started budesonide via [...] impact. Continues to be well managed by information management officer. Assessment & Plan (04/01/2020 1:48 PM EST): [...] more than twice daily. Recommend trial of htaz-vzh-xhttegg guaifenesin 400 mg tablets up to 3 [...] home and has reviewed this with her manufacturing technician. Assessment & Plan (07/08/2021 9:44 PM EDT): [...] replaced 12/22/2016 Overview (02/22/2021): (Dr Clark at [facility]) Unchanged gradient per echo as of 01/14/21 -- remain on long term care phlebotomist ASA, continue IE ppx. Hyperlipidemia 12/22/2016 Panlobular emphysema 12/22/2016 Assessment & Plan (03/21/2022 8:37 PM EST): Reviewed her information management officer note and her medications. He has recommended pulmonary rehab, which she has not done as of yet. Pulmonary nodules 12/22/2016 Assessment & Plan (08/20/2019 2:02 PM EDT): History of prior pulmonary nodules, last available imaging 2014 with granulomas. Will arrange for earlier follow-up with MESS ATTENDANT CREW Kimberlee Gage to additionally discuss lung cancer screening. Assessment & Plan (05/17/2019 11:46 AM EDT): Difficult to assess at this time. Discuss repeat testing versus lung cancer screening at follow-up visit. Assessment & Plan (12/21/2017 3:37 PM EST): Request CT imaging from [facility]. At follow-up in 6 months, consider [...] get a flu shot today. This was zsfu-vojh-abyw. Cyst of skin 10/15/2019 03/21/2022 Assessment & [...] Type Department Care Team Description 11/05/2024 Refill [facility] [address] [place] [address] Cece Mccord MD Medication Refill 10/24/2024 Refill [facility] [address] [place] [address] Rama Ryan [place] Medication Refill 10/15/2024 Telephone [facility] [address] [place] [address] Cece Mccord MD Appointment 10/11/[address] [address] Rossi De Santiago Call back 10/11/[address] [address] Rossi De Santiago Medication Problem 10/09/2024 3:30 PM EDT Office Visit [facility] [address] [place] [address] Cece Mccord MD Umbilical hernia without obstruction and without gangrene (Primary Dx); Pulmonary emphysema, unspecified emphysema type; Other noninfectious chronic otitis externa of right ear; Chronic kidney disease, stage 3a; MDD (major depressive disorder), recurrent episode, moderate; Chronic systolic HF (heart failure); PAF (paroxysmal atrial fibrillation); Chronic pain syndrome 10/02/2024 Refill [facility] [address] [place] [address] Lucero Mcgee PA-C Medication Refill 09/26/2024 Refill [facility] [address] [place] [address] Rama Ryan [place] Medication Refill 09/23/2024 Refill [facility] [address] [place] [address] Obdulia Lima [place] Medication Refill 08/20/2024 Refill [facility] [address] [place] [address] Obdulia Lima [place] Medication Refill from Last [...] st Contact Info) Description 12/07/2022 Procedure Pass [address] [address] 01/15/2025 1:30 PM EST Office Visit [address] [address] Anoop Sims, DO [address] [facility] [address] [place] [address] 01/20/2025 2:15 PM EST Appointment [address] [address] Cece Mccord MD [address] [place] [address] 7 [place] [address] 07/02/2025 12:00 PM EDT Office Visit [address] [address] Cece Mccord MD [address] [place] [address], [address] [place] [address] [email or web address] Health Maintenance Due Date Last Done Comments [...] EDT) SODIUM 139 133 - 146 mmol/L [facility] POTASSIUM 4.8 3.3 - 5.1 mmol/L [facility] CHLORIDE 100 96 - 108 mmol/L [facility] CO2 27 21 - 35 mmol/L [facility] BUN 20(H) 6 - 19 mg/dL [facility] CREATININE 1.60(H) 0.5 - 1.5 mg/dL [facility] GLUCOSE 110(H) 70 - 99 mg/dL [facility] ALBUMIN 4.5 3.9 - 4.8 g/dL [facility] TOTAL PROTEIN 7.4 6.5 - 8.0 g/dL [facility] CALCIUM 10.2 8.4 - 10.3 mg/dL [facility] ALKALINE PHOSPHATASE 119(H) 39 - 117 U/L [facility] TOTAL BILIRUBIN 0.6 0.0 - 1.2 mg/dL [facility] AST 43(H) 0 - 37 U/L [facility] ALT 18 0 - 40 U/L [facility] GLOBULIN 2.9 1 - 4.8 g/dL [facility] EGFR 34(L) >59 mL/min/1.7 3m2 [facility] Comment:Estimated glomerular filtration rate calculated using the CKD-EPI refit equation. ANION GAP 17 10 - 20 mmol/L [facility] Blood 12/07/2022 2:25 PM EDT 12/07/2022 2:27 PM EDT us Cece Mccord MD LAB BLOOD ORDERABLES Ally l Result Performing Organization Address City/[facility]/ZIP Co de Phone Number [address] [address] * (ABNORMAL) Lipid panel (12/07/2022 2:25 PM EDT) [facility] HDL 26 mg/dL [facility] Comment: Interpretation <40 mg/dL: Low HDL cholesterol (major risk factor for CHD) Greater than or equal to 60 mg/dL: High HDL cholesterol ( negative risk factor for CHD) HDL - cholesterol is affected by a number of factors, e.g. smoking, excerise, hormones, sex and age. CHOLESTEROL 137 0 - 240 mg/dL [facility] TRIGLYCERIDES 401(H) 30 - 160 mg/dL [facility] LDL NOT CALCULATED 50 - 129 mg/dL [facility] Comment: Unable to calculate due to elevated TRIG of greater than 400. A measured LDL will be performed. CARDIAC RISK RATIO 5.3(H) 3.3 - 4.4 [facility] Blood 12/07/2022 2:25 PM EDT 12/07/2022 2:27 PM EDT us Cece Mccord MD LAB BLOOD ORDERABLES Ally l Result Performing Organization Address [facility]/ZIP Co de Phone Number [address] [address] * Hepatitis C antibody, qualitative (08/29/2018 1:49 PM EDT) [facility] HCV NON-REACTIV E NON-REACTI VE [facility] Blood 08/29/2018 1:49 PM EDT 08/29/2018 1:53 PM EDT us Rickie Hargrove MD LAB BLOOD ORDERABLES Ally l Result Performing Organization Address City/[facility]/ZIP Co de Phone Number [address] [address] * OUTSIDE BONE DENSITY SCREENING (02/27/2015) BONE DENSITY SCREENING - EXTERNAL .. us Historical Provider HEALTH MAINTENANCE Final Result from Last 3 Months or Most Recently Relevant to Health Maintenance Insurance MEDICARE PART A & B Member Subscriber Plan / Payer (Ef fective 1994-) Name:Pari Avery Member ID:[id number] Relation to Subscriber:Self Name:Pari Avery Subscriber ID:[id number] Payer ID:[id number] Group ID:Not on file Type:Medicare Address: Infectious [address] [place] [address] MEDICARE SUPPLEMENT MEDICARE PART A & [place] [address] [place] [address] MEDICARE SUPPLEMENT MEDICARE PART A & B Member Subscriber Plan / Payer ( fective 1994-Present) Name:Pari Avery Member ID:[id number] Relation to Subscriber:Self Name:Pari Avery Subscriber ID:[id number] Payer ID:[id number] Group ID:Not on file Type:Medicare Address: Infectious [address] [place] [id number] [facility] MEDICARE SUPPLEMENT MEDICARE PART A & B Member Subscriber Plan / Payer (Ef fective 1994-Present) Name:Pari Avery Member ID:[id number] Relation to Subscriber:Self Name:Pari Avery Subscriber ID:[id number] Payer ID:[id number] Group ID:Not on file Type:Medicare Address: Infectious [address] [place] [address] [facility] MEDICARE SUPPLEMENT MEDICARE PART A & B [facility] MEDICARE SUPPLEMENT MEDICARE PART A & B [facility] MEDICARE SUPPLEMENT MEDICARE PART A & B [facility] MEDICARE SUPPLEMENT MEDICARE PART A & B [employer] MEDICARE SUPPLEMENT MEDICARE PART A & B [facility] MEDICARE SUPPLEMENT [address] [place] [address] ESIS Care Teams Planting Supervisor Relationship Specialty Start Date End Date Cece Mccord MD [address] [facility] 7 [place] [address] [email or web address] PCP - General Family Medicine 10/09/20 Rickie Hargrove MD [address] [place], [place] [address] [place] [address] [email or web address] Historical LMR Provider 11/26/16 Everett Ramirez MD [address] [place] [address] [email or web address] Historical LMR Provider 11/26/16 Cece Mccord MD [address] [place] [address] [address] [place] [address] [email or web address] Insurance Assigned Provider 05/13/23 Additional Source Comments The information contained in this document represents components of the legal health record. It is not the complete legal health record.[facility]
== END 2024-11-20 14:49 | disposition home or self-care (01) ==
LOC: HO.HKA 14:22
PROVIDERS: PCP Student in an Organized Health Care Education/Training Program; Visit Provider Internal Medicine Nephrology
DX: N18.31 Chronic kidney disease, stage 3a (principal); I10 Essential (primary) hypertension; E21.3 Hyperparathyroidism, unspecified
CPT/HCPCS: 99214

== ENCOUNTER → 2024-11-20 14:21 | Outpatient (BNVA) | payer MEDICARE, SELFPAY | PROVIDERS: PCP Student in an Organized Health Care Education/Training Program; Visit Provider Internal Medicine Nephrology | DX: N18.31 Chronic kidney disease, stage 3a (principal); I10 Essential (primary) hypertension; E21.3 Hyperparathyroidism, unspecified | CPT/HCPCS: 99212 ==

== ENCOUNTER 2024-11-29 13:47 | Outpatient (AMB) | payer MEDICARE, OTHER, SELFPAY ==
--- NOTE | 2024-11-29 13:57 | A.OFFVIS_ITS ---
Vital Signs 11/29/24 13:58 Height 5 ft 3 in Weight 162 lb 0.636 oz BMI 28.7 BP 112/50 L Blood Pressure Location Lt brachial Position Sitting Pulse 65 Pulse Source Pulse Oximeter Pulse Oximetry (%) 94 Oxygen Delivery Method Room Air Intake Visit Reasons: COPD Direct Response Consultant Required: No Accompanied by: Self / Same As Patient Allergies meperidine (Demerol) Allergy (Unknown, Verified 11/29/24 14:01) Anaphylaxis Losartan Allergy (Intermediate, Uncoded 12/04/23 14:08) Difficulty Swallowing HPI Comments Details: The patient is a 74 year woman with a known history of COPD. She [place] most [place] However, it [place] further away for her and she is looking to relocate her providers to minimize the distance. The patient has use Trelegy with good effect. Although she still continues to complaint of a productive cough. She brings because up in a daily basis. Moderate in amount. Usually is clear. The patient also complains of shortness of breath with activity. Did talk about pulmonary rehabilitation. although be hard for specially with winter coming up. We did talk about other alternatives including online pulmonary rehabilitation. She did have a CT scan the chest lasting 2020 at [facility]. I did review the results. Was a CTA so it ruled out pulmonary emboli. The patient did have evidence of bullous disease and also areas of atelectasis. No significant pulmonary nodules noted. 03/25/2022 the patient has a telehealth visit today. She started developing GI symptoms and she felt uncomfortable leaving the house. Denies having any fevers or chills or any respiratory complaints. She is no longer using the Trelegy. She continues use the DuoNeb 3 times a day. She did get the budesonide but she has not started as of yet. Now that she is off the Trelegy she can go ahead and start budesonide once a day. Also did request she can try to stop taking the DuoNeb twice a day and then also as needed in between. The patient did have pulmonary function studies which we personally reviewed. She has a mild obstruction consistent with COPD and a moderate diffusion impairment secondary to likely emphysema. The patient will benefit from pulmonary rehabilitation. She also has an echocardiogram pending. She is looking to start pulmonary rehabilitation in the springtime with the weather gets a little better. Also, will have her follow-up dense we can reassess her overall condition. 05/16/2022 the patient is here for a pulmonary telehealth follow-up visit. The patient is now dealing with likely a GI bug. She has significant nausea and vomiting. Therefore she stated home. The patient has a telehealth visit today. She did start the budesonide nebulized therapy she seems to be tolerating it. She is using it with DuoNeb. She has not had to use her rescue inhaler. We did again review her pulmonary function studies. The patient does have significant emphysema bit and does have evidence of a decreased diffusion impairment. And also her spirometry demonstrates concavity of the expiratory limb suggesting [id number] obstructive airway disease. The patient will be a great candidate for rehab. We have put in orders for rehab. She has not heard yet. I will put another order in just to make sure. She is also having a full cardiac workup. Will follow-up after she starts rehab to see her progress. 02/27/2023 the patient is here for a telehealth visit. She was in her usual state health until she went to the pharmacy at [facility] and she ended up getting 2 vaccines together. She had the RSV and the COVID shot together. After she started developing worsening shortness of breath nonproductive cough chest tightness. She has been using her inhaler although she has a nebulizer she does not have the right solution. She is complaining of very dry mouth. Therefore will switch over the DuoNeb to a regular albuterol. And she should also restart the budesonide. Because of the exacerbation patient will also be started on short course of antibiotics and prednisone to help her with her symptom relief. The patient did not do pulmonary rehabilitation since it was hard for her to travel with the cold weather. She is looking forward to doing it when the better season. Will follow-up in treated for months and will discuss that at that time. 05/29/2023 the patient has a telehealth sick visit. She has been sick now for about 3-4 days. She started developing a sore throat and then chest congestion and productive cough. The mucus is now greenish in color. Moderate severity. Also complaining worsening shortness of breath. She has been using her nebulized therapy with partial improvement. She did swab for COVID-19 was negative. Denies any fevers or chills. The patient has not had a chest x-ray in some time. The last visit back in February she was also sick and she did r equire antibiotics and prednisone. Will go ahead and request a chest x-ray at this time. The patient should also start prednisone antibiotics at this time. If the patient is no better in 24 hours she should call the office. If she is worse she should also call Earlier. Otherwise follow-up in 3-4 months. 09/05/2023 the patient is here for pulmonary follow-up tele visit. Overall the patient is feeling little better. Although she is grieving the loss of a loved 1. Therefore she can not come into the office. She is having hard time with the breathing. She feels some shortness of breath and chest tightness. She does not feel like the regular albuterol that she is using a helping. Will go ahead and send her Ventolin HFA to see this is more effective. In the meantime the patient had responded well to Trelegy in the past. Although very expensive. Now she has a different insurance will go ahead and send that to the pharmacy. If we do that she can hold off on the budesonide and she can use the albuterol nebulizer as needed. The patient will follow-up in a month's time to see if this has resulting in some relief in her respiratory status. If the patient has any worsening symptoms she will call for further evaluation. 12/04/2023 the patient has a sick visit over the phone. She has been feeling under the weather for the last week. Patient states that prior to that she received the COVID vaccine then went to the pharmacy got her flu and her RSV vaccine all basically the same time she started feeling tired and complained of chest tightness and cough. The cough has been nonproductive although she feels congested difficult to expectorate. Denies any sick contacts all those hard to know for sure. She feels like she needs prednisone. Explained to her that if she takes too much prednisone he is going to interact or interfere with the response to vaccines. Therefore will start her on low-dose prednisone. In the meantime will give her some doxycycline case there is a infectious process as well. Will have her return in 3-4 months. Otherwise she has responded well to the current respiratory regimen including Trelegy. 11/29/2024 the patient is here for pulmonary follow-up visit. She has been lost to follow-up as she had issues leaving the house because of fear and anxiety. She is now able to leave the house. She has been noticing increasing shortness of breath. She continues on the Trelegy and also in the nebulized therapy although she does not use the nebulized therapy as regularly as she should. She has noticed that she has significant shortness of breath with minimal activity moderate severity. We did go for brief walking oximetry today and on room air she did desaturate down to about 86%. She did do well on 2 L pulse improving her pulse ox to about 94% with activity. She knows that she needs to use her nose for the pulse device. She has to work on that. Will go ahead and start her on a portable oxygen concentrator with activity for the better portability outside of the home and then a concentrator for home with 2 L continuous. The patient also will start nebulized therapy with Ohtuvayre to maximize her respiratory capacity. She will continue with the Trelegy in the nebulized therapy. The patient will follow-up in 4 months. Will have her undergo pulmonary function studies when she returns. Today she will go for chest x-ray. [facility] Medical History SOB (shortness of breath) Essential hypertension Hemorrhage of gastrointestinal tract, unspecified PAF (paroxysmal atrial fibrillation) Abdominal aortic aneurysm without rupture Nonischemic cardiomyopathy Atherosclerotic cardiovascular disease Benign essential hypertension Mitral regurgitation Pneumonia COPD (chronic obstructive pulmonary disease) Surgical History Status post mitral valve annuloplasty Abdominal aortic aneurysm History of open heart surgery History of appendectomy History of back surgery Family History Father Unknown family medical history Mother HTN (hypertension) Daughter Alive and well Social History Patient Tobacco Use Status: Former Tobacco user Tobacco use type: Cigarette Years Smoked: 30+ Years Review of Systems Const Denies chills, Reports fatigue, Denies fever(s), Denies frequent falls, Denies weakness, Denies weight gain and Denies weight loss ENT Denies dizziness Card Denies chest pain, Denies leg edema, Denies lightheadedness, Denies palpitations, Reports dyspnea, Reports dyspnea on exertion, Denies orthopnea and Denies other (Loss of consciousness) Resp Reports chest congestion, Reports cough, Reports dyspnea, Reports dyspnea on exertion and Reports wheezing GI Reports as per HPI Musc Denies abnormal gait, Denies muscle weakness, Denies numbness, Denies radiating pain into limb and Denies tingling Neuro Denies abnormal gait, Denies dizziness, Denies frequent falls, Denies numbness, Denies tingling and Denies weakness Endo Reports fatigue and Denies palpitations Aller/Immun Reports wheezing Physical Exam Vital Signs: Last Vital Signs Pulse 65 11/29/24 13:58 BP 112/50 L 11/29/24 13:58 Pulse Ox 94 11/29/24 13:58 Oxygen Delivery Method Room Air 11/29/24 13:58 BMI result Body Mass Index 28.7 Const General: alert Orientation/consciousness: patient oriented x3 HEENT Other: Unremarkable Resp Effort & Inspection: able to speak in complete sentences and Actively coughing Back/Spine/Pelvis Other: unremarkable Neuro General: patient oriented x3 Psych Mental Status: mental status grossly normal Assessment & Plan Assessment & Plan (1) COPD (chronic obstructive pulmonary disease): Code(s): J44.9 - Chronic obstructive pulmonary disease, unspecified Category: Medical Qualifiers: COPD type: COPD with acute exacerbation Qualified Code(s): J44.1 - Chronic obstructive pulmonary disease with (acute) exacerbation (2) Nonischemic cardiomyopathy: Code(s): I42.8 - Other cardiomyopathies Category: Medical (3) SOB (shortness of breath): Code(s): R06.02 - Shortness of breath Category: Medical Plan continue Trelegy 200 daily JOSE EDUARDO, requesting ventolin continue Albuterol Nebs TID as needed Start Ohtuvayre CXR when able prednisone taper F/U 3-4 months Medications: New prednisone PO daily; Take 2 tabs daily x 5 days, then 1 tablet daily x 5 days 15 tabs 0RF 10 days Coding Level of Care Code Est Pt Level 4 (58671) Complex EM visit Add On G2211 Diagnoses Chronic obstructive pulmonary disease with acute exacerbation J44.1 COPD type: COPD with acute exacerbation Nonischemic cardiomyopathy I42.8 SOB (shortness of breath) R06.02 Time Spent (min) 17
[2024-11-29 13:58] VITALS: BP 112/50; PULSE 65; O2SAT 94; BMI 28.7
--- OUTSIDE RECORDS SUMMARY | 2024-11-29 15:48 | XMS_ITS | Clinical Summary ---
Author Organization [facility] Address [address] [place] [address] Phone Care Team Providers Care Slab Tripper Name Role Phone Rickie Hargrove MD Primary [...] 0,12/22/2008,10/16 Influenza, Quadrivalent, Pre servative Free 11/13/2017 [employer] SARS-COV-2 05/14/2020,04/23/2020 Pneumococcal Conjugate 13-Valent 01/22/2014 Pneumococcal [...] to complete this topic Insurance Human Medicare [facility] Medicare Care Teams Slab Tripper Relationship Specialty Start Date End Date Rickie Hargrove MD PCP - General 02/17/20
== END 2024-11-29 14:34 | disposition home or self-care (01) ==
LOC: HO.HPS 13:48
PROVIDERS: PCP Student in an Organized Health Care Education/Training Program; Visit Provider Hospitalist
DX: J44.1 Chronic obstructive pulmonary disease with (acute) exacerbation (principal); I42.8 Other cardiomyopathies; R06.02 Shortness of breath
CPT/HCPCS: 99214; G2211

== ENCOUNTER → 2024-11-29 13:47 | Outpatient (BNVA) | payer MEDICARE, OTHER, SELFPAY | PROVIDERS: PCP Student in an Organized Health Care Education/Training Program; Visit Provider Hospitalist | DX: J44.1 Chronic obstructive pulmonary disease with (acute) exacerbation (principal); R06.02 Shortness of breath; Z87.891 Personal history of nicotine dependence; I42.8 Other cardiomyopathies | CPT/HCPCS: 99212 ==

== ENCOUNTER 2024-12-11 13:11 | Outpatient (REF) | payer MEDICARE, OTHER, SELFPAY ==
--- NOTE | ~2024-12-11 | XR_ITS ---
EXAMINATION: XR CHEST CLINICAL INFORMATION: R06.02 - Shortness of breath COMPARISON: May 02, 2017 TECHNIQUE: 2 views of the chest were obtained. 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 Cardiac size is upper limits of normal. Aorta is tortuous. Lungs are clear. There is no sign of pleural effusion. Mild degenerative changes are evident throughout the thoracic spine. XR/XR chest 2V IMPRESSION: Borderline cardiomegaly and mitral prosthesis. Electronically signed by: Jhon Rivera MD 12/11/2024 02:45 PM EST
== END 2024-12-11 13:12 | disposition home or self-care (01) ==
LOC: HO.XRAY 13:11
PROVIDERS: Absent Provider Hospitalist; Visit Provider Surgery
DX: R06.02 Shortness of breath (principal); J44.1 Chronic obstructive pulmonary disease with (acute) exacerbation; K43.2 Incisional hernia without obstruction or gangrene
CPT/HCPCS: 71046; 99202

== ENCOUNTER 2024-12-11 13:11 | Outpatient (AMB) | payer MEDICARE, OTHER, SELFPAY ==
--- OUTSIDE RECORDS SUMMARY | 2024-12-05 22:59 | XMS_ITS | Continuity of Care Document ---
Author Organization [facility] Address [address] [place] [id number] Care Team Providers Care Hr Generalist Name Role Phone Suri AVILA, Cece Marcial Primary Care Physician Encounter [facility] NBR [id number] Date(s): 09/12/24 - 12/05/24 [facility] [address] [place] [id number] Attending Physician: Matilde Weldon NP Admitting Physician: Matilde Weldon NP Referring Physician: Matilde Weldon NP Encounter Type: Pre-Outpt Allergies, Adverse Reactions, Alerts Substance Criticality Severity Reaction Reaction Severity Status Demerol HCl Active Adhesive Bandage 1 Hives A ctive 1sensitivity Medications acetaminophen-oxycodone 325 mg-10 mg oral tablet 1 tablet, By Mouth, Every 6 hours, PRN for pain, 0 Refills, Maintenance, 09/22/21 11:00:00 AM EDT, Tablet, Partial fill upon patient request if the prescription is for a schedule II opioid drug. Start Date: 09/22/21 Status: Ordered Medication Dispense Status: Completed Total Allowed Fills: 1 Fills Dispensed: 0 Albuterol (Eqv-ProAir HFA) Inhalation, Every 6 hours, 0 Refills, Maintenance, 09/22/21 10:53:00 AM EDT, Partial fill upon patient request if the prescription is for a schedule II opioid drug. Start Date: 09/22/21 Status: Ordered Medication Dispense Status: Completed Total Allowed Fills: 1 Fills Dispensed: 0 albuterol-ipratropium 3 mg-0.5 mg/3 ml inhalation solution 3 mL, Neb, 4 times a day, # 360 each, 0 Refills, Maintenance, 09/22/21 11:02:00 AM EDT, Solution, Partial fill upon patient request if the prescription is for a schedule II opioid drug. Start Date: 09/22/21 Status: Ordered Medication Dispense Status: Completed Quantity: 360.0 Unit: each Total Allowed Fills: 1 Fills Dispensed: 0 amLODIPine 5 mg oral tablet 5 mg, 1, tablet, By Mouth, Daily, # 30 tablet, Refills 0, Maintenance, 03/18/17 8:53:13 AM EST Start Date: 03/18/17 Status: Ordered Medication Dispense Status: Completed Quantity: 30.0 Unit: tablet Total Allowed Fills: 1 Fills Dispensed: 0 aspirin 81 mg oral delayed release tablet 81 mg, 1, tablet, By Mouth, Daily, # 30 tablet, Refills 0, Maintenance, 09/22/21 10:53:00 AM EDT, Partial fill upon patient request if the prescription is for a schedule II opioid drug. Start Date: 09/22/21 Status: Ordered Medication Dispense Status: Completed Quantity: 30.0 Unit: tablet Total Allowed Fills: 1 Fills Dispensed: 0 aspirin 81 mg oral delayed release tablet 81 mg, 1, tablet, By Mouth, Daily, # 30 tablet, Refills 0, Maintenance, 03/18/17 8:52:32 AM EST Start Date: 03/18/17 Status: Ordered Medication Dispense Status: Completed Quantity: 30.0 Unit: tablet Total Allowed Fills: 1 Fills Dispensed: 0 atorvastatin 80 mg oral tablet 1 tablet = 80 mg, By Mouth, Daily, # 90 tablet, 3 Refills, Maintenance, Tablet, Route to Pharmacy Electronically, [id number], [facility] [id number] Start Date: 03/02/17 Status: Ordered Medication Dispense Status: Completed Quantity: 90.0 Unit: tablet Total Allowed Fills: 4 Fills Dispensed: 0 Betamethasone Valerate 0.1% Cream Topically, 2 times a day, 0 Refills, Maintenance, 09/22/21 10:55:00 AM EDT, Partial fill upon patient request if the prescription is for a schedule II opioid drug. Start Date: 09/22/21 Status: Ordered Medication Dispense Status: Completed Total Allowed Fills: 1 Fills Dispensed: 0 calcifediol 30 mcg oral capsule, extended release 1 capsule = 30 mcg, By Mouth, Daily at bedtime, # 30 capsule, 0 Refills, Maintenance, 09/22/21 10:56:00 AM EDT, ER Capsule, Partial fill upon patient request if the prescription is for a schedule II opioid drug. Start Date: 09/22/21 Status: Ordered Medication Dispense Status: Completed Quantity: 30.0 Unit: capsule Total Allowed Fills: 1 Fills Dispensed: 0 carvedilol 6.25 mg oral tablet 6.25 mg, 1, tablet, By Mouth, 2 times a day, # 60 tablet, Refills 0, Maintenance, 09/22/21 10:57:00 AM EDT, Partial fill upon patient request if the prescription is for a schedule II opioid drug. Start Date: 09/22/21 Status: Ordered Medication Dispense Status: Completed Quantity: 60.0 Unit: tablet Total Allowed Fills: 1 Fills Dispensed: 0 Entresto 24 mg-26 mg oral tablet 1 tablet, By Mouth, 2 times a day, # 60 tablet, 0 Refills, Maintenance, 09/22/21 11:01:00 AM EDT, Tablet, Partial fill upon patient request if the prescription is for a schedule II opioid drug. Start Date: 09/22/21 Status: Ordered Medication Dispense Status: Completed Quantity: 60.0 Unit: tablet Total Allowed Fills: 1 Fills Dispensed: 0 fluocinonide 0.05% topical cream 1 application, Topically, 2 times a day, # 15 Gm, 0 Refills, Maintenance, 09/22/21 10:58:00 AM EDT, Cream, Partial fill upon patient request if the prescription is for a schedule II opioid drug. Start Date: 09/22/21 Status: Ordered Medication Dispense Status: Completed Quantity: 15.0 Unit: g Total Allowed Fills: 1 Fills Dispensed: 0 fluticasone propionate 55 mcg/inh inhalation powder = 55 mcg, Inhalation, Every 12 hours, 0 Refills, Maintenance, 09/22/21 10:58:00 AM EDT, Partial fillupon patient request if the prescription is for a schedule II opioid drug. Start Date: 09/22/21 Status: Ordered Medication Dispense Status: Completed Total Allowed Fills: 1 Fills Dispensed: 0 gabapentin 400 mg oral capsule See Instructions, # 180 capsule, TAKE 1 CAPSULE BY MOUTH THREE TIMES DAILY, [id number] Start Date: 11/26/18 Status: Ordered Medication Dispense Status: Completed Quantity: 180.0 Unit: capsule Total Allowed Fills: 1 Fills Dispensed: 0 ketoconazole 2% topical shampoo 1 application, Topically, Once, # 120 mL, 0 Refills, Maintenance, 09/22/21 10:59:00 AM EDT, Shampoo,Partial fill upon patient request if the prescription is for a schedule II opioid drug. Start Date: 09/22/21 Status: Ordered Medication Dispense Status: Completed Quantity: 120.0 Unit: mL Total Allowed Fills: 1 Fills Dispensed: 0 Lasix 40 mg oral tablet 20 mg, 0.5, tablet, By Mouth, Daily, # 15 tablet, Refills 3, Tot. Refills 3, Maintenance, 08/26/16 2:59:28 PM EDT, Route to Pharmacy Electronically, [facility] [id number] Start Date: 08/26/16 Stop Date: 12/24/16 Status: Ordered Medication Dispense Status: Completed Quantity: 15.0 Unit: tablet Total Allowed Fills: 4 Fills Dispensed: 0 lisinopril 2.5 mg oral tablet 2.5 mg, 1, tablet, By Mouth, Daily, # 30 tablet, Refills 0, Maintenance, 03/13/17 5:10:04 PM EST Start Date: 03/13/17 Status: Ordered Medication Dispense Status: Completed Quantity: 30.0 Unit: tablet Total Allowed Fills: 1 Fills Dispensed: 0 pantoprazole 40 mg oral delayed release tablet 1 tablet = 40 mg, By Mouth, Daily, # 30 tablet, 0 Refills, Maintenance, 09/22/21 11:01:00 AM EDT, ECTablet Start Date: 09/22/21 Status: Ordered Medication Dispense Status: Completed Quantity: 30.0 Unit: tablet Total Allowed Fills: 1 Fills Dispensed: 0 Trelegy Ellipta 200 mcg-62.5 mcg-25 mcg/inh inhalation powder 1 puffs, Inhalation, Daily, at the same time every day, 0 Refills, Maintenance, 09/22/21 11:03:00 AMEDT, Powder, Partial fill upon patient request if the prescription is for a schedule II opioid drug. Start Date: 09/22/21 Status: Ordered Medication Dispense Status: Completed Total Allowed Fills: 1 Fills Dispensed: 0 triamcinolone 0.05% topical ointment 1 application, Topically, 2 times a day, # 430 Gm, 0 Refills, Maintenance, 09/22/21 10:51:00 AM EDT,Ointment, Partial fill upon patient request if the prescription is for a schedule II opioid drug. Start Date: 09/22/21 Status: Ordered Medication Dispense Status: Completed Quantity: 430.0 Unit: g Total Allowed Fills: 1 Fills Dispensed: 0 Problem List Condition Confirmation Course Effective Dates Status H ealth Status Informant Cholelithiasis Confirmed Active COPD (chronic obstructive pulmonary disease) Confirmed Active CAD (coronary artery disease), nonobstructive Confirmed Active Diverticulosis Confirmed Active SOB (shortness of breath) on exertion Confirmed Active Ex-cigarette smoker, 2.5 ppd X55 years, quit 06/10/2016 Confirmed Active Old Rib fractures, R4, 5, 6 Confirmed Active Ventral hernia Confirmed Active HLD (hyperlipidemia) Confirmed Active Obese class I Confirmed Active Mild Pulmonary HTN, 24-34mmHg Confirmed Active Right bundle branch block (RBBB) Confirmed Active Thoracic scoliosis Confirmed Active Systolic CHF Confirmed Active Umbilical hernia Confirmed Active Social History Social History Type Response Smoking Status Former smoker; Other : quit 06/10/16; entered on: 07/07/16 Sex Sex Representation Female (finding) Patient Care team information Care Team Personnel Name: Chari Kay RN Position: [facility] RN Member Role: Primary Care Nurse Name: Selene Flowers RN Position: [facility] RN Member Role: Primary Care Nurse Name: Fabby Jackson RN Position: [facility] Onco RN Member Role: Primary Care Nurse Name: Jordi Herrmann RN Position: [facility] RN Member Role: Primary Care Nurse Name: Hope Jaimes RN Position: [facility] RN Member Role: Primary Care Nurse Name: Marine Serrano RN Position: [facility] CALLIE Nurse Member Role: Primary Care Nurse Name: Sudeep Martin Jr, RN Position: [facility] ED RN W/OE and Tasks Member Role: Primary Care Nurse Name: Yasmine Barron Position: [facility] RN Member Role: Primary Care Nurse Name: Suri AVILA, Cece Marcial Position: Reference Physician Member Role: PCP Address: [address] [place] [address] [address] [place], [place] [id number] Telecom: Care Team Related Persons Name: BA CRUZ Name: BRETT MAHARAJ Insurance Providers Guarantor name: SALVADOR CRUZ Health Plan Information #: 1 Payer: MEDICARE B Payer Identifier: Member Number: [id number] Group Number: NA Subscriber Identifier: [id number] Relationship to Subscriber: self Coverage Type: NA Coverage Verification Date: NA Telecom: NA Address: NA Health Plan Information #: 2 Payer: I10 MEDICARE SUPPL [id number] Payer Identifier: Member Number: [id number] Group Number: [id number] Subscriber Identifier: [id number] Relationship to Subscriber: self Coverage Type: NA Coverage Verification Date: NA Telecom: NA Address:
[2024-12-11 13:18] VITALS: BP 148/67; PULSE 67; BMI 28.7
--- NOTE | 2024-12-11 13:18 | A.OFFVIS_ITS ---
Vital Signs 12/11/24 13:18 Height 5 ft 3 in Weight 162 lb 0.636 oz BMI 28.7 BP 148/67 H Blood Pressure Location Lt brachial Position Sitting Pulse 67 Intake Visit Reasons: umbilical hernia Intake Note: This patient was referred by Dr. Clark for an assessment for an umbilical hernia. Pt c/o; reports she had a back surgery in 1999' and she has had this hernia since her back surgery, reports bulge navel, reports postprandial pain, reports history of constipation. 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 Required: No Accompanied by: Self / Same As Patient Allergies meperidine (Demerol) Allergy (Unknown, Verified 12/11/24 13:34) Anaphylaxis Losartan Allergy (Intermediate, Uncoded 12/11/24 13:34) Difficulty Swallowing Medication List - Last Reconciled 12/11/24 by Renny Sanchez MD albuterol sulfate 90 mcg/actuation 2 puffs PO QID PRN albuterol sulfate 2.5 mg (3 mL) inhalation TID 30 days alprazolam 0.5 mg PO ONCE amlodipine 10 mg PO DAILY aspirin 81 mg PO DAILY atorvastatin 80 mg PO DAILY budesonide 0.5 mg (2 mL) inhalation DAILY calcifediol ER (Rayaldee) 30 mcg PO BEDTIME carvedilol 12.5 mg PO BID docusate sodium (Colace) 100 mg PO BID iaqhprzkcoa-dkipxsvwo-cqbejars 200-62.5-25 mcg (Trelegy Ellipta) 1 inh inhalation DAILY 30 days furosemide 40 mg PO BID irbesartan 150 mg PO DAILY nebulizers As directed oxycodone-acetaminophen 10-325 mg tabs PO pantoprazole 40 mg PO DAILY HPI HPI umbilical hernia: Details: [age] year old female referred for an incisional hernia. She says that she has had back surgeries via an anterior approach. She says that after she had this in 1999, she has had this mass on her umbilicus. She says that this really does not bother her although lately she feels that this has been uncomfortable once in a while She denies any GI complaints except for chronic constipation She does have multiple significant medical problems including cardiomyopathy, chronic kidney disease, atrial fibrillation, and COPD. She says she gets short of breath easily. [facility], [facility] Medical History Incisional hernia SOB (shortness of breath) Essential hypertension Hemorrhage of gastrointestinal tract, unspecified PAF (paroxysmal atrial fibrillation) Abdominal aortic aneurysm without rupture Nonischemic cardiomyopathy Atherosclerotic cardiovascular disease Benign essential hypertension Mitral regurgitation Pneumonia COPD (chronic obstructive pulmonary disease) Surgical History Status post mitral valve annuloplasty Abdominal aortic aneurysm History of open heart surgery History of appendectomy History of back surgery Family History Father Unknown family medical history Mother HTN (hypertension) Daughter Alive and well Social History Patient Tobacco Use Status: Former Tobacco user Tobacco use type: Cigarette Years Smoked: 30+ Years Review of Systems Const Denies chills and Denies fever(s) Card Denies chest pain, Reports dyspnea and Reports dyspnea on exertion Resp Denies cough, Reports dyspnea and Reports dyspnea on exertion GI Denies hematochezia, Denies change in bowel habits and Reports constipation Denies hematuria Musc Denies back pain and Denies limited range of motion Neuro Denies focal weakness and Denies convulsions Psych Denies depression and Denies mood swings Physical Exam Vital Signs: Last Vital Signs Pulse 67 12/11/24 13:18 BP 148/67 H 12/11/24 13:18 BMI result Body Mass Index 28.7 Const General: comfortable and no acute distress Orientation/consciousness: patient oriented x3 Neck Neck: Yes no lymphadenopathy Resp Auscultation: clear to auscultation bilaterally Cardio Rhythm: regular rhythm GI Other: Hernia on the area of the umbilicus extended superiorly and inferiorly, with obvious diastasis, not well-defined Palpation (GI): Soft to palpation, nontender and no guarding Neuro General: patient oriented x3 Assessment & Plan Assessment & Plan (1) Incisional hernia: Code(s): K43.2 - Incisional hernia without obstruction or gangrene Category: Medical Plan: She has this large hernia along her old incision near the area of the umbilicus. She also has what appears to be diastasis in the area. The fascial defect is not well-defined. I am going to order for a CAT scan to define these fascial defect She does have multiple medical problems and may not be a good surgical candidate in view of the concomitant risks. She says she knows she says that she would like to avoid any surgery if possible I will see her in the office after her CAT scan to review this. She is comfortable with the plan I will write her as well for Metamucil because of her chronic constipation. Orders: Orders CT abdomen pelvis wo IV con Today K43.2 - Incisional hernia without obstruction or gangrene Coding Level of Care Code New Pt Level 3 (48080) Diagnoses Incisional hernia K43.2
--- OUTSIDE RECORDS SUMMARY | 2024-12-11 15:59 | XMS_ITS | Encounter Summary ---
Author Organization [facility] Address [address] [place] [address] Phone Care Team Providers Care Vice President Client Services Name Role Phone Rickie Hargrove MD Unavailable Rickie Hargrove MD Unavailable Everett Ramirez MD Unavailable [phone] Landon Jordan DO Unavailable [phone] Daniel Reyes MD Unavailable [phone] Miguel Angel Hargrove MD Unavailable Cosme Espinoza MD Unavailable [phone] Rickie Hargrove MD Primary Care Provider [phone] Cece Mccord MD Primary Care Provider [phone] Cece Mccord MD Unavailable Encounter Details Date Type Department Care Team (Late st Contact Info) Description 02/28/2017 Ancillary Orders [facility] [address] [place] [address] Rickie Hargrove MD [address] [facility]. [address] [place] [address] [email or web address] Breast [email or web address] Social History Tobacco Use Types [...] Contact Info) Description 12/07/2022 Procedure Pass [address] [address] 01/15/2025 1:30 PM EST Office Visit [address] [address] Anoop Sims DO [address] [place] [address] 01/20/2025 2:15 PM EST Appointment [address] [address] Cece Mccord MD [address] [place] [address] 07/02/2025 12:00 PM EDT Office Visit [address] [address] Cece Mccord MD [address] [place] [address] documented as of this encounter Results * [...] unspecified documented in this encounter Care Teams Vice President Client Services Relationship Specialty Start Date End Date Rickie Hargrove MD [address] [place] [address] [address] [place] [phone] [email or web address] PCP - General 12/01/16 10/08/20 Cece Mccord MD [address] [place] [address] 7 [place] [id number] [email or web address] PCP - General Family Medicine 10/09/20 Rickie Hargrove MD [address] [place] [address] [address] [place] [id number] [email or web address] Insurance Assigned Provider 11/12/16 05/15/21 Rickie Hargrove MD [address] [place] [address] [address] [place] [id number] [email or web address] Historical LMR Provider 11/26/16 Everett Ramirez MD [address] [place] [address] [email or web address] Historical LMR Provider 11/26/16 Landon Jordan DO [address] [place] [address] Orthopedics & Sports Medicine, [facility] [place] [address] [email or web address] Historical LMR Provider 11/26/16 02/13/21 Daniel Reyes MD [address] [place] [address] [email or web address] Historical LMR Provider 11/26/16 02/13/21 Miguel Angel Hargrove MD [address] [place] [address] 7 [place] [phone] [email or web address] Historical LMR Provider 11/26/16 02/13/21 Cosme Espinoza MD [address] [place] [address] 7 [place] [address] [email or web address] Historical LMR Provider 11/26/16 02/13/21 Cece Mccord MD [address] [place] [address] 7 [place] [address] [email or web address] Insurance Assigned Provider 05/13/23 documented as of this encounter Additional Source Comments The information contained in this document represents components of the legal health record. It is not the complete legal health record.[facility]
--- OUTSIDE RECORDS SUMMARY | 2024-12-11 15:59 | XMS_ITS | Encounter Summary ---
Author Organization [facility] Address [address] [facility] [address] [place] [address] Phone Care Team Providers Care Icu Registered Nurse Name Role Phone Rickie Hargrove MD Unavailable [phone] Everett Ramirez MD Unavailable [phone] Cece Mccord MD Primary Care Provider Cece Mccord MD Unavailable [phone] Reason for Visit * Reason Comments Medication Refill Encounter Details Date Type Department Care Team (Late st Contact Info) Description 11/28/2024 Refill [facility] [address] [place] [address] Cece Mccord MD [address] [facility] [address] [place] [address] [email or web address] Medication Refill Social [...] as of this encounter Progress Notes * Eliana Cardona CNP - 11/29/2024 4:10 PM EDT Pt does not need Eliana Cardona CNP Virtual Clinic Support 11/29/24 4:10 PM * Cayla Shore RN - 11/29/2024 4:04 PM EDT Patient does not need this now. Please remove the prescription so I can done the encounter * Rama Ryan MA - 11/29/2024 9:33 AM EDT IMPORTANT - At least one Rx [...] Cece Mccord MD - Family Medicine [facility] > Requested f/u: Return in about 3 months (around 01/08/2025) for with Dr Sims for check in. Upcoming visit: 01/15/2025 Anoop Sims DO - Family Medicine [facility] ACTIONS TAKEN BY Rama Ryan MA - Criteria met. Rx(s) without protocol Renewal is at prescriber discretion. - ofloxacin Rx mismatch - Original(s) may be discontinued, , or changed to a different strength or form. documented in this encounter Plan of Treatment Upcoming Encounters Date Type Department Care Team (Late st Contact Info) Description 12/07/2022 Procedure Pass [address] [address] 01/15/2025 1:30 PM EST Office Visit [address] [address] Anoop Sims DO [address] [place] [address] 01/20/2025 2:15 PM EST Appointment [address] [address] Cece Mccord MD [address] [place] [address] 07/02/2025 12:00 PM EDT Office Visit [address] [address] Cece Mccord MD [address] [place] [address] documented as of this encounter Visit Diagnoses Diagnosis Other noninfectious chronic otitis externa of right ear documented in this encounter Additional Health Concerns Assessment Noted Time PHQ-9 Depression Total Score: 11 024 11:20 AM EDT PHQ-2 Depression Total Score: 4 11/27/19 24 11:20 AM EDT documented as of this encounter Care Teams Icu Registered Nurse Relationship Specialty Start Date End Date Cece Mccord MD [address] [place] [address] [email or web address] PCP - General Family Medicine 10/09/20 Rickie Hargrove MD [address] [place] [address] [address] [place] [address] [email or web address] Historical LMR Provider 11/26/16 Everett Ramirez MD [address] [place] [address] [email or web address] Historical LMR Provider 11/26/16 Cece Mccord MD [address] [place] [address], [address] [place] [address] [email or web address] Insurance Assigned Provider 05/13/23 documented as of this encounter Additional Source Comments The information contained in this document represents components of the legal health record. It is not the complete legal health record.[facility]
--- OUTSIDE RECORDS SUMMARY | 2024-12-11 15:59 | XMS_ITS | Encounter Summary ---
Author Organization [facility] Address [address] [place] [address] [place] [address] Phone Care Team Providers Care Systems Technician Name Role Phone Rickie Hargrove MD Unavailable Rickie Hargrove MD Unavailable Everett Ramirez MD Unavailable [phone] Landon Jordan DO Unavailable Daniel Reyes MD Unavailable [phone] Miguel Angel Hargrove MD Unavailable Cosme Espinoza MD Unavailable Rickie Hargrove MD Primary Care Provider [phone] Cece Mccord MD Primary Care Provider [phone] Cece Mccord MD Unavailable [phone] Encounter Details Date Type Department Care Team (Late st Contact Info) Description 03/22/2017 Ancillary Orders [facility] [address] [facility]nd [address], [address] [place], [place] [phone] Shiva Stevens MD, PhD [address] [facility] [address] [place] [address] [email or web address] Peripheral vascular disease Social History Tobacco [...] Contact Info) Description 12/07/2022 Procedure Pass [address] [address] 01/15/2025 1:30 PM EST Office Visit [address] [address] Anoop Sims DO [address] [place] [address] [email or web address] 01/20/2025 2:15 PM EST Appointment [address] [address] Cece Mccord MD [address] [place] [address] [email or web address] 07/02/2025 12:00 PM EDT Office Visit [address] [address] Cece Mccord MD [address] [place] [address] [email or web address] documented as of this encounter Visit Diagnoses Diagnosis Peripheral vascular disease Unspecified peripheral vascular disease documented in this encounter Care Teams Systems Technician Relationship Specialty Start Date End Date Rickie Hargrove MD [address] [place], [place] [address] [place] [address] [email or web address] PCP - General 10/26/17 9/2/21 Cece Mccord MD [address] [place] [address] [address] [place] [phone] [email or web address] PCP - General Family Medicine 10/09/20 Rickie Hargrove MD [address] [place] [address] [address] [place] [phone] [email or web address] Insurance Assigned Provider 11/12/16 05/15/21 Rickie Hargrove MD [address] [place] [address] [address] [place] [phone] [email or web address] Historical LMR Provider 11/26/16 Everett Ramirez MD [address] [place] [address] [email or web address] Historical LMR Provider 11/26/16 Landon Jordan DO [address] [place] [address] Orthopedics & Sports Medicine, [place] [address] [email or web address] Historical LMR Provider 11/26/16 02/13/21 Daniel Reyes MD [address] [place] [phone] [email or web address] Historical LMR Provider 11/26/16 02/13/21 Miguel Angel Hargrove MD [address] [place] [address] [address] [place] [address] [email or web address] Historical LMR Provider 11/26/16 02/13/21 Cosme Espinoza MD [address] [place] [address] 7 [place] [address] [email or web address] Historical LMR Provider 11/26/16 02/13/21 Cece Mccord MD [address] [place] [address] 7 [place] [address] [email or web address] Insurance Assigned Provider 05/13/23 documented as of this encounter Additional Source Comments The information contained in this document represents components of the legal health record. It is not the complete legal health record.[facility]
--- OUTSIDE RECORDS SUMMARY | 2024-12-11 15:59 | XMS_ITS | Clinical Summary ---
Author Organization [facility] Address [address] [facility] [address] [place] [address] Phone Care Team Providers Care Rrt Name Role Phone Rickie Hargrove MD Unavailable Everett Ramirez MD Unavailable [phone] Cece Mccord MD Primary Care Provider [phone] Cece Mccord MD Unavailable Allergies Active Allergy [...] pain (specific location in comments). 168 tablet 11/27/19 25 025 Active oxyCODONE-acetamin ophen (PERCOCET) 10-325 mg per tabletIndications: Other chronic pain Take 1 tablet by mouth every 4 (four) hours as needed for pain (specific location in comments). 168 tablet 10/30/19 25 025 Discontin ued(Reord er) Active Problems Patient Care Coordination No te Formatting of this note migh t be different from the original. [employer] Division Manager: [facility], Dr Lucien Clark, last seen 01/14/21 [...] major depressive d isorder 12/15/2021 Atherosclerosis of [place] co ronary artery of [place] heart without angina pectoris 02/22/2021 Overview (09/14/2021): (Dr Clark) cath showed mild CAD, ASA and statin only. Lipids via us. Cath to be repeated 09/[address] Clark's office. Assessment & Plan (03/21/2022 8:40 PM EST): Reviewed her moisture machine tender note, her last heart cath was pretty [...] stress testing but will defer to her moisture machine tender to arrange. Assessment & Plan (08/20/2019 2:04 PM EDT): Unclear if subacute worsening dyspnea due to COPD versus alternative. Recommendations: Obtain routine labs Obtain chest x-ray Patient prefers testing done at [facility] since moved to [place] 2 years ago Empiric trial of prednisone 40 mg daily for 5 days, extend to 10 days if slow improvement. Will request results for upcoming echocardiogram on 09/05 at [facility] Pending above findings, consider additional testing, including but not limited to CT imaging of the chest Umbilical hernia 11/28/2018 Assessment & Plan (10/09/2024 8:31 PM EDT): To [facility] [place] for hernia evaluation Orders: Ambulatory [...] disease 03/06/2018 Overview (03/22/2022): Last Cr at [facility] [place] 1.53 w/ GFR 33 (03/2022) Assessment & Plan (03/21/2022 8:37 PM EST): She has just had labs done at her moisture machine tender at [facility]. Will ask team to get labs [...] disease 12/22/2016 Overview (06/14/2022): Followed now at [facility] (previously: [facility]) -- stopped trelegy, started budesonide via nebulizer, [...] impact. Continues to be well managed by biomedical analytical scientist. Assessment & Plan (04/01/2020 1:48 PM EST): [...] more than twice daily. Recommend trial of ccxt-rex-zzixoto guaifenesin 400 mg tablets up to 3 [...] home and has reviewed this with her moisture machine tender. 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 Hyperlipidemia 12/22/2016 Panlobular emphysema 12/22/2016 Assessment & Plan (03/21/2022 8:37 PM EST): Reviewed her biomedical analytical scientist note and her medications. He has recommended pulmonary rehab, which she has not done as of yet. Pulmonary nodules 12/22/2016 Assessment & Plan (08/20/2019 2:02 PM EDT): History of prior pulmonary nodules, last available imaging 2014 with granulomas. Will arrange for earlier follow-up with CHEF TEACHER Kimberlee Gage to additionally discuss lung cancer screening. Assessment & Plan (05/17/2019 11:46 AM EDT): Difficult to assess at this time. Discuss repeat testing versus lung cancer screening at follow-up visit. Assessment & Plan (12/21/2017 3:37 PM EST): Request CT imaging from [facility]. At follow-up in 6 months, consider [...] get a flu shot today. This was [id number]. Cyst of skin 10/15/2019 03/21/2022 Assessment & [...] Encounters Date Type Department Care Team Description 11/28/2024 Refill Andino Letart [address] [address] Cece Mccord MD Medication Refill 11/21/[address] [address] Rama Ryan MA Medication Refill 11/05/[address] [address] Cece Mccord MD Medication Refill 10/24/[address] [address] Rama Ryan MA Medication Refill 10/15/[address] [address] Cece Mccord MD Appointment 10/11/[address] [address] Rossi De Santiago Call back 10/11/[address] [address] Rossi De Santiago Medication Problem 10/09/2024 3:30 PM EDT Office Visit [address] [address] Cece Mccord MD Umbilical hernia without obstruction and without gangrene (Primary Dx); Pulmonary emphysema, unspecified emphysema type; Other noninfectious chronic otitis externa of right ear; Chronic kidney disease, stage 3a; MDD (major depressive disorder), recurrent episode, moderate; Chronic systolic HF (heart failure); PAF (paroxysmal atrial fibrillation); Chronic pain syndrome 10/02/[address] [address] Lucero Mcgee PA-C Medication Refill 09/26/[address] [address] Rama Ryan MA Medication Refill 09/23/2024 Refill [facility] [address] [place] [address] Obdulia Lima MA Medication Refill from Last [...] st Contact Info) Description 12/07/2022 Procedure Pass [address] [address] 01/15/2025 1:30 PM EST Office Visit [facility] [address] [place] [address] Anoop Sims DO [address] [place] [address] 01/20/2025 2:15 PM EST Appointment [address] [address] Cece Mccord MD [address] [facility], [address] [place] [address] 07/02/2025 12:00 PM EDT Office Visit [facility] [address] [facility] [place] [address] Cece Mccord MD [address] [facility], [address] [place] [address] [email or web address] Health Maintenance Due Date Last Done Comments Adult Td,Tdap Booster 12/12/2021 12/13/2011 LIPID PANEL 12/08/2023 12/07/2022, 02/2022, 06/03/2021, Additional history exists POTASSIUM LEVEL 12/08/2023 12/07/2022, 03/2021, 06/03/2021, Additional history exists INFLUENZA VACCINE (#1) 2024 , 12/07/2022, 12/07/2022, [...] systolic congestive heart failure COMPREHENSIVE METABOLIC PANEL (CMP) Routine 12/07/2022 2:25 PM EDT Chronic systolic congestive heart failure HEPATITIS C ANTIBODY, QUALITATIVE Routine 08/29/2018 1:49 PM EDT Screening for condition OUTSIDE BONE DENSITY SCREENING Routine 02/27/2015 from Last 3 Months or Most Recently Relevant to Health Maintenance Results * (ABNORMAL) Comprehensive metabolic panel (12/07/2022 2:25 PM EDT) SODIUM 139 133 - 146 mmol/L [facility] POTASSIUM 4.8 3.3 - 5.1 mmol/L [facility] CHLORIDE 100 96 - 108 mmol/L [facility] CO2 27 21 - 35 mmol/L [facility] BUN 20(H) 6 - 19 mg/dL [facility] CREATININE 1.60(H) 0.5 - 1.5 mg/dL [facility] GLUCOSE 110(H) 70 - 99 mg/dL [facility] ALBUMIN 4.5 3.9 - 4.8 g/dL [facility] TOTAL PROTEIN 7.4 6.5 - 8.0 g/dL [facility] CALCIUM 10.2 8.4 - 10.3 mg/dL [facility] ALKALINE PHOSPHATASE 119(H) 39 - 117 U/L [facility] TOTAL BILIRUBIN 0.6 0.0 - 1.2 mg/dL [facility] AST 43(H) 0 - 37 U/L [facility] ALT 18 0 - 40 U/L [facility] GLOBULIN 2.9 1 - 4.8 g/dL [facility] EGFR 34(L) >59 mL/min/1.7 3m2 [facility] Comment:Estimated glomerular filtration rate calculated using the CKD-EPI refit equation. ANION GAP 17 10 - 20 mmol/L [facility] Blood 12/07/2022 2:25 PM EDT 12/07/2022 2:27 PM EDT Cece Mccord MD LAB BLOOD BKR ORDERABLES Final Result [address] [address] * (ABNORMAL) Lipid panel (12/07/2022 2:25 PM EDT) HDL 26 mg/dL [facility] Comment: Interpretation <40 mg/dL: Low HDL cholesterol (major risk factor for CHD) Greater than or equal to 60 mg/dL: High HDL cholesterol ( negative risk factor for CHD) HDL - cholesterol is affected by a number of factors, e.g. smoking, excerise, hormones, sex and age. CHOLESTEROL 137 0 - 240 mg/dL [facility] TRIGLYCERIDES 401(H) 30 - 160 mg/dL [facility] LDL NOT CALCULATED 50 - 129 mg/dL [facility] Comment: Unable to calculate due to elevated TRIG of greater than 400. A measured LDL will be performed. CARDIAC RISK RATIO 5.3(H) 3.3 - 4.4 [facility] Blood 12/07/2022 2:25 PM EDT 12/07/2022 2:27 PM EDT us Cece Mccord MD LAB BLOOD BKR ORDERABLES Final Result Performing Organization Address [facility]/ZIP Co de Phone Number [address] [address] * Hepatitis C antibody, qualitative (08/29/2018 1:49 PM EDT) HCV NON-REACTIV E NON-REACTI VE [facility] Blood 08/29/2018 1:49 PM EDT 08/29/2018 1:53 PM EDT Rickie Hargrove MD LAB BLOOD BKR ORDERABLES Final Result Performing Organization Address City/[facility]/ZIP Co de Phone Number [address] [address] * OUTSIDE BONE DENSITY SCREENING (02/27/2015) [facility] BONE DENSITY SCREENING - EXTERNAL .. Historical Provider MD HEALTH MAINTENANCE Final Result from Last 3 Months or Most Recently Relevant to Health Maintenance Insurance MEDICARE PART A & B [employer] MEDICARE SUPPLEMENT MEDICARE PART A & B [facility] MEDICARE SUPPLEMENT MEDICARE PART A & B [facility] MEDICARE SUPPLEMENT MEDICARE PART A & B Member Subscriber Plan / Payer ( fective 1994-Present) Name:Pari Avery Member ID:[id number] Relation to Subscriber:Self Name:Pari Avery Subscriber ID:[id number] Payer ID:[id number] Group ID:Not on file Type:Medicare Address: [employer] [address] [place] [id number] [facility] MEDICARE SUPPLEMENT MEDICARE PART A & B [facility] MEDICARE SUPPLEMENT MEDICARE PART A & B [facility] MEDICARE SUPPLEMENT MEDICARE PART A & B [facility] MEDICARE SUPPLEMENT MEDICARE PART A & B MEDICARE SUPPLEMENT MEDICARE PART A & B [employer] MEDICARE SUPPLEMENT Member Subscriber Plan / Payer (Ef fective 2014-Present) Name:Pari Avery Relation to Subscriber:Self Name:Pari Avery Payer ID:[id number] (NAIC) Type:PPO Address: [place] [id number] [place] [address] [employer]IS Care Teams Rrt Relationship Specialty Start Date End Date Cece Mccord MD [address] [place] [address] 7 [place] [address] [email or web address] PCP - General Family Medicine 10/09/20 Rickie Hargrove MD [address] [place], [place] [address] [place] [address] [email or web address] Historical LMR Provider 11/26/16 Everett Ramirez MD [address] [place] [address] [email or web address] Historical LMR Provider 11/26/16 Cece Mccord MD [address] [place] [address] 7 [place] [address] [email or web address] Insurance Assigned Provider 05/13/23 Additional Source Comments The information contained in this document represents components of the legal health record. It is not the complete legal health record.[facility]
--- OUTSIDE RECORDS SUMMARY | 2024-12-11 15:59 | XMS_ITS | Encounter Summary ---
Author Organization [facility] Address [address] [place] [address] Phone Care Team Providers Care Dethistler Operator Name Role Phone Rickie Hargrove MD Unavailable Rickie Hargrove MD Unavailable Everett Ramirez MD Unavailable [phone] Landon Jordan DO Unavailable [phone] Daniel Reyes MD Unavailable [phone] Miguel Angel Hargrove MD Unavailable [phone] Cosme Espinoza MD Unavailable [phone] Rickie Hargrove MD Primary Care Provider [phone] Cece Mccord MD Primary Care Provider [phone] Cece Mccord MD Unavailable Encounter Details Date Type Department Care Team (Late st Contact Info) Description 04/27/2020 Procedure Pass [facility], Ct Scan - [facility] [address] [place] [address] Social History Tobacco Use Types Packs/Day Years [...] Contact Info) Description 12/07/2022 Procedure Pass [address] [address] 01/15/2025 1:30 PM EST Office Visit [address] [address] Anoop Sims DO [address] [place] [address] [email or web address] 01/20/2025 2:15 PM EST Appointment [address] [address] Cece Mccord MD [address] [place] [address] [email or web address] 07/02/2025 12:00 PM EDT Office Visit [address] [address] Cece Mccord MD [address] [place] [address] [email or web address] documented as of this encounter Visit Diagnoses Not on filedocumented in this encounter Additional Health Concerns Assessment Noted Time PHQ-2 Depression Total Score: 0 08/30/19 19 1:25 PM EDT documented as of this encounter Care Teams Dethistler Operator Relationship Specialty Start Date End Date Rickie Hargrove MD [address] [place], [place] [address] [place] [address] [email or web address] PCP - General 12/01/16 10/08/20 Cece Mccord MD [address] [place] [address], [address] [place] [address] [email or web address] PCP - General Family Medicine 10/09/20 Rickie Hargrove MD [address] [place] [address] [address] [place] [phone] [email or web address] Insurance Assigned Provider 11/12/16 05/15/21 Rickie Hargrove MD [address] [place] [address] [address] [place] [phone] [email or web address] Historical LMR Provider 11/26/16 Everett Ramirez MD [address] [place] [address] [email or web address] Historical LMR Provider 11/26/16 Landon Jordan DO [address] [place] [address] [facility], [place] [address] [email or web address] Historical LMR Provider 11/26/16 02/13/21 Daniel Reyes MD [address] [place] [address] [email or web address] Historical LMR Provider 11/26/16 02/13/21 Miguel Angel Hargrove MD [address] [place] [address] [address] [place] [phone] [email or web address] Historical LMR Provider 11/26/16 02/13/21 Cosme Espinoza MD [address] [place] [address], [facility] 7 [place] [address] [email or web address] Historical LMR Provider 11/26/16 02/13/21 Cece Mccord MD [address] [place] [address], [facility] 7 [place] [address] [email or web address] Insurance Assigned Provider 05/13/23 documented as of this encounter Additional Source Comments The information contained in this document represents components of the legal health record. It is not the complete legal health record.[facility]
--- OUTSIDE RECORDS SUMMARY | 2024-12-11 15:59 | XMS_ITS | Encounter Summary ---
Author Organization [facility] Address [address] [place], [place] [id number] Phone Care Team Providers Care Slip Seat Coverer Name Role Phone Rickie Hargrove MD Unavailable Rickie Hargrove MD Unavailable Everett Ramirez MD Unavailable [phone] Landon Jordan DO Unavailable Daniel Reyes MD Unavailable Miguel Angel Hargrove MD Unavailable [phone] Cosme Espinoza MD Unavailable Rickie Hargrove MD Primary Care Provider [phone] Cece Mccord MD Primary Care Provider [phone] Cece Mccord MD Unavailable Encounter Details Date Type Department Care Team (Late st Contact Info) Description 01/24/2020 Procedure Pass [facility], [facility] [address] [place] [address] Social History Tobacco Use Types Packs/Day Years [...] Contact Info) Description 12/07/2022 Procedure Pass [address] [address] 01/15/2025 1:30 PM EST Office Visit [address] [address] Anoop Sims DO [address] [place] [address] [email or web address] 01/20/2025 2:15 PM EST Appointment [address] [address] Cece Mccord MD [address] [place] [address] [email or web address] 07/02/2025 12:00 PM EDT Office Visit [address] [address] Cece Mccord MD [address] [place] [address] [email or web address] documented as of this encounter Visit Diagnoses Not on filedocumented in this encounter Additional Health Concerns Assessment Noted Time PHQ-2 Depression Total Score: 0 08/30/19 19 1:25 PM EDT documented as of this encounter Care Teams Slip Seat Coverer Relationship Specialty Start Date End Date Rickie Hargrove MD [address] [place], [place] [address] [place] [address] [email or web address] PCP - General 12/01/16 10/08/20 Cece Mccord MD [address] [place] [address], [address] [place] [address] [email or web address] PCP - General Family Medicine 10/09/20 Rickie Hargrove MD [address] [place] [address] [address] [place] [phone] [email or web address] Insurance Assigned Provider 11/12/16 05/15/21 Rickie Hargrove MD [address] [place] [address] [address] [place] [phone] [email or web address] Historical LMR Provider 11/26/16 Everett Ramirez MD [address] [place] [address] [email or web address] Historical LMR Provider 11/26/16 Landon Jordan DO [address] [place] [address] [facility], [place] [address] [email or web address] Historical LMR Provider 11/26/16 02/13/21 Daniel Reyes MD [address] [place] [address] [email or web address] Historical LMR Provider 11/26/16 02/13/21 Miguel Angel Hargrove MD [address] [place] [address] [address] [place] [phone] [email or web address] Historical LMR Provider 11/26/16 02/13/21 Cosme Espinoza MD [address] [place] [address], [address] [place] [address] [email or web address] Historical LMR Provider 11/26/16 02/13/21 Cece Mccord MD [address] [place] [address], [facility] 7 [place] [address] [email or web address] Insurance Assigned Provider 05/13/23 documented as of this encounter Additional Source Comments The information contained in this document represents components of the legal health record. It is not the complete legal health record.[facility]
--- OUTSIDE RECORDS SUMMARY | 2024-12-11 15:59 | XMS_ITS | Encounter Summary ---
Author Organization [facility] Address [address] [place], [place] [address] Phone Care Team Providers Care Cooker Chip Name Role Phone Rickie Hargrove MD Unavailable Rickie Hargrove MD Unavailable Everett Ramirez MD Unavailable [phone] Landon Jordan DO Unavailable Daniel Reyes MD Unavailable [phone] Miguel Angel Hargrove MD Unavailable Cosme Espinoza MD Unavailable Rickie Hargrove MD Primary Care Provider [phone] Cece Mccord MD Primary Care Provider [phone] Cece Mccord MD Unavailable Encounter Details Date Type Department Care Team (Late st Contact Info) Description 09/18/2017 Transcribe Orders [facility] [address] [place] [address] Everett Ramirez MD [address] [phone] [email or web address] Social History Tobacco Use Types Packs/Day Years [...] Contact Info) Description 12/07/2022 Procedure Pass [address] [address] 01/15/2025 1:30 PM EST Office Visit [address] [address] Anoop Sims DO [address] [place] [address] [email or web address] 01/20/2025 2:15 PM EST Appointment [address] [address] Cece Mccord MD [address] [place] [address] [email or web address] 07/02/2025 12:00 PM EDT Office Visit [address] [address] Cece Mccord MD [address] [place] [address] [email or web address] documented as of this encounter Visit Diagnoses Not on filedocumented in this encounter Care Teams Cooker Chip Relationship Specialty Start Date End Date Rickie Hargrove MD [address] [place] [phone] [email or web address] PCP - General 12/01/16 10/08/20 Cece Mccord MD [address] [place] [address] [address] [place] [address] [email or web address] PCP - General Family Medicine 10/09/20 Rickie Hargrove MD [address] [place] [address] [address] [place] [phone] [email or web address] Insurance Assigned Provider 11/12/16 05/15/21 Rickie Hargrove MD [address] [place] [address] [address] [place] [phone] [email or web address] Historical LMR Provider 11/26/16 Everett Ramirez MD [address] [place] [address] [email or web address] Historical LMR Provider 11/26/16 Landon Jordan DO [address] [place] [address] [facility], [place] [address] [email or web address] Historical LMR Provider 11/26/16 02/13/21 Daniel Reyes MD [address] [place] [address] [email or web address] Historical LMR Provider 11/26/16 02/13/21 Miguel Angel Hargrove MD [address] [place] [address] 7 [place] [phone] [email or web address] Historical LMR Provider 11/26/16 02/13/21 Cosme Espinoza MD [address] [place] [address], [address] [place] [address] [email or web address] Historical LMR Provider 11/26/16 02/13/21 Cece Mccord MD [address] [place] [address], [facility] [address] [place] [address] [email or web address] Insurance Assigned Provider 05/13/23 documented as of this encounter Additional Source Comments The information contained in this document represents components of the legal health record. It is not the complete legal health record.[facility]
--- OUTSIDE RECORDS SUMMARY | 2024-12-11 15:59 | XMS_ITS | Encounter Summary ---
Author Organization [facility] Address [address] [place] [address] Phone Care Team Providers Care Chief Operating Engineer Name Role Phone Rickie Hargrove MD Unavailable [phone] Rickie Hargrove MD Unavailable [phone] Everett Ramirez MD Unavailable [phone] Landon Jordan DO Unavailable Daniel Reyes MD Unavailable [phone] Miguel Angel Hargrove MD Unavailable Cosme Espinoza MD Unavailable Rickie Hargrove MD Primary Care Provider [phone] Cece Mccord MD Primary Care Provider [phone] Cece Mccord MD Unavailable Reason for Referral * MRI/CAT Scan - Closed Specialty Diagnoses / Procedures Referred By Contac t Referred To Contact Procedures CT Chest Outside (No Interpretation) System, Provider Not In, PhD [address] [address] Referral ID Status Reason Start Date Expiration Date Visits Re quested Visits Authorized [id number] Closed 12/21/2017 12/21/2018 1 1 Encounter Details Date Type Department Care Team (Late st Contact Info) Description 12/21/2017 Ancillary Orders [facility],Outside Imaging [address] [place] [address] System, Provider Not In, [place] [address] Social History Tobacco Use Types Packs/Day Years [...] st Contact Info) Description 12/07/2022 Procedure Pass [address] [address] 01/15/2025 1:30 PM EST Office Visit [address] [address] Anoop Sims DO [address] [place] [address] 01/20/2025 2:15 PM EST Appointment [address] [address] Cece Mccord MD [address] [place] [address] 07/02/2025 12:00 PM EDT Office Visit [address] [address] Cece Mccord MD [address] [place] [address] documented as of this encounter Results * CT Chest Outside (No Interpretation) (03/18/2017 12:00 AM EST) Narrative SYSTEMGENERATED, DOCUMENTATION - 12/21/2017 4:02 PM EST This study is for PACS storage only and not for interpretation. us Provider Not In System PhD IMG OUTSIDE IMAGING W /OUT INTERPRETATION Final Result documented in this encounter Visit Diagnoses Not on filedocumented in this encounter Care Teams Chief Operating Engineer Relationship Specialty Start Date End Date Rickie Hargrove MD [address] [place] [address] [address] [place] [phone] [email or web address] PCP - General 12/01/16 10/08/20 Cece Mccord MD [address] [place] [address] [address] [place] [address] [email or web address] PCP - General Family Medicine 10/09/20 Rickie Hargrove MD [address] [place] [address] [address] [place] [phone] [email or web address] Insurance Assigned Provider 11/12/16 05/15/21 Rickie Hargrove MD [address] [place] [address] [address] [place] [phone] [email or web address] Historical LMR Provider 11/26/16 Everett Ramirez MD [address] [place] [address] [email or web address] Historical LMR Provider 11/26/16 Landon Jordan DO [address] [place] [address] Orthopedics & Sports Medicine, [facility] [place], [place] [id number] Historical LMR Provider 11/26/16 02/13/21 Daniel Reyes MD [address] [place] [address], [address] [place] [address] Historical LMR Provider 11/26/16 02/13/21 Miguel Angel Hargrove MD [address] [place] [address] 7 [place] [address] [email or web address] Historical LMR Provider 11/26/16 02/13/21 Cosme Espinoza MD [address] [place] [address] 7 [place] [address] Historical LMR Provider 11/26/16 02/13/21 Cece Mccord MD [address] [place] [address] 7 [place] [address] [email or web address] Insurance Assigned Provider 05/13/23 documented as of this encounter Additional Source Comments The information contained in this document represents components of the legal health record. It is not the complete legal health record.[facility]
--- OUTSIDE RECORDS SUMMARY | 2024-12-11 15:59 | XMS_ITS | Encounter Summary ---
Author Organization [facility] Address [address] [place] [address] Phone Care Team Providers Care Halal Butcher Name Role Phone Rickie Hargrove MD Unavailable Rickie Hargrove MD Unavailable [phone] Everett Ramirez MD Unavailable [phone] Landon Jordan DO Unavailable Daniel Reyes MD Unavailable Miguel Angel Hargrove MD Unavailable [phone] Cosme Espinoza MD Unavailable [phone] Rickie Hargrove MD Primary Care Provider [phone] Cece Mccord MD Primary Care Provider [phone] Cece Mccord MD Unavailable Encounter Details Date Type Department Care Team (Late st Contact Info) Description 03/06/2020 Ancillary Orders [facility] Medicine [address] [place] [address] Rickie Hargrove MD 234 [facility]. [address] [place] [address] [email or web address] Abnormal mammogram Social History Tobacco [...] st Contact Info) Description 12/07/2022 Procedure Pass [address] [address] 01/15/2025 1:30 PM EST Office Visit [address] [address] Anoop Sims DO [address] [place] [address] 01/20/2025 2:15 PM EST Appointment [address] [address] Cece Mccord MD [address] [place] [address] 07/02/2025 12:00 PM EDT Office Visit [address] [address] Cece Mccord MD [address] [place] [address] documented as of this encounter Results * BI MAMMOGRAM DIAGNOSTIC WITH TOMOSYNTHESIS NO CAD (RIGHT) (03/27/2020 1:19 PM EST) Anatomical Region Laterality Modality Breast Right, Breast Bilateral Right M ammography 03/27/2020 1:3 5 PM EST Impressions 03/27/2020 1:39 PM EST [...] documented as of this encounter Care Teams Halal Butcher Relationship Specialty Start Date End Date Rickie Hargrove MD [address] [place] [address] [address] [place] [phone] [email or web address] PCP - General 12/01/16 10/08/20 Cece Mccord MD [address] [place] [address], [address] [place] [address] [email or web address] PCP - General Family Medicine 10/09/20 Rickie Hargrove MD [address] [facility] [address] [place] [phone] [email or web address] Insurance Assigned Provider 11/12/16 05/15/21 Rickie Hargrove MD [address] [place] [address] [address] [place] [phone] [email or web address] Historical LMR Provider 11/26/16 Everett Ramirez MD [address] [place] [address] [email or web address] Historical LMR Provider 11/26/16 Landon Jordan DO [address] [place] [address] Orthopedics & Sports Medicine, [place] [address] [email or web address] Historical LMR Provider 11/26/16 02/13/21 Daniel Reyes MD [address] [place] [address] [email or web address] Historical LMR Provider 11/26/16 02/13/21 Miguel Angel Hargrove MD [address] [place] [address] 7 [place] [phone] [email or web address] Historical LMR Provider 11/26/16 02/13/21 Cosme Espinoza MD [address] [place] [address] 7 [place] [address] Historical LMR Provider 11/26/16 02/13/21 Cece Mccord MD 234 [facility] 7 [place] [address] [email or web address] Insurance Assigned Provider 05/13/23 documented as of this encounter Additional Source Comments The information contained in this document represents components of the legal health record. It is not the complete legal health record.[facility]
--- OUTSIDE RECORDS SUMMARY | 2024-12-11 15:59 | XMS_ITS | Encounter Summary ---
Author Organization [facility] Address [address] [place] [address] [place] [address] Phone Care Team Providers Care Cephalometric Tracer Name Role Phone Rickie Hargrove MD Unavailable Rickie Hargrove MD Unavailable [phone] Everett Ramirez MD Unavailable [phone] Landon Jordan DO Unavailable Daniel Reyes MD Unavailable [phone] Miguel Angel Hargrove MD Unavailable Cosme Espinoza MD Unavailable [phone] Rickie Hargrove MD Primary Care Provider [phone] Cece Mccord MD Primary Care Provider [phone] Cece Mccord MD Unavailable Encounter Details Date Type Department Care Team (Late st Contact Info) Description 03/22/2017 Procedure Pass [facility], Sa[address] [facility], 2nd Floor, [address] [place] [address] Social History Tobacco Use Types Packs/Day Years [...] st Contact Info) Description 12/07/2022 Procedure Pass [address] [address] 01/15/2025 1:30 PM EST Office Visit [address] [address] Anoop Sims DO 234 [place] [address] [email or web address] 01/20/2025 2:15 PM EST Appointment [address] [address] Cece Mccord MD [address] [place] [address] 7 [place] [address] [email or web address] 07/02/2025 12:00 PM EDT Office Visit [address] [address] Cece Mccord MD [address] [place] [address] [email or web address] documented as of this encounter Visit Diagnoses Not on filedocumented in this encounter Care Teams Cephalometric Tracer Relationship Specialty Start Date End Date Rickie Hargrove MD [address] [place] [address] [address] [place] [address] [email or web address] PCP - General 12/01/16 10/08/20 Cece Mccord MD [address] [place] [address] 7 [place] [address] [email or web address] PCP - General Family Medicine 10/09/20 Rickie Hargrove MD [address] [facility] [address] [place] [phone] [email or web address] Insurance Assigned Provider 11/12/16 05/15/21 Rickie Hargrove MD [address] [place] [address] [address] [place] [phone] [email or web address] Historical LMR Provider 11/26/16 Everett Ramirez MD [address] [place] [address] [email or web address] Historical LMR Provider 11/26/16 Landon Jordan DO [address] [place] [address] Orthopedics & [place], [place] [address] [email or web address] Historical LMR Provider 11/26/16 02/13/21 Daniel Reyes MD [address] [place] [address] [email or web address] Historical LMR Provider 11/26/16 02/13/21 Miguel Angel Hargrove MD [address] [place] [address] 7 [place] [phone] [email or web address] Historical LMR Provider 11/26/16 02/13/21 Cosme Espinoza MD [address] [place] [address] [address] [place] [phone] [email or web address] Historical LMR Provider 11/26/16 02/13/21 Cece Mccord MD [address] [place] [address], [address] [place] [address] [email or web address] Insurance Assigned Provider 05/13/23 documented as of this encounter Additional Source Comments The information contained in this document represents components of the legal health record. It is not the complete legal health record.[facility]
--- OUTSIDE RECORDS SUMMARY | 2024-12-11 16:00 | XMS_ITS | Encounter Summary ---
Author Organization [facility] Address [address] [employer] [facility] [address] [place] [address] Phone Care Team Providers Care Leach Cell Operator Name Role Phone Rickie Hargrove MD Unavailable Everett Ramirez MD Unavailable [phone] Cece Mccord MD Primary Care Provider [phone] Cece Mccord MD Unavailable [phone] Encounter Details Date Type Department Care Team (Late st Contact Info) Description 04/25/2023 Telephone [facility] [address] [place] [address] Cece Mccord MD 234 [facility] [address] [place], [place] [phone] [email or web address] Social History Tobacco [...] Contact Info) Description 12/07/2022 Procedure Pass [address] [address] 01/15/2025 1:30 PM EST Office Visit [address] [address] Anoop Sims DO 234 [place] [address] 01/20/2025 2:15 PM EST Appointment [address] [address] Cece Mccord MD [address] [place] [address] 07/02/2025 12:00 PM EDT Office Visit [address] [address] Cece Mccord MD [address] [place] [address] documented as of this encounter Visit Diagnoses Not on filedocumented in this encounter Additional Health Concerns Assessment Noted Time PHQ-2 Depression Total Score: 0 08/30/19 19 1:25 PM EDT documented as of this encounter Care Teams Leach Cell Operator Relationship Specialty Start Date End Date Cece Mccord MD [address] [place] [address] [email or web address] PCP - General Family Medicine 10/09/20 Rickie Hargrove MD [address] [place] [address] [address] [place] [phone] [email or web address] Historical LMR Provider 11/26/16 Everett Ramirez MD [address] [place] [address] [email or web address] Historical LMR Provider 11/26/16 Cece Mccord MD [address] [place] [address], [address] [place] [address] [email or web address] Insurance Assigned Provider 05/13/23 documented as of this encounter Additional Source Comments The information contained in this document represents components of the legal health record. It is not the complete legal health record.[facility]
--- OUTSIDE RECORDS SUMMARY | 2024-12-11 16:00 | XMS_ITS | Encounter Summary ---
Author Organization [facility] Address [address] [place], [place] [phone] Phone Care Team Providers Care Veterinary Technician Assistant Name Role Phone Rickie Hargrove MD Unavailable Rickie Hargrove MD Unavailable Everett Ramirez MD Unavailable [phone] Landon Jordan DO Unavailable Daniel Reyes MD Unavailable Miguel Angel Hargrove MD Unavailable Cosme Espinoza MD Unavailable [phone] Rickie Hargrove MD Primary Care Provider [phone] Cece Mccord MD Primary Care Provider [phone] Cece Mccord MD Unavailable [phone] Encounter Details Date Type Department Care Team (Late st Contact Info) Description 05/05/2017 Transcribe Orders [facility] [address] [place] [address] Everett Ramirez MD [address] [phone] [email or web address] Social History Tobacco Use Types Packs/Day Years [...] Description 12/07/2022 Procedure Pass [address] [address] 01/15/2025 1:30 PM EST Office Visit [address] [address] Anoop Sims DO 234 [place] [address] [email or web address] 01/20/2025 2:15 PM EST Appointment [address] [address] Cece Mccord MD [address] [place] [address] [email or web address] 07/02/2025 12:00 PM EDT Office Visit [address] [address] Cece Mccord MD [address] [place] [address] [email or web address] documented as of this encounter Visit Diagnoses Not on filedocumented in this encounter Care Teams Veterinary Technician Assistant Relationship Specialty Start Date End Date Rickie Hargrove MD [address] [place] [phone] [email or web address] PCP - General 12/01/16 10/08/20 Cece Mccord MD [address] [place] [address] [address] [place] [address] [email or web address] PCP - General Family Medicine 10/09/20 Rickie Hargrove MD [address] [place] [address] [address] [place] [phone] [email or web address] Insurance Assigned Provider 11/12/16 05/15/21 Rickie Hargrove MD [address] [place] [address] [address] [place] [phone] [email or web address] Historical LMR Provider 11/26/16 Everett Ramirez MD [address] [place] [address] [email or web address] Historical LMR Provider 11/26/16 Landon Jordan DO [address] [place] [address] Orthopedics & Sports Medicine, [place] [address] [email or web address] Historical LMR Provider 11/26/16 02/13/21 Daniel Reyes MD [address] [place] [address] [email or web address] Historical LMR Provider 11/26/16 02/13/21 Miguel Angel Hargrove MD [address] [place] [address] 7 [place] [phone] [email or web address] Historical LMR Provider 11/26/16 02/13/21 Cosme Espinoza MD [address] [place] [address], [address] [place] [address] [email or web address] Historical LMR Provider 11/26/16 02/13/21 Cece Mccord MD [address] [place] [address], [facility] 7 [place] [address] [email or web address] Insurance Assigned Provider 05/13/23 documented as of this encounter Additional Source Comments The information contained in this document represents components of the legal health record. It is not the complete legal health record.[facility]
--- OUTSIDE RECORDS SUMMARY | 2024-12-11 16:00 | XMS_ITS | Encounter Summary ---
Author Organization [facility] Address [address] [place] [address] Phone Care Team Providers Care Toddler Guide Name Role Phone Rickie Hargrove MD Unavailable Rickie Hargrove MD Unavailable Everett Ramirez MD Unavailable [phone] Landon Jordan DO Unavailable [phone] Daniel Reyes MD Unavailable Miguel Angel Hargrove MD Unavailable [phone] Cosme Espinoza MD Unavailable Rickie Hargrove MD Primary Care Provider [phone] Cece Mccord MD Primary Care Provider [phone] Cece Mccord MD Unavailable Encounter Details Date Type Department Care Team (Late st Contact Info) Description 11/02/2018 Ancillary Orders [facility] [address] [place] [address] Rickie Hargrove MD 234 [facility]. [address] [place] [address] [email or web address] Breast [email or web address] Social History Tobacco Use Types [...] st Contact Info) Description 12/07/2022 Procedure Pass [address] [address] 01/15/2025 1:30 PM EST Office Visit [address] [address] Anoop Sims DO 234 [place] [address] 01/20/2025 2:15 PM EST Appointment [address] [address] Cece Mccord MD [address] [place] [address] 07/02/2025 12:00 PM EDT Office Visit [address] [address] Cece Mccord MD [address] [place] [address] documented as of this encounter Visit Diagnoses Diagnosis Breast screening Breast screening, unspecified documented in this encounter Additional Health Concerns Assessment Noted Time PHQ-2 Depression Total Score: 0 08/30/19 19 1:25 PM EDT documented as of this encounter Care Teams Toddler Guide Relationship Specialty Start Date End Date Rickie Hargrove MD [address] [place], [place] [address] [place] [phone] [email or web address] PCP - General 12/01/16 10/08/20 Cece Mccord MD 234 [facility], [address] [place] [address] [email or web address] PCP - General Family Medicine 10/09/20 Rickie Hargrove MD 234 [facility] [address] [place] [phone] [email or web address] Insurance Assigned Provider 11/12/16 05/15/21 Rickie Hargrove MD [address] [place] [address] [address] [place] [phone] [email or web address] Historical LMR Provider 11/26/16 Everett Ramirez MD [address] [place] [address] [email or web address] Historical LMR Provider 11/26/16 Landon Jordan DO [address] [place] [address] Orthopedics & Sports Medicine, [facility] [place] [address] [email or web address] Historical LMR Provider 11/26/16 02/13/21 Daniel Reyes MD [address] [place] [address] [email or web address] Historical LMR Provider 11/26/16 02/13/21 Miguel Angel Hargrove MD [address] [place] [address] 7 [place] [phone] [email or web address] Historical LMR Provider 11/26/16 02/13/21 Cosme Espinoza MD [address] [place] [address] 7 [place] [address] [email or web address] Historical LMR Provider 11/26/16 02/13/21 Cece Mccord MD [address] [place] [address] 7 [place] [address] [email or web address] Insurance Assigned Provider 05/13/23 documented as of this encounter Additional Source Comments The information contained in this document represents components of the legal health record. It is not the complete legal health record.[facility]
--- OUTSIDE RECORDS SUMMARY | 2024-12-11 16:00 | XMS_ITS | Encounter Summary ---
Author Organization [facility] Address [address] [place], [place] [id number] Phone Care Team Providers Care Broadcast Traffic Coordinator Name Role Phone Rickie Hargrove MD Unavailable Rickie Hargrove MD Unavailable Everett Ramirez MD Unavailable [phone] Landon Jordan DO Unavailable Daniel Reyes MD Unavailable Miguel Angel Hargrove MD Unavailable [phone] Cosme Espinoza MD Unavailable Rickie Hargrove MD Primary Care Provider [phone] Cece Mccord MD Primary Care Provider [phone] Cece Mccord MD Unavailable [phone] Encounter Details Date Type Department Care Team (Late st Contact Info) Description 11/01/2017 Transcribe Orders [facility] [address] [place] [address] Everett Ramirez MD [address] [id number] [email or web address] Social History Tobacco Use Types Packs/Day Years [...] st Contact Info) Description 12/07/2022 Procedure Pass [address] [address] 01/15/2025 1:30 PM EST Office Visit [address] [address] Anoop Sims DO [address] [place] [address] [email or web address] 01/20/2025 2:15 PM EST Appointment [address] [address] Cece Mccord MD [address] [place] [phone] [email or web address] 07/02/2025 12:00 PM EDT Office Visit [address] [address] Cece Mccord MD [address] [place] [phone] [email or web address] documented as of this encounter Visit Diagnoses Not on filedocumented in this encounter Care Teams Broadcast Traffic Coordinator Relationship Specialty Start Date End Date Rickie Hargrove MD [address] [place] [phone] [email or web address] PCP - General 12/01/16 10/08/20 Cece Mccord MD [address] [place] [address] [address] [place] [address] [email or web address] PCP - General Family Medicine 10/09/20 Rickie Hargrove MD [address] [place] [address] [address] [place] [phone] [email or web address] Insurance Assigned Provider 11/12/16 05/15/21 Rickie Hargrove MD [address] [place] [address] [address] [place] [phone] [email or web address] Historical LMR Provider 11/26/16 Everett Ramirez MD [address] [place] [address] [email or web address] Historical LMR Provider 11/26/16 Landon Jordan DO [address] [place] [address] Orthopedics [facility] Sports Medicine, [place] [address] [email or web address] Historical LMR Provider 11/26/16 02/13/21 Daniel Reyes MD [address] [place] [address] [email or web address] Historical LMR Provider 11/26/16 02/13/21 Miguel Angel Hargrove MD [address] [place] [address] 7 [place] [phone] [email or web address] Historical LMR Provider 11/26/16 02/13/21 Cosme Espinoza MD [address] [place] [address], [address] [place] [address] [email or web address] Historical LMR Provider 11/26/16 02/13/21 Cece Mccord MD [address] [place] [address], [facility] [address] [place] [address] [email or web address] Insurance Assigned Provider 05/13/23 documented as of this encounter Additional Source Comments The information contained in this document represents components of the legal health record. It is not the complete legal health record.[facility]
--- OUTSIDE RECORDS SUMMARY | 2024-12-11 16:00 | XMS_ITS | Clinical Summary ---
Author Organization [facility] Address [address] [place] [address] [place] [address] Phone Care Team Providers Care Video Game Technician Name Role Phone Rickie Hargrove MD Primary [...] 0,12/22/2008,10/16 Influenza, Quadrivalent, Pre servative Free 11/13/2017 Ranovus SARS-COV-2 05/14/2020,04/23/2020 Pneumococcal Conjugate 13-Valent 01/22/2014 Pneumococcal [...] to complete this topic Insurance Human Medicare [facility] Medicare Care Teams Video Game Technician Relationship Specialty Start Date End Date Rickie Hargrove MD PCP - General 02/17/20
--- OUTSIDE RECORDS SUMMARY | 2024-12-11 16:00 | XMS_ITS | Encounter Summary ---
Author Organization [facility] Address [address] [facility] [address] [place] [address] Phone Care Team Providers Care Crime Lab Analyst Name Role Phone Rickie Hargrove MD Unavailable [phone] Everett Ramirez MD Unavailable [phone] Cece Mccord MD Primary Care Provider [phone] Cece Mccord MD Unavailable Reason for Visit * Reason Onset Date Comments Appointment 10/15/2024 Encounter Details Date Type Department Care Team (Late st Contact Info) Description 10/15/2024 Telephone [employer] [facility] [address] [place] [address] Cece Mccord MD 234 [facility] 7 [place] [address] [email or web address] Appointment Social History Tobacco [...] follow up with Dr Sims. Central Support Ring Facer (Please do not reply to this user; this inbox is not monitored.) Thank you. documented in this encounter Plan of Treatment Upcoming Encounters Date Type Department Care Team (Late st Contact Info) Description 12/07/2022 Procedure Pass [address] [address] 01/15/2025 1:30 PM EST Office Visit [facility] Medicine [address] [place] [address] Anoop Sims DO 234 [place] [address] 01/20/2025 2:15 PM EST Appointment [address] [address] Cece Mccord MD 234 [facility], [address] [place] [address] 07/02/2025 12:00 PM EDT Office Visit [facility] 234 [facility] [place] [address] Cece Mccord MD 234 [facility], [address] [place] [address] [email or web address] documented as of this encounter Visit Diagnoses Not on filedocumented in this encounter Additional Health Concerns Assessment Noted Time PHQ-9 Depression Total Score: 11 024 11:20 AM EDT PHQ-2 Depression Total Score: 4 11/27/19 24 11:20 AM EDT documented as of this encounter Care Teams Crime Lab Analyst Relationship Specialty Start Date End Date Cece Mccord MD 234 [facility] 7 [place] [address] [email or web address] PCP - General Family Medicine 10/09/20 Rickie Hargrove MD [address] [place] [address]. [address] [place] [phone] [email or web address] Historical LMR Provider 11/26/16 Everett Ramirez MD [address] [place] [address] [email or web address] Historical LMR Provider 11/26/16 Cece Mccord MD [address] [place] [address] 7 [place] [address] [email or web address] Insurance Assigned Provider 05/13/23 documented as of this encounter Additional Source Comments The information contained in this document represents components of the legal health record. It is not the complete legal health record.[facility]
--- OUTSIDE RECORDS SUMMARY | 2024-12-11 16:00 | XMS_ITS | Encounter Summary ---
Author Organization [facility] Address [address] [facility] [address] [place] [address] Phone Care Team Providers Care Auto Travel Counselor Name Role Phone Rickie Hargrove MD Unavailable Everett Ramirez MD Unavailable [phone] Cece Mccord MD Primary Care Provider [phone] Cece Mccord MD Unavailable [phone] Reason for Visit * Reason Onset Date Comments Medication Refill 11/05/2024 Encounter Details Date Type Department Care Team (Late st Contact Info) Description 11/05/2024 [facility] [address] [place] [address] Cece Mccord MD [address] [place] [address] 7 [place] [address] [email or web address] Medication Refill Social History Tobacco Use Types [...] Mccord MD - Family Medicine [facility] > Requested f/u: Return in about 3 months (around 01/08/2025) for with Dr Sims for check in. Upcoming visit: 01/15/2025 Anoop Sims DO - Family Medicine [facility] ACTIONS TAKEN BY Rama Ryan [place] - Criteria met. Rx(s) without protocol Renewal is at prescriber discretion. - prednisone Rx mismatch - Original(s) may be discontinued, , or changed to a different strength or form. * CampbellSudeep contreras - 11/05/2024 1:40 PM EDT Pt called in for a refill on predniSONE (DELTASONE) 10 MG tablet Central Support Industrial Services Worker (Please do not reply to this user; this inbox is not monitored.) Thank you. documented in this encounter Plan of Treatment Upcoming Encounters Date Type Department Care Team (Late st Contact Info) Description 12/07/2022 Procedure Pass [address] [address] 01/15/2025 1:30 PM EST Office Visit [address] [address] Anoop Sims DO [address] [place] [address] 01/20/2025 2:15 PM EST Appointment [address] [address] Cece Mccord MD [address] [place] [address] 07/02/2025 12:00 PM EDT Office Visit [address] [address] Cece Mccord MD [address] [place] [address] documented as of this encounter Visit Diagnoses Diagnosis Pulmonary emphysema, unspecified emphysema type documented in this encounter Additional Health Concerns Assessment Noted Time PHQ-9 Depression Total Score: 11 024 11:20 AM EDT PHQ-2 Depression Total Score: 4 11/27/19 24 11:20 AM EDT documented as of this encounter Care Teams Auto Travel Counselor Relationship Specialty Start Date End Date Cece Mccord MD 234 [facility], [address] [place] [address] [email or web address] PCP - General Family Medicine 10/09/20 Rickie Hargrove MD [address] [place], [place] [address] [place] [phone] [email or web address] Historical LMR Provider 11/26/16 Everett Ramirez MD [address] [place] [address] [email or web address] Historical LMR Provider 11/26/16 Cece Mccord MD [address] [place] [address] 7 [place] [address] [email or web address] Insurance Assigned Provider 05/13/23 documented as of this encounter Additional Source Comments The information contained in this document represents components of the legal health record. It is not the complete legal health record.[facility]
== END 2024-12-11 14:02 | disposition home or self-care (01) ==
LOC: HO.HGS 13:12
PROVIDERS: Visit Provider Surgery
DX: K43.2 Incisional hernia without obstruction or gangrene (principal)
CPT/HCPCS: 99203

== ENCOUNTER → 2024-12-11 14:22 | Outpatient (BNV) | payer MEDICARE, OTHER, SELFPAY | PROVIDERS: Absent Provider Hospitalist; Visit Provider Radiology Diagnostic Radiology | DX: R06.02 Shortness of breath (principal); Z95.2 Presence of prosthetic heart valve | CPT/HCPCS: 71046 ==